=== PATIENT | male | born 1965 | race Caucasian/White ===

== ENCOUNTER 2017-05-29 22:40 | Inpatient (IN) | payer MEDICAID ==
[2017-05-29] MEDS ORDERED: NS 1,000 ML IV ONE (22:46)
[2017-05-29] MEDS ORDERED: ONDANSETRON 4 MG/2 ML VIAL IVP ONE (22:46)
--- NOTE | 2017-05-29 22:49 | EDPHY ---
H & P Time Seen by Provider: 05/29/17 22:50 HPI/ROS: HPI CHIEF COMPLAINT: Alcohol Intoxication HISTORY OF PRESENT ILLNESS: Patient is a 52-year-old male, homeless, history of alcoholism, presents to the emergency room by EMS after he was found down in front of a [email or web address] parking lot. According to EMS he had a witnessed fall by bystanders, he fell with head strike in the parking lot. He arrives in a cervical collar. He is very lethargic and smells of alcohol. EMS reports that he had multiple liquor bottles around him. No visible external trauma on exam, but arrives. Upon arrival to the emergency room the patient has stable vital signs blood sugar was 123 prior to arrival. He is intoxicated. Unable to participate in history or review of systems. It is unclear how much alcohol he has had today. Patient appears to be very sleepy. Past Medical History: Homeless, alcoholism Past Surgical History: Unknown surgical history Social History: Homeless, daily alcohol use Family History: Unknown ROS REVIEW OF SYSTEMS: Limited due to patient's intoxication. Exam Constitutional Intoxicated, triage nursing summary reviewed, vital signs reviewed, lethargic upon arrival, smells of alcohol tachycardic Eyes normal conjunctivae and sclera, horizontal beating nystagmus consistent acute alcohol intoxication, otherwise pupils equal and react to light 3-4 mm equal. HENT oropharynx edentulous head/neck in rigid cervical collar placed by EMS. No obvious step-offs. Head shows no significant trauma on exam. Respiratory clear to auscultation bilaterally, normal breath sounds, no respiratory distress, no wheezing. Cardiovascular tachycardic, regular rhythm, no murmur, no edema, distal pulses normal. Gastrointestinal large abdomen, soft, non-tender, no rebound, no guarding, normal bowel sounds, no distension, no pulsatile mass. Genitourinary no CVA tenderness. Musculoskeletal no midline vertebral tenderness, full range of motion, no calf swelling, no tenderness of extremities, no meningismus, good pulses, neurovascularly intact. Skin pitting edema bilaterally with slight erythema to bilateral lower extremities. Neurologic very lethargic, intoxicated with alcohol. Differential Diagnosis: Includes but is not limited to in a particular order acute alcohol intoxication, alcohol abuse, dehydration, electrolyte abnormality , nausea vomiting from acute alcohol intoxication, intracranial bleed, traumatic injury, respiratory failure Medical Decision Making: Plan for this patient will proceed with CT scan head and neck without contrast for trauma, check serum alcohol level, IV establishment with blood draw, full surveillance monitor, pulse ox, watch closely for further sedation, IV fluids 1 L normal saline, Zofran for nausea and re- evaluate Re-evaluation: 2317: Patient back from CT. It is noted his heart rate is going up in the 130s to 150s, He appears to have more labored breathing. He is currently now at this time unresponsive to painful stimuli. Does not move anything. I have moved him from ER room 13 to ER room 2 for emergency intubation due to him having worsening vital signs, worsening resp. status, and being unresponsive , ETOH 500 Reason for intubation unresponsive, acute alcohol intoxication, respiratory failure. 2322: Patient is unresponsive. He does not respond to any painful stimuli. Patient in ER room 2. Heart rate currently 140. Pulse ox 97% on non- rebreather. Respiratory rate 30. Secretions in the oropharynx Being suctioned. Critical Care: Total Critical Care Time Spent Managing this Patient: 65 Minutes. This time was spent Exclusively with this patient. This Care was exclusive of procedures. The Organ System/life at risk was cardiac and respiratory This Patient was in Critical Condition because respiratory failure due to acute alcohol intoxication 2337: Patient was intubated with direct laryngoscopy with a MAC 4 blade. I was able to use the MAC 4 blade heard directly visualize the cords. A 7.5 endotracheal tube was placed directly through the cords. There was good color change. Humidified air. And chest x-ray was used to confirm tube placement. Patient CT scan head and neck initial scans were not able to be fully read limited due to motion artifact probably from respiratory motion. Patient after intubation will proceed back to CT scan head without contrast and CT scan cervical spine without contrast for repeat scans to rule out significant trauma. EKG interpretation by me on record in [employer] system. Impression time of EKG 2340, sinus tachycardia rate of 116 no acute ischemic change appreciated on the EKG. ED x-ray chest one view: Good endotracheal tube placement. OG in place. Bilateral lung churchill are clear. No evidence of pneumothorax. Serum alcohol level noted to be 494 upon arrival to the emergency room. 0100AM: CT scan head and neck repeat are negative for acute traumatic injury called to me by Dr. Mahajan. At this time patient hemodynamically stable improvement of vital signs after intubation. He will go to the ICU to metabolize his alcohol. Source: Patient, EMS - Personal History Tetanus Vaccine Date: <10YRS - Medical/Surgical History Hx Asthma: No Hx Chronic Respiratory Disease: No Hx Diabetes: No Hx Cardiac Disease: No Hx Renal Disease: No Hx Cirrhosis: No Hx Alcoholism: Yes Hx HIV/AIDS: No Hx Splenectomy or Spleen Trauma: No Other PMH: ETOH, Hep C - Social History Smoking Status: Never smoked Constitutional: Initial Vital Signs Temperature (C) 35.9 C L 05/29/17 22:47 Heart Rate 106 H 05/29/17 22:47 Respiratory Rate 14 05/29/17 22:47 Blood Pressure 103/85 H 05/29/17 22:47 O2 Sat (%) 95 05/29/17 22:47 O2 Delivery Mode Non-Rebreather Mask O2 (L/minute) 15 Allergies/Adverse Reactions: penicillin Allergy (Verified 11/18/14 00:22) Home Medications: Medication Instructions Recorded Pantoprazole Sodium [Protonix 40mg 40 mg PO DAILY #30 tab 05/30/17 (*)] Medical Decision Making - Data Points Laboratory Results: Laboratory Results 05/29/17 22:47 05/29/17 22:47 Medications Given: Discontinued Medications Chlorhexidine Gluconate (Peridex) 15 ml PO Q12@08,20 [facility] Stop: 11/26/17 03:14 Last Admin: 05/30/17 08:13 Dose: 15 ml Enoxaparin Sodium (Lovenox) 40 mg SC DAILY JOHAN Stop: 11/26/17 08:59 Last Admin: 05/30/17 08:13 Dose: 40 mg Etomidate (Etomidate) 20 mg IVP ONCE ONE Stop: 05/30/17 00:17 Last Admin: 05/30/17 01:21 Dose: Not Given Etomidate (Etomidate) 20 mg IVP ONCE ONE Stop: 05/30/17 23:56 Last Admin: 05/29/17 23:55 Dose: 20 mg Sodium Chloride (Ns) 1,000 mls @ 0 mls/hr IV EDNOW ONE; Wide Open PRN Reason: Protocol Stop: 05/29/17 22:47 Last Admin: 05/29/17 23:04 Dose: 1,000 mls Propofol (Diprivan 10 Mg/Ml (Premix)) 50 mls @ 0 mls/hr IV EDNOW ONE; As Directed PRN Reason: Protocol Stop: 05/29/17 23:37 Last Admin: 05/30/17 00:55 Dose: 50 mls Sodium Chloride (Ns) 1,000 mls @ 125 mls/hr IV CONT JOHAN Stop: 11/26/17 00:14 Last Admin: 05/30/17 01:28 Dose: 1,000 mls Propofol (Diprivan 10 Mg/Ml (Premix)) 100 mls @ 0 mls/hr IV CONT JOHAN; Titrate PRN Reason: Protocol Stop: 11/26/17 00:29 Last Admin: 05/30/17 01:28 Dose: 100 mls Thiamine HCl 500 mg/ Sodium (Chloride) 505 mls @ 505 mls/hr IV DAILY JOHAN Stop: 06/02/17 00:14 Last Admin: 05/30/17 03:50 Dose: Not Given Fentanyl/Sodium Chloride (Fentanyl 10 Mcg/Ml (Premix)) 100 mls @ 0 mls/hr IV CONT JOHAN; As Directed PRN Reason: Protocol Stop: 06/09/17 00:59 Last Admin: 05/30/17 01:29 Dose: 100 mls Potassium Chloride 10 meq/ (Sodium Chloride) 100 mls @ 100 mls/hr IV Q1H JOHAN Stop: 05/30/17 05:44 Last Admin: 05/30/17 05:00 Dose: 100 mls Magnesium Sulfate/Dextrose (Magnesium Sulf 1 Gm (Premix)) 100 mls @ 100 mls/hr IV ONCE ONE Stop: 05/30/17 08:32 Last Admin: 05/30/17 08:13 Dose: 100 mls Calcium Gluconate 1 gm/ (Dextrose) 60 mls @ 120 mls/hr IV ONCE ONE Stop: 05/30/17 10:29 Last Admin: 05/30/17 10:12 Dose: 60 mls Lorazepam (Ativan Injection) 0 mg IVP Q1H PRN; Protocol PRN Reason: Alcohol Withdrawal w/IV access Stop: 11/26/17 00:10 Last Admin: 05/30/17 16:18 Dose: 2 mg Ondansetron HCl (Zofran) 4 mg IVP EDNOW ONE Stop: 05/29/17 22:47 Last Admin: 05/29/17 23:05 Dose: 4 mg Ondansetron HCl (Zofran) 4 mg IVP ONCE ONE Stop: 05/30/17 00:18 Last Admin: 05/30/17 02:12 Dose: Not Given Pantoprazole Sodium (Protonix) 40 mg IVP ONCE ONE Stop: 05/30/17 03:01 Last Admin: 05/30/17 03:36 Dose: 40 mg Pantoprazole Sodium (Protonix) 40 mg IVP BID [facility] Stop: 11/26/17 08:59 Last Admin: 05/30/17 08:13 Dose: 40 mg Potassium Chloride (Klor-Con) 40 meq TUBE ONCE ONE Stop: 05/30/17 10:01 Last Admin: 05/30/17 10:20 Dose: 40 meq Propofol (Diprivan) 40 mg IVP EDNOW ONE Stop: 05/30/17 23:56 Last Admin: 05/30/17 00:00 Dose: 40 mg Propofol (Diprivan) 40 mg IVP EDNOW ONE Stop: 05/30/17 00:36 Last Admin: 05/30/17 01:22 Dose: Not Given Succinylcholine Chloride (Quelicin) 100 mg IVP ONCE ONE Stop: 05/30/17 23:56 Last Admin: 05/29/17 23:55 Dose: 100 mg Thiamine HCl (Vitamin B-1) 100 mg PO DAILY [facility] Stop: 11/26/17 08:59 Last Admin: 05/30/17 10:39 Dose: Not Given Thiamine HCl (Vitamin B-1) 100 mg TUBE DAILY [facility] Stop: 11/26/17 08:59 Last Admin: 05/30/17 10:28 Dose: 100 mg Departure - Departure Disposition: Home, Routine, Self-Care Clinical Impression: Tachycardia Alcoholic intoxication Qualifiers: Complication of substance-induced condition: uncomplicated Qualified Code(s): F10.920 - Alcohol use, unspecified with intoxication, uncomplicated Respiratory failure Qualifiers: Chronicity: acute Respiratory failure complication: hypoxia Qualified Code(s): J96.01 - Acute respiratory failure with hypoxia Condition: Good
[2017-05-29 22:55] LABS: PLATELET COUNT 155 10^3/uL (150-400)
[2017-05-29] MEDS ORDERED: PROPOFOL/EMULSION 50 ML IV ONE (23:36)
--- NOTE | 2017-05-30 00:04 | CPEKG ---
Heart Rate: 116 RR Interval: 517 P-R Interval: 152 QRSD Interval: 102 QT Interval: 356 QTC Interval: 495 P [place]: 49 QRS [place]: 246 T Wave [place]: 52 EKG Severity - ABNORMAL ECG - EKG Impression: SINUS TACHYCARDIA EKG Impression: SUPERIOR QRS AXIS EKG Impression: CONSIDER RIGHT VENTRICULAR HYPERTROPHY EKG Impression: BORDERLINE PROLONGED QT INTERVAL Electronically Signed By: Bry Hernandez 31-May-2017 20:40:20
[2017-05-30] MEDS ORDERED: ONDANSETRON 4 MG/2 ML VIAL IVP PRN (00:07)
[2017-05-30] MEDS ORDERED: LORazepam 2 MG/ML INJ IVP PRN (00:11)
[2017-05-30] MEDS ORDERED: NS 1,000 ML IV SCH (00:15)
[2017-05-30] MEDS ORDERED: THIAMINE HCL 500 MG in NS 500 ML IV SCH (00:15)
[2017-05-30] MEDS ORDERED: SUCCINYLCHOLINE CHLORIDE 200 MG/10 ML VIAL IVP ONE (00:16)
[2017-05-30] MEDS ORDERED: ETOMIDATE 40 MG/20 ML INJ IVP ONE ×2 (00:16→23:55)
[2017-05-30] MEDS ORDERED: ONDANSETRON 4 MG/2 ML VIAL IVP ONE (00:17)
[2017-05-30] MEDS ORDERED: PANTOPRAZOLE SODIUM 40 MG VIAL IVP ONE ×2 (00:24→03:00)
[2017-05-30] MEDS ORDERED: DEXMEDETOMIDINE IN 0.9 % NACL 50 ML IV SCH (00:30)
[2017-05-30] MEDS ORDERED: PROPOFOL/EMULSION 100 ML IV SCH (00:30)
[2017-05-30] MEDS ORDERED: PROPOFOL 200 MG/20 ML VIAL IVP ONE ×2 (00:35→23:55)
[2017-05-30] MEDS ORDERED: PROTOCOL MAGNESIUM 1 DOSE IV PRN (00:37)
[2017-05-30] MEDS ORDERED: PROTOCOL K PHOSPHATE 1 DOSE IV PRN (00:37)
[2017-05-30] MEDS ORDERED: PROTOCOL CALCIUM 1 DOSE IV PRN (00:37)
[2017-05-30] MEDS ORDERED: PROTOCOL POTASSIUM 1 DOSE MISC PRN (00:37)
--- NOTE | 2017-05-30 00:51 | PDGENHP ---
History and Physical - Chief Complaint Fall, unresponsive - History of Present Illness Source-patient is intubated and unresponsive. Case discussed with ED provider and EMR was reviewed. HPI - this is a 52-year-old gentleman with past medical history significant for alcohol dependence, HCV who is homeless and presents via EMS after he was found unresponsive following a fall. Patient apparently had been pain around the [employer]. He was ambulating and had a witnessed fall by bystanders. EMS arrived and brought the patient to the emergency department. It was noted that he had multiple bottles of alcohol surrounding him and had strong odor of alcohol. In the ED, patient remained lethargic and minimally responsive. He developed tachycardia to the 140s to 150s. He also had noted increased work of breathing. CT head and neck were limited secondary to motion artifact. Patient was subsequently intubated and placed on sedation. Additionally, patient had an episode of emesis post intubation. There is no report of any emesis prior to patient being intubated. History Information - Allergies/Home Medication List Allergies/Adverse Reactions: penicillin Allergy (Verified 11/18/14 00:22) Home Medications: NK [No Known Home Meds] 11/18/14 [Last Taken Unknown] I have personally reviewed and updated: medical history, social history Past Medical History: Unable to complete has due to patient being intubated. Chart was reviewed. No family listed. - Past Medical History Additional medical history: HCV, alcohol dependence, bolus emphysema noted on CT - Surgical History Additional surgical history: None listed in previous records however patient does have a scar surgical scar on his left medial ankle. - Family History Additional family history: unable to obtain 2/2 to pt intubated and unresponsive - Social History Smoking Status: Never smoked Alcohol Use: Heavy (Amount unknown) Drug Use: Other (Unknown) Additional social history: Patient currently homeless. Review of Systems Review of Systems: Unable to obtain review of systems secondary to patient arriving unresponsive and currently intubated and sedated. Physical Exam Physical Exam: Temp Pulse Resp BP Pulse Ox 35.9 C L 106 H 14 103/85 H 95 05/29/17 22:47 05/29/17 22:47 05/29/17 22:47 05/29/17 22:47 05/29/17 22:47 Constitutional: no apparent distress, chronically ill appearing, other (Patient intubated and sedated. Unresponsive to painful stimuli. Patient appears older than stated age and chronically ill. He is disheveled and malodorous.) Eyes: anicteric sclera, other (Pupils minimally reactive.) Ears, Nose, Mouth, Throat: poor dentition, dry mucous membranes, other (ET tube and OG T in place) Cardiovascular: no murmur, rub, or gallop, tachycardia (One 100s), edema (1+), other (Limited cardiac exam secondary to distant heart sounds.) Peripheral Pulses: 1+: dorsalis-pedis (R), dorsalis-pedis (L) Respiratory: no respiratory distress (Intubated), reduced air movement ( Bibasilar), inspiratory crackles, No clear to auscultation, No expiratory wheeze , No respiratory distress Gastrointestinal: other (Hypoactive bowel sounds, obese abdomen.) Genitourinary: gaytan in urethra Skin: warm, erythema (Bilateral anterior legs. Blanchable.), No mottled, No rash Musculoskeletal: other (Unable to obtain 2/2 patient's intubation and sedation) Neurologic: other (Unable to obtain 2/2 patient intubated sedated) Lab Data & Imaging Review 05/29/17 22:47 05/29/17 22:47 WBC 6.62 10^3/uL (3.80-9.50) 05/29/17 22:47 RBC 4.70 10^6/uL (4.40-6.38) 05/29/17 22:47 Hgb 15.9 g/dL (13.7-17.5) 05/29/17 22:47 Hct 47.0 % (40.0-51.0) 05/29/17 22:47 MCV 100.0 fL (81.5-99.8) H 05/29/17 22:47 MCH 33.8 pg (27.9-34.1) 05/29/17 22:47 MCHC 33.8 g/dL (32.4-36.7) 05/29/17 22:47 RDW 13.8 % (11.5-15.2) 05/29/17 22:47 Plt Count 155 10^3/uL (150-400) 05/29/17 22:47 MPV 10.4 fL (8.7-11.7) 05/29/17 22:47 Neut % (Auto) 49.8 % (39.3-74.2) 05/29/17 22:47 Lymph % (Auto) 29.3 % (15.0-45.0) 05/29/17 22:47 Garland % (Auto) 16.6 % (4.5-13.0) H 05/29/17 22:47 Eos % (Auto) 2.6 % (0.6-7.6) 05/29/17 22:47 Baso % (Auto) 0.9 % (0.3-1.7) 05/29/17 22:47 Nucleat RBC Rel Count 0.0 % (0.0-0.2) 05/29/17 22:47 Absolute Neuts (auto) 3.30 10^3/uL (1.70-6.50) 05/29/17 22:47 Absolute Lymphs (auto) 1.94 10^3/uL (1.00-3.00) 05/29/17 22:47 Absolute Monos (auto) 1.10 10^3/uL (0.30-0.80) H 05/29/17 22:47 Absolute Eos (auto) 0.17 10^3/uL (0.03-0.40) 05/29/17 22:47 Absolute Basos (auto) 0.06 10^3/uL (0.02-0.10) 05/29/17 22:47 Absolute Nucleated RBC 0.00 10^3/uL (0-0.01) 05/29/17: Immature Gran % 0.8 % (0.0-1.1) 05/29/17 22:47 Immature Gran # 0.05 10^3/uL (0.00-0.10) 05/29/17 22:47 Puncture Site LEFT RADIAL 05/29/17 23:50 Patient Temperature 37.0 DEGREES 05/29/17 23:50 pCO2 51 mmHg (34-38) H 05/29/17 23:50 pO2 115 mmHg (65-75) H 05/29/17 23:50 Total CO2 24 mEq/L (23-27) 05/29/17 23:50 ABG pH 7.26 (7.35-7.45) L 05/29/17 23:50 ABG PO2/FiO2 Ratio 288 RATIO 05/29/17 23:50 ABG HCO3 22 mEq/L (22-26) 05/29/17 23:50 ABG O2 Saturation 96 % (92-95) H 05/29/17 23:50 ABG Base Excess -5.2 mEq/L (-2.5-2.5) L 05/29/17 23:50 O2 Concentration % 40 % (0-100) 05/29/17 23:50 Actual Respiration Rate 18 05/29/17 23:50 Set Respiration Rate 16 05/29/17 23:50 SIMV YES 05/29/17 23:50 Tidal Volume 550 05/29/17 23:50 End Tidal CO2 35 05/29/17 23:50 PEEP 5 05/29/17 23:50 Peak Inspir Pressure 13 05/29/17 23:50 Pressure Support 7 05/29/17 23:50 Sodium 148 mEq/L (135-145) H 05/29/17 22:47 Potassium 3.4 mEq/L (3.5-5.2) L 05/29/17 22:47 Chloride 110 mEq/L (97-110) 05/29/17 22:47 Carbon Dioxide 22 mEq/l (22-31) 05/29/17 22:47 Anion Gap 16 mEq/L (8-16) 05/29/17 22:47 BUN 10 mg/dL (7-23) 05/29/17 22:47 Creatinine 0.9 mg/dL (0.7-1.3) 05/29/17 22:47 Estimated GFR > 60 05/29/17 22:47 Glucose 104 mg/dL (70-100) H 05/29/17 22:47 Calcium 9.3 mg/dL (8.5-10.4) 05/29/17 22:47 Phosphorus 3.8 mg/dL (2.5-4.5) 05/29/17 22:47 Magnesium 2.0 mg/dL (1.6-2.3) 05/29/17 22:47 Total Bilirubin 0.5 mg/dL (0.1-1.4) 05/29/17 22:47 Conjugated Bilirubin 0.4 mg/dL (0.0-0.5) 05/29/17 22:47 Unconjugated Bilirubin 0.1 mg/dL (0.0-1.1) 05/29/17 22:47 AST 153 IU/L (17-59) H 05/29/17 22:47 ALT 142 IU/L (21-72) H 05/29/17 22:47 Alkaline Phosphatase 138 IU/L (38-126) H 05/29/17 22:47 Troponin I < 0.012 ng/mL (0.000-0.034) 05/29/17 22:47 Total Protein 6.8 g/dL (6.3-8.2) 05/29/17 22:47 Albumin 3.7 g/dL (3.5-5.0) 05/29/17 22:47 Urine Opiates Screen NEGATIVE (NEGATIVE) 05/30/17 00:00 Urine Barbiturates NEGATIVE (NEGATIVE) 05/30/17 00:00 Ur Phencyclidine Scrn NEGATIVE (NEGATIVE) 05/30/17 00:00 Ur Amphetamine Screen NEGATIVE (NEGATIVE) 05/30/17 00:00 U Benzodiazepines Scrn NON-NEGATIVE (NEGATIVE) H 05/30/17 00:00 Urine Cocaine Screen NEGATIVE (NEGATIVE) 05/30/17 00:00 U Marijuana (THC) Screen NEGATIVE (NEGATIVE) 05/30/17 00:00 Ethyl Alcohol 494 mg/dL (0-10) H* 05/29/17 22:47 Imaging Review: Addendum Impression: Head CT: 1. No acute intracranial abnormalities. 2. Mild generalized volume loss. 3. Chronic fracture deformity of the right dynamic arch. Cervical Spine: 1. No acute abnormalities. 2. Multilevel degenerative changes and foraminal stenoses, as above. 3. Cannot exclude ligament, spinal cord and/or vascular abnormalities on this exam. If there is persistent pain or neurologic deficit, consider MRI of the cervical spine. Dr. Mahajan discussed these findings by telephone with Kenneth Hedrick MD on at 0113 hours. Addendum Dictated By: Scar Mahajan MD *This report was compiled using a voice recognition dictation system and may contain typographical errors* T:PSCRIBE 05/30/1754 Electronically Signed by:Scar Mahajan MD 05/30/17116 CC: Kenneth Hedrick MD; Patient,NotPresent; Sylvie Walters MD Addendum The CT head and cervical spine were repeated due to motion artifact on the earlier exam. History, comparison exam and technique are unchanged. Findings: CT head: Scalp/skull: Fracture deformity of the right zygomatic arch, stable since 03/19/2016. Brain sulci: Mildly prominent. Ventricles: Normal in size and configuration. No hydrocephalus. Extra-axial spaces: No masses or fluid collections. Parenchyma: No abnormal densities. No CT evidence of mass, hemorrhage or acute or chronic territorial vascular insult. Dural sinuses: No abnormal densities. Sellar/suprasellar region: Intact. Skull base and craniocervical junction: Intact. CT cervical spine: Fractures: None. Craniocervical junction: Patent foramen magnum. No Chiari 1 malformation. Alignment: Normal lordosis. No scoliosis. Posterior longitudinal ligament: Not ossified. Soft tissues: No abnormalities. Vertebrae: No CT evidence of infection or neoplasm. Degenerative changes: Multilevel degenerative disk disease throughout, most apparent from C3 through C7. Foraminal stenosis secondary to uncovertebral arthrosis, moderate on the right and mild on the left at C3-C4, severe on the right and mild on the left at C4-C5, severe bilaterally at C5-C6, and mild on the left at C6-C7. Incidental findings: Interval placement of partially visualized endotracheal and orogastric tubes. Debris/fluid in the posterior naso and oropharynx. Mild inflammatory mucosal thickening of the paranasal sinuses. Biapical bullous emphysema. Chest 1 View, 05/29/2017 History: Intubation unresponsive Comparison: None Findings: Single portable AP view of the chest is submitted for interpretation. Lines/tubes: Endotracheal tube terminates overlying the trachea approximately 2.2 cm above the monica. Lungs: Low lung volumes. Pulmonary venous congestion. Subtle right upper lobe opacities. Pleura: No pleural effusion or pneumothorax. Heart and mediastinum: Cardiomediastinal silhouette is within normal limits for technique. Bones and soft tissues: No acute osseous abnormalities. Soft tissues are grossly normal.. . Impression: 1. Endotracheal tube terminates overlying the trachea approximately 2.2 cm above the monica. 2. Subtle right upper lobe opacities, possibly aspiration. 3. Pulmonary venous congestion. KUB-image reviewed and report is still pending. Feeding tube ends in the stomach. Normal bowel gas pattern. Ascites. No free air under the diaphragm is appreciated upon my read. Radiology report is pending. EKG additional interpertation: Sinus tachycardia in the 110s. No acute ST changes. QTC 495. Assessment & Plan Assessment: acute encephalopathy - mostly likely related to acute alcohol intoxication versus hypercarbia or combination thereof. CT head was repeated after patient was intubated and sedated. There is no evidence of acute process noted per Radiology. Patient and is now intubated and requiring some sedation once he is more medically stable. Alcoholic intoxication (Acute) - alcohol level nearly 500. Patient is a placed on CIWA protocol. He is currently sedated and intubated. Continue with aggressive IV fluid hydration. IV thiamine is currently on back order. Patient does have an NG tube in place however he has a thing at active emesis once this is stabilized will consider putting through the tube feed. Respiratory failure (Acute) hypercapnic - patient is status post intubation. He does have evidence of bolus emphysema on imaging studies available. He does not have any wheezing on exam. DuoNeb will be available p.r.n. Additionally patient did have a episodes of emesis in the emergency department. This was after he was intubated. He does have evidence of aspiration on chest x-ray but has not had any fever so will hold off on antibiotics. G-tube is in place and plan put on intermittent suction. Patient started on PPI therapy. Tachycardia (Acute) - secondary to acute alcohol intoxication and acute respiratory failure. Heart rate since improved status post intubation and some sedation. EKG without evidence of acute cardiac process. Lower extremity edema-baseline is unknown. Will obtain a CK and a venous ultrasound this patient does have some blanchable erythema and swelling. Bolus emphysema-noted on CT neck. Patient EMR lists that patient is a nonsmoker unknown if he had any history. DuoNeb available p.r.n.. Patient is currently intubated. Aspiration-patient with some possibly coffee-ground appearing drainage from his NG tube. Will obtain occult blood. Proton prompt pump in therapy twice daily. Given his acute encephalopathy will try to avoid H2 blockers at this time. Will need to monitor patient's electrolytes and the including magnesium with the PPI. Hyponatremia-likely related to acute dehydration and hypovolemia. Patient will receive IV fluid hydration and will plan to repeat sodium with a BMP in the morning. May need to transition fluids to hypotonic formulation if worsening status. Hypokalemia-mild in setting of alcohol intoxication will need to monitor all electrolytes closely and replace per protocol. Transaminitis-secondary to alcohol dependence possible underlying cirrhosis or acute alcoholic hepatitis. FEN - continue aggressive IV fluid hydration as noted above. Will monitor electrolytes and replace if needed. Patient is NPO with OGT in place. PPX - SCDs. possible upper GI bleeding with recent emesis. obtaining occult blood. if negative then will initiate dvt ppx. protonix as noted above. COR - no next of kin is listed. Will assume that code status is full at this time until further discussions can be obtained with the patient when he is stabilized and Dispo - patient has been admitted to inpatient status in the ICU. He is critically ill and requiring intubation and has acute ICU care needs. Anticipate greater than 2 midnight stay.
[2017-05-30] MEDS ORDERED: fentaNYL/NACL 100 ML IV SCH (01:00)
[2017-05-30] MEDS ORDERED: SUCCINYLCHOLINE CHLORIDE 200 MG/10 ML SYR IVP ONE ×2 (01:03→23:55)
[2017-05-30] MEDS ORDERED: IPRATROPIUM/ALBUTEROL 3 ML DEYVIAL IH PRN (01:04)
[2017-05-30] MEDS: POTASSIUM Cl (KCl) 10 MEQ in NS 100 ML IV SCH ×3 (02:29→05:00)
[2017-05-30] MEDS: CHLORHEXIDINE GLUCONATE 15 ML UDL PO SCH ×2 (03:35→08:13)
[2017-05-30 06:47] LABS: PLATELET COUNT 122 10^3/uL (150-400)
[2017-05-30 06:58] LABS: CREATINE KINASE 129 IU/L (0-224)
[2017-05-30 06:59] LABS: INR 1.06 (0.83-1.16)
[2017-05-30] MEDS ORDERED: CALCIUM GLUCONATE 50 ML IV ONE (07:33)
[2017-05-30] MEDS ORDERED: MAGNESIUM SULF 1 GM/DEXTROSE 100 ML IV ONE (07:33)
[2017-05-30] MEDS ORDERED: POTASSIUM Cl (KCl) 100 ML IV SCH (07:45)
[2017-05-30] MEDS ORDERED: ENOXAPARIN 40 MG/0.4 ML SYR SC SCH (09:00)
[2017-05-30] MEDS ORDERED: PANTOPRAZOLE SODIUM 40 MG VIAL IVP SCH (09:00)
[2017-05-30] MEDS ORDERED: THIAMINE HCL 100 MG TAB PO SCH (09:00)
[2017-05-30] MEDS ORDERED: POTASSIUM Cl (KCl) 10 MEQ in NS 100 ML IV SCH (09:30)
[2017-05-30] MEDS ORDERED: CALCIUM GLUCONATE 1 GM in D5W 50 ML IV ONE (10:00)
[2017-05-30] MEDS ORDERED: POTASSIUM CL 20 MEQ TAB TUBE ONE (10:00)
--- NOTE | 2017-05-30 10:29 | PDMN ---
Medical Necessity Medical necessity: Pt meets IP criteria per MD; est los >2 mn for eval/tx of acute encephalopathy, hypercapnic respiratory failure, tachycardia, alcohol intoxication, LE edema & aspiration; pt critically ill & unresponsive; requiring intubation & NG tube; admit to ICU for close monitoring/further workup & aggressive IVFs; hx alcoholism, homelessness & bolus emphysema; per H& P & order 05/30/17
[2017-05-30 11:26] VITALS: TEMP 96.8
[2017-05-30] MEDS ORDERED: NICOTINE 21 MG/24 HR PATCH TD SCH (12:15)
[2017-05-30] MEDS ORDERED: POTASSIUM Cl (KCl) 40 MEQ in D5W 1/2 NS 1,000 ML IV SCH (12:30)
--- NOTE | 2017-05-30 13:03 | GCON ---
[f rep st] CONSULTATION DATE OF CONSULTATION: 05/30/2017 REFERRING PHYSICIAN: Alondra Rasmussen MD PULMONARY/CRITICAL CARE CONSULTATION REASON FOR REFERRAL: Evaluation and management of respiratory failure. HISTORY OF PRESENT ILLNESS: Mr. Foreman is a 52-year-old male with a history of alcohol abuse and he patitis, who is homeless. He was apparently at [facility] and appeared intoxicated. He had a witnes sed fall. He was brought to the emergency department and was lethargic and minimally responsive with tachycardia. Because inability to protect his airway, he was intubated. The patient had an episode of emesis after intubation, but there was no report of emesis prior to intubation. Overnight, he has be en sedated and has been fairly stable. He started to wake up. He nods his head appropriately to some simple questions. PAST MEDICAL HISTORY: 1. Hepatitis C. 2. Alcohol abuse. MEDICATIONS: At time of admission, no known medications. ALLERGIES: Penicillin. SOCIAL HISTORY: The patient is homeless. He has a history of alcohol abuse. There is no known histor y of smoking. REVIEW OF SYSTEMS: Unobtainable. PHYSICAL EXAMINATION: GENERAL: The patient is intubated and sedated. He nods appropriately to some s imple questions, but is a bit inconsistent. VITAL SIGNS: His blood pressure is 95/67, his heart rate is 82. He is afebrile. Oxygen saturations are 99% on 40% oxygen. HEENT: Normocephalic and atraumatic. No icterus. NECK: His C-collar is in place. No adenopathy. CHEST: Clear to auscultation. CARDIAC: Re gular rate and rhythm without murmur. ABDOMEN: Soft and nontender. Bowel sounds are present. EXTREMIT IES: No clubbing, cyanosis, or edema. LABORATORY: Hemoglobin is 13.3, down from 15.9. White blood count is 4.5. A sodium is 150, up from 1 48. A potassium is 3.2. A carbon dioxide level is 16, creatinine 0.6, a calcium is 6.6 with an albumi n of 2.2. An AST is 182, up from 153. An INR is 1.1. An arterial blood gas shows a pH of 7.39, with a pO2 of 110, a CO2 of 33, and a bicarbonate of 20. An IMV with a rate of 18 and tidal volume of 550, 40% oxygen. An alcohol level was 494 at admission. IMAGING: A chest x-ray shows some mild infiltrate in the left base. Images were reviewed by me. CT s can of the head shows some mild generalized volume loss. A cervical spine CT scan shows no acute abno rmalities, but cannot exclude spinal injury. ASSESSMENT: 1. Acute alcohol intoxication. The patient has a history of chronic alcohol use. He was admitted wit h a fall and inability to protect his airway. He has been waking up a bit more now. 2. Acute respiratory failure. This was due to inability to protect his airway, with vomiting after i ntubation. There is no history of vomiting prior to intubation or aspiration. His gas exchange is shaina rly good right now and his mental status is more alert, although still probably not at baseline. He d id fairly well with a weaning trial, although he had an episode of emesis. 3. Status post fall. He has no evidence of intracranial hemorrhage. His C-spine has not been cleared and he still has a collar on. 4. Hypernatremia. The patient's sodium was a bit high on admission and has climbed up a bit overnigh t. His IV fluids are D5 half-normal saline with potassium. I expect this will start to correct once h e is fully rehydrated. 5. Hypokalemia. This is mild. The patient is on IV potassium. RECOMMENDATIONS: 1. We will try CPAP again, and possibly extubate. 2. IV fluids will be continued. His potassium will be replaced. 3. He is at risk for alcohol withdrawal, and CIIA protocol will be instituted if he has signs/sympto ms of withdrawal. /[id number]/MODL
--- NOTE | 2017-05-30 13:59 | SOAPPROG ---
SOAP Progress Note Assessment/Plan: Assessment: 52 year almost alcoholic who was intubated overnight because of blood alcohol of 500 and being found down. This time no evidence of any trauma. Cervical collar is removed and neck is cleared under protocol with a clear CT scan and no pain or clinical features involving his neck Plan: DC cervical collar 05/30/17 13:57 Objective: Vital Signs Temp Pulse Resp BP Pulse Ox 36.0 C 114 H 17 124/90 H 100 05/30/17 10:00 05/30/17 13:00 05/30/17 13:00 05/30/17 13:00 05/30/17 13:00 Laboratory Results 05/30/17 06:30 05/30/17 06:30 05/29/17 05/30/17 05/31/17 05:59 05:59 05:59 Intake Total 3021 Output Total 575 Balance 2446 PT 14.0 SEC (12.0-15.0) 05/30/17 06:30 INR 1.06 (0.83-1.16) 05/30/17 06:30 ICD10 Worksheet Patient Problems: Problems Problem Status Onset Alcoholic intoxication Acute Respiratory failure Acute Tachycardia Acute
--- NOTE | 2017-05-30 14:31 | HOSPPROG ---
Hospitalist Progress Note Assessment/Plan: # acute encephalopathy - admission presume secondary to acute alcohol intoxication with a blood alcohol level of 494 in the emergency department Patient successfully extubated this afternoon and is mentating normally- is clearly no longer gravely disabled or an imminent threat to himself - will vacate 72 hr hold - continue p.o. Thiamine - monitor for impending alcohol withdrawal # Respiratory failure (Acute) hypercapnic - cxr (personally reviewed and interpreted) no acute infiltrates on vent oxygen saturations 100% on 40% FiO2 Successfully extubated this morning - continue duo nebs - speech therapy swallow evaluation # witnessed fall- patient brought to emergency department after witnessed fall in a grocery store Hard neck collar in place-CT head and spine without acute trauma - have Trauma surgery of bowel to clear neck collar # hypernatremia-sodium 150 suspect secondary to poor free water intake with acute intoxication - change normal saline to D5 half NS for gradual correction overnight #Hypokalemia-mild in setting of alcohol intoxication will need to monitor all electrolytes closely and replace per protocol. #Transaminitis-secondary to acute alcoholic hepatitis. FEN -NPO speech developed post extubation PPX - SCDs. I have discussed case with the RN-we will address Trauma surgery to eval patient postextubation to clear neck collar Subjective: Agitated post extubation Objective: Vital Signs Temp Pulse Resp BP Pulse Ox 36.0 C 114 H 17 124/90 H 100 05/30/17 10:00 05/30/17 13:00 05/30/17 13:00 05/30/17 13:00 05/30/17 13:00 Laboratory Results 05/30/17 06:30 05/30/17 06:30 05/29/17 05/30/17 05/31/17 05:59 05:59 05:59 Intake Total 3021 Output Total 575 Balance 2446 PT 14.0 SEC (12.0-15.0) 05/30/17 06:30 INR 1.06 (0.83-1.16) 05/30/17 06:30 - Physical Exam Constitutional: chronically ill appearing Eyes: anicteric sclera Ears, Nose, Mouth, Throat: dry mucous membranes Cardiovascular: tachycardia Respiratory: rhonchi Gastrointestinal: normoactive bowel sounds Genitourinary: no bladder fullness Skin: warm Musculoskeletal: No asymmetric calves Neurologic: No AAOx3 Psychiatric: agitated Lymph, Heme, Immunologic: no cervical LAD ICD10 Worksheet Patient Problems: Problems Problem Status Onset Alcoholic intoxication Acute Respiratory failure Acute Tachycardia Acute
[2017-05-30 15:11] VITALS: RESP 18
[2017-05-30 16:30] VITALS: BP 129/84; PULSE 114; O2SAT 92
[2017-05-31] MEDS ORDERED: THIAMINE HCL 100 MG TAB TUBE SCH (09:00)
--- NOTE | 2017-05-31 16:39 | GDS ---
[f rep st] DISCHARGE SUMMARY DISCHARGE DIAGNOSES: 1. Acute toxic encephalopathy secondary to alcohol intoxication. 2. Acute respiratory failure secondary to alcohol intoxication. 3. Hypernatremia. 4. Hypokalemia. 5. Severe alcohol abuse. 6. Alcohol-related hepatitis. HISTORY OF PRESENT ILLNESS: This is a 52-year-old male who presents on 05/29/2017 with acute encepha lopathy. For details of patient's initial presentation, please see the history and physical dated . CONSULTATIVE SERVICES: 1. Trauma Surgery. 2. Pulmonary/Critical Care. PROCEDURES: On 05/29/2017, patient was intubated for airway protection. HOSPITAL COURSE BY ISSUE: 1. Acute hypoxic respiratory failure: Patient was admitted to the emergency department with severe encephalopathy and was emergently intubated for airway protection. Remained intubated overnight and was quickly extubated the morning after admission. Patient was weaned to room air soon after extubat ion without any pulmonary complications. 2. Acute encephalopathy: Patient presented with a blood alcohol level 494 at presentation, which co ntributed to his respiratory failure. Again, was extubated within 12 hours of hospitalization. Ment al status had markedly cleared. Patient requested food, requested a shower, and within 2 hours post extubation was insistent on leaving the hospital. Patient cleared speech evaluation as well as thera pies, although had not had correction of his electrolytes or a full workup for Hemoccult-positive sto ols. Was discharged with recommendations for a proton pump inhibitor and outpatient followup with a primary care provider. 3. Hyponatremia: Suspect secondary to encephalopathy from alcohol abuse and lack of free water inta ke. Patient was instructed to take increased amounts of free water post disposition. 4. Sinus tachycardia: Suspect likely related to evolving alcohol withdrawal during the early part o f his stay. Patient was discharged, and we suspect will likely immediately consume alcohol. MEDICATIONS: At the time of disposition, the recommendation was to take an outpatient PPI. PENDING STUDIES: At the time of this dictation, none. FOLLOWUP APPOINTMENTS: Include with a [id number] primary care provider at [facility]. TIME SPENT: I spent greater than 30 minutes in the planning and coordination of this discharge. /[id number]/MODL
--- NOTE | 2017-06-02 14:26 | GCON ---
[f rep st] CONSULTATION DATE OF CONSULTATION: 05/30/2017 The patient is a 52-year-old male, alcoholic, who was found down and brought to the hospital. He was intubated because of failure to protect his airway. There were no real signs of trauma. His blood alcohol at the time was over 400. He did have a witnessed collapse in front of a [employer]. Since his admission, the night before, he has awakened, sobered up, and wishes to have his C-collar r emoved. I was consulted for that purpose. His neck CT scan was negative. At present, he has full r tad of motion of his neck with no tenderness and no limitations and no neurologic symptoms. His nec k collar was therefore discontinued by protocol. ALLERGIES: Penicillin. MEDICATIONS: None known. PAST MEDICAL HISTORY: Includes alcoholism. PAST SURGICAL HISTORY: There is no known surgical history. REVIEW OF SYSTEMS: Reveals no major medical problems on a full 10-point review of systems, but his m abhi is somewhat unreliable. PHYSICAL EXAM: GENERAL: An alert 52-year-old male in no acute distress. VITAL SIGNS: He is afebri le. HEAD AND NECK: Exam reveals neck to be supple and nontender. Full range of motion. Pupils are normal. Conjunctivae are slightly red. There are no oral lesions. Occlusion is normal. His neck is supple, nontender with full range of motion. CHEST: Clear and symmetric. COR: Regular rhythm. ABDOMEN: Soft and nontender. EXTREMITIES: Reveal full range of motion, full distal pulses and no evidence of trauma. NEUROLOGIC: Also physiologic with no evidence of trauma. IMPRESSION: No evidence of any significant trauma. I suspect his syncopal episode was secondary to alcohol intoxication and his cervical collar could be safely removed at this point. /[id number]/MODL
== END 2017-05-30 17:50 | disposition home or self-care (01) | DRG 917 ==
LOC: EDUNIT# → F2N 05-30 00:50
PROVIDERS: ADMIT Family Medicine; ATTEND Hospitalist
PROC: 5A1935Z Respiratory Ventilation, Less than 24 Consecutive Hours (ICD-10-PCS; principal; 2017-05-29)
PROC: 0BH18EZ Insertion of Endotracheal Airway into Trachea, Via Natural or Artificial Opening Endoscopic (ICD-10-PCS; principal; 2017-05-29)
DX: T51.0X1A Toxic effect of ethanol, accidental (unintentional), initial encounter (principal); F10.229 Alcohol dependence with intoxication, unspecified; J96.01 Acute respiratory failure with hypoxia; E87.0 Hyperosmolality and hypernatremia; E87.6 Hypokalemia; K70.10 Alcoholic hepatitis without ascites; Z59.0 Homelessness
CPT/HCPCS: 80305; G0480; J0330; J0610; J1650; J2060; J2405; J2704; J3010; J3475; J3480

== ENCOUNTER 2017-05-30 23:23 | Emergency (ER) | payer MEDICAID ==
--- NOTE | 2017-05-30 23:34 | EDPHY ---
H & P Time Seen by Provider: 05/30/17 23:26 HPI/ROS: Chief Complaint: Fall, unresponsive HPI: 52-year-old homeless male was found unresponsive on the bathroom floor of a nondenominational this evening. Patient had and a abrasion with bleeding to the bridge of his nose. He was just seen last night with alcohol intoxication and was intubated. He is discharged in intensive care unit to 30 this afternoon. Patient states that he has been drinking heavily since discharge. Denies falls. States that he"fights with his friends". She also suffers from obstructive sleep apnea. No fevers or chills. Complaining of some mild sore throat after intubation. No cough. No nausea or vomiting. ROS: 10 point Review of Systems is negative except as noted in the HPI. PMH: Obstructive sleep apnea, alcoholism, homeless Social History: No smoking, daily heavy alcohol Family History: non-contributory Physical Exam: Gen: Awake, somnolent, answering questions,, Airway Intact HEENT: Head: Atraumatic Eyes: PERRLA, EOMI Nose: No epistaxis Mouth: Normal dentition, Airway patent Face: Has a small abrasion to the bridge of his nose with no active bleeding. No deformity Neck: non-tender, no stepoff, cervical collar in place Chest: non-tender, lungs CTA Heart: normal heart tones Abd: soft, non-tender, atraumatic Pelvis: non-tender, stable to AP and Lateral compression Back: atraumatic, no midline tenderness Ext: atramatic, full ROM Skin: no rash Neuro: CN II-XII intact, Strength 5/5 in all extremities, sensation intact in all extremities - Personal History Tetanus Vaccine Date: <10YRS - Medical/Surgical History Hx Asthma: No Hx Chronic Respiratory Disease: No Hx Diabetes: No Hx Cardiac Disease: No Hx Renal Disease: No Hx Cirrhosis: No Hx Alcoholism: Yes Hx HIV/AIDS: No Hx Splenectomy or Spleen Trauma: No Other PMH: ETOH, Hep C, lung and esophogeal cancer per pt report - Social History Smoking Status: Heavy smoker Constitutional: Initial Vital Signs Temperature (C) 36.7 C 05/30/17 23:23 Heart Rate 109 H 05/30/17 23:23 Respiratory Rate 16 05/30/17 23:23 Blood Pressure 120/90 H 05/30/17 23:23 O2 Sat (%) 95 05/30/17 23:23 O2 Delivery Mode Nasal Cannula O2 (L/minute) 2 Allergies/Adverse Reactions: penicillin Allergy (Verified 11/18/14 00:22) Home Medications: Medication Instructions Recorded Pantoprazole Sodium [Protonix 40mg 40 mg PO DAILY #30 tab 05/30/17 (*)] Medical Decision Making - Diagnostics Imaging Results: CT scan of the head neck show atrophy but no acute bleed or injury per Dr. Linda. Imaging: Discussed imaging studies w/ call center analyst Radiologist ED Course/Re-evaluation: 52-year-old intoxicated male found down. Patient denies falling. Patient states that he injured his nose while fighting with friends. CT scan of his head neck are negative. Laboratory evaluations unremarkable. Will out him to metabolize his alcohol and reassess. Patient is now awake and appropriate. Ambulating unassisted to the bathroom. No current complaints. Patient is tolerating oral fluids. Patient is ready for discharge to discharge cover [facility]. Will discharge with a Librium prepack given his history. - Data Points Laboratory Results: Laboratory Results 05/30/17 23:30 05/30/17 23:30 05/30/17 05/30/17 23:30 23:30 WBC 7.18 10^3/uL 10^3/uL (3.80-9.50) RBC 4.34 10^6/uL L 10^6/uL (4.40-6.38) Hgb 14.8 g/dL g/dL (13.7-17.5) Hct 44.1 % % (40.0-51.0) MCV 101.6 fL H fL (81.5-99.8) MCH 34.1 pg pg (27.9-34.1) MCHC 33.6 g/dL g/dL (32.4-36.7) RDW 14.2 % % (11.5-15.2) Plt Count 138 10^3/uL L 10^3/uL (150-400) MPV 10.3 fL fL (8.7-11.7) Neut % (Auto) 59.8 % % (39.3-74.2) Lymph % (Auto) 21.9 % % (15.0-45.0) Dewitt % (Auto) 14.9 % H % (4.5-13.0) Eos % (Auto) 1.9 % % (0.6-7.6) Baso % (Auto) 0.7 % % (0.3-1.7) Nucleat RBC Rel Count 0.0 % % (0.0-0.2) Absolute Neuts (auto) 4.29 10^3/uL 10^3/uL (1.70-6.50) Absolute Lymphs (auto) 1.57 10^3/uL 10^3/uL (1.00-3.00) Absolute Monos (auto) 1.07 10^3/uL H 10^3/uL (0.30-0.80) Absolute Eos (auto) 0.14 10^3/uL 10^3/uL (0.03-0.40) Absolute Basos (auto) 0.05 10^3/uL 10^3/uL (0.02-0.10) Absolute Nucleated RBC 0.00 10^3/uL 10^3/uL (0-0.01) Immature Gran % 0.8 % % (0.0-1.1) Immature Gran # 0.06 10^3/uL 10^3/uL (0.00-0.10) Sodium 147 mEq/L H mEq/L (135-145) Potassium 3.6 mEq/L mEq/L (3.5-5.2) Chloride 110 mEq/L D mEq/L (97-110) Carbon Dioxide 24 mEq/l D mEq/l (22-31) Anion Gap 13 mEq/L mEq/L (8-16) BUN 9 mg/dL mg/dL (7-23) Creatinine 0.7 mg/dL mg/dL (0.7-1.3) Estimated GFR > 60 Glucose 84 mg/dL mg/dL (70-100) Calcium 9.1 mg/dL D mg/dL (8.5-10.4) Ethyl Alcohol 341 mg/dL H mg/dL (0-10) Departure - Departure Disposition: Home, Routine, Self-Care Clinical Impression: Alcoholic intoxication Condition: Good Instructions: Alcohol Intoxication (ED), Chlordiazepoxide (By mouth) Referrals: [facility],. [Clinic] - As per Instructions
[2017-05-30 23:39] LABS: PLATELET COUNT 138 10^3/uL (150-400)
[2017-05-31] MEDS ORDERED: CHLORDIAZEPOXIDE 25MG PREPK#6 BTL TAKEHOME ONE (03:30)
[2017-05-31 04:25] VITALS: BP 138/94; PULSE 107; RESP 16; TEMP 98.2; O2SAT 90
== END 2017-05-31 04:22 ==
LOC: EDUNIT#
DX: F10.129 Alcohol abuse with intoxication, unspecified (principal); F17.200 Nicotine dependence, unspecified, uncomplicated
CPT/HCPCS: G0480

== ENCOUNTER 2017-06-08 13:57 | Inpatient (IN) | payer MEDICAID ==
--- NOTE | 2017-06-08 14:13 | CPEKG ---
Heart Rate: 130 RR Interval: 462 P-R Interval: 144 QRSD Interval: 98 QT Interval: 312 QTC Interval: 459 P [place]: 53 QRS [place]: 257 T Wave [place]: 66 EKG Severity - ABNORMAL ECG - EKG Impression: SINUS TACHYCARDIA EKG Impression: LEFT ANTERIOR FASCICULAR BLOCK Electronically Signed By: Vane Mendoza 08-Jun-2017 23:03:02
[2017-06-08] MEDS ORDERED: chlordiazePOXIDE 25 MG CAP PO ONE (14:27)
[2017-06-08] MEDS ORDERED: LORazepam 2 MG/ML INJ IVP ONE ×4 (14:27→16:23)
[2017-06-08] MEDS ORDERED: ONDANSETRON 4 MG/2 ML VIAL IVP ONE (14:27)
[2017-06-08] MEDS ORDERED: NS 1,000 ML IV ONE ×2 (14:30→15:40)
[2017-06-08 14:40] LABS: PLATELET COUNT 193 10^3/uL (150-400)
--- NOTE | 2017-06-08 15:39 | EDPHY ---
H & P Stated Complaint: Chest pain unable to finish bottle of ETOH. May be "withdrawal" - Personal History Current Tetanus/Diphtheria Vaccine: Yes Current Tetanus Diphtheria and Acellular Pertussis (TDAP): Yes Tetanus Vaccine Date: <10YRS - Medical/Surgical History Hx Asthma: No Hx Chronic Respiratory Disease: No Hx Diabetes: No Hx Cardiac Disease: No Hx Renal Disease: No Hx Cirrhosis: No Hx Alcoholism: Yes Hx HIV/AIDS: No Hx Splenectomy or Spleen Trauma: No Other PMH: ETOH, Hep C, lung and esophogeal cancer per pt report - Social History Smoking Status: Heavy smoker Time Seen by Provider: 06/08/17 14:29 HPI/ROS: Chief complaint: Chest pain, alcohol withdrawal History of present illness: This is a 52-year-old male who presents to the emergency department reporting chest pain. He reports the onset of symptoms earlier today. He describes palpitation and soreness. He is concerned this is from his alcohol use. He has a history of alcohol abuse. He has been trying to cut down on his alcohol intake over the last 1-2 days. His last drink was this morning. Since then he has been feeling unwell. He does state at one point he may have passed out today. He is having some nausea and vomiting. He denies other associated signs or symptoms. Review of systems: A 10 point review of systems was obtained and other than described above was negative (Keny Odom) - Physical Exam Exam: General Appearance: Alert, unwell Ng but nontoxic. Eyes: Pupils equal and round no pallor or injection. ENT, Mouth: Mucous membranes moist. Respiratory: There are no retractions, lungs are clear to auscultation. Cardiovascular: Tachycardic with regular rhythm. Gastrointestinal: Abdomen is soft and non tender, no masses, bowel sounds normal. Neurological: Alert. Strength and sensation intact and symmetrical. He is very tremulous. Skin: Warm and dry, no rashes. Musculoskeletal: Neck is supple non tender. Extremities are symmetrical, full range of motion. Psychiatric: There is no agitation. (Keny Odom) Constitutional: Initial Vital Signs Temperature (C) 37.8 C 06/08/17 13:59 Heart Rate 143 H 06/08/17 13:59 Respiratory Rate 18 06/08/17 13:59 Blood Pressure 145/109 H 06/08/17 13:59 O2 Sat (%) 91 L 06/08/17 13:59 O2 Delivery Mode Nasal Cannula O2 (L/minute) 3 Allergies/Adverse Reactions: penicillin Allergy (Verified 11/18/14 00:22) Home Medications: Medication Instructions Recorded NK [No Known Home Meds] 06/08/17 Medical Decision Making - Diagnostics Imaging: I viewed and interpreted images myself ED Course/Re-evaluation: Patient is discussed with my secondary supervising physician Dr. Vane Mendoza. Patient presents to the emergency department apparently in alcohol withdrawal. He has been symptomatically treated but has worsened here. He will be admitted to Dr. Rasmussen to the intensive care unit for further evaluation and care. The plan has been discussed with the patient who voiced understanding and agreement with it. (Keny Odom) Differential Diagnosis: Included but not limited to alcohol intoxication, alcohol withdrawal, polysubstance abuse, cardiac dysrhythmias, ACS, pulmonary infections (Keny Odom ) Other Provider: I evaluated and participated in the management of the patient. I also evaluated the patient independently. My co-signature indicates that I have reviewed this chart and I agree with the findings and plan of care as documented. My personal H&P findings include: 52-year-old male, chronic alcoholic, presents emergency department reporting chest pain. He has noted palpitations as well as some soreness across his chest. Of note, patient has been trying to cut down his alcohol intake over the last several days and has been detoxing himself on the streets. Last drink this morning. Patient has nausea. Vomiting. Denies fever. Denies cough, denies lightheadedness, dizziness, or fainting although he thinks he may have passed out. On physical examination the patient is tremulous, tachycardic. Lungs are clear to auscultation. Heart is tachycardic but regular. Abdomen is benign. Patient does have tremors of his tongue, extremities. He had an IV placed and received multiple doses of IV Ativan. EKG demonstrates sinus tachycardia with no acute ischemic changes. Patient's troponin is negative. Alcohol level is 85. Despite the multiple rounds of IV Ativan and p.o. Librium, the patient remains tachycardic, hypertensive, and tremulous. Patient will need to be admitted to the hospital for his significant alcohol withdrawal. Course was discussed with the hospitalist service. He will be admitted to the ICU. Suspect the patient will most likely require Precedex. (Vane Mendoza) - Data Points Laboratory Results: Laboratory Results 06/08/17 14:15 06/08/17 14:15 Medications Given: Enoxaparin Sodium (Lovenox) 40 mg SC DAILY JOHAN Stop: 12/06/17 08:59 Last Admin: 06/09/17 08:07 Dose: 40 mg Famotidine (Pepcid) 20 mg PO BID JOHAN Stop: 12/05/17 20:59 Last Admin: 06/09/17 08:07 Dose: 20 mg Dexmedetomidine HCl 400 mcg/ (Sodium Chloride) 104 mls @ 0 mls/hr IV CONT JOHAN; Titrate PRN Reason: Protocol Stop: 12/05/17 16:59 Last Admin: 06/09/17 14:32 Dose: 104 mls Thiamine HCl 500 mg/ Sodium (Chloride) 505 mls @ 505 mls/hr IV DAILY JOHAN Stop: 06/10/17 09:59 Last Admin: 06/09/17 08:07 Dose: 505 mls Potassium Chloride 20 meq/ (Sodium Chloride) 1,000 mls @ 125 mls/hr IV CONT JOHAN Stop: 12/06/17 12:29 Last Admin: 06/09/17 14:32 Dose: 1,000 mls Lorazepam (Ativan Injection) 0 mg IVP Q1H PRN; Protocol PRN Reason: Alcohol Withdrawal w/IV access Stop: 12/05/17 20:11 Last Admin: 06/09/17 08:25 Dose: 4 mg Lorazepam (Ativan Injection) 2 mg IVP Q6HRS JOHAN Stop: 12/06/17 11:59 Last Admin: 06/09/17 12:07 Dose: 2 mg Nicotine (Nicoderm Cq) 21 mg TD DAILY JOHAN Stop: 12/05/17 17:14 Last Admin: 06/09/17 08:06 Dose: 21 mg Ondansetron HCl (Zofran) 4 mg IVP Q4HRS PRN PRN Reason: Nausea/Vomiting, Can't Take PO Stop: 12/05/17 16:28 Last Admin: 06/09/17 14:31 Dose: 4 mg Discontinued Medications Chlordiazepoxide HCl (Librium) 25 mg PO EDNOW ONE Stop: 06/08/17 14:28 Last Admin: 06/08/17 15:01 Dose: 25 mg Chlordiazepoxide HCl (Librium) 25 mg PO TID JOHAN Stop: 12/05/17 21:59 Last Admin: 06/09/17 08:07 Dose: 25 mg Sodium Chloride (Ns) 1,000 mls @ 0 mls/hr IV ONCE ONE PRN Reason: Wide Open Stop: 06/08/17 14:31 Last Admin: 06/08/17 14:34 Dose: 1,000 mls Sodium Chloride (Ns) 1,000 mls @ 0 mls/hr IV ONCE ONE PRN Reason: Wide Open Stop: 06/08/17 15:41 Last Admin: 06/08/17 15:46 Dose: 1,000 mls Dextrose/Sodium Chloride (D5w 1/2 Ns) 1,000 mls @ 125 mls/hr IV CONT JOHAN Stop: 12/05/17 17:14 Last Admin: 06/09/17 05:01 Dose: 1,000 mls Lorazepam (Ativan Injection) 2 mg IVP EDNOW ONE Stop: 06/08/17 14:28 Last Admin: 06/08/17 14:34 Dose: 2 mg Lorazepam (Ativan Injection) 2 mg IVP EDNOW ONE Stop: 06/08/17 14:55 Last Admin: 06/08/17 15:00 Dose: 2 mg Lorazepam (Ativan Injection) 2 mg IVP EDNOW ONE Stop: 06/08/17 15:41 Last Admin: 06/08/17 15:46 Dose: 2 mg Lorazepam (Ativan Injection) 2 mg IVP EDNOW ONE Stop: 06/08/17 16:24 Last Admin: 06/08/17 16:27 Dose: 2 mg Lorazepam (Ativan Injection) 0 mg IVP Q1H PRN; Protocol PRN Reason: Alcohol Withdrawal w/IV access Stop: 06/09/17 05:28 Last Admin: 06/08/17 18:19 Dose: 2 mg Lorazepam (Ativan Injection) 2 mg IVP Q6HRS JOHAN Stop: 06/12/17 17:59 Last Admin: 06/08/17 19:56 Dose: 2 mg Ondansetron HCl (Zofran) 4 mg IVP EDNOW ONE Stop: 06/08/17 14:28 Last Admin: 06/08/17 14:34 Dose: 4 mg Departure - Departure Disposition: [facility] Acute Clinical Impression: Alcohol withdrawal Qualifiers: Complication of substance-induced condition: uncomplicated Qualified Code(s): F10.230 - Alcohol dependence with withdrawal, uncomplicated Condition: Fair
[2017-06-08] MEDS ORDERED: LORazepam 1 MG TAB PO PRN (16:28)
[2017-06-08] MEDS ORDERED: ONDANSETRON 4 MG/2 ML VIAL IVP PRN (16:29)
[2017-06-08] MEDS ORDERED: ONDANSETRON DISINTEGRATING 4 MG TAB PO PRN (16:29)
[2017-06-08] MEDS ORDERED: NS 1,000 ML IV SCH (16:30)
[2017-06-08] MEDS ORDERED: LORazepam 2 MG/ML INJ IVP PRN (16:31)
[2017-06-08] MEDS: LORazepam 2 MG/ML INJ IVP PRN ×2 (17:11→18:19)
--- NOTE | 2017-06-08 17:57 | GHP ---
[f rep st] HISTORY AND PHYSICAL DATE OF ADMISSION: 06/08/2017 CHIEF COMPLAINT: Palpitations. HISTORY OF PRESENT ILLNESS: This is a 52-year-old male with extensive history of alcohol abuse and i ntermittent withdrawal who presents to the emergency department today with complaints of palpitations . Per the patient's report, he was attempting to decrease his outpatient alcohol consumption in the past 24 to 48 hours. Reports that his last drink was this morning. He presented to the emergency de partment approximately at 1300 on 06/08 with complaints of palpitations. The patient denied any shor tness of breath or cough. Denies subjective fevers or chills. Does report some chest pressure that goes along with his racing heart rate. Denies vomiting. Denies diarrhea. Denies melena, hematochez ia. The patient has had recent emergency department visits as well as hospitalizations with intubati on secondary to alcohol intoxication. PAST MEDICAL HISTORY: 1. Extensive alcohol abuse and withdrawal. 2. Hepatitis C. 3. Tobacco dependence. SOCIAL HISTORY: The patient is a very heavy smoker, heavy alcohol, more than pints a day. Denies il licit drugs or marijuana. FAMILY HISTORY: Negative for known heart disease. REVIEW OF SYSTEMS: A 10-point review of systems is negative with the exception of that reported in t he HPI. PHYSICAL EXAMINATION: VITAL SIGNS: Blood pressure 145/109, heart rate 143, respiratory rate 18, sat urating 91% on room air, 37.8. GENERAL: This is a disheveled middle-aged male who is somnolent on e xamination. HEENT: Notable for dry mucous membranes. Eye exam is negative for any icterus. CARDIA C: Patient is regular but tachycardic. PULMONARY: Diminished respiratory effort. No wheezing is a ppreciated. GASTROINTESTINAL: Positive bowel sounds. Abdomen is soft. MUSCULOSKELETAL: Negative for any lower extremity edema. SKIN: There are scattered excoriations. NEUROLOGIC: Patient is huy nolent but has tremor and tongue fasciculations on examination. PSYCHIATRIC: He is cooperative curr ently. DATA: White count 6.6, hematocrit 47.3, platelet count of 193. Sodium 147. AST 223, up from last c heck at 182. Troponin less than 0.012. chest x-ray, which I personally reviewed and interpreted, sh ows no acute infiltrates. Radiology does comment on peribronchial cuffing. ASSESSMENT AND PLAN: This is a 52-year-old male with extensive alcohol history presenting with palpi tations. 1. Acute alcohol withdrawal. The patient is tachycardic, tremulous on my examination, somnolent sec ondary to Ativan received in the emergency department. Based on physical examination, including tac hycardia in the 140s, suspect the patient will fail 12 mg Ativan challenge and will likely need Prece dex in the next 6 to 12 hours. Will admit the patient to the ICU, continue aggressive CIWA monitorin g with IV Ativan and use Precedex if necessary. 2. Alcohol abuse. Will give the patient IV thiamine as I do think he is high risk as well as gastro intestinal prophylaxis. Can follow his liver function tests. 3. Sinus tachycardia secondary to alcohol withdrawal. Will fluid resuscitate as he does appear hypo volemic on examination and treat aggressively on the CIWA. 4. Hypernatremia suspect secondary to poor oral intake. Will use D5 half-normal for initial mainten ance IV fluids. 5. Tobacco dependence. Can place nicotine patch. 6. Hepatitis C. Will follow liver function tests. 7. Prophylaxis with Lovenox. 8. Diet: Regular if he is protecting his airway and safe to swallow. DISPOSITION: I expect greater than 2 midnights as the patient is presenting with severe alcohol with drawal requiring IV benzodiazepines and likely a Precedex drip. Discussed the case with the emergenc y room physician. Patient will be triaged to the ICU for care. /[id number]/MODL
[2017-06-08] MEDS ORDERED: LORazepam 2 MG/ML INJ IVP SCH (18:00)
[2017-06-08] MEDS: NICOTINE 21 MG/24 HR PATCH TD SCH (19:56)
[2017-06-08] MEDS: DEXMEDETOMIDINE HCL 400 MCG in NS 100 ML IV SCH (19:57)
[2017-06-08] MEDS: THIAMINE HCL 500 MG in NS 500 ML IV SCH (19:57)
[2017-06-08] MEDS: chlordiazePOXIDE 25 MG CAP PO SCH (21:33)
[2017-06-08] MEDS: FAMOTIDINE 20 MG TAB PO SCH (21:33)
[2017-06-08] MEDS: D5W 1/2 NS 1,000 ML IV SCH (21:36)
[2017-06-09] MEDS: LORazepam 2 MG/ML INJ IVP PRN ×3 (01:37→08:25)
[2017-06-09 05:00] LABS: PLATELET COUNT 138 10^3/uL (150-400)
[2017-06-09] MEDS: D5W 1/2 NS 1,000 ML IV SCH (05:01)
--- NOTE | 2017-06-09 05:42 | PDMN ---
Medical Necessity Medical necessity: C/M review: est. > 2 MN LOS for eval and TX of acute severe alcohol withdrawal, sinus tachycardia, hypernatremia, requiring IV Thiamine, ongoing IV Precedex infusion, IV fluids, IV Ativan, CIWA protocol, cardiac monitoring, pulse oximetry, supplemental O2, comorbid history of tobacco dependence, extensive and alcohol abuse and withdrawal, Hepatitis C per H/P.
[2017-06-09] MEDS: NICOTINE 21 MG/24 HR PATCH TD SCH (08:06)
[2017-06-09] MEDS: FAMOTIDINE 20 MG TAB PO SCH ×2 (08:07→20:18)
[2017-06-09] MEDS: ENOXAPARIN 40 MG/0.4 ML SYR SC SCH (08:07)
[2017-06-09] MEDS: chlordiazePOXIDE 25 MG CAP PO SCH (08:07)
[2017-06-09] MEDS: THIAMINE HCL 500 MG in NS 500 ML IV SCH (08:07)
[2017-06-09] MEDS ORDERED: MIDAZOLAM 2 MG/2 ML VIAL IVP PRN (10:57)
[2017-06-09] MEDS: LORazepam 2 MG/ML INJ IVP SCH ×3 (12:07→23:57)
[2017-06-09] MEDS ORDERED: NS W/ 20 KCl/L 1,000 ML IV SCH (12:30)
--- NOTE | 2017-06-09 13:00 | GCON ---
[f rep st] CONSULTATION DATE OF CONSULTATION: 06/09/2017 REASON FOR CONSULTATION: Alcohol withdrawal. HISTORY: The patient is a 52-year-old chronic alcoholic, who was admitted from the emergency room wi th apparent complaints of palpitations and some chest tightness. He was hospitalized 10-days ago at [facility] for acute alcohol intoxication and alcohol withdrawal. He required intubation and ventilation overnight secondary to decreased mental status. Blood alcohol was almost 500 on admissio n. He left prior to developing severe withdrawal. After that discharge, he has continued to drink. His last drink, apparently, was a day prior to his presentation yesterday. Blood alcohol was 85 on admission. In the emergency department, he was tachycardic, hypertensive and tremulous. He did rece john Ativan. There was no evidence of an acute myocardial process. Because of high-dose Ativan, he t riggered Precedex and was admitted to the intensive care unit. This morning he remains in withdrawal with a CIWA score of 18. PAST MEDICAL HISTORY: Remarkable for chronic alcohol abuse and previous withdrawal, heavy smoking, h epatitis C. ALLERGIES: Penicillin. SOCIAL HISTORY: Apparently homeless, positive alcohol, positive tobacco. FAMILY HISTORY: Unobtainable. REVIEW OF SYSTEMS: Largely unobtainable. He denies problems with his heart. PHYSICAL EXAMINATION: GENERAL: Reveals a gentleman who is somnolent secondary to medications, but a rousable. He has a coarse tremor. VITAL SIGNS: Blood pressure is currently 145/100, heart rate 80 with sinus rhythm on the monitor, on 4 L, saturations are 95%. He is afebrile. HEENT: Remarkable f or some minor lesions around the nose. Mucous membranes are dry. There is no jugular venous distent ion, lymphadenopathy, or thyromegaly. PULMONARY: The chest reveals coarse breath sounds, diminished at the bases. There are no wheezes, no obvious rhonchi. Expiratory phase is mildly prolonged. HEA RT: Regular in rate and rhythm. There is a soft systolic murmur, no gallop. ABDOMEN: Soft and non tender. The liver edge is palpable. There are no masses. : No Chiu catheter is in place. EXTR EMITIES: Unremarkable for edema. SKIN: Without rash or significant lesions. DATABASE: Chest x-ray on admission showed a relatively high left hemidiaphragm with evidence of poss ible increased vascularity. LABORATORY: White blood cell count 6600, hematocrit 47, platelets 193,000. PT and PTT were normal o n admission. Sodium 143, potassium 3.7, BUN 9 with creatinine 0.6. Glucose 100. Phosphorus and mag nesium have been normal, bilirubin 1. Transaminases are elevated at 137 and 106 respectively, about the same as per his previous admission. Albumin is 3.1. ASSESSMENT: 1. Alcohol withdrawal, severe. He is on Precedex and scheduled Ativan per protocol. Haldol and Sita sed are ordered p.r.n. for acute agitation. Thiamin is being given. 2. History of heavy tobacco abuse, likely chronic obstructive pulmonary disease. He is on oxygen an d a nicotine patch. DuoNeb will be given. 3. Alcoholic hepatitis, history of hepatitis C. 4. Prophylaxis: On enoxaparin and famotidine. PLAN AND RECOMMENDATIONS: 1. The patient will be kept in the intensive care unit on the CITN protocol. 2. Intravenous fluids will be continued. 3. Electrolytes and CBC will be monitored. 4. Thiamine will be continued. 5. Precedex will be weaned as tolerated. 6. DuoNeb will be added to his current regimen. Further plans recommendations will be made based on his progress over the next 12 to 24 hours. /[id number]/MODL
--- NOTE | 2017-06-09 13:27 | HOSPPROG ---
Hospitalist Progress Note Assessment/Plan: #Acute alcohol withdrawal: wean Precedex, cont CIWA, MV/T/F #Acute toxic encephalopathy: due to w/d #Accelerated HTN: related to w/d. Treat withdrawal #Mild alcohol hepatitis: trending down, cont to monitor #Sinus tachycardia: resolved. Due to w/d #Hypernatremia: resolved #Acute hypoxic resp failure: Duonebs. h/o tobacco. No e/o PNA #Diet: NPO, IVFs #Disp: cont ICU admission for Precedex, neuro checks Subjective: agitated today Objective: Vital Signs Temp Pulse Resp BP Pulse Ox 37.5 C 95 28 H 143/99 H 95 06/09/17 12:00 06/09/17 13:00 06/09/17 13:00 06/09/17 13:00 06/09/17 13:00 Laboratory Results 06/09/17 04:40 06/09/17 04:40 06/08/17 06/09/17 06/10/17 04:59 05:59 05:59 Intake Total Output Total 1300 Balance -1300 - Physical Exam Constitutional: unkempt, cachectic Eyes: PERRL Ears, Nose, Mouth, Throat: moist mucous membranes Cardiovascular: tachycardia Respiratory: no respiratory distress Gastrointestinal: normoactive bowel sounds, soft, non-tender abdomen, other (no grimace with palpations) Genitourinary: no bladder fullness Skin: warm Musculoskeletal: other Psychiatric: encephalopathic ICD10 Worksheet Patient Problems: Problems Problem Status Onset Alcohol withdrawal Acute Alcoholic intoxication Acute Respiratory failure Acute Tachycardia Acute
[2017-06-09] MEDS: POTASSIUM Cl (KCl) 20 MEQ in NS 1,000 ML IV SCH ×2 (14:32→22:58)
[2017-06-09] MEDS: DEXMEDETOMIDINE HCL 400 MCG in NS 100 ML IV SCH (14:32)
[2017-06-09] MEDS: IPRATROPIUM/ALBUTEROL 3 ML DEYVIAL IH SCH ×2 (15:50→20:43)
--- NOTE | 2017-06-09 18:02 | ASMTCMCOM ---
CM Note CM Note Notes: 52yr old male admitted for palputations, ETOH W/D, Hypernatremia. Patient has a hx od homelessness, Hep C and he is a smoker. Patient wants to quit drinking and now in W/D. CM to follow for discharge needs. Date Signed: 06/09/2017 04:23 PM Electronically Signed By:Hilary Toussaint LCSW
--- NOTE | 2017-06-09 18:02 | ASMTLACE ---
THUY Acuity / Level of Answers: Yes Care: Did the patient have an inpatient admission? Comorbidities - select Answers: Other Notes: ETOH abuse/W/D all that apply # of Emergency department Answers: 1-2 visits in the last 6 months Social determinants Answers: History of substance abuse (ETOH, street drugs, prescription drugs, etc.) Homelessness (street, detention) Lack of community resources and/or lack of social support (no pcp, lives alone, transportation, rabia d) Score: 15 Date Signed: 06/09/2017 04:21 PM Electronically Signed By:Hilary Toussaint LCSW
[2017-06-10] MEDS: LORazepam 2 MG/ML INJ IVP SCH (05:33)
[2017-06-10] MEDS: IPRATROPIUM/ALBUTEROL 3 ML DEYVIAL IH SCH ×4 (05:44→22:05)
[2017-06-10] MEDS: NICOTINE 21 MG/24 HR PATCH TD SCH (09:03)
[2017-06-10] MEDS: FAMOTIDINE 20 MG TAB PO SCH ×2 (09:04→21:17)
[2017-06-10] MEDS: THIAMINE HCL 500 MG in NS 500 ML IV SCH (09:04)
[2017-06-10] MEDS: ENOXAPARIN 40 MG/0.4 ML SYR SC SCH (09:04)
[2017-06-10] MEDS: LORazepam 2 MG/ML INJ IVP PRN ×3 (09:44→18:27)
[2017-06-10] MEDS ORDERED: LORazepam 2 MG/ML INJ IVP ONE (10:56)
[2017-06-10] MEDS ORDERED: D5W 1/2 NS 1,000 ML IV SCH (12:45)
--- NOTE | 2017-06-10 12:46 | HOSPPROG ---
Hospitalist Progress Note Assessment/Plan: #Acute alcohol withdrawal: wean Precedex, cont CIWA, MV/T/F #Acute toxic encephalopathy: due to w/d #Hypoglycemia: poor PO intake. Add D5 #Accelerated HTN: related to w/d. Not on BP meds outpatient. Treat withdrawal #Mild alcohol hepatitis: trending down, cont to monitor #Sinus tachycardia: resolved. Due to w/d #Macrocytic anemia: H/H stable #Hypernatremia: resolved #Acute hypoxic resp failure: Duonebs. h/o tobacco. No e/o PNA #Diet: regular #Disp: cont ICU admission for Precedex, neuro checks Subjective: denies chest pain today Objective: Vital Signs Temp Pulse Resp BP Pulse Ox 37.4 C 106 H 18 154/108 H 96 06/10/17 08:02 06/10/17 10:48 06/10/17 10:48 06/10/17 09:00 06/10/17 10:48 Laboratory Results 06/10/17 04:05 06/10/17 04:05 06/09/17 06/10/17 06/11/17 05:59 05:59 05:59 Intake Total 3825.4 Output Total 5050 Balance -1224.6 - Physical Exam Constitutional: no apparent distress, unkempt Eyes: PERRL Ears, Nose, Mouth, Throat: poor dentition, dry mucous membranes Cardiovascular: regular rate and rhythym, no murmur, rub, or gallop Respiratory: no respiratory distress, no rales or rhonchi Gastrointestinal: normoactive bowel sounds, soft, non-tender abdomen Genitourinary: no bladder fullness Skin: warm Musculoskeletal: full muscle strength Neurologic: CN II-XII Intact Psychiatric: encephalopathic ICD10 Worksheet Patient Problems: Problems Problem Status Onset Alcoholic intoxication Acute Respiratory failure Acute Tachycardia Acute Alcohol withdrawal Acute
[2017-06-11] MEDS: ACETAMINOPHEN 325 MG TAB PO PRN ×2 (00:08→08:43)
[2017-06-11] MEDS: hydrALAZINE 10 MG TAB PO PRN ×2 (00:10→23:54)
[2017-06-11] MEDS: IPRATROPIUM/ALBUTEROL 3 ML DEYVIAL IH SCH ×4 (05:19→20:43)
[2017-06-11] MEDS: NICOTINE 21 MG/24 HR PATCH TD SCH (08:42)
[2017-06-11] MEDS: ENOXAPARIN 40 MG/0.4 ML SYR SC SCH (08:42)
[2017-06-11] MEDS: THIAMINE HCL 100 MG TAB PO SCH (08:43)
[2017-06-11] MEDS: FAMOTIDINE 20 MG TAB PO SCH ×2 (08:43→22:06)
[2017-06-11] MEDS ORDERED: POTASSIUM CL 20 MEQ/15 ML UDCUP PO ONE (12:29)
--- NOTE | 2017-06-11 12:35 | HOSPPROG ---
Hospitalist Progress Note Assessment/Plan: #Acute alcohol withdrawal: wean Precedex, cont CIWA, MV/T/F #Acute toxic encephalopathy: resolved. Due to Etoh #Hypoglycemia: poor PO intake. Add D5 #Accelerated HTN: related to w/d. Not on BP meds outpatient. Treat withdrawal #Mild alcohol hepatitis: trending down, cont to monitor #Sinus tachycardia: resolved. Due to w/d #Macrocytic anemia: H/H stable #Hypernatremia: resolved #Weakness: dizzy and almost fell with standing. PT/OT #Acute hypoxic resp failure: Duonebs. h/o tobacco. No e/o PNA #Diet: regular #Disp: cont inpatient admission for CIWA, PT/OT. At high-risk for fall and subsequent harm Subjective: dizzy with standing and almost fell Objective: Vital Signs Temp Pulse Resp BP Pulse Ox 37.2 C 108 H 14 136/94 H 94 06/11/17 07:18 06/11/17 10:30 06/11/17 10:30 06/11/17 07:18 06/11/17 10:30 Laboratory Results 06/11/17 04:37 06/11/17 04:37 06/10/17 06/11/17 06/12/17 05:59 05:59 05:59 Intake Total 3825.4 1100 Output Total 5050 450 Balance -1224.6 1100 -450 - Physical Exam Constitutional: unkempt Eyes: PERRL Ears, Nose, Mouth, Throat: poor dentition Cardiovascular: regular rate and rhythym Respiratory: no respiratory distress, no rales or rhonchi Gastrointestinal: normoactive bowel sounds, soft, non-tender abdomen Genitourinary: no bladder fullness Musculoskeletal: abnormal gait, generalized weakness Neurologic: CN II-XII Intact, other (mild hand tremor, tongue fasiculations) Psychiatric: flat affect ICD10 Worksheet Patient Problems: Problems Problem Status Onset Alcohol withdrawal Acute Alcoholic intoxication Acute Respiratory failure Acute Tachycardia Acute
--- NOTE | 2017-06-11 13:36 | ASMTCMCOM ---
CM Note CM Note Notes: CM met w/ pt for dispo planning. CM provided pt ETOH resources. Pt reports that he stays at the [facility]. Pt will most likely not have any needs. CM informed pt to notify CM if he needs anything. CM available for changes. Plan: Independent Date Signed: 06/11/2017 01:36 PM Electronically Signed By:CALE Corrigan
--- NOTE | 2017-06-11 13:37 | ASMTCAGE ---
CAGE Do you feel you ought to Answers: No cut down on your drinking or drug use? Do people annoy you by Answers: No criticizing your drinking or drug use? Do you feel guilty about Answers: No your drinking or drug use? Do you drink or use drugs Answers: No first thing in the morning ([employer] Team Member)? Date Signed: 06/11/2017 01:36 PM Electronically Signed By:CALE Corrigan
[2017-06-11] MEDS: LORazepam 2 MG/ML INJ IVP PRN ×3 (16:12→22:06)
[2017-06-12] MEDS: IPRATROPIUM/ALBUTEROL 3 ML DEYVIAL IH SCH ×2 (05:20→11:12)
[2017-06-12] MEDS: LORazepam 2 MG/ML INJ IVP PRN (07:26)
[2017-06-12] MEDS: THIAMINE HCL 100 MG TAB PO SCH (07:27)
[2017-06-12] MEDS: FAMOTIDINE 20 MG TAB PO SCH (07:27)
[2017-06-12] MEDS: NICOTINE 21 MG/24 HR PATCH TD SCH (07:28)
[2017-06-12] MEDS: ENOXAPARIN 40 MG/0.4 ML SYR SC SCH (07:29)
[2017-06-12 08:08] VITALS: RESP 16; TEMP 98.5; O2SAT 94
[2017-06-12 08:32] VITALS: PULSE 85
[2017-06-12 08:34] VITALS: BP 150/105
--- NOTE | 2017-06-12 11:05 | ASMTCMCOM ---
CM Note CM Note Notes: Spoke w/pt re; dc poc. CM [facility] bed [facility] jail but pt states [facility] needs [facility] to [facility], CM called the [facility] and they do have his things, CM will send pt in a cab to the [facility]. DC Plan: Independent Date Signed: 06/12/2017 11:04 AM Electronically Signed By:Zoraida Lewis RN
--- NOTE | 2017-06-12 13:25 | GDS ---
[f rep st] DISCHARGE SUMMARY DISCHARGE DIAGNOSES: 1. Acute alcohol withdrawal. 2. Acute toxic encephalopathy. 3. Hypoglycemia. 4. Hypertension. 5. Mild alcoholic hepatitis. 6. Sinus tachycardia. 7. Macrocytic anemia. 8. Hypernatremia. 9. Dizziness. 10. Acute hypoxemic respiratory failure. PHYSICAL EXAMINATION: GENERAL: The patient is alert. VITAL SIGNS: Afebrile at 36.9, pulse is 85, respiratory rate 16, blood pressure is 150/105. He is saturating greater than 90% on room air. I tuttle ve seen and evaluated the patient on the day of discharge. HOSPITAL COURSE: The patient is a 52-year-old male who presented to the emergency room with complain ts of weakness. He was evaluated and diagnosed with: 1. Acute alcohol withdrawal. During this hospitalization he was placed on Precedex. His symptoms h ave resolved. He states that he is in no desire to discontinue his alcohol consumption and will be d ischarged in the outpatient setting. He states that he wants to go to the [facility]. 2. Acute toxic encephalopathy. This has resolved secondary to his alcohol consumption. 3. Hypoglycemia. This is stable. The patient has poor p.o. intake. 4. Hypertension. He is refusing any antihypertensive medications at the time of disposition. He tuttle s been educated that his blood pressure needs to be managed outside of the hospital and he states amy t he understands this, but does not want to take any medications for it. 5. Mild alcohol hepatitis. Laboratory values are improving and trending down. 6. Sinus tachycardia. This has resolved secondary to withdrawal. 7. Macrocytic anemia. This is stable with no signs of bleeding. 8. Hypernatremia. This has resolved. 9. Weakness. The patient is able to ambulate independently. He has been evaluated by [facility] and Occupational therapy. 10. Acute hypoxemic respiratory failure. This has resolved. DISPOSITION: The patient will be discharged to the [facility]. I have discussed his disposition with Case Management. They are making arrangements for him. DISCHARGE MEDICATIONS: Please refer to EMR form. I have not adjusted the patient's previously presc ribed home medications. It is recommended he continue thiamine in the outpatient setting. FOLLOWUP: Will be with his primary care provider. I have spent greater than 35 minutes in the care, coordination, and management of this patient's disp osition. /[id number]/MODL
== END 2017-06-12 12:45 | DRG 896 ==
LOC: F2N 19:28 → F3E 06-10 10:13
PROVIDERS: ADMIT Hospitalist; ATTEND Hospitalist
DX: F10.231 Alcohol dependence with withdrawal delirium (principal); R00.0 Tachycardia, unspecified; J96.01 Acute respiratory failure with hypoxia; K70.10 Alcoholic hepatitis without ascites; B19.20 Unspecified viral hepatitis C without hepatic coma; E16.2 Hypoglycemia, unspecified; E87.0 Hyperosmolality and hypernatremia; D53.9 Nutritional anemia, unspecified; F17.200 Nicotine dependence, unspecified, uncomplicated; J44.9 Chronic obstructive pulmonary disease, unspecified; I10 Essential (primary) hypertension; Z59.0 Homelessness
CPT/HCPCS: 80305; 82947-QW; 92526-GN; 92610-GN; 96374; 97112-GP; 97116-GP; 97162-GP; 97165-GO; G0480; J1650; J2060; J2405; J3411; J3480

== ENCOUNTER 2017-06-14 00:44 | Emergency (ER) | payer MEDICAID ==
[2017-06-14 00:50] VITALS: RESP 16; TEMP 97.9; O2SAT 93
[2017-06-14] MEDS ORDERED: ONDANSETRON 4 MG/2 ML VIAL ONE (00:52)
[2017-06-14] MEDS ORDERED: ONDANSETRON 4 MG/2 ML VIAL IVP ONE (00:54)
--- NOTE | 2017-06-14 01:02 | EDPHY ---
H & P Stated Complaint: ETOH intox, "lung pain" Time Seen by Provider: 06/14/17 00:49 HPI/ROS: Chief Complaint: Alcohol intoxication, lung pain HPI: 52-year-old intoxicated, well known to this emergency department myself. Patient was just discharged 2 days ago after an admission for acute alcohol withdrawal. At that time he indicated he had no desire to quit drinking. Patient was seen earlier this month by myself after being found unresponsive. This was immediately after discharge during which he required intubation secondary to his alcohol consumption. Patient tonight is complaining of"lung pain". He does have a history of sleep apnea. He does admit to drinking have way this morning. Patient otherwise stating he just feels unwell. ROS: Unobtainable secondary to the patient's alcohol intoxication PMH: Sleep apnea, chronic alcoholism, Social History: Homeless, chronic alcohol abuse Family History: non-contributory Physical Exam: Gen: Awake, Alert, No Distress, slurred speech, smells strongly of alcohol HEENT: Nose: no rhinorrhea Eyes: PERRLA, EOMI Mouth: Moist mucosa Neck: Supple, no JVD Chest: nontender, lungs clear to auscultation Heart: S1, S2 normal, no murmur Abd: Soft, moderate epigastric tenderness, no guarding Back: no CVA tenderness, no midline tenderness Ext: no edema, non-tender Skin: no rash Neuro: CN II-XII intact, Sensation grossly intact, Strength 5/5 in bilateral upper and lower extremities - Personal History Tetanus Vaccine Date: <10YRS - Medical/Surgical History Hx Asthma: No Hx Chronic Respiratory Disease: No Hx Diabetes: No Hx Cardiac Disease: No Hx Renal Disease: No Hx Cirrhosis: No Hx Alcoholism: Yes Hx HIV/AIDS: No Hx Splenectomy or Spleen Trauma: No Other PMH: ETOH, Hep C, lung and esophogeal cancer per pt report - Social History Smoking Status: Heavy smoker Constitutional: Initial Vital Signs Temperature (C) 36.6 C 06/14/17 00:49 Heart Rate 101 H 06/14/17 00:49 Respiratory Rate 16 06/14/17 00:49 Blood Pressure 112/98 H 06/14/17 00:49 O2 Sat (%) 93 06/14/17 00:49 Allergies/Adverse Reactions: penicillin Allergy (Verified 11/18/14 00:22) Home Medications: Medication Instructions Recorded Acetaminophen [Tylenol 325mg (*)] 650 mg PO Q4HRS PRN tab 06/12/17 Thiamine HCl [Vitamin B-1] 100 mg PO DAILY tab 06/12/17 Medical Decision Making ED Course/Re-evaluation: Patient is now awake Alert. States that he has been having epigastric pain consistent with prior alcoholic gastritis. He was having similar discomfort when he was in the hospital. This has been ongoing issue and is nothing new. No cough. No shortness of breath. He is awake and alert and acting appropriately. He has no coffee-ground emesis. Plan will be to discharge to have follow-up as an outpatient. - Data Points Medications Given: Discontinued Medications Ondansetron HCl (Zofran) 4 mg IVP EDNOW ONE Stop: 06/14/17 00:55 Last Admin: 06/14/17 00:54 Dose: 4 mg Departure - Departure Disposition: Home, Routine, Self-Care Clinical Impression: Alcoholic intoxication Condition: Good Instructions: Gastritis (ED), Alcohol Intoxication (ED) Additional Instructions: Please seek help to decrease your alcohol consumption. Follow up at [facility] in 2-3 days for further evaluation. Referrals: [facility],. [Clinic] - As per Instructions
[2017-06-14] MEDS ORDERED: MAG HYDROX/AL HYDROX/SIMETH 30 ML UDCUP ONE (02:36)
[2017-06-14] MEDS ORDERED: MAG HYDROX/AL HYDROX/SIMETH 30 ML UDCUP PO ONE (02:38)
[2017-06-14 03:11] VITALS: BP 107/74; PULSE 96
== END 2017-06-14 03:18 | disposition home or self-care (01) ==
LOC: EDUNIT#
DX: F10.129 Alcohol abuse with intoxication, unspecified (principal); F17.200 Nicotine dependence, unspecified, uncomplicated; Z85.01 Personal history of malignant neoplasm of esophagus; Z85.118 Personal history of other malignant neoplasm of bronchus and lung
CPT/HCPCS: 96374; J2405

== ENCOUNTER 2017-07-09 17:55 | Inpatient (IN) | payer MEDICAID ==
--- NOTE | 2017-07-09 18:12 | EDPHY ---
H & P Time Seen by Provider: 07/09/17 17:59 HPI/ROS: CHIEF COMPLAINT: Right lung pain HISTORY OF PRESENT ILLNESS: The patient is a 52-year-old man with a history of homelessness, alcoholism and alcohol withdrawal as well as hepatitis C and microcytic anemia who presents to the emergency department complaining of right- sided lung pain. He states that he was diagnosed about a month ago at [facility] with lung cancer. He states that he is supposed to follow up to get a biopsy but has not been able to do so yet. He has had some blood in his sputum. He is hypoxic at 80% when EMS picked him up. He denies any cardiac history. No nausea vomiting. No fevers. REVIEW OF SYSTEMS: Constitutional: denies: chills, fever, recent illness, recent injury EENTM: denies: blurred vision, double vision, nose congestion Respiratory: See HPI Cardiac: denies: chest pain, irregular heart rate, lightheadedness, palpitations Gastrointestinal/Abdominal: denies: abdominal pain, diarrhea, nausea, vomiting, blood streaked stools Genitourinary: denies: dysuria, frequency, hematuria, pain Musculoskeletal: denies: joint pain, muscle pain Skin: denies: lesions, rash, jaundice, bruising Neurological: denies: headache, numbness, paresthesia, tingling, dizziness, weakness Hematologic/Lymphatic: denies: blood clots, easy bleeding, easy bruising Immunologic/allergic: denies: HIV/AIDS, transplant EXAM: GENERAL: Foul-smelling, moderate distress HEAD: Atraumatic, normocephalic. EYES: Pupils equal round and reactive to light, extraocular movements intact, sclera anicteric, conjunctiva are normal. ENT: TMs normal, nares patent, oropharynx clear without exudates. Moist mucous membranes. NECK: Normal range of motion, supple without lymphadenopathy or JVD. LUNGS: Mild rhonchi on the right, no wheezing HEART: Regular rate and rhythm without murmurs, rubs or gallops. ABDOMEN: Soft, nontender, normoactive bowel sounds. No guarding, no rebound. No masses appreciated. BACK: No CVA tenderness, no spinal tenderness, step-offs or deformities EXTREMITIES: Normal range of motion, no pitting or edema. No clubbing or cyanosis. NEUROLOGICAL: Cranial nerves II through XII grossly intact. Normal speech, normal gait. 5/5 strength, normal movement in all extremities, normal sensation PSYCH: Normal mood, normal affect. SKIN: Warm, dry, normal turgor, no visible rashes or lesions. Source: Patient Exam Limitations: No limitations - Personal History Tetanus Vaccine Date: <10YRS - Medical/Surgical History Hx Asthma: No Hx Chronic Respiratory Disease: No Hx Diabetes: No Hx Cardiac Disease: No Hx Renal Disease: No Hx Cirrhosis: No Hx Alcoholism: Yes Hx HIV/AIDS: No Hx Splenectomy or Spleen Trauma: No Other PMH: ETOH, Hep C, lung and esophogeal cancer per pt report - Family History Significant Family History: No pertinent family hx - Social History Smoking Status: Heavy smoker Alcohol Use: Heavy Drug Use: Other Constitutional: Initial Vital Signs Temperature (C) 37.2 C 07/09/17 18:10 Heart Rate 114 H 07/09/17 18:10 Respiratory Rate 20 07/09/17 18:10 Blood Pressure 123/99 H 07/09/17 18:10 O2 Sat (%) 85 L 07/09/17 18:10 O2 Delivery Mode Nasal Cannula O2 (L/minute) 5 Allergies/Adverse Reactions: penicillin Allergy (Verified 07/09/17 21:18) "Passed out" Home Medications: Medication Instructions Recorded NK [No Known Home Meds] 07/09/17 Medical Decision Making - Diagnostics EKG Interpretation: An EKG obtained and was read and documented in trace view. Please see trace view for full reading and report. Sinus tachycardia, no acute ischemic changes , similar to previous Imaging: Discussed imaging studies w/ train caller Radiologist ED Course/Re-evaluation: My password has been locked out for [employer] and the help desk is currently close. We will try to contact [facility] for health information. We have not been able to obtain information yet from [place]. On CT scan the patient has esophageal cancer verses esophagitis as well as emphysematous changes bronchitis and mucus plugging. This is likely responsible for his hypoxia. No consolidation consistent with pneumonia. He is afebrile. I will not start antibiotics at this time but breathing treatments and he will likely need suctioning and biopsy. I will admit the patient to the hospital service. He is hypoxic on room air. He is 95% on 4 L nasal cannula. 8:30 p.m. We did obtain records from [facility]. The most recent admission from April talks about a CT scan that showed thickening of the esophagus consistent with esophagitis however cannot rule out esophageal malignancy. This is similar to our CT scan. At point this point it is unknown whether not the patient has malignancy. 9:25 p.m. I discussed the case with Dr. Nuñez who will admit to medical service for biopsy and suctioning. We agreed not to start antibiotics at this point. The patient is afebrile with a normal white count. Differential Diagnosis: Partial list of the Differential diagnosis considered include but were not limited to; pulmonary cancer, esophageal cancer, PE, pneumonia, bronchitis and although unlikely based on the history and physical exam, I also considered acute coronary disease, pneumothorax. I discussed these differential diagnoses and the plan with the patient as well as the usual and expected course. The patient understands that the diagnosis is provisional and that in medicine we are not always correct and that further workup is often warranted. Usual and customary warnings were given. All of the patient's questions were answered. The patient was instructed to return to the emergency department should the symptoms at all worsen or return, otherwise to followup with the physician as we discussed. - Data Points Laboratory Results: Laboratory Results 07/09/17 17:56 07/09/17 17:56 Medications Given: Albuterol (Proventil Neb) 3 ml IH Q2HRS PRN PRN Reason: Short of Breath/Dyspnea Stop: 01/05/18 22:31 Last Admin: 07/10/17 16:13 Dose: 3 ml Diazepam (Valium) 10 mg IVP TID JOHAN Stop: 01/06/18 15:59 Last Admin: 07/11/17 09:18 Dose: 10 mg Ertapenem (Invanz) 1 gm IV DAILY JOHAN PRN Reason: Protocol Stop: 08/09/17 10:29 Last Admin: 07/11/17 09:17 Dose: 1 gm Folic Acid (Folic Acid) 1 mg PO DAILY JOHAN Stop: 01/06/18 08:59 Last Admin: 07/10/17 10:46 Dose: Not Given Hydralazine HCl (Apresoline) 5 mg IVP Q4HRS PRN PRN Reason: SBP Greater Than 160 Stop: 01/06/18 14:29 Last Admin: 07/10/17 15:28 Dose: 5 mg Hydromorphone/Sodium Chloride (Hydromorphone) 0.4 mg IVP Q4HRS PRN PRN Reason: Pain, Severe Unable to Take PO Stop: 07/20/17 10:20 Last Admin: 07/11/17 04:22 Dose: 0.4 mg Sodium Chloride (Ns) 1,000 mls @ 75 mls/hr IV CONT JOHAN Stop: 01/06/18 10:29 Last Admin: 07/10/17 23:25 Dose: 1,000 mls Lorazepam (Ativan Injection) 0 mg IVP Q1H PRN; Protocol PRN Reason: Alcohol Withdrawal w/IV access Stop: 01/05/18 22:52 Last Admin: 07/11/17 12:04 Dose: 2 mg Methylprednisolone Sodium Succinate (Solu-Medrol) 40 mg IVP Q6HRS JOHAN Stop: 01/06/18 17:59 Last Admin: 07/11/17 12:04 Dose: 40 mg Multivitamins (Tab-A-Chika) 1 each PO DAILY JOHAN Stop: 01/06/18 08:59 Last Admin: 07/10/17 10:46 Dose: Not Given Ondansetron HCl (Zofran) 4 mg IVP Q4HRS PRN PRN Reason: Nausea/Vomiting, Can't Take PO Stop: 01/05/18 22:31 Last Admin: 07/10/17 10:03 Dose: 4 mg Oxycodone HCl (Oxycodone Ir) 5 - 10 mg PO Q4HRS PRN PRN Reason: Pain, Severe Able to Take PO Stop: 07/19/17 22:53 Last Admin: 07/10/17 05:54 Dose: 10 mg Pantoprazole Sodium (Protonix) 40 mg IVP BID JOHAN Stop: 01/06/18 10:29 Last Admin: 07/11/17 09:18 Dose: 40 mg Discontinued Medications Albuterol/Ipratropium (Duoneb) 3 ml IH EDNOW ONE Stop: 07/09/17 20:09 Last Admin: 07/09/17 20:32 Dose: 3 ml Diazepam (Valium) 10 mg IVP ONCE ONE Stop: 07/10/17 11:26 Last Admin: 07/10/17 11:45 Dose: 10 mg Sodium Chloride (Ns) 500 mls @ 0 mls/hr IV ONCE ONE PRN Reason: Wide Open Stop: 07/10/17 07:32 Last Admin: 07/10/17 07:49 Dose: 500 mls Methylprednisolone Sodium Succinate (Solu-Medrol) 125 mg IVP Q6HRS [facility] Stop: 01/06/18 11:59 Last Admin: 07/10/17 11:32 Dose: 125 mg Methylprednisolone Sodium Succinate (Solu-Medrol) 60 mg IVP Q6HRS [facility] Stop: 01/06/18 11:59 Last Admin: 07/10/17 12:19 Dose: Not Given Departure - Departure Disposition: [facility] Acute Clinical Impression: Mucus plugging of bronchi Acute bronchitis Qualifiers: Bronchitis organism: unspecified organism Qualified Code(s): J20.9 - Acute bronchitis, unspecified Condition: Fair
[2017-07-09 18:15] LABS: PLATELET COUNT 192 10^3/uL (150-400)
[2017-07-09 18:22] LABS: INR 0.87 (0.83-1.16)
[2017-07-09] MEDS ORDERED: IOPAMIDOL (ISOVUE 370) 100 ML BTL IV ONE (18:29)
--- NOTE | 2017-07-09 18:31 | CPEKG ---
Heart Rate: 105 RR Interval: 571 P-R Interval: 176 QRSD Interval: 108 QT Interval: 360 QTC Interval: 476 P [place]: 39 QRS [place]: -54 T Wave [place]: 48 EKG Severity - BORDERLINE ECG - EKG Impression: SINUS TACHYCARDIA EKG Impression: BORDERLINE IVCD WITH LAD EKG Impression: Similar to previous Electronically Signed By: Brad Friend 09-Jul-2017 18:31:43
[2017-07-09] MEDS ORDERED: IPRATROPIUM/ALBUTEROL 3 ML DEYVIAL IH ONE (20:08)
[2017-07-09] MEDS ORDERED: ACETAMINOPHEN 325 MG TAB PO PRN (22:32)
[2017-07-09] MEDS ORDERED: ONDANSETRON DISINTEGRATING 4 MG TAB PO PRN (22:32)
[2017-07-09] MEDS ORDERED: LORazepam 1 MG TAB PO PRN (22:53)
[2017-07-09] MEDS: oxyCODONE IR 5 MG TAB PO PRN (23:40)
--- NOTE | 2017-07-09 23:58 | PDGENHP ---
History and Physical - Chief Complaint R chest wall pain - History of Present Illness 52 yo M w/ hx of ETOH abuse presents with R chest wall pain. Patient states pain began suddenly about 2-3 days ago. He points at the area below his R scapula to describe the location. The pain is not reproducible and he describes it as "internal". It is worsened by twisting movements and described as severe. Upon arriving in the ED he was noted to be hypoxic so he is being admitted for further work-up. He denies fever, cough, or shortness of breath. Of note, he was at [facility] a few months ago and was told he needed follow up for a thickened esophagus seen on CT. He has been attempting to obtain an EGD through his PCP but has not been able to do so. Similar findings are again seen our the CT performed here today. History Information - Allergies/Home Medication List Allergies/Adverse Reactions: penicillin Allergy (Verified 07/09/17 21:18) "Passed out" Home Medications: NK [No Known Home Meds] 07/09/17 [Last Taken Unknown] I have personally reviewed and updated: family history, medical history Past Medical History: Unable to complete has due to patient being intubated. Chart was reviewed. No family listed. - Past Medical History Additional medical history: HCV, alcohol dependence, bolus emphysema noted on CT - Surgical History Additional surgical history: None listed in previous records however patient does have a scar surgical scar on his left medial ankle. - Family History Negative for: cancer Additional family history: No family hx of CA - Social History Smoking Status: Heavy smoker Alcohol Use: Heavy Drug Use: Other Additional social history: Patient currently homeless. Review of Systems Review of Systems: ROS: 10pt was reviewed & negative except for what was stated in HPI & below Physical Exam Physical Exam: Temp Pulse Resp BP Pulse Ox 37.2 C 120 H 20 119/96 H 95 07/09/17 21:57 07/09/17 23:44 07/09/17 23:44 07/09/17 21:57 07/09/17 23:44 O2 (L/minute) 5 Constitutional: no apparent distress, uncomfortable Eyes: PERRL, EOMI Ears, Nose, Mouth, Throat: moist mucous membranes, no oral mucosal ulcers Cardiovascular: regular rate and rhythym, no murmur, rub, or gallop Respiratory: no respiratory distress, clear to auscultation Gastrointestinal: normoactive bowel sounds, soft, non-tender abdomen Skin: warm, normal color Musculoskeletal: full muscle strength, no muscle tenderness Neurologic: AAOx3, CN II-XII Intact, other (Mild, fine UE tremor) Psychiatric: interacting appropriately, not anxious Lab Data & Imaging Review 07/09/17 17:56 07/09/17 17:56 WBC 6.24 10^3/uL (3.80-9.50) 07/09/17 17:56 RBC 4.38 10^6/uL (4.40-6.38) L 07/09/17 17:56 Hgb 15.0 g/dL (13.7-17.5) 07/09/17 17:56 Hct 43.9 % (40.0-51.0) 07/09/17 17:56 MCV 100.2 fL (81.5-99.8) H 07/09/17 17:56 MCH 34.2 pg (27.9-34.1) H 07/09/17 17:56 MCHC 34.2 g/dL (32.4-36.7) 07/09/17 17:56 RDW 13.3 % (11.5-15.2) 07/09/17 17:56 Plt Count 192 10^3/uL (150-400) 07/09/17 17:56 MPV 10.1 fL (8.7-11.7) 07/09/17 17:56 Neut % (Auto) 53.5 % (39.3-74.2) 07/09/17 17:56 Lymph % (Auto) 30.9 % (15.0-45.0) 07/09/17 17:56 Harris % (Auto) 11.5 % (4.5-13.0) 07/09/17 17:56 Eos % (Auto) 2.2 % (0.6-7.6) 07/09/17 17:56 Baso % (Auto) 1.4 % (0.3-1.7) 07/09/17 17:56 Nucleat RBC Rel Count 0.0 % (0.0-0.2) 07/09/17 17:56 Absolute Neuts (auto) 3.33 10^3/uL (1.70-6.50) 07/09/17 17:56 Absolute Lymphs (auto) 1.93 10^3/uL (1.00-3.00) 07/09/17 17:56 Absolute Monos (auto) 0.72 10^3/uL (0.30-0.80) 07/09/17 17:56 Absolute Eos (auto) 0.14 10^3/uL (0.03-0.40) 07/09/17 17:56 Absolute Basos (auto) 0.09 10^3/uL (0.02-0.10) 07/09/17 17:56 Absolute Nucleated RBC 0.00 10^3/uL (0-0.01) 07/09/17 17:56 Immature Gran % 0.5 % (0.0-1.1) 07/09/17 17:56 Immature Gran # 0.03 10^3/uL (0.00-0.10) 07/09/17 17:56 PT 12.0 SEC (12.0-15.0) 07/09/17 17:56 INR 0.87 (0.83-1.16) 07/09/17 17:56 APTT 25.1 SEC (23.0-38.0) 07/09/17 17:56 Sodium 147 mEq/L (135-145) H 07/09/17 17:56 Potassium 3.9 mEq/L (3.5-5.2) 07/09/17 17:56 Chloride 105 mEq/L (97-110) 07/09/17 17:56 Carbon Dioxide 28 mEq/l (22-31) 07/09/17 17:56 Anion Gap 14 mEq/L (8-16) 07/09/17 17:56 BUN 11 mg/dL (7-23) 07/09/17 17:56 Creatinine 0.7 mg/dL (0.7-1.3) 07/09/17 17:56 Estimated GFR > 60 07/09/17 17:56 Glucose 88 mg/dL (70-100) 07/09/17 17:56 Calcium 8.7 mg/dL (8.5-10.4) 07/09/17 17:56 Total Bilirubin 0.4 mg/dL (0.1-1.4) 04/10/18 17:56 Conjugated Bilirubin 0.4 mg/dL (0.0-0.5) 07/09/17 17:56 Unconjugated Bilirubin 0.0 mg/dL (0.0-1.1) 07/09/17 17:56 AST 213 IU/L (17-59) H 07/09/17 17:56 ALT 157 IU/L (21-72) H 07/09/17 17:56 Alkaline Phosphatase 122 IU/L (38-126) 07/09/17 17:56 Troponin I < 0.012 ng/mL (0.000-0.034) 07/09/17 17:56 Total Protein 7.0 g/dL (6.3-8.2) 07/09/17 17:56 Albumin 3.8 g/dL (3.5-5.0) 07/09/17 17:56 Procalcitonin 0.14 ng/mL (0.02-0.10) H 07/09/17 17:56 Imaging Review: Imaging Impressions Chest/Thorax CTA 07/09/17 18:07 Impression: 1. No visible pulmonary embolus. 2. Marked circumferential thickening of the mid/distal esophagus, which could be related to esophagitis or malignancy. 3. Extensive bronchitis, with mucous plugging and lingular consolidation suggesting atelectasis, without definite evidence of pneumonia. 4. Nonspecific mildly prominent mediastinal lymph nodes, which could be reactive or related to malignancy. Depending on findings in the esophagus, CT chest is recommended for follow up in three months. 5. Tiny right lower lobe nodule, of doubtful clinical significance. If the patient is a smoker or is high risk, unenhanced low-dose chest CT for follow up in 12 months is considered optional. Otherwise, no further follow up is needed per Fleischner Society criteria. 6. Additional findings, as above. Findings discussed with Brad Friend M.D., on July 09, 2017 at 1913. E:amm Assessment & Plan Assessment: 52 yo M w/ hx of tobacco and ETOH abuse presents with back pain, hypoxia, and imaging findings c/w possible esophageal malignancy. Plan: 1. Marked circumferential thickening of the mid/distal esophagus - Similar finding on [facility] records from several months ago, per patient. He has been unable to obtain EGD as outpatient for further evaluation. He has long smoking and drinking history making malignancy quite possible. - Will maintain NPO @ [place] - Consider GI consult tomorrow for inpatient EGD 2. Hypoxia - CT demonstrates severe bronchitis but no definite pneumonia or PE. Patient has no SIRS criteria to suggest significant infection. - Respiratory PCR - Albuterol PRN - Incentive spirometry 3. Back pain - Below R scapula; unclear etiology. Possible referred pain from esophageal pathology. CTPE without clear etiology. - Oxycodone PRN 4. ETOH abuse - Drinks 1 pint rum daily. Mild upper extremity tremor currently. His last drink was on day prior to admission. - [facility] protocol - Thiamine, folate, MVI Diet - NPO @ [place] Code - Full Ppx - SCDs in case of biopsy Dispo - Admit under observation status
[2017-07-10] MEDS: LORazepam 2 MG/ML INJ IVP PRN ×4 (00:16→15:28)
[2017-07-10] MEDS: ALBUTEROL 3 ML DEYVIAL IH PRN ×3 (04:39→16:13)
[2017-07-10 05:14] LABS: PLATELET COUNT 153 10^3/uL (150-400)
[2017-07-10] MEDS: ONDANSETRON 4 MG/2 ML VIAL IVP PRN ×2 (05:54→10:03)
[2017-07-10] MEDS: oxyCODONE IR 5 MG TAB PO PRN (05:54)
[2017-07-10] MEDS ORDERED: NS 500 ML IV ONE (07:31)
--- NOTE | 2017-07-10 08:09 | CPEKG ---
Heart Rate: 129 RR Interval: 465 P-R Interval: 140 QRSD Interval: 100 QT Interval: 308 QTC Interval: 452 P Warren: 41 QRS Warren: 161 T Wave Warren: 26 EKG Severity - ABNORMAL ECG - EKG Impression: SINUS TACHYCARDIA EKG Impression: RIGHT AXIS DEVIATION EKG Impression: ABNRM R PROG, CONSIDER ASMI OR LEAD PLACEMENT Electronically Signed By: Ce Flor 10-Jul-2017 17:03:00
[2017-07-10] MEDS ORDERED: HYDROmorphONE/DILAUDID 1 MG/ML INJ IVP PRN (10:21)
[2017-07-10] MEDS: HYDROmorphone HCL/NS 0.5 MG/ML SYR IVP PRN ×3 (10:43→21:07)
[2017-07-10] MEDS: MULTIVITAMINS 1 EACH TAB PO SCH (10:46)
[2017-07-10] MEDS: FOLIC ACID 1 MG TAB PO SCH (10:46)
[2017-07-10] MEDS: ERTAPENEM 1 GM VIAL IV SCH (10:51)
[2017-07-10] MEDS: NS 1,000 ML IV SCH ×2 (10:51→23:25)
[2017-07-10] MEDS: PANTOPRAZOLE SODIUM 40 MG VIAL IVP SCH ×2 (10:52→21:07)
[2017-07-10] MEDS ORDERED: DIAZEPAM 5 MG/ML 1 ML SYR IVP ONE (11:25)
--- NOTE | 2017-07-10 11:41 | HOSPPROG ---
Hospitalist Progress Note Assessment/Plan: 52 y Male p/w Hypoxemia and chest discomfort. He is in acute ETOH WD, acute hypoxic resp failure, and has n/v with concerns for aspiration #Acute Hypoxic Respiratory Failure -Now on 10 L O2, this is rapid progression -Etiology is likely multifactorial to include likely reactive airway disease and possible aspiration pneumonia #Reactive Airway disease with exacerbation on a pt with long hx of tobacco use -will start IV steroids #Possible Aspiration pneumonia, pt actively vomiting -Invanz #Acute ETOH WD -CIWA protocol - Ativan -Will consider changing to Diazepam for long acting benefits. Librium may be good alternative but he is not tolerating PO #Tachycardia, multifactorial due to resp difficulty, possible infection, and ETOH WD #Right chest wall pain -Trops unremarkable, EKG unremarkable -will repeat trop #Left Hand blister of unclear etiology, only one blister -no hx of Pemphigus -no hx of AI disease #Thickened Esophagus in a pt with long hx of ETOH and tobacco use #Tobacco dependancy Plan: -Abx, IVF, Steroids now -obtain CXR -obtain Troponin -Keep NPO -Add Diazepam -Hold off on GI consult as pt need medical improvement of current sx's first -Start PPI BID -Pain mgmt -SCS for DVT proph, likely change to Lovenox tomorrow total critical care time is 45 minutes Subjective: o2 needs have increase, + cough, + emesis, + WD symptoms. Not confused Objective: Vital Signs Temp Pulse Resp BP Pulse Ox 37.2 C 137 H 17 150/97 H 90 L 07/10/17 09:00 07/10/17 09:00 07/10/17 09:00 07/10/17 09:00 07/10/17 09:00 Microbiology 07/10/17 00:25 Respiratory Panel (PCR) - Final Nasal, Sinus - Swab No Organism Detected Laboratory Results 07/10/17 04:56 07/10/17 04:56 07/09/17 07/10/17 07/11/17 05:59 05:59 05:59 Intake Total 300 Output Total 900 420 Balance -600 -420 PT 12.0 SEC (12.0-15.0) 07/09/17 17:56 INR 0.87 (0.83-1.16) 07/09/17 17:56 - Physical Exam Constitutional: No no apparent distress, No not in pain Eyes: PERRL, EOMI Ears, Nose, Mouth, Throat: dry mucous membranes Cardiovascular: tachycardia Respiratory: expiratory wheeze, respiratory distress, No no respiratory distress Gastrointestinal: normoactive bowel sounds, soft, non-tender abdomen Skin: warm Musculoskeletal: full muscle strength Neurologic: AAOx3 Psychiatric: interacting appropriately, not encephalopathic, anxious, No encephalopathic Lymph, Heme, Immunologic: No petechiae ICD10 Worksheet Patient Problems: Problems Problem Status Onset Acute bronchitis Acute Esophageal cancer Acute Mucus plugging of bronchi Acute Alcohol withdrawal Acute Alcoholic intoxication Acute Respiratory failure Acute Tachycardia Acute
[2017-07-10] MEDS ORDERED: methylPREDNISolone SOD SUCC 125 MG/2 ML VIAL IVP SCH ×2 (12:00)
--- NOTE | 2017-07-10 13:59 | WOCRNPDOC ---
WOCRN Advanced Assessment Note - Skin Integrity Problem, Advanced Assess Left Hand Blister Dressing Type: Open to Air Integumentary Issue Intervention: Dressing Applied Gretta Wound Tissue: Intact Wound Bed Constitution: Intact Serous Filled Blister Wound Edges: Attached, Well Defined Site Measurement - Head-to-Toe Length X Width X Depth (cm): 2.5x3.5xintact Skin Integrity Problem Comment: Patient with serous filled, intact blister to left hand of unknown etiology. Cleaned skin with NS and gauze. Skin prep to blister and surrounding skin. Mepilex cut and placed over intact blister and then covered with netting. Wound care will not continue to follow this wound.
[2017-07-10] MEDS: hydrALAZINE 20 MG/ML VIAL IVP PRN (15:28)
--- NOTE | 2017-07-10 15:47 | ASMTCMCOM ---
CM Note CM Note Notes: Reviewed chart. Pt admitted for right chest wall pain. Per MD notes, pt has a history of alcohol abuse, hepatitis C, microcytic anemia. The pt is homeless and was recently seen at [facility] for esophageal thickening - esophageal cancer vs esophagitis. The pt never followed up with [facility] for an EGD and biopsy. The pt will have an EGD/biopsy tomorrow 07/11/17. The pt drinks 1 pint of Rum daily. He is in acute alcohol withdrawal. Per MD notes, the pt's oxygen sats have rapidly worsened today - he is requiring 10L oxygen secondary to acute hypoxic respiratory failure, reactive airway disease, possible aspiration pneumonia. Discharge needs remain unclear at this time. Unable to meet with pt to discuss potential needs due to withdrawal and increased oxygen demands. Pt would likely benefit from alcohol resources and [facility] follow up information. Pt may also need emotional support and resources if new cancer diagnosis. CM will continue to follow. Current Discharge Plan: To be determined Date Signed: 07/10/2017 03:46 PM Electronically Signed By:Gertrude Martinez RN
--- NOTE | 2017-07-10 16:22 | PDMN ---
Medical Necessity Medical necessity: Change to IP, as of 07/10/17, per MD; los >2 mn for ongoing management of worsening acute hypoxic respiratory failure & N/V likely r/t reactive airway disease & possible aspiration pneumonia, as well as acute alcohol withdrawal; admit for further workup/monitoring, respiratory supportive care, IV steroids, IV abx, IVFs, CIWA protocol & therapies; hx alcoholism; per progress note & order 07/10/17
[2017-07-10] MEDS: DIAZEPAM 5 MG/ML 1 ML SYR IVP SCH ×2 (17:02→21:07)
[2017-07-10] MEDS: methylPREDNISolone SOD SUCC 40 MG/ML VIAL IVP SCH (17:41)
[2017-07-11] MEDS: LORazepam 2 MG/ML INJ IVP PRN ×4 (00:03→20:22)
[2017-07-11] MEDS: methylPREDNISolone SOD SUCC 40 MG/ML VIAL IVP SCH ×4 (00:04→20:22)
[2017-07-11] MEDS: HYDROmorphone HCL/NS 0.5 MG/ML SYR IVP PRN (04:22)
[2017-07-11 05:22] LABS: PLATELET COUNT 143 10^3/uL (150-400)
[2017-07-11] MEDS: ERTAPENEM 1 GM VIAL IV SCH (09:17)
[2017-07-11] MEDS: PANTOPRAZOLE SODIUM 40 MG VIAL IVP SCH ×2 (09:18→20:22)
[2017-07-11] MEDS: DIAZEPAM 5 MG/ML 1 ML SYR IVP SCH ×3 (09:18→22:37)
--- NOTE | 2017-07-11 14:34 | HOSPPROG ---
Hospitalist Progress Note Assessment/Plan: 52 y Male p/w Hypoxemia and chest discomfort. Hospitalization complicated by acute ETOH WD, acute hypoxic resp failure, and has n/v with concerns for aspiration #Acute Hypoxic Respiratory Failure -Improving -Etiology is likely multifactorial to include likely reactive airway disease and possible aspiration pneumonia #Reactive Airway disease with exacerbation on a pt with long hx of tobacco use -decrease IV steroids #Likely Aspiration pneumonia -Cont Invanz -Passed swallow eval, start regular diet -stop IVF #Acute ETOH WD -CIWA protocol - Ativan -Cont Schedule Diazepam -Overall improving #Tachycardia, improving -Etiology is multifactorial due to resp difficulty, possible infection, and ETOH WD #Right chest wall pain, improving -Trops unremarkable, EKG unremarkable #Left Hand blister of unclear etiology, only one blister -no hx of Pemphigus -no hx of AI disease #Thickened Esophagus in a pt with long hx of ETOH and tobacco use -Once further improvement, will obtain GI consult #Tobacco dependancy #DVT proph: start Lovenox today Subjective: BP is better. Tachycardia is improving. Still tremulous but improving. Breathing is better. O2 needs are decreasing Afebrile. Objective: Vital Signs Temp Pulse Resp BP Pulse Ox 36.9 C 101 H 15 142/100 H 96 07/11/17 11:49 07/11/17 11:49 07/11/17 11:49 07/11/17 11:49 07/11/17 11:49 Laboratory Results 07/11/17 04:38 07/11/17 04:38 07/10/17 07/11/17 07/12/17 05:59 05:59 05:59 Intake Total 300 1784 Output Total 900 2170 Balance -600 -386 PT 12.0 SEC (12.0-15.0) 07/09/17 17:56 INR 0.87 (0.83-1.16) 07/09/17 17:56 - Physical Exam Constitutional: no apparent distress Eyes: PERRL Ears, Nose, Mouth, Throat: moist mucous membranes, hearing normal Cardiovascular: tachycardia, No JVD, No edema Respiratory: no respiratory distress, reduced air movement, expiratory wheeze Gastrointestinal: normoactive bowel sounds, soft, non-tender abdomen Skin: warm Neurologic: AAOx3 Psychiatric: interacting appropriately, not anxious, not encephalopathic Lymph, Heme, Immunologic: No petechiae ICD10 Worksheet Patient Problems: Problems Problem Status Onset Acute bronchitis Acute Mucus plugging of bronchi Acute Alcohol withdrawal Acute Alcoholic intoxication Acute Respiratory failure Acute Tachycardia Acute
--- NOTE | 2017-07-11 16:46 | ASMTCMCOM ---
CM Note CM Note Notes: Pt will have EGD/biopsy when he is medically ready. CM for continue to follow for any DC needs or support. Date Signed: 07/11/2017 04:46 PM Electronically Signed By:Natalie Jaime LCSW
[2017-07-11] MEDS: MULTIVITAMINS 1 EACH TAB PO SCH (16:57)
[2017-07-11] MEDS: FOLIC ACID 1 MG TAB PO SCH (16:57)
[2017-07-11] MEDS: oxyCODONE IR 5 MG TAB PO PRN (20:19)
[2017-07-12] MEDS: oxyCODONE IR 5 MG TAB PO PRN ×3 (02:24→21:24)
[2017-07-12] MEDS: LORazepam 2 MG/ML INJ IVP PRN (06:43)
[2017-07-12] MEDS: HYDROmorphone HCL/NS 0.5 MG/ML SYR IVP PRN (09:48)
[2017-07-12] MEDS: DIAZEPAM 5 MG/ML 1 ML SYR IVP SCH (10:08)
[2017-07-12] MEDS: FOLIC ACID 1 MG TAB PO SCH (10:08)
[2017-07-12] MEDS: ERTAPENEM 1 GM VIAL IV SCH (10:10)
[2017-07-12] MEDS: methylPREDNISolone SOD SUCC 40 MG/ML VIAL IVP SCH (10:10)
[2017-07-12] MEDS: PANTOPRAZOLE SODIUM 40 MG VIAL IVP SCH ×2 (10:10→21:24)
[2017-07-12] MEDS: MULTIVITAMINS 1 EACH TAB PO SCH (10:32)
[2017-07-12] MEDS ORDERED: DIAZEPAM 5 MG/ML 1 ML SYR IVP SCH (13:28)
--- NOTE | 2017-07-12 13:33 | HOSPPROG ---
Hospitalist Progress Note Assessment/Plan: 52 y Male p/w Hypoxemia and chest discomfort. Hospitalization complicated by acute ETOH WD, acute hypoxic resp failure, and has n/v with concerns for aspiration #Acute Hypoxic Respiratory Failure -Improving -Etiology is likely multifactorial to include likely reactive airway disease and possible aspiration pneumonia #Reactive Airway disease with exacerbation on a pt with long hx of tobacco use -stop Solu-Medrol, start Prednisone #Likely Aspiration pneumonia -Cont Invanz, can likely switch to oral agent soon. He has PCN allergy. -Passed swallow eval, start regular diet -cont off IVF #Acute ETOH WD -CIWA protocol - Ativan -Cont Schedule Diazepam, but will decrease by 50% -Overall improving #Tachycardia, improving -Etiology is multifactorial due to resp difficulty, possible infection, and ETOH WD #Right chest wall pain, improving -Trops unremarkable, EKG unremarkable #Left Hand blister of unclear etiology, only one blister -no hx of Pemphigus -no hx of AI disease #Thickened Esophagus in a pt with long hx of ETOH and tobacco use -Once further improvement, will obtain GI consult, likely tomorrow #Tobacco dependancy #Transaminitis: improving. recheck labs in a.m. #DVT proph: start Lovenox today Subjective: still feels weak. O2 needs are improving. still needing benzos Objective: Vital Signs Temp Pulse Resp BP Pulse Ox 36.8 C 99 15 137/100 H 93 07/12/17 11:20 07/12/17 11:20 07/12/17 11:20 07/12/17 11:20 07/12/17 11:20 Laboratory Results 07/11/17 04:38 07/12/17 04:50 07/11/17 07/12/17 07/13/17 05:59 05:59 05:59 Intake Total 1784 340 Output Total 2170 900 Balance -386 -560 PT 12.0 SEC (12.0-15.0) 07/09/17 17:56 INR 0.87 (0.83-1.16) 07/09/17 17:56 - Physical Exam Constitutional: no apparent distress, appears nourished, not in pain Eyes: PERRL, EOMI Ears, Nose, Mouth, Throat: moist mucous membranes, hearing normal Cardiovascular: regular rate and rhythym, systolic murmur Respiratory: reduced air movement, expiratory wheeze Gastrointestinal: normoactive bowel sounds, soft, non-tender abdomen Genitourinary: no bladder fullness Skin: warm Musculoskeletal: generalized weakness Psychiatric: interacting appropriately, not anxious, not encephalopathic Lymph, Heme, Immunologic: No petechiae ICD10 Worksheet Patient Problems: Problems Problem Status Onset Acute bronchitis Acute Mucus plugging of bronchi Acute Alcohol withdrawal Acute Alcoholic intoxication Acute Respiratory failure Acute Tachycardia Acute
[2017-07-12] MEDS: DIAZEPAM 5 MG TAB PO SCH ×2 (14:57→21:25)
[2017-07-12] MEDS: hydrALAZINE 20 MG/ML VIAL IVP PRN (15:51)
--- NOTE | 2017-07-12 17:51 | ASMTCMCOM ---
CM Note CM Note Notes: Reviewed chart, spoke with ADRIANO Massey regarding discharge plan of care, pt's progress. Per Shilpa, pt is improving, but still needs an EGD/biopsy to r/o espophageal cancer when more stable. Pt is homeless and has a hx of alcohol abuse. CM will need to provide alcohol resources, [facility] information for PCP follow up when pt is improved. CM will continue to follow for potential emotional support/placement needs. Current Discharge Plan: To be determined Date Signed: 07/12/2017 05:50 PM Electronically Signed By:Gertrude Martinez RN
[2017-07-12] MEDS: predniSONE 20 MG TAB PO SCH (21:26)
[2017-07-13] MEDS: THIAMINE HCL 100 MG TAB PO SCH ×2 (01:43→09:35)
[2017-07-13] MEDS: oxyCODONE IR 5 MG TAB PO PRN ×5 (05:15→21:49)
[2017-07-13] MEDS: PANTOPRAZOLE SODIUM 40 MG VIAL IVP SCH ×2 (09:30→21:42)
[2017-07-13] MEDS: predniSONE 20 MG TAB PO SCH ×2 (09:35→21:42)
[2017-07-13] MEDS: FOLIC ACID 1 MG TAB PO SCH (09:35)
[2017-07-13] MEDS: MULTIVITAMINS 1 EACH TAB PO SCH (09:35)
[2017-07-13] MEDS: DIAZEPAM 5 MG TAB PO SCH ×3 (09:36→21:42)
[2017-07-13] MEDS: ERTAPENEM 1 GM VIAL IV SCH (09:47)
--- NOTE | 2017-07-13 14:53 | HOSPPROG ---
Hospitalist Progress Note Assessment/Plan: 52 y Male p/w Hypoxemia and chest discomfort. Hospitalization complicated by acute ETOH WD, acute hypoxic resp failure, and has n/v with concerns for aspiration #Acute Hypoxic Respiratory Failure -Improving -Etiology is likely multifactorial to include likely reactive airway disease and possible aspiration pneumonia #Reactive Airway disease with exacerbation on a pt with long hx of tobacco use -stop Solu-Medrol, start Prednisone #Likely Aspiration pneumonia -Cont Invanz, can likely switch to oral agent soon. He has PCN allergy. Will cont with Invanz today -Passed swallow eval, start regular diet -cont off IVF #Acute ETOH WD, still with active WD -CIWA protocol - Ativan -Now on oral Valium. As he is actively WD, I will not decrease his dose -Overall improving #Tachycardia, improving -Etiology is multifactorial due to resp difficulty, possible infection, and ETOH WD #Right chest wall pain, improving -Trops unremarkable, EKG unremarkable #Left Hand blister of unclear etiology, only one blister -no hx of Pemphigus -no hx of AI disease #Thickened Esophagus in a pt with long hx of ETOH and tobacco use -Once further improvement, will obtain GI consult once he is medically ready for an endoscopy, not today #Tobacco dependancy #Transaminitis: improving. will trend labs #generalized weakness: PT/OT #DVT proph: start Lovenox today Subjective: no cp or sob. still with active WD. Afebrile. Still on supplemental O2, improving. Objective: Vital Signs Temp Pulse Resp BP Pulse Ox 36.7 C 98 14 140/105 H 92 07/13/17 12:24 07/13/17 12:24 07/13/17 12:24 07/13/17 12:24 07/13/17 12:24 Laboratory Results 07/11/17 04:38 07/13/17 05:15 07/12/17 07/13/17 07/14/17 05:59 05:59 05:59 Intake Total 340 425 Output Total 900 1100 550 Balance -560 -675 -550 PT 12.0 SEC (12.0-15.0) 07/09/17 17:56 INR 0.87 (0.83-1.16) 07/09/17 17:56 - Physical Exam Constitutional: no apparent distress Eyes: PERRL Ears, Nose, Mouth, Throat: moist mucous membranes, hearing normal Cardiovascular: regular rate and rhythym Respiratory: no respiratory distress, reduced air movement, expiratory wheeze Gastrointestinal: normoactive bowel sounds, soft, non-tender abdomen Skin: warm Musculoskeletal: generalized weakness Neurologic: AAOx3 Psychiatric: interacting appropriately, not encephalopathic, anxious Lymph, Heme, Immunologic: No petechiae ICD10 Worksheet Patient Problems: Problems Problem Status Onset Acute bronchitis Acute Mucus plugging of bronchi Acute Alcohol withdrawal Acute Alcoholic intoxication Acute Respiratory failure Acute Tachycardia Acute
[2017-07-13] MEDS: HYDROmorphone HCL/NS 0.5 MG/ML SYR IVP PRN (18:24)
[2017-07-14] MEDS: oxyCODONE IR 5 MG TAB PO PRN ×5 (02:53→22:18)
[2017-07-14] MEDS: predniSONE 20 MG TAB PO SCH (08:17)
[2017-07-14] MEDS: MULTIVITAMINS 1 EACH TAB PO SCH (08:18)
[2017-07-14] MEDS: THIAMINE HCL 100 MG TAB PO SCH (08:18)
[2017-07-14] MEDS: DIAZEPAM 5 MG TAB PO SCH (08:18)
[2017-07-14] MEDS: FOLIC ACID 1 MG TAB PO SCH (08:19)
[2017-07-14] MEDS: ERTAPENEM 1 GM VIAL IV SCH (08:20)
[2017-07-14] MEDS: PANTOPRAZOLE SODIUM 40 MG VIAL IVP SCH (08:20)
--- NOTE | 2017-07-14 14:22 | HOSPPROG ---
Hospitalist Progress Note Assessment/Plan: 52 y Male p/w Hypoxemia and chest discomfort. Hospitalization complicated by acute ETOH WD, acute hypoxic resp failure, and has n/v with concerns for aspiration #Acute Hypoxic Respiratory Failure -Improving -Etiology is likely multifactorial to include likely reactive airway disease and possible aspiration pneumonia #Reactive Airway disease with exacerbation on a pt with long hx of tobacco use -taper prednisone, will decrease dose today #Likely Aspiration pneumonia -Stop Invanz, start Levaquin and Flagy. PCN allergy noted -Passed swallow eval, start regular diet -cont off IVF #Acute ETOH WD, still with active WD -CIWA protocol - Ativan -Change Valium to PRN -Overall improving #Tachycardia, resolved -Etiology is multifactorial due to resp difficulty, possible infection, and ETOH WD #Right chest wall pain, improving -Trops unremarkable, EKG unremarkable #Left Hand blister of unclear etiology, only one blister -no hx of Pemphigus -no hx of AI disease #Thickened Esophagus in a pt with long hx of ETOH and tobacco use -now that medically stable, will obtain GI consult for endoscopy #Tobacco dependancy #Transaminitis: improving. will trend labs #generalized weakness: PT/OT #DVT proph: start Lovenox today Subjective: doing better. no chest pain. Resp status is improving. Objective: Vital Signs Temp Pulse Resp BP Pulse Ox 36.6 C 98 17 135/106 H 94 07/14/17 08:56 07/14/17 08:56 07/14/17 08:56 07/14/17 08:56 07/14/17 08:56 Laboratory Results 07/11/17 04:38 07/13/17 05:15 07/13/17 07/14/17 07/15/17 05:59 05:59 05:59 Intake Total 425 1000 Output Total 1100 1045 Balance -675 -45 PT 12.0 SEC (12.0-15.0) 07/09/17 17:56 INR 0.87 (0.83-1.16) 07/09/17 17:56 - Physical Exam Constitutional: no apparent distress Eyes: PERRL Ears, Nose, Mouth, Throat: moist mucous membranes, hearing normal, ears appear normal Cardiovascular: regular rate and rhythym, no murmur, rub, or gallop Respiratory: no respiratory distress, reduced air movement, expiratory wheeze Gastrointestinal: normoactive bowel sounds, soft, non-tender abdomen Skin: warm Musculoskeletal: generalized weakness Neurologic: AAOx3 Psychiatric: interacting appropriately, not anxious, not encephalopathic Lymph, Heme, Immunologic: No petechiae ICD10 Worksheet Patient Problems: Problems Problem Status Onset Acute bronchitis Acute Mucus plugging of bronchi Acute Alcohol withdrawal Acute Alcoholic intoxication Acute Respiratory failure Acute Tachycardia Acute
[2017-07-14] MEDS: DIAZEPAM 5 MG TAB PO PRN ×2 (14:56→22:19)
[2017-07-14] MEDS: ALBUTEROL 3 ML DEYVIAL IH PRN (15:22)
--- NOTE | 2017-07-14 16:05 | ASMTCMCOM ---
CM Note CM Note Notes: Per MD note, pt still in withdrawal so no EGD scheduled yet. Pt also has asp pna. CM will have a btter idea of treatment plan and chemo needs, if any, after EGD. CM to follow. Date Signed: 07/14/2017 04:05 PM Electronically Signed By:Natalie Jaime LCSW
[2017-07-15] MEDS: oxyCODONE IR 5 MG TAB PO PRN ×5 (05:01→21:02)
--- NOTE | 2017-07-15 08:46 | HOSPPROG ---
Hospitalist Progress Note Assessment/Plan: #Alcohol w/d: improved. Min benzos needed #Tachycardia: due to Etoh w/d. Resolved #Aspiration PNA: has completed 5 days abx #RAD exacerbation: improved. DC prednisone #Acute hypoxic resp failure: resolved #Tobacco abuse: counseled on cessation #Transaminitis: due to Etoh #Esophageal thickening: concerning for possible malignancy with tobacco/Etoh abuse. Appreciate GI consulation for EGD #Diet: NPO after MN #Disp: cont inpatient admission for EGD Subjective: denies abd pain Objective: Vital Signs Temp Pulse Resp BP Pulse Ox 37.1 C 88 17 129/89 H 96 07/15/17 03:14 07/15/17 03:14 07/15/17 03:14 07/15/17 03:14 07/15/17 03:14 Laboratory Results 07/11/17 04:38 07/15/17 04:46 07/14/17 07/15/17 07/16/17 05:59 05:59 05:59 Intake Total 1000 250 Output Total 1045 500 Balance -45 -250 PT 12.0 SEC (12.0-15.0) 07/09/17 17:56 INR 0.87 (0.83-1.16) 07/09/17 17:56 - Physical Exam Constitutional: chronically ill appearing, unkempt Eyes: PERRL Ears, Nose, Mouth, Throat: moist mucous membranes Cardiovascular: regular rate and rhythym Gastrointestinal: normoactive bowel sounds, soft, non-tender abdomen Neurologic: AAOx3, CN II-XII Intact Psychiatric: interacting appropriately, flat affect ICD10 Worksheet Patient Problems: Problems Problem Status Onset Acute bronchitis Acute Mucus plugging of bronchi Acute Alcohol withdrawal Acute Alcoholic intoxication Acute Respiratory failure Acute Tachycardia Acute
[2017-07-15] MEDS: predniSONE 20 MG TAB PO SCH (09:22)
[2017-07-15] MEDS: PANTOPRAZOLE SODIUM 40 MG TAB PO SCH (09:22)
[2017-07-15] MEDS: FOLIC ACID 1 MG TAB PO SCH (09:22)
[2017-07-15] MEDS: MULTIVITAMINS 1 EACH TAB PO SCH (09:22)
[2017-07-15] MEDS: THIAMINE HCL 100 MG TAB PO SCH (09:22)
[2017-07-15] MEDS: metroNIDAZOLE 500 MG TAB PO SCH ×3 (09:35→21:01)
--- NOTE | 2017-07-15 15:29 | GCON ---
[f rep st] CONSULTATION DATE OF CONSULTATION: 07/15/2017 CHIEF COMPLAINT: Abnormal CT scan. HISTORY OF PRESENT ILLNESS: I am asked to see this patient in consultation by Dr. Nuñez for chief lissy fritz of abnormal CT scan of the esophagus. The patient is a 52-year-old with significant history of alcohol abuse with prior admissions for intoxication, who had right wall chest pain and came into the emergency room, had a CT scan done that did show circumferential thickening of the distal esopha heidi. He states he does have some GERD. He is a very poor historian and it is unclear if he is actua lly having any dysphagia. He denies diarrhea or constipation. No blood in his stools or melena. Do es drink a fair amount of alcohol and was admitted with withdrawal, although doing better. Per the lissy cifuentes, he was admitted to [facility] previously and also seen to have thickening on the CT scan. Tejal kristine did suggest an upper endoscopy, although because of his homeless status has been unable to arrang e for an upper endoscopy as an outpatient. ALLERGIES: To penicillin. MEDICATIONS: No home medicines. PAST MEDICAL HISTORY: Alcohol use, history of HCV, bullous emphysema. FAMILY HISTORY: Negative for cancer. SOCIAL HISTORY: Chronic alcoholic. REVIEW OF SYSTEMS: I performed a complete review of systems which is negative except for the pertine nt positives and negatives above in the HPI. PHYSICAL EXAM: VITAL SIGNS: Afebrile at 36.6, BP 114/92, pulse 83. The patient is alert and oriente d. EYES: Without scleral icterus. HEENT: No oral lesions. CARDIOVASCULAR: Regular rhythm. CHEST : Clear to auscultation. ABDOMEN: Positive bowel sounds. Soft and nontender. NEUROLOGIC: Nonfoc al. SKIN: No rashes. LABORATORY DATA: CBC from 07/11/2017 shows a white count 8.36, hemoglobin 15.5, hematocrit 46.1 with platelets of 143. ProTime on admission was normal at 12 and INR 0.87. Chemistries within normal li mits. AST 63, ALT 91, alkaline phosphatase 103, total bilirubin 0.8 with albumin 3.2. ASSESSMENT: The patient with abnormal CT scan showing circumferential thickening which apparently tuttle s been persistent on prior CTs. Patient unable to obtain the EGD for further evaluation. Differenti al diagnosis would include possibility of esophageal tumor versus esophagitis or potentially varices. Patient would be at risk for portal hypertension given his alcohol use and hepatitis C. However, I think it would be of value to do an upper endoscopy for diagnosis. Overall, patient would be at hig h risk for procedure given his recent withdrawal, potential for underlying varices. I think this can be done safely with propofol and careful examination. If varices are present, then we will not do b iopsies, could consider esophageal brushing if needed. PLAN: Plan for upper endoscopy tomorrow with propofol. N.p.o. after midnight. Further recommendati ons to follow. Thanks for this consult. /[id number]/MODL
--- NOTE | 2017-07-15 15:51 | ASMTCMCOM ---
CM Note CM Note Notes: Chart reviewed. 52 year old male with severe ETOH and esophageal thickening on CT. He is to be NPO after midnight for endoscopic procedure. Plan of care to be determined upon diagnosis of this thickening. He will likely need resources for alcohol treatment and may need active directory architect. He will also need [facility]. CM to follow. Date Signed: 07/15/2017 03:50 PM Electronically Signed By:Claribel Henry RN
[2017-07-15] MEDS: HYDROmorphone HCL/NS 0.5 MG/ML SYR IVP PRN (23:05)
[2017-07-16] MEDS: metroNIDAZOLE 500 MG TAB PO SCH (05:29)
[2017-07-16] MEDS: oxyCODONE IR 5 MG TAB PO PRN ×3 (05:31→14:15)
[2017-07-16] MEDS: predniSONE 20 MG TAB PO SCH (09:59)
[2017-07-16] MEDS: PANTOPRAZOLE SODIUM 40 MG TAB PO SCH (10:00)
--- NOTE | 2017-07-16 11:33 | PDANEPAE ---
ANE History of Present Illness EGD for eval KAREN Past Medical History - Cardiovascular History Hx Hypertension: Yes - Pulmonary History Hx COPD: Yes Hx Oxygen in Use at Home: No Hx Sleep Apnea: No Sleep Apnea Screening Result - Last Documented: Positive - Endocrine History Hx Diabetes: No - Chronic Pain History Chronic Pain: Yes ANE Review of Systems Review of Systems: - Exercise capacity METS (RN): 3 METS ANE Patient History - Allergies Allergies/Adverse Reactions: penicillin Allergy (Verified 07/09/17 21:18) "Passed out" - Home Medications Home medications: home medication list seen and reviewed Home Medications: NK [No Known Home Meds] 07/09/17 [Last Taken Unknown] - NPO status NPO Status: no food or drink >8 hours NPO Since - Liquids (Date): 07/15/17 NPO Since - Liquids (Time): 23:59 NPO Since - Solids (Date): 07/15/17 NPO Since - Solids (Time): 23:59 - Smoking Hx Smoking Status: Heavy smoker - Alcohol Use Alcohol Use: Heavy ANE Labs/Vital Signs - Labs Result Diagrams: 07/11/17 04:38 07/15/17 04:46 - Vital Signs Blood Pressure: 115/85 Heart Rate: 80 Respiratory Rate: 16 O2 Sat (%): 92 Height: 172.7 cm Weight: 81.4 kg ANE Physical Exam - Airway Neck exam: FROM Mallampati Score: Class 2 Mouth exam: poor dentition - Pulmonary Pulmonary: inspiratory crackles - Cardiovascular Cardiovascular: regular rate and rhythym - ASA Status ASA Status: III ANE Anesthesia Plan Anesthesia Plan: GA with mask
[2017-07-16] MEDS ORDERED: PROPOFOL 200 MG/20 ML VIAL ONE (11:38)
[2017-07-16] MEDS ORDERED: LIDOCAINE 2% 100 MG/5 ML SYR ONE (11:41)
--- NOTE | 2017-07-16 11:56 | GIREPORT ---
[facility] - Endoscopy Department Patient Name: Lobo Foreman Procedure Date: 07/16/2017 10:50 AM Patient Type: Inpatient Attending MD/ ER Physician: Graciela Saleh MD Procedure: Upper GI endoscopy Indications: Abnormal CT of the GI tract Providers: Graciela Saleh MD Medicines: Monitored Anesthesia Care Complications: No immediate complications. Description of Procedure: After obtaining informed consent, the endoscope was passed under direct vision. Throughout the procedure, the patient's blood pressure, pulse, and oxygen saturations were monitored continuously. The Endoscope was intro duced through the mouth, and advanced to the second part of duodenum. The [facility] er GI endoscopy was accomplished without difficulty. The patient tolerated th e procedure well. Findings: A medium-sized hiatal hernia was present. There were esophageal mucosal changes suspicious for long-segment [place] tt's esophagus present in the lower third of the esophagus. The maximum longitudinal extent of these mucosal changes was 4 cm in length. Mucosa was biopsied with a cold forceps for histology in the lower third of the esophagus. One specimen bottle was sent to pathology. Estimated blood l oss was minimal. The esophagus and gastroesophageal junction were examined with white li ght from a forward view and retroflexed position. Benedict's esophagus was present. This involved the mucosa extending to the Z-line. At GE juncti on. This was biopsied with a cold forceps for histology. Estimated blood lo ss was minimal. The stomach was normal. The examined duodenum was normal. Estimated Blood Loss: Estimated blood loss was minimal. Post Op Diagnosis: - Medium-sized hiatal hernia. - Esophageal mucosal changes suspicious for long-segment Benedict's esophagus. Biopsied. - Benedict's esophagus nodularity and inflammation at GE junction. Biops ied. - Normal stomach. - Normal examined duodenum. Recommendation: - Await pathology results. - Advance diet as tolerated. 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 - Return patient to hospital [facility] for ongoing care. - Will sign off for now until path available. - Thank you for allowing me to participate in the care of your patient. Attending Participation: I personally performed the entire procedure. Graciela Saleh MD Graciela Saleh MD 07/16/2017 11:56:07 AM This report has been signed electronicallyGraciela Saleh MD Number of Addenda: 0 Note Initiated On: 07/16/2017 10:50 AM [email or web address]
[2017-07-16] MEDS ORDERED: NALOXONE HCL 0.4 MG/ML INJ IVP PRN (13:04)
--- NOTE | 2017-07-16 13:06 | POSTANESTH ---
Post Anesthetic Evaluation Cardiovascular Status: Normal, Stable Respiratory Status: Normal, Stable Level of Consciousness/Mental Status: Can Participate in Eval Pain Control: Adequate, Prn Tx Ordered Nausea/Vomiting Control: Adequate, Prn Tx Ordered Complications Possibly Related to Anesthesia: None Noted
[2017-07-16 14:09] VITALS: BP 120/80
[2017-07-16] MEDS: THIAMINE HCL 100 MG TAB PO SCH (14:16)
[2017-07-16] MEDS: MULTIVITAMINS 1 EACH TAB PO SCH (14:16)
[2017-07-16] MEDS: FOLIC ACID 1 MG TAB PO SCH (14:16)
--- NOTE | 2017-07-16 15:52 | GDS ---
[f rep st] DISCHARGE SUMMARY DISCHARGE DIAGNOSES: 1. Benedict esophagus. 2. Inflammation at gastroesophageal junction. 3. Aspiration pneumonia. 4. Alcohol withdrawal. 5. Alcohol dependence. 6. Tobacco dependence. 7. Homelessness. 8. Reactive airways exacerbation. 9. Acute hypoxic respiratory failure. 10. Transaminitis. 11. Tachycardia. HISTORY OF PRESENT ILLNESS: A 52-year-old male with alcohol, tobacco dependence presented with right chest pain. It began 2-3 days prior to admission. It was below his right scapula. It was not repr oducible, and he describes it as "internal." It is worse with twisting movements and severe in natur e. Next of note, he was at [facility] a few months ago and told that he needed followup for a thicken ed esophagus seen on CT. He has been trying to obtain an EGD through his PCP but has not been able t o. HOSPITAL COURSE BY PROBLEM: 1. Aspiration pneumonia: He received 5 days of treatments and is currently afebrile, off oxygen. 2. Alcohol withdrawal. No longer requiring benzodiazepines. 3. Tachycardia due to alcohol withdrawal and acute infection, resolved. 4. Reactive airways exacerbation, improved with prednisone and DuoNeb. 5. Acute hypoxic respiratory failure: Multifactorial with reactive airways exacerbation and pneumon ia. He was treated appropriately for both and now stable on room air. 6. Tobacco abuse: Counseled on cessation. 7. Alcohol abuse: Counseled on cessation. 8. Transaminitis due to alcohol. 9. Esophageal thickening: This was seen previously on scan at [facility]. He underwent EGD that showed Benedict esophagus. Biopsies are pending. Start a PPI daily. Prescription was filled here [facility]. 10. Homelessness: Patient will discharge to a skilled nursing. 11. Patient is stable for discharge to skilled nursing. MEDICATIONS: New medications: Protonix 40 mg daily. PHYSICAL EXAMINATION: VITAL SIGNS: Today, temperature 36.8, blood pressure 120/80, heart rate 85, r espirations 16, 91% on room air. GENERAL: Unkempt. No acute distress. HEENT: PERRLA. Poor denti tion. CV: Regular rate and rhythm. No murmurs, gallops, or rubs. LUNGS: Diminished. No crackles or wheezing. ABDOMEN: Soft, nontender, nondistended. Positive bowel sounds. : No Chiu. MUSC ULOSKELETAL: 5/ upper lower and extremity strength. NEUROLOGIC: 2 through 12 intact. PSYCH: Grace rt and oriented x3. Flat affect. /[id number]/MODL
== END 2017-07-16 16:50 | disposition home or self-care (01) | DRG 137 ==
LOC: EDUNIT# → F1N 21:52 → OBSVTOIN 22:33
PROVIDERS: ADMIT Internal Medicine; ATTEND Internal Medicine
PROC: 0DB48ZX Excision of Esophagogastric Junction, Via Natural or Artificial Opening Endoscopic, Diagnostic (ICD-10-PCS; principal; 2017-07-16 11:30)
PROC: 0DJ08ZZ Inspection of Upper Intestinal Tract, Via Natural or Artificial Opening Endoscopic (ICD-10-PCS; principal; 2017-07-16 11:30)
PROC: 0DB38ZX Excision of Lower Esophagus, Via Natural or Artificial Opening Endoscopic, Diagnostic (ICD-10-PCS; principal; 2017-07-16 11:30)
DX: J69.0 Pneumonitis due to inhalation of food and vomit (principal); J96.01 Acute respiratory failure with hypoxia; J43.8 Other emphysema; R06.2 Wheezing; F17.210 Nicotine dependence, cigarettes, uncomplicated; K22.70 Barrett's esophagus without dysplasia; F10.230 Alcohol dependence with withdrawal, uncomplicated; K70.10 Alcoholic hepatitis without ascites; D50.9 Iron deficiency anemia, unspecified; B18.2 Chronic viral hepatitis C; Z59.0 Homelessness
CPT/HCPCS: 92526-GN; 92610-GN; 97116-GP; 97162-GP; 97530-GP; G0378; J0360; J1170; J1335; J2001; J2060; J2405; J2704; J2920; J2930; J3360; J7512; J7613; Q9967

== ENCOUNTER 2017-07-31 00:43 | Emergency (ER) | payer MEDICAID ==
--- NOTE | 2017-07-31 00:47 | EDPHY ---
H & P Time Seen by Provider: 07/31/17 00:47 HPI/ROS: HPI CHIEF COMPLAINT: Alcohol intoxication unable to walk HISTORY OF PRESENT ILLNESS: Patient is a 52-year-old male, homeless, daily alcohol use history of extensive alcoholism, he states he drank rum very large amount this evening. He was found at a local grocery store by EMS. He was unable to ambulate safely so is brought to the emergency room for further evaluation. No trauma reported. The patient arrives to the emergency room highly intoxicated with alcohol. He denies any focal complaints. No trauma on exam. He is talkative. However he is intoxicated smells of alcohol slurring his speech. Past Medical History: Alcoholism, daily alcohol use, hepatitis-C Past Surgical History: No recent surgery Social History: Homeless, daily alcohol use. Denies other illicit drugs. Family History: Non-contributory. ROS REVIEW OF SYSTEMS: A comprehensive 10 point review of systems is otherwise negative aside from elements mentioned in the history of present illness. Exam Constitutional intoxicated, smells of alcohol, poor hygiene, unkept, triage nursing summary reviewed, vital signs reviewed, awake/alert. Eyes normal conjunctivae and sclera, EOMI, PERRLA. HENT normal inspection, atraumatic, moist mucus membranes, no epistaxis, neck supple/ no meningismus, no raccoon eyes. Respiratory clear to auscultation bilaterally, normal breath sounds, no respiratory distress, no wheezing. Cardiovascular rate normal, regular rhythm, no murmur, no edema, distal pulses normal. Gastrointestinal soft, non-tender, no rebound, no guarding, normal bowel sounds, no distension, no pulsatile mass. Genitourinary no CVA tenderness. Musculoskeletal chronic lower extremity lymphedema. no midline vertebral tenderness, full range of motion, no calf swelling, no tenderness of extremities , no meningismus, good pulses, neurovascularly intact. Skin pink, warm, & dry, no rash, skin atraumatic. Neurologic awake, alert and oriented x 3, AAOx3, moves all 4 extremities equally, motor intact, sensory intact, CN II-XII intact, normal cerebellar, normal vision, slurring his speech consistent with acute alcohol intoxication Psychiatric normal mood/affect. Differential Diagnosis: Includes but is not limited to in a particular order acute alcohol intoxication, alcoholism, alcohol intoxication contributing to his unsteady gait. Medical Decision Making: Plan for this patient vital signs are stable. He is hemodynamically stable. Exam is unremarkable for any trauma. Plan will be for check alcohol level and monitor for worsening of condition. Monitor for sobriety. Once patient is more sober and has a steady gait he can be appropriately discharged safely from the emergency room. Re-evaluation: Patient here with acute alcohol intoxication. He has been monitor for prolonged period of time in the emergency room. He now metabolized his alcohol and is stable for discharge. He did have a stable gait at discharge. calm and cooperative. Answers my questions appropriately. Safe for discharge to the [facility]. Source: Patient, EMS - Personal History Tetanus Vaccine Date: <10YRS - Medical/Surgical History Hx Asthma: No Hx Chronic Respiratory Disease: No Hx Diabetes: No Hx Cardiac Disease: No Hx Renal Disease: No Hx Cirrhosis: No Hx Alcoholism: Yes Hx HIV/AIDS: No Hx Splenectomy or Spleen Trauma: No Other PMH: ETOH, Hep C, lung and esophogeal cancer per pt report - Social History Smoking Status: Heavy smoker Constitutional: Initial Vital Signs Temperature (C) 36.4 C 07/31/17 00:46 Heart Rate 86 07/31/17 00:46 Respiratory Rate 16 07/31/17 00:46 Blood Pressure 111/85 H 07/31/17 00:46 O2 Sat (%) 92 07/31/17 00:46 O2 Delivery Mode Room Air O2 (L/minute) 2 Allergies/Adverse Reactions: penicillin Allergy (Verified 07/31/17 00:46) "Passed out" Home Medications: Medication Instructions Recorded Acetaminophen [Tylenol 325mg (*)] 650 mg PO Q4HRS PRN tab 07/16/17 Pantoprazole Sodium [Protonix] 40 mg PO DAILY #30 tablet. 07/16/17 Medical Decision Making - Data Points Medications Given: Discontinued Medications Chlordiazepoxide (Librium 25 Mg Prepack#6) 1 btl TAKEANTE EDNOW ONE Stop: 07/31/17 05:16 Last Admin: 07/31/17 05:17 Dose: 1 btl Departure - Departure Disposition: Home, Routine, Self-Care Clinical Impression: Alcoholic intoxication Qualifiers: Complication of substance-induced condition: uncomplicated Qualified Code(s): F10.920 - Alcohol use, unspecified with intoxication, uncomplicated Condition: Good Instructions: Chlordiazepoxide/Clidinium (By mouth), Alcohol Intoxication (ED) Referrals: NONE *PRIMARY CARE P,. [Primary Care Provider] - As per Instructions
[2017-07-31] MEDS ORDERED: CHLORDIAZEPOXIDE 25MG PREPK#6 BTL TAKEHOME ONE ×2 (05:15→05:16)
[2017-07-31 05:26] VITALS: BP 94/61
== END 2017-07-31 05:23 | disposition home or self-care (01) ==
LOC: EDUNIT#
DX: F10.920 Alcohol use, unspecified with intoxication, uncomplicated (principal); F17.200 Nicotine dependence, unspecified, uncomplicated
CPT/HCPCS: G0480

== ENCOUNTER 2017-08-03 14:28 | Emergency (ER) | payer MEDICAID ==
--- NOTE | 2017-08-03 14:35 | EDPHY ---
H & P Time Seen by Provider: 08/03/17 14:35 HPI/ROS: CHIEF COMPLAINT: Intoxication HISTORY OF PRESENT ILLNESS: Patient is a 52-year-old intoxicated homeless man who witnesses called because he had "fainted". Patient denies any fainting. He denies chest pain or shortness of breath. He told paramedics that he had right ankle pain but denies this to me. He does tell me that he has bilateral flank pain and some dysuria. He wishes to leave and does not want to be here. He is not yet able to ambulate safely. No fevers. No nausea vomiting or GI symptoms. He admits to drinking heavily today. REVIEW OF SYSTEMS: Constitutional: denies: chills, fever, recent illness, recent injury EENTM: denies: blurred vision, double vision, nose congestion Respiratory: denies: cough, shortness of breath Cardiac: denies: chest pain, irregular heart rate, lightheadedness, palpitations Gastrointestinal/Abdominal: denies: abdominal pain, diarrhea, nausea, vomiting, blood streaked stools Genitourinary: denies: dysuria, frequency, hematuria, pain Musculoskeletal: See HPI Skin: denies: lesions, rash, jaundice, bruising Neurological: denies: headache, numbness, paresthesia, tingling, dizziness, weakness Hematologic/Lymphatic: denies: blood clots, easy bleeding, easy bruising Immunologic/allergic: denies: HIV/AIDS, transplant EXAM: GENERAL: Show and in no acute distress. HEAD: Atraumatic, normocephalic. EYES: Pupils equal round and reactive to light, extraocular movements intact, sclera anicteric, conjunctiva are normal. ENT: TMs normal, nares patent, oropharynx clear without exudates. Moist mucous membranes. cervical collar cleared by me, no tenderness, normal range of motion NECK: Normal range of motion, supple without lymphadenopathy or JVD. LUNGS: Breath sounds clear to auscultation bilaterally and equal. No wheezes rales or rhonchi. HEART: Regular rate and rhythm without murmurs, rubs or gallops. ABDOMEN: Soft, nontender, normoactive bowel sounds. No guarding, no rebound. No masses appreciated. BACK: No CVA tenderness, no spinal tenderness, step-offs or deformities EXTREMITIES: Normal range of motion, no pitting or edema. No clubbing or cyanosis. NEUROLOGICAL: Cranial nerves II through XII grossly intact. Normal speech, normal gait. 5/5 strength, normal movement in all extremities, normal sensation PSYCH: Normal mood, normal affect. SKIN: Warm, dry, normal turgor, no visible rashes or lesions. Source: Patient Exam Limitations: No limitations - Personal History Tetanus Vaccine Date: <10YRS - Medical/Surgical History Hx Asthma: No Hx Chronic Respiratory Disease: No Hx Diabetes: No Hx Cardiac Disease: No Hx Renal Disease: No Hx Cirrhosis: No Hx Alcoholism: Yes Hx HIV/AIDS: No Hx Splenectomy or Spleen Trauma: No Other PMH: ETOH, Hep C, lung and esophogeal cancer per pt report - Family History Significant Family History: No pertinent family hx - Social History Smoking Status: Heavy smoker Alcohol Use: Heavy Constitutional: Initial Vital Signs Temperature (C) 36.4 C 08/03/17 14:31 Heart Rate 110 H 08/03/17 14:31 Respiratory Rate 16 08/03/17 14:31 Blood Pressure 97/61 L 08/03/17 14:31 O2 Sat (%) 91 L 08/03/17 14:31 O2 Delivery Mode Room Air O2 (L/minute) 2 Allergies/Adverse Reactions: penicillin Allergy (Verified 07/31/17 00:46) "Passed out" Home Medications: Medication Instructions Recorded Acetaminophen [Tylenol 325mg (*)] 650 mg PO Q4HRS PRN tab 07/16/17 Pantoprazole Sodium [Protonix] 40 mg PO DAILY #30 tablet. 07/16/17 Medical Decision Making ED Course/Re-evaluation: 7:30 p.m. the patient is ambulating. He is sober clinically. He is eager to go home. He continues to have no complaints. No pain. He declines further workup or testing. Differential Diagnosis: Partial list of the Differential diagnosis considered include but were not limited to; intoxication, ankle injury, urinary tract infection and although unlikely based on the history and physical exam, I also considered head injury, infection. - Data Points Laboratory Results: 08/03/17 17:40 Urine Color YELLOW Urine Appearance CLEAR Urine pH 6.0 (5.0-7.5) Ur Specific [place] 1.005 (1.002-1.030) Urine Protein NEGATIVE (NEGATIVE) Urine Ketones NEGATIVE (NEGATIVE) Urine Blood NEGATIVE (NEGATIVE) Urine Nitrate NEGATIVE (NEGATIVE) Urine Bilirubin NEGATIVE (NEGATIVE) Urine Urobilinogen 2.0 EU H EU (0.2-1.0) Ur Leukocyte Esterase NEGATIVE (NEGATIVE) Urine RBC NONE SEEN /hpf /hpf (0-3) Urine WBC 1-3 /hpf /hpf (0-3) Ur Epithelial Cells NONE SEEN /lpf /lpf (NONE-1+) Urine Glucose NEGATIVE (NEGATIVE) Medications Given: Discontinued Medications Sodium Chloride (Ns) 1,000 mls @ 0 mls/hr IV ONCE ONE; Wide Open PRN Reason: Protocol Stop: 08/03/17 15:02 Last Admin: 08/03/17 15:04 Dose: 1,000 mls Sodium Chloride (Ns) 1,000 mls @ 0 mls/hr IV ONCE ONE PRN Reason: Wide Open Stop: 08/03/17 16:39 Last Admin: 08/03/17 17:30 Dose: 1,000 mls Departure - Departure Disposition: Home, Routine, Self-Care Clinical Impression: Alcoholic intoxication Qualifiers: Complication of substance-induced condition: uncomplicated Qualified Code(s): F10.920 - Alcohol use, unspecified with intoxication, uncomplicated Alcohol dependence Qualifiers: Substance use status: with intoxication Complication of substance-induced condition: uncomplicated Qualified Code(s): F10.220 - Alcohol dependence with intoxication, uncomplicated Condition: Fair Instructions: Alcohol Intoxication (ED) Referrals: Patient,NotPresent [Unknown] - As per Instructions [facility],. [Clinic] - As per Instructions
[2017-08-03] MEDS ORDERED: NS 1,000 ML IV ONE ×2 (15:01→16:38)
[2017-08-03 19:42] VITALS: BP 98/58
== END 2017-08-03 19:41 | disposition home or self-care (01) ==
LOC: EDUNIT#
DX: F10.220 Alcohol dependence with intoxication, uncomplicated (principal); E86.9 Volume depletion, unspecified; F17.200 Nicotine dependence, unspecified, uncomplicated; Z85.01 Personal history of malignant neoplasm of esophagus; Z85.118 Personal history of other malignant neoplasm of bronchus and lung

== ENCOUNTER 2017-08-13 18:37 | Emergency (ER) | payer MEDICAID ==
--- NOTE | 2017-08-13 18:37 | EDPHY ---
H & P Time Seen by Provider: 08/13/17 18:37 HPI/ROS: CHIEF COMPLAINT: Can't walk HISTORY OF PRESENT ILLNESS: Passerby called as the patient was over by [place] [email or web address] [place] unable to walk after having drunk 2 bottles of vodka. Patient has no complaints now and says he was just too drunk to stand up. Denies falling or injury. REVIEW OF SYSTEMS: Eye: no change in vision ENT: no sore throat Cardiac: no chest pain or syncope Pulmonary: no cough or SOB Abdomen: no vomiting, diarrhea, abdominal pain Musculoskeletal: No back or neck pain. He has had some nontraumatic left posterior chest pain which is worse with movement and palpation for about 2 weeks now. Skin: No laceration Neuro: no headache Constitutional: no fever : no urinary symptoms, denies hematuria A comprehensive 10 point review of systems is otherwise negative aside from elements mentioned in the history of present illness. PAST MEDICAL HISTORY: Discharge summary dated 07/16/2017 personally reviewed includes Benedict's esophagus, alcoholism, reactive airway disease. Social history: Recent alcohol, homeless General Appearance: Alert and conversant, cooperative. Eyes: No scleral icterus. ENT, Mouth: Normal mucous membranes. Respiratory: Normal respiratory effort, breath sounds equal, lungs are clear to auscultation. No wheezing or rales. Cardiovascular: Regular rate and rhythm. Gastrointestinal: Abdomen is soft and non tender. Nontender over liver or spleen. Neurological: Alert, face symmetric, normal motor and sensory in extremities. Skin: Warm and dry, no rashes. Musculoskeletal: No cervical thoracic or lumbar spine tenderness to palpation. No extremity deformity or tenderness. He has tenderness to palpation on the left mid axillary line lateral to his left nipple. Psychiatric: Not agitated. Emergency Department course/MDM: Clinically intoxicated. Serial exams. EKG and chest x-ray. 2000: signed out to [facility], plan for detox when clinically sober. 2 week chest pain not likely medically or surgically emergent. (Yosef Giang) Constitutional: Initial Vital Signs Temperature (C) 37 C 08/13/17 18:39 Heart Rate 109 H 08/13/17 18:39 Respiratory Rate 16 08/13/17 18:39 Blood Pressure 104/70 08/13/17 18:39 O2 Sat (%) 89 L 08/13/17 18:39 O2 Delivery Mode Nasal Cannula O2 (L/minute) 2 Allergies/Adverse Reactions: penicillin Allergy (Verified 08/13/17 18:39) "Passed out" Home Medications: Medication Instructions Recorded Acetaminophen [Tylenol 325mg (*)] 650 mg PO Q4HRS PRN tab 07/16/17 Pantoprazole Sodium [Protonix] 40 mg PO DAILY #30 tablet. 07/16/17 Medical Decision Making - Diagnostics EKG Interpretation: 12-lead EKG interpreted by me; official reading is in trace master. My interpretation is sinus rhythm with left axis rate 109 (Yosef Giang) Imaging Results: Imaging Impressions Chest X-Ray 08/13/17 18:48 Impression: 1. Peribronchial cuffing once again seen in the perihilar region bilaterally. Findings are nonspecific but can be seen with bronchitis, viral process, and/or reactive airways disease. 2. Persistent mild elevation left hemidiaphragm with compressive atelectatic change at the left base. Chest x-ray shows left lower lung consolidation and effusion which is improved since previous x-ray done 2 months ago (Yosef Giang) Differential Diagnosis: Differential diagnosis considered for chest pain including but not limited to myocardial ischemia, aortic dissection, pericarditis, pulmonary embolus, chest wall pain, pleural inflammation and pulmonary infectious causes. Differential diagnosis considered for weakness including but not limited to electrolyte abnormality, depression, anxiety, CVA, spinal cord abnormality, and infectious causes. (Yosef Giang) Other Provider: I assumed care of the patient at 8pm. The patient is ambulatory at 10:10 p.m.. He [facility] be [facility] department. (Tae Amaya) Departure - Departure Disposition: Home, Routine, Self-Care Clinical Impression: Alcoholic intoxication Qualifiers: Complication of substance-induced condition: uncomplicated Qualified Code(s): F10.920 - Alcohol use, unspecified with intoxication, uncomplicated Condition: Good Instructions: Alcohol Intoxication (ED) Referrals: [facility],. [Clinic] - As per Instructions
--- NOTE | 2017-08-13 19:03 | CPEKG ---
Heart Rate: 109 RR Interval: 550 P-R Interval: 164 QRSD Interval: 104 QT Interval: 348 QTC Interval: 469 P Alpine: 40 QRS Alpine: -40 T Wave Alpine: 48 EKG Severity - OTHERWISE NORMAL ECG - EKG Impression: SINUS TACHYCARDIA EKG Impression: LEFT AXIS DEVIATION Electronically Signed By: Yosef Giang 13-Aug-2017 19:08:15
[2017-08-13 21:23] VITALS: BP 93/64
[2017-08-13] MEDS ORDERED: CHLORDIAZEPOXIDE 25MG PREPK#6 BTL TAKEHOME ONE ×2 (22:44→22:49)
== END 2017-08-13 22:50 | disposition home or self-care (01) ==
LOC: EDUNIT#
DX: F10.920 Alcohol use, unspecified with intoxication, uncomplicated (principal); J45.909 Unspecified asthma, uncomplicated

== ENCOUNTER 2017-08-24 10:26 | Emergency (ER) | payer MEDICAID ==
--- NOTE | 2017-08-24 11:13 | EDPHY ---
H & P Stated Complaint: "SICK A DOG" Time Seen by Provider: 08/24/17 10:46 HPI/ROS: CHIEF COMPLAINT: "I am burning up inside" Limitations: Poor historian HISTORY OF PRESENT ILLNESS: 52-year-old male with alcoholism presents with a chief complaint of "I am burning up inside". 3 day history of not feeling well , but he is unable to tell me more. He has a chronic cough and some nasal congestion. He also has intermittent vomiting, but this has not changed recently. No abdominal pain, shortness of breath or chest pain. 2 beers today. REVIEW OF SYSTEMS: complete 10 point ROS negative except at noted in the HPI - Personal History Current Tetanus Diphtheria and Acellular Pertussis (TDAP): Yes Tetanus Vaccine Date: <10YRS - Medical/Surgical History Hx Asthma: No Hx Chronic Respiratory Disease: No Hx Diabetes: No Hx Cardiac Disease: No Hx Renal Disease: No Hx Cirrhosis: No Hx Alcoholism: Yes Hx HIV/AIDS: No Hx Splenectomy or Spleen Trauma: No Other PMH: ETOH, Hep C, lung and esophogeal cancer per pt report - Social History Smoking Status: Heavy smoker - Physical Exam Exam: General Appearance: Alert, pleasant Eyes: Pupils equal and round, no conjunctival pallor ENT, Mouth: Mucous membranes moist Neck: Normal inspection Respiratory: Lungs are clear to auscultation, no wheezing Cardiovascular: Regular rate and rhythm Gastrointestinal: Abdomen is soft and nontender Neurological: A&O, nonfocal exam Skin: Warm and dry Extremities: Normal inspection Psychiatric: Mood and affect normal Constitutional: Initial Vital Signs Temperature (C) 36.9 C 08/24/17 10:28 Heart Rate 107 H 08/24/17 10:28 Respiratory Rate 16 08/24/17 10:28 Blood Pressure 118/67 08/24/17 10:28 O2 Sat (%) 90 L 08/24/17 10:28 O2 Delivery Mode Room Air Allergies/Adverse Reactions: penicillin Allergy (Verified 08/27/17 04:06) "Passed out" Penicillins Allergy (Verified 08/27/17 04:06) Home Medications: Medication Instructions Recorded NK [No Known Home Meds] 08/27/17 Medical Decision Making - Diagnostics Imaging Results: CXR: NAD Imaging: I viewed and interpreted images myself ED Course/Re-evaluation: This pt presents with alcohol intoxication. No signs/sx of infection and CXR reveals no evidence of pneumonia. Labs remarkable only for Etoh. Safe/stable for d/c. Differential Diagnosis: includes though not limited to pneumonia, URI, AKA, alcholic hepatitis, injury - Data Points Laboratory Results: Laboratory Results 08/24/17 11:00 08/24/17 11:00 Departure - Departure Disposition: Home, Routine, Self-Care Clinical Impression: Alcoholic intoxication Qualifiers: Complication of substance-induced condition: uncomplicated Qualified Code(s): F10.920 - Alcohol use, unspecified with intoxication, uncomplicated Condition: Good Instructions: Alcohol Intoxication (ED) Additional Instructions: [facility] has walk-in appointments for the homeless at the following days/locations. No appointment is needed. Saturday 8-10 am @ [facility] 11 AM-1 PM @ [facility] Saturday 8-10:30 AM @ [facility] Saturday 8-10 AM @ [facility] 2-4 PM @ [facility] Saturday 8-10 AM @ [facility] Referrals: [facility],. [Clinic] - As per Instructions
[2017-08-24 11:21] LABS: PLATELET COUNT 122 10^3/uL (150-400)
[2017-08-24 12:17] VITALS: BP 113/72
== END 2017-08-24 12:25 | disposition home or self-care (01) ==
LOC: EDUNIT#
DX: F10.920 Alcohol use, unspecified with intoxication, uncomplicated (principal); F17.200 Nicotine dependence, unspecified, uncomplicated; Z85.01 Personal history of malignant neoplasm of esophagus
CPT/HCPCS: G0480

== ENCOUNTER 2017-08-27 03:52 | Inpatient (IN) | payer MEDICAID ==
[2017-08-27] MEDS ORDERED: LORazepam 2 MG/ML INJ IVP ONE ×3 (04:01→05:31)
[2017-08-27] MEDS ORDERED: NS 1,000 ML IV ONE ×3 (04:01→06:25)
[2017-08-27] MEDS ORDERED: ONDANSETRON DISINTEGRATING 4 MG TAB PO ONE (04:07)
[2017-08-27] MEDS ORDERED: ONDANSETRON 4 MG/2 ML VIAL ONE (04:11)
[2017-08-27] MEDS ORDERED: ONDANSETRON 4 MG/2 ML VIAL IVP ONE (04:20)
[2017-08-27 05:06] LABS: PLATELET COUNT 108 10^3/uL (150-400)
[2017-08-27] MEDS ORDERED: IOPAMIDOL (ISOVUE-300) 100 ML BTL ONE (05:27)
--- NOTE | 2017-08-27 05:31 | EDPHY ---
H & P Stated Complaint: tray flank pain, LLE pain, nausea/ vomiting Time Seen by Provider: 08/27/17 03:53 HPI/ROS: HPI The patient presents brought in by ambulance for body pain and alcohol intoxication. His last drink was at 1:00 p.m. Yesterday and he drinks about 1 pt of hard alcohol a day. He was found outside of a grocery store with some other people complaining that his flanks hurt, legs hurt, back hurt and he has been vomiting. He says he has had symptoms for the last several days. He is concerned that he has had a kidney stone. He was seen in the emergency room several days ago for same and had a relatively unremarkable evaluation. He says he feels shaky. He has been an alcohol withdrawal before, however says this feels different. REVIEW OF SYSTEMS Constitutional: No fever, no chills. Eyes: No discharge. ENT: No sore throat. Cardiovascular: No chest pain, no palpitations. Respiratory: No cough, no shortness of breath. Gastrointestinal: See HPI Genitourinary: No hematuria. Musculoskeletal: No back pain. Skin: No rashes. Neurological: No headache. PMHx: Reported hepatitis-C Soc Hx: Homeless, alcohol abuse PHYSICAL General Appearance: Alert, no distress Eyes: Pupils equal and round no pallor or injection ENT, Mouth: Mucous membranes dry Respiratory: There are no retractions, lungs are clear to auscultation Cardiovascular: Tachycardic rate and regular rhythm Gastrointestinal: Abdomen is soft and tender in the right lower quadrant, no masses, bowel sounds normal Back: There is no midline tenderness, there is tenderness of the right flank Neurological: A&O, moves all extremities, tongue wag present, fine hand tremor present Skin: Warm and dry, no rashes Musculoskeletal: Neck is supple non tender Extremities: symmetrical, full range of motion Psychiatric: Patient is oriented X 3, there is no agitation Source: Patient Exam Limitations: No limitations - Personal History Current Tetanus Diphtheria and Acellular Pertussis (TDAP): Yes Tetanus Vaccine Date: <10YRS - Medical/Surgical History Hx Asthma: No Hx Chronic Respiratory Disease: No Hx Diabetes: No Hx Cardiac Disease: No Hx Renal Disease: No Hx Cirrhosis: No Hx Alcoholism: Yes Hx HIV/AIDS: No Hx Splenectomy or Spleen Trauma: No Other PMH: ETOH, Hep C, lung and esophogeal cancer per pt report - Social History Smoking Status: Heavy smoker Constitutional: Initial Vital Signs Temperature (C) 36.6 C 08/27/17 03:58 Heart Rate 140 H 08/27/17 03:58 Respiratory Rate 20 08/27/17 03:58 Blood Pressure 142/105 H 08/27/17 03:58 O2 Sat (%) 94 08/27/17 03:58 O2 Delivery Mode Nasal Cannula O2 (L/minute) 2 Allergies/Adverse Reactions: penicillin Allergy (Verified 08/27/17 04:06) "Passed out" Penicillins Allergy (Verified 08/27/17 04:06) Home Medications: Medication Instructions Recorded NK [No Known Home Meds] 08/27/17 Medical Decision Making - Diagnostics Imaging Results: CT abdomen pelvis with IV contrast shows old right-sided rib fracture of 10th rib, fractures of the left L1 through L4 transverse processes, prominent left periaortic lymph nodes, discussed with Dr. Sosa of Radiology. Differential Diagnosis: This is a 52-year-old man with history of alcohol abuse who presents with abdominal, flank pain, also vomiting. Last alcohol use was more than 12 hr ago. On arrival, he is tachycardic, hypertensive, has hand tremor. He is tender in his right lower quadrant and right flank. Differential diagnosis includes ureterolithiasis, pyelonephritis, appendicitis, alcohol withdrawal, dehydration, alcoholic gastritis. In the emergency department, patient was given IV fluids and Ativan for his tachycardia with some improvement in his symptoms. Labs were checked and were relatively unremarkable. CT scan was performed given his right-sided flank pain. This demonstrated old right rib fracture which could possibly be the cause of his pain. He does have enlarged periaortic lymph nodes. His chart reads that he has a history of esophageal cancer and this could be related. Given his ongoing tachycardia on withdrawal symptoms with sedation, I do not think he is suitable for discharge, I have discussed the case with the hospitalist we plan to admit him for this. - Data Points Laboratory Results: Laboratory Results 08/27/17 04:15 08/27/17 04:15 08/27/17 08/27/17 08/27/17 05:50 04:15 04:15 WBC RBC Hgb Hct MCV MCH MCHC RDW Plt Count MPV Neut % (Auto) Lymph % (Auto) [place] % (Auto) Eos % (Auto) Baso % (Auto) Nucleat RBC Rel Count Absolute Neuts (auto) Absolute Lymphs (auto) Absolute Monos (auto) Absolute Eos (auto) Absolute Basos (auto) Absolute Nucleated RBC Immature Gran % Immature Gran # Sodium 143 mEq/L mEq/L (135-145) Potassium 3.5 mEq/L mEq/L (3.3-5.0) Chloride 106 mEq/L mEq/L (97-110) Carbon Dioxide 23 mEq/l mEq/l (22-31) Anion Gap 14 mEq/L mEq/L (8-16) BUN 5 mg/dL L mg/dL (7-23) Creatinine 0.6 mg/dL L mg/dL (0.7-1.3) Estimated GFR > 60 Glucose 89 mg/dL mg/dL (70-100) Calcium 8.9 mg/dL mg/dL (8.5-10.4) Total Bilirubin 1.2 mg/dL mg/dL (0.1-1.4) Conjugated Bilirubin 0.6 mg/dL H mg/dL (0.0-0.5) Unconjugated Bilirubin 0.6 mg/dL mg/dL (0.0-1.1) AST 120 IU/L H IU/L (17-59) ALT 97 IU/L H IU/L (21-72) Alkaline Phosphatase 98 IU/L IU/L (38-126) Total Protein 6.9 g/dL g/dL (6.3-8.2) Albumin 3.8 g/dL g/dL (3.5-5.0) Lipase 121 IU/L IU/L (23-300) Urine Color YELLOW Urine Appearance CLEAR Urine pH 8.0 H (5.0-7.5) Ur Specific [place] 1.017 (1.002-1.030) Urine Protein NEGATIVE (NEGATIVE) Urine Ketones 1+ H (NEGATIVE) Urine Blood NEGATIVE (NEGATIVE) Urine Nitrate NEGATIVE (NEGATIVE) Urine Bilirubin NEGATIVE (NEGATIVE) Urine Urobilinogen 4.0 EU H EU (0.2-1.0) Ur Leukocyte Esterase NEGATIVE (NEGATIVE) Urine Glucose NEGATIVE (NEGATIVE) Ethyl Alcohol < 10 mg/dL mg/dL (0-10) 08/27/17 04:15 WBC 5.79 10^3/uL 10^3/uL (3.80-9.50) RBC 4.66 10^6/uL 10^6/uL (4.40-6.38) Hgb 15.9 g/dL g/dL (13.7-17.5) Hct 45.5 % % (40.0-51.0) MCV 97.6 fL fL (81.5-99.8) MCH 34.1 pg pg (27.9-34.1) MCHC 34.9 g/dL g/dL (32.4-36.7) RDW 13.1 % % (11.5-15.2) Plt Count 108 10^3/uL L 10^3/uL (150-400) MPV 11.4 fL fL (8.7-11.7) Neut % (Auto) 64.8 % % (39.3-74.2) Lymph % (Auto) 19.7 % % (15.0-45.0) [place] % (Auto) 11.7 % % (4.5-13.0) Eos % (Auto) 2.2 % % (0.6-7.6) Baso % (Auto) 0.9 % % (0.3-1.7) Nucleat RBC Rel Count 0.0 % % (0.0-0.2) Absolute Neuts (auto) 3.75 10^3/uL 10^3/uL (1.70-6.50) Absolute Lymphs (auto) 1.14 10^3/uL 10^3/uL (1.00-3.00) Absolute Monos (auto) 0.68 10^3/uL 10^3/uL (0.30-0.80) Absolute Eos (auto) 0.13 10^3/uL 10^3/uL (0.03-0.40) Absolute Basos (auto) 0.05 10^3/uL 10^3/uL (0.02-0.10) Absolute Nucleated RBC 0.00 10^3/uL 10^3/uL (0-0.01) Immature Gran % 0.7 % % (0.0-1.1) Immature Gran # 0.04 10^3/uL 10^3/uL (0.00-0.10) Sodium Potassium Chloride Carbon Dioxide Anion Gap BUN Creatinine Estimated GFR Glucose Calcium Total Bilirubin Conjugated Bilirubin Unconjugated Bilirubin AST ALT Alkaline Phosphatase Total Protein Albumin Lipase Urine Color Urine Appearance Urine pH Ur Specific [place] Urine Protein Urine Ketones Urine Blood Urine Nitrate Urine Bilirubin Urine Urobilinogen Ur Leukocyte Esterase Urine Glucose Ethyl Alcohol Medications Given: Discontinued Medications Sodium Chloride (Ns) 1,000 mls @ 0 mls/hr IV EDNOW ONE; Wide Open PRN Reason: Protocol Stop: 08/27/17 04:02 Last Admin: 08/27/17 04:20 Dose: 1,000 mls Sodium Chloride (Ns) 1,000 mls @ 0 mls/hr IV EDNOW ONE; Wide Open PRN Reason: Protocol Stop: 08/27/17 04:48 Last Admin: 08/27/17 04:51 Dose: 1,000 mls Sodium Chloride (Ns) 1,000 mls @ 0 mls/hr IV EDNOW ONE; Wide Open PRN Reason: Protocol Stop: 08/27/17 06:26 Last Admin: 08/27/17 06:39 Dose: 1,000 mls Lorazepam (Ativan Injection) 1 mg IVP EDNOW ONE Stop: 08/27/17 04:02 Last Admin: 08/27/17 04:21 Dose: 1 mg Lorazepam (Ativan Injection) 1 mg IVP EDNOW ONE Stop: 08/27/17 04:48 Last Admin: 08/27/17 04:52 Dose: 1 mg Lorazepam (Ativan Injection) 1 mg IVP EDNOW ONE Stop: 08/27/17 05:32 Last Admin: 08/27/17 05:44 Dose: 1 mg Ondansetron HCl (Zofran Odt) 4 mg PO EDNOW ONE Stop: 08/27/17 04:08 Last Admin: 08/27/17 04:22 Dose: Not Given Ondansetron HCl (Zofran) 4 mg IVP EDNOW ONE Stop: 08/27/17 04:21 Last Admin: 08/27/17 04:21 Dose: 4 mg Departure - Departure Disposition: [facility] Acute Clinical Impression: Tachycardia Alcohol withdrawal Qualifiers: Complication of substance-induced condition: with delirium Qualified Code(s): F10.231 - Alcohol dependence with withdrawal delirium Abdominal pain Qualifiers: Abdominal location: generalized Qualified Code(s): R10.84 - Generalized abdominal pain Right rib fracture Qualifiers: Encounter type: initial encounter Rib fracture type: single rib Fracture type: closed Qualified Code(s): S22.31XA - Fracture of one rib, right side, initial encounter for closed fracture Condition: Fair
[2017-08-27] MEDS ORDERED: ACETAMINOPHEN 325 MG TAB PO PRN (06:36)
[2017-08-27] MEDS ORDERED: ALBUTEROL 3 ML DEYVIAL IH PRN (06:36)
[2017-08-27] MEDS ORDERED: ONDANSETRON 4 MG/2 ML VIAL IVP PRN (06:36)
[2017-08-27] MEDS ORDERED: ONDANSETRON DISINTEGRATING 4 MG TAB PO PRN (06:36)
[2017-08-27] MEDS ORDERED: FLUMAZENIL 0.5 MG/5 ML MDV IVP PRN (06:38)
--- NOTE | 2017-08-27 06:43 | PDGENHP ---
History and Physical - Chief Complaint Diffuse pain - History of Present Illness 52 yo homeless M w/ hx of ETOH abuse and recently diagnosed Benedict's esophagus presents via MS with diffuse pain and signs of ETOH w/d. The patient is sedated at the time of my evaluation and cannot provide additional history. Per report, he was found by EMS complaining of diffuse body pain and severe flank pain. He was seen in the ED a few days ago with similar complaints and had an unremarkable work-up. Upon arrival in the ED he was noted to be tachycardic and showing signs of ETOH w/d. CT A/P revealed sub-acute/chronic fractures (rib, lumbar) and lymphadenopathy somewhat different from previous imaging studies. Laboratory work-up relatively unremarkable aside from changes c/w heavy ETOH use. History Information - Allergies/Home Medication List Allergies/Adverse Reactions: penicillin Allergy (Verified 08/27/17 04:06) "Passed out" Penicillins Allergy (Verified 08/27/17 04:06) Home Medications: NK [No Known Home Meds] 08/27/17 [Last Taken Unknown] I have personally reviewed and updated: family history, medical history - Past Medical History Additional medical history: HCV, alcohol dependence, bolus emphysema noted on CT - Surgical History Additional surgical history: None listed in previous records however patient does have a surgical scar on his left medial ankle. - Family History Additional family history: No family hx of CA - Social History Smoking Status: Heavy smoker Additional social history: Patient currently homeless. Review of Systems Review of Systems: ROS: 10pt was reviewed & negative except for what was stated in HPI & below Physical Exam Physical Exam: Temp Pulse Resp BP Pulse Ox 36.6 C 117 H 18 150/115 H 97 08/27/17 03:58 08/27/17 04:53 08/27/17 04:53 08/27/17 04:53 08/27/17 04:53 Constitutional: unkempt, other (Sedated) Eyes: PERRL, EOMI Ears, Nose, Mouth, Throat: moist mucous membranes, no oral mucosal ulcers Cardiovascular: systolic murmur, tachycardia Respiratory: no respiratory distress, expiratory wheeze (Mild, diffuse) Gastrointestinal: normoactive bowel sounds, soft, non-tender abdomen Skin: warm, normal color Musculoskeletal: no joint effusions, joint tenderness, No joint effusion Neurologic: other (Mild, fine UE extremity tremor noted), No facial droop Psychiatric: other (Sedated, responsive to painful stimuli) Lab Data & Imaging Review 08/27/17 04:15 08/27/17 04:15 WBC 5.79 10^3/uL (3.80-9.50) 08/27/17 04:15 RBC 4.66 10^6/uL (4.40-6.38) 08/27/17 04:15 Hgb 15.9 g/dL (13.7-17.5) 08/27/17 04:15 Hct 45.5 % (40.0-51.0) 08/27/17 04:15 MCV 97.6 fL (81.5-99.8) 08/27/17 04:15 MCH 34.1 pg (27.9-34.1) 08/27/17 04:15 MCHC 34.9 g/dL (32.4-36.7) 08/27/17 04:15 RDW 13.1 % (11.5-15.2) 08/27/17 04:15 Plt Count 108 10^3/uL (150-400) L 08/27/17 04:15 MPV 11.4 fL (8.7-11.7) 08/27/17 04:15 Neut % (Auto) 64.8 % (39.3-74.2) 08/27/17 04:15 Lymph % (Auto) 19.7 % (15.0-45.0) 08/27/17 04:15 [place] % (Auto) 11.7 % (4.5-13.0) 08/27/17 04:15 Eos % (Auto) 2.2 % (0.6-7.6) 08/27/17 04:15 Baso % (Auto) 0.9 % (0.3-1.7) 08/27/17 04:15 Nucleat RBC Rel Count 0.0 % (0.0-0.2) 08/27/17 04:15 Absolute Neuts (auto) 3.75 10^3/uL (1.70-6.50) 08/27/17 04:15 Absolute Lymphs (auto) 1.14 10^3/uL (1.00-3.00) 08/27/17 04:15 Absolute Monos (auto) 0.68 10^3/uL (0.30-0.80) 08/27/17 04:15 Absolute Eos (auto) 0.13 10^3/uL (0.03-0.40) 08/27/17 04:15 Absolute Basos (auto) 0.05 10^3/uL (0.02-0.10) 08/27/17 04:15 Absolute Nucleated RBC 0.00 10^3/uL (0-0.01) 08/27/17 04:15 Immature Gran % 0.7 % (0.0-1.1) 08/27/17 04:15 Immature Gran # 0.04 10^3/uL (0.00-0.10) 08/27/17 04:15 Sodium 143 mEq/L (135-145) 08/27/17 04:15 Potassium 3.5 mEq/L (3.3-5.0) 08/27/17 04:15 Chloride 106 mEq/L (97-110) 08/27/17 04:15 Carbon Dioxide 23 mEq/l (22-31) 08/27/17 04:15 Anion Gap 14 mEq/L (8-16) 08/27/17 04:15 BUN 5 mg/dL (7-23) L 08/27/17 04:15 Creatinine 0.6 mg/dL (0.7-1.3) L 08/27/17 04:15 Estimated GFR > 60 08/27/17 04:15 Glucose 89 mg/dL (70-100) 08/27/17 04:15 Calcium 8.9 mg/dL (8.5-10.4) 08/27/17 04:15 Total Bilirubin 1.2 mg/dL (0.1-1.4) 08/27/17 04:15 Conjugated Bilirubin 0.6 mg/dL (0.0-0.5) H 08/27/17 04:15 Unconjugated Bilirubin 0.6 mg/dL (0.0-1.1) 08/27/17 04:15 AST 120 IU/L (17-59) H 08/27/17 04:15 ALT 97 IU/L (21-72) H 08/27/17 04:15 Alkaline Phosphatase 98 IU/L (38-126) 08/27/17 04:15 Total Protein 6.9 g/dL (6.3-8.2) 08/27/17 04:15 Albumin 3.8 g/dL (3.5-5.0) 08/27/17 04:15 Lipase 121 IU/L (23-300) 08/27/17 04:15 Urine Color YELLOW 08/27/17 05:50 Urine Appearance CLEAR 08/27/17 05:50 Urine pH 8.0 (5.0-7.5) H 08/27/17 05:50 Ur Specific [place] 1.017 (1.002-1.030) 08/27/17 05:50 Urine Protein NEGATIVE (NEGATIVE) 08/27/17 05:50 Urine Ketones 1+ (NEGATIVE) H 08/27/17 05:50 Urine Blood NEGATIVE (NEGATIVE) 08/27/17 05:50 Urine Nitrate NEGATIVE (NEGATIVE) 08/27/17 05:50 Urine Bilirubin NEGATIVE (NEGATIVE) 08/27/17 05:50 Urine Urobilinogen 4.0 EU (0.2-1.0) H 08/27/17 05:50 Ur Leukocyte Esterase NEGATIVE (NEGATIVE) 08/27/17 05:50 Urine Glucose NEGATIVE (NEGATIVE) 08/27/17 05:50 Ethyl Alcohol < 10 mg/dL (0-10) 08/27/17 04:15 Imaging Review: CTAP Prelim: Additionally, Compared to CTA of chest on 07/09/17 right posterior 10th rib fx seen retrospectively with more acute appearance in June there are fx of the left L1-L4 trv processes also prominent left paraortic LNs, up to 17 mm (previous CT showed prominent left paratracheal node); query reactive, lymphoproliferative disorder (check CBC with diff), perform testicular exam (consider u/s); consider endoscopy given thoracic esophageal wall thickening (esophagitis vs malig). Discussed findings with Dr. Banda at 6 am. MB Assessment & Plan Assessment: 52 yo homeless M w/ hx of ETOH abuse and recent dx of Benedict's esophagus p/w ETOH w/d. Plan: 1. ETOH abuse with acute withdrawal - Sedated at the time of my evaluation after IV Ativan but still with notable tremor and tachycardia. Drinks ~1 pt of liquor daily with last drink being 1 PM on day prior to admission; BAL<10. - Admit to SDU for close monitoring - Continue IVF(receiving 3rd L NS currently) - CIWA protocol ordered - MVI, folate, thiamine - CM consult 2. Benedict's esophagus - Diagnosed during most recent admission through EGD and biopsies after imaging noted esophageal thickening. CT this admission reveals L paraortic LNs of unclear significance. - [employer] Nutrition[employer] Monitor ETOH and tobacco cessation - Surveillance EGD's indicated in 3-5 years 3. Rib fracture, lumbar transverse process fractures - Unclear acuity, no signs of acute trauma on exam at this time. - Would further discuss this w/ patient once able to participate 4. Suspected COPD - Heavy smoker w/ emphysema noted on imaging. Mild wheezing on admission. - Albuterol PRN 5. Transaminitis - Mild, 2/2 ETOH 6. Thrombocytopenia - 108 on admission, fairly stable from prior. Presumed 2/2 ETOH. - Monitor CBC - Cautious with blood thinners Diet - Regular Code - Full Ppx - SCDs Dispo - Admit under observation status
[2017-08-27] MEDS ORDERED: ENOXAPARIN 40 MG/0.4 ML SYR SC SCH (09:00)
[2017-08-27] MEDS: FOLIC ACID 1 MG TAB PO SCH (11:39)
[2017-08-27] MEDS: MULTIVITAMINS 1 EACH TAB PO SCH (11:39)
--- NOTE | 2017-08-27 12:46 | HOSPPROG ---
Hospitalist Progress Note Assessment/Plan: 52 yo homeless M w/ hx of ETOH abuse and recent dx of Benedict's esophagus p/w ETOH w/d. Plan: # ETOH abuse with acute withdrawal - at this time sedated post treatment with IV ativan, has a hx of heavy drinking and withdrawal --continue to monitor on ciwa, continue mvi/thiamine/folate # subacute/chronic fractures: in setting of etoh abuse and likely related to falls, not complaining of pain currently # copd: continue albuterol prn # Barretts esophagaus: continued surveillance # thrombocytopenia: 2/2 etoh, stabe # observation status for now Subjective: no significant overnight events, patient somnolent post ativan Objective: Vital Signs Temp Pulse Resp BP Pulse Ox 36.9 C 109 H 14 149/111 H 95 08/27/17 12:17 08/27/17 12:17 08/27/17 12:17 08/27/17 12:17 08/27/17 12:17 ICD10 Worksheet Patient Problems: Problems Problem Status Onset Alcoholic intoxication Acute Respiratory failure Acute Tachycardia Acute Alcohol withdrawal Acute Acute bronchitis Acute Mucus plugging of bronchi Acute Abdominal pain Acute Right rib fracture Acute
[2017-08-27] MEDS: LORazepam 2 MG/ML INJ IVP PRN ×3 (14:08→19:43)
--- NOTE | 2017-08-27 15:50 | ASMTCMCOM ---
CM Note CM Note Notes: 52yr old male admitted for ETOH W/D, resp failure, R rib fx's and lumbar fx's, tachy. Patient is homeless and has a Hx of smoking, Benedict's esophagus. Therapies to eval patient for discharge needs. CM to follow. Date Signed: 08/27/2017 03:49 PM Electronically Signed By:Hilary Toussaint LCSW
[2017-08-27] MEDS: THIAMINE HCL 100 MG TAB PO SCH (16:45)
[2017-08-28] MEDS: LORazepam 2 MG/ML INJ IVP PRN ×2 (06:51→20:07)
--- NOTE | 2017-08-28 09:14 | HOSPPROG ---
Hospitalist Progress Note Assessment/Plan: 52 yo homeless M w/ hx of ETOH abuse and recent dx of Benedict's esophagus p/w ETOH w/d. Plan: # ETOH abuse with acute withdrawal - at this time sedated post treatment with IV ativan, has a hx of heavy drinking and withdrawal --continue to monitor on ciwa, continue mvi/thiamine/folate # subacute/chronic fractures: in setting of etoh abuse and likely related to falls, not complaining of pain currently # copd: continue albuterol prn # Barretts esophagaus: continued surveillance add ppi # thrombocytopenia: 2/2 etoh, stabe #inpatient Subjective: case d/w dr colin. tremulous Objective: Vital Signs Temp Pulse Resp BP Pulse Ox 37.0 C 105 H 16 143/110 H 99 08/28/17 08:00 08/28/17 08:00 08/28/17 08:00 08/28/17 08:00 08/28/17 08:00 08/27/17 08/28/17 08/29/17 05:59 05:59 05:59 Intake Total 1250 Output Total 1750 450 Balance -500 -450 - Physical Exam Constitutional: no apparent distress, appears nourished, unkempt Eyes: PERRL, anicteric sclera Ears, Nose, Mouth, Throat: moist mucous membranes, hearing normal Cardiovascular: regular rate and rhythym, no murmur, rub, or gallop, tachycardia Respiratory: no respiratory distress, no rales or rhonchi Gastrointestinal: normoactive bowel sounds, soft, non-tender abdomen Genitourinary: no bladder fullness, No gaytan in urethra Skin: warm, normal color Musculoskeletal: full muscle strength Neurologic: AAOx3, other (tremulous) Psychiatric: interacting appropriately ICD10 Worksheet Patient Problems: Problems Problem Status Onset Abdominal pain Acute Alcohol withdrawal Acute Right rib fracture Acute Tachycardia Acute Acute bronchitis Acute Alcoholic intoxication Acute Mucus plugging of bronchi Acute Respiratory failure Acute
[2017-08-28] MEDS: LORazepam 1 MG TAB PO PRN ×2 (09:50→17:04)
[2017-08-28] MEDS: MULTIVITAMINS 1 EACH TAB PO SCH (09:52)
[2017-08-28] MEDS: THIAMINE HCL 100 MG TAB PO SCH (09:52)
[2017-08-28] MEDS: FOLIC ACID 1 MG TAB PO SCH (09:52)
[2017-08-28] MEDS: PANTOPRAZOLE SODIUM 40 MG TAB PO SCH ×2 (09:55→20:07)
--- NOTE | 2017-08-28 11:40 | PDMN ---
Medical Necessity Medical necessity: Change to IP, as of 08/28/17, per MD; los >2 mn for ETOH withdrawal, rib fx & lumbar fxs; admit for further monitoring, CIWA protocol, med management, CM consult & therapies; hx ETOH abuse, homelessness, Benedict's esophagus, COPD; per progress note & order 08/28/17
[2017-08-29] MEDS: LORazepam 2 MG/ML INJ IVP PRN ×3 (00:16→11:05)
[2017-08-29] MEDS ORDERED: PNEUMOCOCCAL 0.5ML VACCINE VIAL IM ONE ×2 (08:26→11:00)
[2017-08-29] MEDS: FOLIC ACID 1 MG TAB PO SCH (10:49)
[2017-08-29] MEDS: MULTIVITAMINS 1 EACH TAB PO SCH (10:49)
[2017-08-29] MEDS: PANTOPRAZOLE SODIUM 40 MG TAB PO SCH (10:49)
[2017-08-29] MEDS: THIAMINE HCL 100 MG TAB PO SCH (10:49)
--- NOTE | 2017-08-29 10:58 | ASMTCAGE ---
CAGE Do you feel you ought to Answers: Yes cut down on your drinking or drug use? Do people annoy you by Answers: Yes criticizing your drinking or drug use? Do you feel guilty about Answers: No your drinking or drug use? Do you drink or use drugs Answers: Yes first thing in the morning ([employer])? Date Signed: 08/29/2017 10:57 AM Electronically Signed By:CALE Corrigan
--- NOTE | 2017-08-29 11:01 | ASMTCMCOM ---
CM Note CM Note Notes: CM met w/ pt for dispo planning. CAGE completed. CM provided pt w/ ETOH resources. Pt reports that he typically drinks 3 pints of alcohol a day. Pt reports that he has been trying to cut down. Pt reports that he has some support in the community but unable to provide further details. CM made a referral to [facility]. PT has cleared pt to d/c independent. No other needs identified at this time. CM available for changes. Plan: Independent Date Signed: 08/29/2017 11:01 AM Electronically Signed By:CALE Corrigan
[2017-08-29 11:10] VITALS: BP 157/105
--- NOTE | 2017-08-29 11:29 | HOSPPROG ---
Hospitalist Progress Note Assessment/Plan: 52 yo homeless M w/ hx of ETOH abuse and recent dx of Benedict's esophagus p/w ETOH w/d. Plan: # ETOH abuse with acute withdrawal - at this time sedated post treatment with IV ativan, has a hx of heavy drinking and withdrawal --continue to monitor on ciwa, continue mvi/thiamine/folate # subacute/chronic fractures: in setting of etoh abuse and likely related to falls, not complaining of pain currently # copd: continue albuterol prn # Barretts esophagaus: continued surveillance add ppi # thrombocytopenia: 2/2 etoh, stabe hometoday > 30 minutes Subjective: improved Objective: Vital Signs Temp Pulse Resp BP Pulse Ox 37.0 C 92 18 157/105 H 90 L 08/29/17 11:09 08/29/17 11:09 08/29/17 11:09 08/29/17 11:09 08/29/17 11:09 08/28/17 08/29/17 08/30/17 05:59 05:59 05:59 Intake Total 1250 1060 Output Total 1750 1650 Balance -500 -590 - Physical Exam Constitutional: no apparent distress, appears nourished Eyes: PERRL, anicteric sclera Ears, Nose, Mouth, Throat: moist mucous membranes, hearing normal Cardiovascular: regular rate and rhythym, systolic murmur Respiratory: no respiratory distress, no rales or rhonchi Gastrointestinal: normoactive bowel sounds, soft, non-tender abdomen Genitourinary: no bladder fullness, No gaytan in urethra Skin: warm, normal color Musculoskeletal: full muscle strength ICD10 Worksheet Patient Problems: Problems Problem Status Onset Abdominal pain Acute Alcohol withdrawal Acute Right rib fracture Acute Tachycardia Acute Acute bronchitis Acute Alcoholic intoxication Acute Mucus plugging of bronchi Acute Respiratory failure Acute
--- NOTE | 2017-08-29 11:49 | ASMTCMCOM ---
CM Note CM Note Notes: CM spoke w/ Dr. Marquez and Tamanna RN regarding d/c POC. Pt is being discharged today. CM provided pt w/ clothes from the [facility] donation closet. CM scheduled pt an appointment w/ [facility] for 09/02/17 with EVA Vega. CM inputted appointment into d/c section of [employer]. CM provided pt w/ the appointment time. Pt reports that he plans on staying on the streets. Pt is not interested in going to the alf. CM provided pt w/ a bus voucher. CM available for changes. Plan: Independent Date Signed: 08/29/2017 11:48 AM Electronically Signed By:CALE Corrigan
--- NOTE | 2017-08-29 11:51 | GDS ---
[f rep st] DISCHARGE SUMMARY DISCHARGE DIAGNOSES: 1. Alcohol withdrawal with possible seizure. 2. Benedict's esophagus. HOSPITAL COURSE: Please see admission history and physical by Dr. Eric Lorenzo. Patient pre sented with pain and alcohol withdrawal. He describes the possibility of having had a seizure prior to this. The patient was afebrile without focal neurologic signs. He had a mild transaminitis. He has a history of Benedict's esophagus and was started on a PPI and discharged on that, and he was give n 5 days with followup with the [facility] to get a month prescription. /[id number]/MODL
[2017-08-30] MEDS ORDERED: THIAMINE HCL 100 MG TAB PO SCH (06:38)
== END 2017-08-29 15:20 | disposition home or self-care (01) | DRG 775 ==
LOC: EDUNIT# → INTOOBSV 06:24 → OBSVTOIN 06:36 → F2N 10:54 → F3E 08-28 11:55
PROVIDERS: ADMIT Student in an Organized Health Care Education/Training Program; ATTEND Internal Medicine
DX: F10.239 Alcohol dependence with withdrawal, unspecified (principal); R56.9 Unspecified convulsions; D69.6 Thrombocytopenia, unspecified; K22.70 Barrett's esophagus without dysplasia; B19.20 Unspecified viral hepatitis C without hepatic coma; F17.200 Nicotine dependence, unspecified, uncomplicated; S32.019D Unspecified fracture of first lumbar vertebra, subsequent encounter for fracture with routine healing; S32.029D Unspecified fracture of second lumbar vertebra, subsequent encounter for fracture with routine healing; S32.039D Unspecified fracture of third lumbar vertebra, subsequent encounter for fracture with routine healing; S32.049D Unspecified fracture of fourth lumbar vertebra, subsequent encounter for fracture with routine healing; Z59.0 Homelessness; Z23 Encounter for immunization
CPT/HCPCS: 96374; 97116-GP; 97161-GP; 97165-GO; G0009; G0378; G0480; J2060; J2405; Q9967

== ENCOUNTER 2017-12-18 16:26 | Inpatient (IN) | payer MEDICAID, OTHER ==
--- NOTE | 2017-12-18 16:40 | EDPHY ---
H & P Time Seen by Provider: 12/18/17 16:29 HPI/ROS: CHIEF COMPLAINT: Foot pain HISTORY OF PRESENT ILLNESS: 52-year-old man has diabetes and hepatitis-C, hypertension alcoholism. Presents with police after being arrested for evaluation of a left foot problem. He has had a sore on his left foot medial to the great toe MTP joint for 1 week and redness for 2 days and a yellow pus and drainage from the foot today. Associated with fevers and chills and foot pain. Symptoms moderate. Not better worse with anything. REVIEW OF SYSTEMS: Eye: no change in vision ENT: no sore throat Cardiac: no chest pain or syncope Pulmonary: no cough or SOB Abdomen: no vomiting, diarrhea, abdominal pain Musculoskeletal: Foot pain Skin: HPI Neuro: Mild headache Constitutional: Fevers and chills : no urinary symptoms A comprehensive 10 point review of systems is otherwise negative aside from elements mentioned in the history of present illness. PAST MEDICAL HISTORY: Includes diabetes per patient, alcoholism, hepatitis-C, hypertension. Social history: Tobacco smoker, denies IV drug abuse. General Appearance: Alert and conversant, cooperative. Eyes: No scleral icterus. ENT, Mouth: Normal mucous membranes. Respiratory: Normal respiratory effort, breath sounds equal, lungs are clear to auscultation. Cardiovascular: Regular rate and rhythm. Tachycardic. Gastrointestinal: Abdomen is soft and non tender. Neurological: Alert, face symmetric, normal motor and sensory in extremities. Skin: Patient has erythema of the left foot at the MTP joint extending to the midline of the foot on the dorsum and proximally toward the ankle. There is some erythema extending posteriorly along the Achilles and up the distal 3rd of the posterior calf. There is an open wound medially that is draining yellowish thick fluid which is cultured. No crepitus and no blisters, no bullae and no eschar. Musculoskeletal: Bilateral peripheral edema left greater than right. Neck supple. Psychiatric: Not agitated. Emergency Department course/MDM: Patient presents with acute left foot infection with fever and tachycardia suggestive of sepsis syndrome. IV fluids, x-ray of the left foot, antibiotics to include vancomycin and ertapenem. 1707: Severe sepsis declared with lactate greater than 2, ordered repeat lactate, IV vancomycin and ertapenem, fluid bolus. 1715: X-ray reviewed does not show foreign body or gas in the soft tissues, he does have previous orthopedic hardware screws in place in the ankle area at the calcaneus. 1846: Toradol 15 mg IV for fever and pain. Kept NPO pending orthopedic consultation. Antibiotics in ED, not hypotensive, lactate trending down. Does not have septic shock. To OR then inpatient. Smoking Status: Heavy smoker Constitutional: Initial Vital Signs Temperature (C) 38.5 C H 12/18/17 16:28 Heart Rate 136 H 12/18/17 16:28 Respiratory Rate 18 12/18/17 16:28 Blood Pressure 144/106 H 12/18/17 16:28 O2 Sat (%) 94 12/18/17 16:28 O2 Delivery Mode Room Air Allergies/Adverse Reactions: penicillin Allergy (Verified 12/18/17 16:28) "Passed out" Penicillins Allergy (Verified 12/18/17 16:28) Home Medications: Medication Instructions Recorded NK [No Known Home Meds] 08/27/17 Medical Decision Making - Diagnostics Imaging Results: Imaging Impressions Foot X-Ray 12/18/17 16:53 Impression: 1. No definite osteomyelitis. No subcutaneous gas. 2. Erosive arthropathy involving the first through fifth metatarsophalangeal joints. 3. Incomplete bony fusion of the hindfoot arthrodesis. Imaging: I viewed and interpreted images myself Differential Diagnosis: Differential considered including but not limited to foot cellulitis, abscess, necrotizing fasciitis, osteomyelitis. Consult/Admit Bed Type: Irina Marquez [facility] will consult ortho/or surg directly Critical Care Time: Critical care time spent by me, Dr. Giang, exclusively with the care of this patient was 35 minutes, exclusive of PA or AIRCRAFT MAINTENANCE TECHNICIAN time and exclusive of separate procedures. The organ system at risk was infectious and I ordered IV fluids and multiple IV antibiotics, multiple diagnostics and consultation with hospitalist to stabilize the patient and prevent worsening of the patient's condition. - Data Points Laboratory Results: Laboratory Results 12/18/17 16:43 12/18/17 16:43 12/18/17 12/18/17 12/18/17 16:44 16:43 16:43 WBC RBC Hgb Hct MCV MCH MCHC RDW Plt Count MPV Neut % (Auto) Lymph % (Auto) Brantley % (Auto) Eos % (Auto) Baso % (Auto) Nucleat RBC Rel Count Absolute Neuts (auto) Absolute Lymphs (auto) Absolute Monos (auto) Absolute Eos (auto) Absolute Basos (auto) Absolute Nucleated RBC Immature Gran % Immature Gran # PT 12.9 SEC SEC (12.0-15.0) INR 0.95 (0.83-1.16) APTT 25.8 SEC SEC (23.0-38.0) VBG Lactic Acid 2.5 mmol/L H mmol/L (0.7-2.1) Sodium 139 mEq/L mEq/L (135-145) Potassium 3.8 mEq/L mEq/L (3.3-5.0) Chloride 101 mEq/L mEq/L (97-110) Carbon Dioxide 24 mEq/l mEq/l (22-31) Anion Gap 14 mEq/L mEq/L (8-16) BUN 11 mg/dL mg/dL (7-23) Creatinine 0.8 mg/dL mg/dL (0.7-1.3) Estimated GFR > 60 Glucose 91 mg/dL mg/dL (70-100) Calcium 9.1 mg/dL mg/dL (8.5-10.4) Total Bilirubin 1.5 mg/dL H mg/dL (0.1-1.4) 12/18/17 16:43 WBC 7.83 10^3/uL 10^3/uL (3.80-9.50) RBC 4.67 10^6/uL 10^6/uL (4.40-6.38) Hgb 15.8 g/dL g/dL (13.7-17.5) Hct 45.7 % % (40.0-51.0) MCV 97.9 fL fL (81.5-99.8) MCH 33.8 pg pg (27.9-34.1) MCHC 34.6 g/dL g/dL (32.4-36.7) RDW 12.3 % % (11.5-15.2) Plt Count 171 10^3/uL 10^3/uL (150-400) MPV 10.4 fL fL (8.7-11.7) Neut % (Auto) 74.4 % H % (39.3-74.2) Lymph % (Auto) 10.7 % L % (15.0-45.0) Brantley % (Auto) 13.7 % H % (4.5-13.0) Eos % (Auto) 0.3 % L % (0.6-7.6) Baso % (Auto) 0.5 % % (0.3-1.7) Nucleat RBC Rel Count 0.0 % % (0.0-0.2) Absolute Neuts (auto) 5.83 10^3/uL 10^3/uL (1.70-6.50) Absolute Lymphs (auto) 0.84 10^3/uL L 10^3/uL (1.00-3.00) Absolute Monos (auto) 1.07 10^3/uL H 10^3/uL (0.30-0.80) Absolute Eos (auto) 0.02 10^3/uL L 10^3/uL (0.03-0.40) Absolute Basos (auto) 0.04 10^3/uL 10^3/uL (0.02-0.10) Absolute Nucleated RBC 0.00 10^3/uL 10^3/uL (0-0.01) Immature Gran % 0.4 % % (0.0-1.1) Immature Gran # 0.03 10^3/uL 10^3/uL (0.00-0.10) PT INR APTT VBG Lactic Acid Sodium Potassium Chloride Carbon Dioxide Anion Gap BUN Creatinine Estimated GFR Glucose Calcium Total Bilirubin Microbiology Results: MICROBIOLOGY 12/18/17 16:43 Foot - Swab Gram Stain - Final Medications Given: Discontinued Medications Acetaminophen (Tylenol) 1,000 mg PO ONCE ONE Stop: 12/18/17 18:43 Last Admin: 12/18/17 18:50 Dose: Not Given Sodium Chloride (Ns) 2,400 mls @ 4,800 mls/hr 30 ml/kg infuse over 30 min ( 2400 ml) IV EDNOW ONE PRN Reason: Protocol Stop: 12/18/17 17:22 Last Admin: 12/18/17 16:57 Dose: 2,400 mls Ertapenem 1 gm/ Sodium (Chloride) 100 mls @ 200 mls/hr IV EDNOW ONE PRN Reason: Protocol Stop: 12/18/17 17:35 Last Admin: 12/18/17 18:38 Dose: 100 mls Vancomycin/Sodium Chloride (Vancomycin 1 Gm (Premix)) 250 mls @ 250 mls/hr IV EDNOW ONE PRN Reason: Protocol Stop: 12/18/17 18:06 Last Admin: 12/18/17 17:28 Dose: 250 mls Ketorolac Tromethamine (Toradol) 15 mg IVP EDNOW ONE Stop: 12/18/17 18:47 Last Admin: 12/18/17 18:50 Dose: 15 mg Ondansetron HCl (Zofran) 4 mg IVP EDNOW ONE Stop: 12/18/17 19:21 Last Admin: 12/18/17 19:24 Dose: 4 mg Oxycodone HCl (Oxycodone Ir) 10 mg PO EDNOW ONE Stop: 12/18/17 17:28 Last Admin: 12/18/17 17:28 Dose: 10 mg Departure - Departure Disposition: To OP Cath/Surgery Clinical Impression: Cellulitis of left foot Condition: Serious
[2017-12-18] MEDS ORDERED: NS 2,400 ML IV ONE (16:53)
[2017-12-18] MEDS ORDERED: ERTAPENEM 1 GM in NS 100 ML IV ONE (17:06)
[2017-12-18] MEDS ORDERED: VANCOMYCIN HCL/NORMAL SALINE 250 ML IV ONE (17:07)
[2017-12-18 17:11] LABS: PLATELET COUNT 171 10^3/uL (150-400)
[2017-12-18 17:19] LABS: INR 0.95 (0.83-1.16); PROTIME(PATIENT) 12.9 SEC (12.0-15.0)
[2017-12-18] MEDS ORDERED: oxyCODONE IR 5 MG TAB PO ONE (17:27)
[2017-12-18] MEDS ORDERED: ACETAMINOPHEN 500 MG TAB PO ONE (18:42)
[2017-12-18] MEDS ORDERED: ACETAMINOPHEN 500 MG TAB ONE (18:44)
[2017-12-18] MEDS ORDERED: KETOROLAC 30 MG/1 ML SDV IVP ONE (18:46)
[2017-12-18] MEDS ORDERED: ONDANSETRON DISINTEGRATING 4 MG TAB PO PRN (18:54)
[2017-12-18] MEDS ORDERED: ONDANSETRON 4 MG/2 ML VIAL IVP PRN ×2 (18:54→21:09)
[2017-12-18] MEDS ORDERED: LORazepam 1 MG TAB PO PRN (18:58)
[2017-12-18] MEDS ORDERED: NS 1,000 ML IV SCH (19:00)
[2017-12-18] MEDS ORDERED: ONDANSETRON 4 MG/2 ML VIAL IVP ONE (19:20)
--- NOTE | 2017-12-18 19:24 | GHP ---
DATE OF ADMISSION: 12/18/2017 HISTORY OF PRESENT ILLNESS: The patient is a 52-year-old gentleman with a history of alcohol depende nce, hepatitis C and diet-controlled diabetes, who presents today with a painful infected toe. It so unds like it started bothering him about a week ago. It began draining a couple of days ago, along w ith fever and chills. He was arrested today. He presents for care with fever, chills, tachycardia, sepsis. He notes it has been draining purulence. He said his boot that he has been wearing is ruine d. It sounds like he had the boot on for a couple of days and then took it off and low and behold it was draining. He denies any antecedent injury. Does not use injection drugs. His last alcohol was this morning. REVIEW OF SYSTEMS: A complete 10-point review of systems conducted, negative except as noted in the HPI. PAST MEDICAL HISTORY: 1. Hepatitis C. 2. Diet-controlled diabetes. 3. Admissions for alcohol-related complaints and alcohol withdrawal. 4. Benedict's esophagus. ALLERGIES: Penicillins, which causes him to pass out. HOME MEDICATIONS: None. SOCIAL HISTORY: [place] [address] Alcohol as above. He is not a smoker. FAMILY HISTORY: Parents . PHYSICAL EXAMINATION: VITAL SIGNS: Temperature 38.5, blood pressure 144/106, pulse 136, breathing 1 8 times a minute, 94% on room air. GENERAL: Disheveled. HEENT: Sclerae anicteric. Oropharynx clear. Mucous membranes moist. NECK: Supple, no lymphadenopathy or JVD. LUNGS: Clear to auscultation bi laterally. HEART: S1, S2. Very tachycardic. ABDOMEN: Soft, nontender, nondistended. EXTREMITIES: Lower extremities without edema. Calves are nontender. SKIN: Without rash. On his left lower extrem ity he is draining purulence from an 8 mm defect in his foot. His joint is able to be dorsiflexed an d plantar flexed without significant pain. There is no lymphangitic streaking. There is a chronicit y to this wound. It is not foul smelling. NEUROLOGIC: Exam is nonfocal. LABS: White count 7.8, hematocrit 45, platelets are 171,000. INR is 0.95. Venous lactate 2.5, now 1.3. Sodium 139, potassium 3.8, chloride 101, bicarb 24, BUN 11, creatinine 0.8, glucose 91, total b ilirubin is 1.5. Foot x-ray images reviewed, interpreted by me shows no periosteal reaction. I discussed the case Dr. Bry Hi of Podiatry as well as Dr. Yosef Wilde. ASSESSMENT/PLAN: A 52-year-old gentleman presents with severe sepsis, foot infection. 1. Severe sepsis as evidenced by tachycardia, source of infection, fever. 2. Foot infection. This is driving his septic physiology. I think it needs a formal I and D. He has received vancomycin and ertapenem, which I will continue. Podiatry will come in and is going to ope rate on him tonight. 3. Alcohol, alcohol withdrawal. I have placed him on a CIWA protocol. I do not believe he is in al cohol withdrawal right now. He is non tremulous. I think his tachycardia is driven by sepsis. 4. Hepatitis C. Follow. 5. Benedict's esophagus. Follow. 6. Diet-controlled diabetes. Sugars relatively normal here. I will check a hemoglobin A1c in the [facility]. DISPOSITION: Inpatient status. 45 minutes critical care. /[id number]/MODL
[2017-12-18] MEDS ORDERED: BUPIVACAINE/EPI 0.5% 30 ML SDV ONE (19:34)
[2017-12-18] MEDS ORDERED: BUPIVACAINE 0.25% 30 ML SDV ONE (19:34)
[2017-12-18] MEDS ORDERED: POLYMYXIN B SULFATE 500,000 UNIT/10 ML SYR IRR ONE (19:35)
[2017-12-18] MEDS ORDERED: BACITRACIN 50,000 UNITS/10 ML SYR IRR ONE (19:35)
--- NOTE | 2017-12-18 19:38 | PDHPUP ---
History & Physical Update H&P update statement: This history and physical update is based on an assessment of the patient which was completed after admission or registration (within 24 hours), but prior to the surgery/procedure. H&P update: no change in patient's condition since H&P completed
[2017-12-18] MEDS ORDERED: PROPOFOL/EMULSION 500 MG/50 ML BOTTLE IV ONE (20:21)
[2017-12-18] MEDS ORDERED: fentaNYL 100 MCG/2 ML INJ ONE (20:21)
--- NOTE | 2017-12-18 20:33 | PDANEPAE ---
ANE History of Present Illness I&D left foot ANE Past Medical History - Cardiovascular History Hx Hypertension: Yes - Pulmonary History Hx COPD: Yes Hx Oxygen in Use at Home: No Hx Sleep Apnea: No - Endocrine History Hx Diabetes: Yes Endocrine History Comment: diet comtrolled - Chronic Pain History Chronic Pain: Yes ANE Review of Systems Review of Systems: ANE Patient History - Allergies Allergies/Adverse Reactions: penicillin Allergy (Verified 12/18/17 16:28) "Passed out" Penicillins Allergy (Verified 12/18/17 16:28) - Home Medications Home medications: home medication list seen and reviewed Home Medications: NK [No Known Home Meds] 08/27/17 [Last Taken Unknown] - NPO status NPO Status: no food or drink >8 hours NPO Since - Liquids (Date): 12/18/17 NPO Since - Liquids (Time): 07:30 NPO Since - Solids (Date): 12/18/17 NPO Since - Solids (Time): 07:30 - Anes Hx Anes Hx: no prior problems - Smoking Hx Smoking Status: Heavy smoker - Alcohol Use Alcohol Use: Heavy - Family Anes Hx Family Anes Hx: none ANE Labs/Vital Signs - Labs Result Diagrams: 12/18/17 16:43 12/18/17 16:43 - Vital Signs Blood Pressure: 148/107 Heart Rate: 123 Respiratory Rate: 18 O2 Sat (%): 97 Height: 172.72 cm Weight: 81.647 kg ANE Physical Exam - Airway Neck exam: decreased ROM Mallampati Score: Class 2 Mouth exam: dentures - Pulmonary Pulmonary: no respiratory distress - Cardiovascular Cardiovascular: regular rate and rhythym - ASA Status ASA Status: III, E ANE Anesthesia Plan Anesthesia Plan: GA w LMA Urgent/Emergent Case: Devorajose f quickmaria esther completed preop but documented later for safe timely pt care
[2017-12-18] MEDS ORDERED: ONDANSETRON 4 MG/2 ML VIAL ONE (20:44)
[2017-12-18] MEDS ORDERED: LIDOCAINE 2% 2 ML INJ ONE ×3 (20:44)
[2017-12-18] MEDS ORDERED: DEXAMETHASONE 4 MG/ML VIAL ONE (20:44)
--- NOTE | 2017-12-18 21:04 | POSTOPPROG ---
Post Op Note Date of Operation: 12/18/17 Surgeon: Bry Hi Corrugated Fastener Driver: none Anesthesiologist: william Anesthesia: LMA Pre-op Diagnosis: left 1st mtpj abcess Post-op Diagnosis: left 1st mtpj abcess and osteomyelitis Indication: infection Procedure: incision and drainage with debridement ncluding bone Findings: ostoemyelitis Inf/Abcess present in the surg proc area at time of surgery?: Yes Depth: Deep Incisional (Fascial) EBL: Minimal Total fluids administered: 30cc .25% marcaine plain Complications: none Drains: Other (none)
[2017-12-18] MEDS ORDERED: MEPERIDINE 25 MG/0.5 ML AMP IVP PRN (21:09)
[2017-12-18] MEDS ORDERED: PHENYLEPHRINE HCL 100 MCG/ML SYR IVP PRN (21:09)
[2017-12-18] MEDS ORDERED: PROMETHAZINE HCL 25 MG/ML INJ IVP PRN (21:09)
[2017-12-18] MEDS ORDERED: oxyCODONE IR 5 MG TAB PO PRN (21:09)
[2017-12-18] MEDS ORDERED: LABETALOL HCL 5 MG/ML 20 ML MDV IVP PRN (21:09)
[2017-12-18] MEDS ORDERED: HYDROCODONE/APAP 5/325 TAB PO PRN (21:09)
[2017-12-18] MEDS ORDERED: ALBUTEROL 3 ML DEYVIAL IH PRN (21:09)
[2017-12-18] MEDS ORDERED: METOCLOPRAMIDE 10 MG/2 ML VIAL IVP PRN (21:09)
[2017-12-18] MEDS ORDERED: NALOXONE HCL 0.4 MG/ML INJ IVP PRN (21:09)
[2017-12-18] MEDS ORDERED: LR 500 ML IV PRN (21:09)
[2017-12-18] MEDS ORDERED: fentaNYL 100 MCG/2 ML INJ IVP PRN (21:09)
[2017-12-18] MEDS ORDERED: DEXAMETHASONE 4 MG/ML VIAL IVP PRN (21:09)
[2017-12-18] MEDS ORDERED: ACETAMINOPHEN 500 MG TAB PO PRN (21:09)
[2017-12-19] MEDS: HYDROmorphONE/DILAUDID 1 MG/ML INJ IVP PRN ×2 (04:56→06:11)
[2017-12-19] MEDS ORDERED: VANCOMYCIN 1 GM in NS 250 ML IV SCH (05:30)
[2017-12-19 05:38] LABS: PLATELET COUNT 142 10^3/uL (150-400)
[2017-12-19] MEDS: ACETAMINOPHEN 325 MG TAB PO PRN (08:24)
[2017-12-19] MEDS: oxyCODONE IR 5 MG TAB PO PRN ×3 (09:45→18:40)
[2017-12-19] MEDS: LORazepam 2 MG/ML INJ IVP PRN ×3 (10:42→18:32)
--- NOTE | 2017-12-19 12:25 | PDMN ---
Medical Necessity Medical necessity: Pt meets inpt criteria peer MD order and [facility] [place] M-70, Cellulitis , A-2 days. 52 y/o admitted w/severe sepsis, L foot infection requiring surgical intervention, I and D w/debridement performed. IVF, IV ABX's, IV Dilaudid for pain. Comorbid conditions including Diabetes, Hepatitis C, homelessness, alcohol dependence. Anticipate >2MN for med nec ongoing monitoring /treatment.
--- NOTE | 2017-12-19 15:40 | ASMTCMCOM ---
CM Note CM Note Notes: Spoke w/RN, pt was arrested yesterday but pt became ill and was brought to the hospital. Pt was found to have an infected L foot, and was taken to surgery. Per RN, pt is no longer under the oversight of the [facility]'s office, he signed papers and they left. Pt is homeless, he drinks 1 pint of alcohol in am and pm. Does not wish to stop drinking, RN to notifiy MD. Dc needs unclear, PT to evaluated pt, CM w/f. DC Plan: TBD Date Signed: 12/19/2017 03:39 PM Electronically Signed By:Zoraida Lewis RN
[2017-12-19] MEDS ORDERED: FUROSEMIDE 20 MG/2 ML VIAL IVP ONE (15:48)
--- NOTE | 2017-12-19 15:52 | HOSPPROG ---
Hospitalist Progress Note Assessment/Plan: #Sepsis -BCx c/w Strep Pyogenes -stop Ertapenem and Vanco. Start Rocephin -ID will see #Osteomyelitis of left foot -abx per above -ID to see -await cultures #Cough, pedal edema, hypoxemia -trial of Lasix -obtain CXR -received significant amount of IVF on admission. Stop further IVF #Acute ETOH WD -cont CIWA, stable currently #Hep C Plan: cont inpatient care SCD's ID to see Subjective: no cp or sob. no n/v. on 4 L o2. reports new pedal edema. mild agitation Objective: Vital Signs Temp Pulse Resp BP Pulse Ox 36.8 C 88 16 154/106 H 96 12/19/17 15:07 12/19/17 15:07 12/19/17 15:07 12/19/17 15:07 12/19/17 15:07 Microbiology 12/18/17 20:42 Gram Stain - Final Foot - Eswab 12/18/17 20:48 Gram Stain - Final Toe - Bone 12/18/17 20:48 Gram Stain - Final Toe - Tissue 12/18/17 20:42 Mycobacterial Smear (ELI) - Final Foot - Eswab Mycobacterial Culture - Final Laboratory Results 12/19/17 04:20 12/19/17 04:20 12/18/17 12/19/17 12/20/17 05:59 05:59 05:59 Intake Total 3650 Output Total 25 300 Balance 3625 -300 PT 12.9 SEC (12.0-15.0) 12/18/17 16:43 INR 0.95 (0.83-1.16) 12/18/17 16:43 - Physical Exam Constitutional: no apparent distress Eyes: PERRL Ears, Nose, Mouth, Throat: moist mucous membranes, hearing normal Cardiovascular: regular rate and rhythym, edema Respiratory: no respiratory distress, rhonchi Gastrointestinal: normoactive bowel sounds, soft, non-tender abdomen Skin: warm Neurologic: AAOx3 Psychiatric: interacting appropriately, not anxious, not encephalopathic, anxious Lymph, Heme, Immunologic: No petechiae ICD10 Worksheet Patient Problems: Problems Problem Status Onset Cellulitis of left foot Acute Abdominal pain Acute Acute bronchitis Acute Alcohol withdrawal Acute Alcoholic intoxication Acute Mucus plugging of bronchi Acute Respiratory failure Acute Right rib fracture Acute Tachycardia Acute
--- NOTE | 2017-12-19 16:09 | GHP ---
DATE OF ADMISSION: 12/18/2017 CHIEF COMPLAINT: Left foot infection. HISTORY OF PRESENT ILLNESS: The patient is a 52-year-old white male who presented to [facility] by way of the [facility] alf. He relates that he has been homeless and does not know how he developed an open sore on his foot. He relates that it started about 1 week ago. Upon being a rested, they noticed that he was developing an infection 2 days ago and have brought him in for trevor luation. In the emergency room, he was seen by Dr. Trae Marquez who x-rayed the area and saw no ob vious signs of osteomyelitis. He did see purulent drainage from the area and contacted me for immedi ate consultation. The patient relates that the area is very painful and wonders what can be done abo ut it. PAST MEDICAL HISTORY: Remarkable for diabetes, hepatitis C, hypertension, and alcoholism. PAST SURGICAL HISTORY: Remarkable for multiple left ankle surgeries for open reduction internal fixa tion and hardware removal. He also has had a hernia repair. REVIEW OF SYSTEMS: A comprehensive 10-point review of systems is otherwise negative aside from previ ously mentioned elements in his past medical history. SOCIAL HISTORY: Patient is homeless. He does smoke. He denies IV drug use. He is an alcoholic. FAMILY HISTORY: Noncontributory. PHYSICAL EXAMINATION: GENERAL APPEARANCE: Well-nourished, well-developed 52-year-old white male. H e is in some acute distress. VITALS: Temperature 38.5 degrees Celsius, heart rate 136, respirations 18, blood pressure 144/106, O2 saturation 94%. MEDICATIONS: None. ALLERGIES: Penicillin. LOWER EXTREMITIES: Vascular: Dorsalis pedis, posterior tibial pulses palpable bilaterally. Capilla ry refill to the hallux is less than 3 seconds. Hair growth is present. DERMATOLOGICAL: Tone, text ure, and turgor of the skin are grossly within normal limits. There is obvious erythema with celluli tis present on the dorsal medial aspect of the left 1st metatarsophalangeal joint. There is a full-t hickness ulceration with purulent drainage expressed from the site. There is some foul odor to the a elin. NEUROLOGIC: Achilles and patellar reflexes 2+ bilaterally. 5.07 monofilament wire testing danica ws slightly decreased sensation to both feet. Muscle strength 5/5. MUSCULOSKELETAL: Range of motio n of the left ankle is limited at this time. Patient has exquisite tenderness upon palpation around the left 1st metatarsophalangeal joint. LABORATORY DATA: White blood cell count 7.83. X-ray evaluation shows no obvious osteomyelitis or matos bcutaneous gas in the tissue. There is an incomplete bony fusion of the rear foot from previous arth rodesis. IMPRESSION: 1. Diabetes. 2. Peripheral neuropathy. 3. Ulceration left 1st metatarsophalangeal joint. 4. Abscess cellulitis, left foot. PLAN: Treatment today consisted of evaluation of the site. I evaluated the x-rays. I determined at this time that surgery was necessary on a semi-emergent basis. Consent was obtained, and patient wi ll be taken up to the operating room for incision and drainage of the site. /[id number]/MODL
--- NOTE | 2017-12-19 17:54 | GCON ---
INFECTIOUS DISEASE CONSULTATION. DATE OF CONSULTATION: 12/19/2017 Physician requesting consultation is Mohamud Paul MD. REASON FOR CONSULTATION: Query osteomyelitis of the left 1st metatarsal. HPI: A 52-year-old male with a history of alcohol dependence, hepatitis C, and diet-controlled diabetes who was brought to the emergency room after it was discovered that he had a painful left toe that needed evaluation. Retrospectively, patient notes that several days ago he noticed a skin breakdown associated with this left great toe from his boots rubbing on his toe. He denies feeling fevers, chills, night sweats. He had mild pain associated with this injury. In the emergency room, patient was found to be febrile, tachycardic with an elevated lactate at 2.5 and was admitted for further management. The patient was empirically given IV ertapenem and vancomycin. Wound cultures were collected and rapidly grew group A strep. Blood cultures from admission on the remain negative. X-rays were performed of his left foot that showed no definitive osteomyelitis or subcutaneous gas and Podiatry was consulted for management of abscess associated with left great toe/foot. The patient was taken to the operative suite on December 18 in the evening where an abscess was identified and there was superficial soft bone which was scraped away. Today, all these cultures also are positive for a gram-positive organism (likely GAS). ID is asked to consult about duration and modality of IV antibiotics. REVIEW OF SYSTEMS: A complete 10-point review of systems was performed and is negative except as mentioned in the HPI. Last alcohol was in the a.m. of December 18, 2017. Patient denies GI symptoms, weight changes, skin rashes, headache. PAST MEDICAL HISTORY: 1. Hepatitis C, unknown viral load. 2. Diet-controlled diabetes. 3. History of alcohol withdrawal. 4. Benedict esophagitis. Penicillin causes him to pass out. No home medicines. HOSPITAL MEDICATIONS: Vancomycin 1 g IV q.12 and ertapenem 1 g IV daily. SOCIAL HISTORY: He was born in [facility]. He has lived in [place] for many years. He regularly drinks alcohol. He smokes. No drugs. 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 FAMILY HISTORY: Positive for diabetes. PHYSICAL EXAM: VITAL SIGNS: BP 154/106, HR 88, RR 16, saturation 96% on 4 L. T -max is 38.9, T current 36.8. GENERAL: This is a pleasant tanned male lying flat in bed, mildly tremulous. HEENT: Mild conjunctival injection. Pupils were reactive. Oropharynx edentulous. No oral ulcerations or exudates. No thrush. Moist mucous membranes. NECK: Supple. CARDIOVASCULAR: Regular rate, no murmur. CHEST: Clear to auscultation bilaterally. ABDOMEN: Soft, nontender. EXTREMITIES: Revealed no edema. No rash. No erythema. His left foot did have surgical dressing in place with normal capillary refill. Posterior tibialis pulses were intact. He had absent hair on his lower extremities. NEUROLOGICAL : He is answering questions appropriately and moving all 4 extremities equally. SKIN: No rash. LABORATORY: White count 5.9, hematocrit 47, platelets of 142, 77% neutrophils. INR 0.9. Creatinine 0.7. Total bilirubin 1.5. Imaging as per HPI. ASSESSMENT AND PLAN: 52-year-old male with diet-controlled diabetes and alcoholism, who was admitted for left great toe abscess, cellulitis. Intraoperatively, there was some superficial bone involvement. All cultures are growing group A strep, but notably blood cultures are not positive at this time. The patient's hemodynamics have improved during hospitalization with antibiotic therapy and supportive care. 1. Discontinue vancomycin and ertapenem. 2. Narrow antibiotics to ceftriaxone 2 g IV daily. 3. To better understand the extent of the osteomyelitis, would obtain an MRI of his left lower extremity and based on these results, we will assess if additional surgical intervention is needed. 4. Duration of antibiotic therapy to be determined by additional data. 5. PmHX of HCV: send Ab and if positive send VL. Also screen HBV and HIV Thank you for this consultation. We will continue to see him on a daily basis. /[id number]/MODL MTDD
--- NOTE | 2017-12-19 18:19 | GOP ---
DATE OF OPERATION: 12/18/2017 SURGEON: Bry Hi DPM MEDICAL LABORATORY SCIENTIST: None. ANESTHESIA: Local with MAC. ANESTHESIOLOGIST: Dr. Thomas. PREOPERATIVE DIAGNOSIS: Abscess and cellulitis of left 1st metatarsophalangeal joint. POSTOPERATIVE DIAGNOSIS: 1. Abscess and cellulitis of left 1st metatarsophalangeal joint. 2. Osteomyelitis left first metatarsal. PROCEDURE PERFORMED: 1. Incision and drainage of abscess left foot. 2. Debridement of ulceration including 1st metatarsal, left. FINDINGS: SPECIMENS: Soft tissue and bone specimen sent for culture and sensitivity and pathological evaluatio n. ESTIMATED BLOOD LOSS: Minimal. DESCRIPTION OF PROCEDURE: The patient presented to [facility], was cleared for the int ended procedure. Patient was taken to the operating room and placed on the table in supine position. IV sedation was started per the anesthesia department. Foot was anesthetized in an infiltrative ne rve block fashion. Foot was prepped, scrubbed and draped in usual sterile fashion. At this time, at tention was directed to the dorsal medial aspect of the left 1st metatarsophalangeal joint where the obvious cellulitis and abscess formation were noted. There was purulent drainage coming from the ulc eration site at this time. The ulceration upon closer evaluation probed directly down to the 1st met atarsal head. Purulent drainage was being expressed from the site. A culture of the area was obtain ed at this time. It was decided that an incision and drainage would be necessary. Upon probing of t he area, the ulceration led to an abscess that moved medial to the 1st metatarsal head and then went plantarly underneath it. The rest of the abscess formation went proximally from the ulceration along the course of the extensor hallucis longus tendon. Both of these areas were sharply incised at this time. Upon doing so, the patient had fairly substantial bleeding and I decided to inflate the pneum atic thigh tourniquet to 250 mmHg for this portion of the procedure. The incisions were carried deep ly down to the abscess formations which were cleaned of any purulent drainage at this time. The ulce ration was then excised and the soft tissue was sent in for culture and sensitivity. The area on the metatarsal was noted to be somewhat soft and it was decided that it would be resected with the osteo tome and mallet. This bone was then also sent in for culture and sensitivity as well as pathological evaluation. Upon completion of all this, the area was flushed with 3 L of sterile saline with bacit racin and polymyxin under a pulse lavage fashion. Upon completion of this, the pneumatic thigh tourn iquet was released at 11 minutes and visualization of all tissue was performed. Any remaining jason lized tissue was dissected free and removed. It was decided that the ulceration would be packed with iodoform gauze before being dressed with 4x4s, Kerlix and Coban. The patient was then taken to toya very room, vital signs stable, vascular supply intact digits 1 through 5. HEMOSTASIS: PAT at 225 mmHg by 11 minutes. MATERIALS: None. INJECTABLES: 30 cc 0.25% Marcaine plain preoperatively. COMPLICATIONS: None. /[id number]/MODL
[2017-12-19] MEDS ORDERED: ERTAPENEM 1 GM in NS 100 ML IV SCH (19:00)
[2017-12-20] MEDS: oxyCODONE IR 5 MG TAB PO PRN ×3 (02:46→15:49)
[2017-12-20] MEDS: LORazepam 2 MG/ML INJ IVP PRN ×6 (05:32→21:04)
[2017-12-20 06:28] LABS: HEPATITIS B SURFACE ANTIGEN NEGATIVE (NEGATIVE)
[2017-12-20 06:44] LABS: HEPATITIS B CORE AB TOTAL NEGATIVE (NEGATIVE); HEPATITIS C ANTIBODY TOTAL REACTIVE (NEGATIVE); HIV TYPE 1 AND 2 NEGATIVE (NEGATIVE)
--- NOTE | 2017-12-20 14:54 | SOAPPROG ---
SOAP Progress Note Assessment/Plan: Assessment:Status post incision and debridement including partial 1st met head resection Plan:Treatment today included removal of the dressing and evaluation of the site. New dressing was applied. Will await results of MRI to determine whether further surgery is necessary. Also confirmed that wound care nurses will see him for potentail application of wound vac. 12/20/17 14:50 Subjective: Patient is seen in bed where he denies any substantial pain. He relates pain are keeping him under good control. Objective: Vital Signs Temp Pulse Resp BP Pulse Ox 37.2 C 95 16 134/91 H 92 12/20/17 12:49 12/20/17 12:49 12/20/17 11:25 12/20/17 12:49 12/20/17 12:49 Microbiology 12/18/17 20:48 Gram Stain - Final Toe - Tissue 12/18/17 20:48 Gram Stain - Final Toe - Bone 12/18/17 20:42 Gram Stain - Final Foot - Eswab 12/18/17 20:48 Mycobacterial Smear (ELI) - Final Toe - Tissue 12/18/17 20:48 Mycobacterial Smear (ELI) - Final Toe - Bone Laboratory Results 12/19/17 04:20 12/20/17 04:16 12/19/17 12/20/17 12/21/17 05:59 05:59 05:59 Intake Total 3650 50 Output Total 25 2050 Balance 3625 -2000 PT 12.9 SEC (12.0-15.0) 12/18/17 16:43 INR 0.95 (0.83-1.16) 12/18/17 16:43 Dressing was clean, dry, and intact. No new bleeding is identified. Foot has no purulent drainage or foul odor noted. The erythema and soft tissue swelling are substantially reduced. Capillary refill to digits is intact. No obvious necrotic tissue is noted. - Pending Discharge Pending Discharge Within 24 Hours: No Pending Discharge Within 48 Hours: No ICD10 Worksheet Patient Problems: Problems Problem Status Onset Cellulitis of left foot Acute Abdominal pain Acute Acute bronchitis Acute Alcohol withdrawal Acute Alcoholic intoxication Acute Mucus plugging of bronchi Acute Respiratory failure Acute Right rib fracture Acute Tachycardia Acute
--- NOTE | 2017-12-20 15:37 | ASMTCMCOM ---
CM Note CM Note Notes: Waiting for ID to weigh in - potential for needs pending consult/cultures. PT has cleared patient - may benefit from a walker, will see how patient progresses over next few days. Anticipate patient will d/c independently with a follow-up at [facility]. I have also notified Elda at [facility] of patient's admission (patient was referred to them upon last admission)./ Of note, patient was here in July and d/c'd independently, refused [facility] services. CM will continue to follow. Plan: Likely Independent Date Signed: 12/20/2017 03:33 PM Electronically Signed By:Elke Law RN
--- NOTE | 2017-12-20 17:57 | HOSPPROG ---
Hospitalist Progress Note Assessment/Plan: * Sepsis - suspect Group A strep from foot as source -IV rocephin * Foot abscess s/p I&D and 1st metatarsal head resection -MRI pending to determine extent of osteomyelitis * Etoh withdrawal -IV ativan per CIWA * Hep C * HTN -likely due to withdrawal Subjective: No complaints. Objective: Vital Signs Temp Pulse Resp BP Pulse Ox 37.1 C 98 12 152/109 H 96 12/20/17 15:28 12/20/17 15:28 12/20/17 15:28 12/20/17 15:28 12/20/17 15:28 Microbiology 12/18/17 20:48 Gram Stain - Final Toe - Tissue 12/18/17 20:48 Gram Stain - Final Toe - Bone 12/18/17 20:42 Gram Stain - Final Foot - Eswab 12/18/17 20:48 Mycobacterial Smear (ELI) - Final Toe - Tissue 12/18/17 20:48 Mycobacterial Smear (ELI) - Final Toe - Bone Laboratory Results 12/19/17 04:20 12/20/17 04:16 12/19/17 12/20/17 12/21/17 05:59 05:59 05:59 Intake Total 3650 50 Output Total 2049 Balance 3625 -2000 PT 12.9 SEC (12.0-15.0) 12/18/17 16:43 INR 0.95 (0.83-1.16) 12/18/17 16:43 CXR viewed, my personal interpretation is - negative foot xray - negative - Physical Exam Constitutional: no apparent distress, appears nourished, not in pain Cardiovascular: regular rate and rhythym, no murmur, rub, or gallop Respiratory: no respiratory distress, no rales or rhonchi, clear to auscultation Gastrointestinal: normoactive bowel sounds, soft, non-tender abdomen, no palpable masses Skin: erythema, fluctuance, rash (foot), No normal color, No mottled Psychiatric: interacting appropriately, not anxious, not encephalopathic, thought process linear ICD10 Worksheet Patient Problems: Problems Problem Status Onset Cellulitis of left foot Acute Abdominal pain Acute Acute bronchitis Acute Alcohol withdrawal Acute Alcoholic intoxication Acute Mucus plugging of bronchi Acute Respiratory failure Acute Right rib fracture Acute Tachycardia Acute
--- NOTE | 2017-12-20 18:57 | PCMIDPN ---
Assessment/Plan: Assessment/Plan: * Left great toe abscess/cellulitis/osteomyelitis due to group a Streptococcus status post incision and drainage with debridement of bone: Awaiting MRI of foot to determine if residual osteomyelitis present. If so, likely will require amputation for definitive management. All culture showing growth of group A Streptococcus from soft tissue and bone but no growth from blood. Continue ceftriaxone daily. Further plan dependent on MRI results. 12/20/17 18:54 Subjective: Patient without specific complaints. Dr. Hi's note reviewed noting physical exam findings at time of his dressing change. Objective: Vital Signs Temp Pulse Resp BP Pulse Ox 37.1 C 98 12 152/109 H 96 12/20/17 15:28 12/20/17 15:28 12/20/17 15:28 12/20/17 15:28 12/20/17 15:28 Microbiology 12/18/17 20:48 Gram Stain - Final Toe - Tissue 12/18/17 20:48 Gram Stain - Final Toe - Bone 12/18/17 20:42 Gram Stain - Final Foot - Eswab 12/18/17 20:48 Mycobacterial Smear (ELI) - Final Toe - Tissue 12/18/17 20:48 Mycobacterial Smear (ELI) - Final Toe - Bone Laboratory Results 12/19/17 04:20 12/20/17 04:16 12/19/17 12/20/17 12/21/17 05:59 05:59 05:59 Intake Total 3650 50 50 Output Total 25 0 300 Balance 6664 -2896 -435 Ceftriaxone # 2 Soft tissue and bone cultures with growth of group A Streptococcus Blood cultures x2 no growth - Physical Exam General Appearance: alert, no apparent distress EENT: No scleral icterus, No conjunctival petechiae Respiratory: lungs clear, No respiratory distress Cardiac/Chest: regular rate, rhythm Extremities: inflammation (Left foot dressed postoperatively; no cellulitis present at margins of dressing) Abdomen: non-tender, No distended ICD10 Worksheet Patient Problems: Problems Problem Status Onset Cellulitis of left foot Acute Abdominal pain Acute Acute bronchitis Acute Alcohol withdrawal Acute Alcoholic intoxication Acute Mucus plugging of bronchi Acute Respiratory failure Acute Right rib fracture Acute Tachycardia Acute
[2017-12-21] MEDS: oxyCODONE IR 5 MG TAB PO PRN ×5 (02:41→21:19)
[2017-12-21] MEDS ORDERED: LORazepam 1 MG TAB PO PRN (09:28)
[2017-12-21] MEDS ORDERED: IBUPROFEN 600 MG TAB PO PRN (09:29)
[2017-12-21] MEDS ORDERED: POLYETHYLENE GLYCOL 3350 17 GM PKT PO PRN (09:30)
[2017-12-21] MEDS ORDERED: BISACODYL 10 MG SUPP PR PRN (09:30)
[2017-12-21] MEDS ORDERED: MAGNESIUM HYDROXIDE 30 ML UDCUP PO PRN (09:30)
[2017-12-21] MEDS ORDERED: LACTULOSE 20 GM/30 ML UDCUP PO PRN (09:30)
--- NOTE | 2017-12-21 09:57 | ASMTCMCOM ---
CM Note CM Note Notes: Spoke w/RN, pt will be here through the weekend. Pt may need to have toe amputated, CM to follow for needs. DC Plan: TBD Date Signed: 12/21/2017 09:56 AM Electronically Signed By:Zoraida Lewis RN
--- NOTE | 2017-12-21 14:27 | PCMIDPN ---
Assessment/Plan: Assessment: Left foot osteomyelitis 1st ray and MTP area. Status post debridement. Repeat MRI showed potential edema in the bone marrow of the 1st MTP joint consistent with osteomyelitis. Surgical evaluation by Dr. Hi reveals a healing postoperative foot and no direct indication for more surgery or amputation. I think the path going forward involved IV ceftriaxone 2 g daily for total of 6 weeks from the original surgery to cover residual osteomyelitis. No pathology is pending at this point. Group a strep as pathogen. Plan: 1. Continue IV ceftriaxone. 2. Anticipate a 6 week duration from initial surgery. 3. PICC line placement prior to discharge. 12/21/17 14:27 12/21/17 14:29 Subjective: Patient is resting comfortably in his hospital bed. No complaints regarding his left foot. No fevers or chills. No rash. Objective: Ceftriaxone # 3 Vital Signs Temp Pulse Resp BP Pulse Ox 37.1 C 107 H 18 147/94 H 92 12/21/17 11:39 12/21/17 11:39 12/21/17 11:39 12/21/17 11:39 12/21/17 11:39 Microbiology 12/18/17 20:48 Gram Stain - Final Toe - Tissue 12/18/17 20:48 Gram Stain - Final Toe - Bone 12/18/17 20:42 Gram Stain - Final Foot - Eswab Laboratory Results 12/19/17 04:20 12/20/17 04:16 12/20/17 12/21/17 12/22/17 05:59 05:59 05:59 Intake Total 50 50 Output Total 2050 300 Balance -2000 -250 - Physical Exam General Appearance: WD/WN, alert, no apparent distress, non-toxic Cardiac/Chest: regular rate, rhythm, No tachycardia Extremities: non-tender, other (Postop wound packed left foot without significant surrounding erythema. No drainage.), No normal inspection, No inflammation, No necrosis ICD10 Worksheet Patient Problems: Problems Problem Status Onset Cellulitis of left foot Acute Abdominal pain Acute Acute bronchitis Acute Alcohol withdrawal Acute Alcoholic intoxication Acute Mucus plugging of bronchi Acute Respiratory failure Acute Right rib fracture Acute Tachycardia Acute
--- NOTE | 2017-12-21 15:31 | HOSPPROG ---
Hospitalist Progress Note Assessment/Plan: * Sepsis - due to foot infection -IV rocephin * Acute osteomyelitis 1st MTP with abscess s/p I&D and 1st metatarsal head resection -Group A Strep -6 weeks IV antibiotics * Etoh withdrawal -suspect complete - wean off ativan * Hep C * HTN -start atenolol Subjective: no complaints, keeps asking for ativan for anxiety - CIWA only 1 Objective: Vital Signs Temp Pulse Resp BP Pulse Ox 37.1 C 107 H 18 147/94 H 92 12/21/17 11:39 12/21/17 11:39 12/21/17 11:39 12/21/17 11:39 12/21/17 11:39 Microbiology 12/18/17 20:48 Gram Stain - Final Toe - Tissue 12/18/17 20:48 Gram Stain - Final Toe - Bone 12/18/17 20:42 Gram Stain - Final Foot - Eswab Laboratory Results 12/19/17 04:20 12/20/17 04:16 12/20/17 12/21/17 12/22/17 05:59 05:59 05:59 Intake Total 50 50 Output Total 2049 300 Balance -2000 -250 PT 12.9 SEC (12.0-15.0) 12/18/17 16:43 INR 0.95 (0.83-1.16) 12/18/17 16:43 - Physical Exam Constitutional: no apparent distress, appears nourished, not in pain Cardiovascular: regular rate and rhythym, no murmur, rub, or gallop Respiratory: no respiratory distress, no rales or rhonchi, clear to auscultation Gastrointestinal: normoactive bowel sounds, soft, non-tender abdomen, no palpable masses Skin: no rashes or abrasions, no fluctuance, no induration Neurologic: AAOx3, sensation intact bilaterally Psychiatric: interacting appropriately, not anxious, not encephalopathic, thought process linear ICD10 Worksheet Patient Problems: Problems Problem Status Onset Cellulitis of left foot Acute Abdominal pain Acute Acute bronchitis Acute Alcohol withdrawal Acute Alcoholic intoxication Acute Mucus plugging of bronchi Acute Respiratory failure Acute Right rib fracture Acute Tachycardia Acute
[2017-12-21] MEDS: ATENOLOL 25 MG TAB PO SCH (17:06)
[2017-12-21] MEDS: SENNOSIDES/DOCUSATE SODIUM TAB PO SCH (20:50)
[2017-12-21] MEDS: THIAMINE HCL 100 MG TAB PO SCH (20:50)
[2017-12-21] MEDS ORDERED: CALCIUM CARBONATE 500 MG CHEWABLE TAB PO PRN (21:25)
[2017-12-22] MEDS: oxyCODONE IR 5 MG TAB PO PRN ×4 (04:04→22:24)
[2017-12-22] MEDS: ATENOLOL 25 MG TAB PO SCH (07:46)
[2017-12-22] MEDS: SENNOSIDES/DOCUSATE SODIUM TAB PO SCH ×2 (07:46→20:44)
[2017-12-22] MEDS: THIAMINE HCL 100 MG TAB PO SCH (07:46)
[2017-12-22] MEDS: traMADol 50 MG TAB PO PRN (13:37)
--- NOTE | 2017-12-22 15:25 | HOSPPROG ---
Hospitalist Progress Note Assessment/Plan: * Sepsis - due to foot infection -IV rocephin * Acute osteomyelitis 1st MTP with abscess s/p I&D and 1st metatarsal head resection -Group A Strep -6 weeks IV antibiotics * Etoh withdrawal -suspect complete - wean off ativan * Hep C * HTN -start atenolol Subjective: c/o pain Objective: Vital Signs Temp Pulse Resp BP Pulse Ox 36.7 C 107 H 18 132/102 H 93 12/22/17 11:43 12/22/17 11:43 12/22/17 11:43 12/22/17 11:43 12/22/17 11:43 Microbiology 12/18/17 20:48 Gram Stain - Final Toe - Bone 12/18/17 20:48 Gram Stain - Final Toe - Tissue 12/18/17 20:42 Gram Stain - Final Foot - Eswab Laboratory Results 12/19/17 04:20 12/20/17 04:16 12/21/17 12/22/17 12/23/17 05:59 05:59 05:59 Intake Total 50 Output Total 300 Balance -250 PT 12.9 SEC (12.0-15.0) 12/18/17 16:43 INR 0.95 (0.83-1.16) 12/18/17 16:43 - Physical Exam Constitutional: no apparent distress, appears nourished, not in pain Cardiovascular: regular rate and rhythym, no murmur, rub, or gallop Respiratory: no respiratory distress, no rales or rhonchi, clear to auscultation Gastrointestinal: normoactive bowel sounds, soft, non-tender abdomen, no palpable masses Skin: no rashes or abrasions, no fluctuance, no induration Neurologic: AAOx3, sensation intact bilaterally Psychiatric: interacting appropriately, not anxious, not encephalopathic, thought process linear ICD10 Worksheet Patient Problems: Problems Problem Status Onset Cellulitis of left foot Acute Abdominal pain Acute Acute bronchitis Acute Alcohol withdrawal Acute Alcoholic intoxication Acute Mucus plugging of bronchi Acute Respiratory failure Acute Right rib fracture Acute Tachycardia Acute
--- NOTE | 2017-12-22 15:59 | ASMTCMCOM ---
CM Note CM Note Notes: CM discussed patient with RN, patient will require 6 weeks IVABX, Wound Care will see patient tomorrow. Patient is aware of 30 day stay requirement at rehab. CM met with patient, discussed [facility] Medicaid, CM will put in referral for [id number] assessment. Patient states he understands 30 day requirement and now realizes the foot infection is detrimental to his health. Patient shares he was on streets for over a year but does not think he can do it again this winter. [facility] with [facility] Medicaid ID number and informed a referral was placed to [facility] CM on 12/20. CM shared info about [facility], he was not aware of this service and will discuss with PCP. Lobo does not have any further questions at this time. CM to follow. Current Discharge Plan: TBD, pending [facility] Medicaid assessment- goal is placement in SNF for antibiotics and wound care. Date Signed: 12/22/2017 03:59 PM Electronically Signed By:Berta Dickerson
--- NOTE | 2017-12-22 17:14 | PCMIDPN ---
Assessment/Plan: Assessment/Plan: * Left great toe abscess/cellulitis/osteomyelitis due to group A Streptococcus status post incision and drainage with debridement of bone: MRI shows small area of bone marrow edema consistent with residual osteomyelitis. Plan 6 weeks of IV ceftriaxone with weekly CBC and CMP. Great toe will remain at risk for amputation if residual osteomyelitis fails resolve post debridement and with IV antibiotic therapy. 12/22/17 17:11 Subjective: Patient without specific complaints. No diarrhea. Objective: Vital Signs Temp Pulse Resp BP Pulse Ox 36.8 C 93 19 138/101 H 93 12/22/17 16:00 12/22/17 16:00 12/22/17 16:00 12/22/17 16:00 12/22/17 16:00 Microbiology 12/18/17 20:48 Gram Stain - Final Toe - Bone 12/18/17 20:48 Gram Stain - Final Toe - Tissue 12/18/17 20:42 Gram Stain - Final Foot - Eswab Laboratory Results 12/19/17 04:20 12/20/17 04:16 12/21/17 12/22/17 12/23/17 05:59 05:59 05:59 Intake Total 50 Output Total 300 Balance -250 Ceftriaxone # 4 Soft tissue and bone cultures with growth of group A Streptococcus Blood cultures x2 no growth - Physical Exam General Appearance: alert, no apparent distress EENT: No scleral icterus Cardiac/Chest: regular rate, rhythm Extremities: inflammation (Left great toe incision without purulence; erythema surrounding base of great toe decreasing) Abdomen: non-tender, No distended Lymphatic: other (No left lower extremity lymphangitis) ICD10 Worksheet Patient Problems: Problems Problem Status Onset Cellulitis of left foot Acute Abdominal pain Acute Acute bronchitis Acute Alcohol withdrawal Acute Alcoholic intoxication Acute Mucus plugging of bronchi Acute Respiratory failure Acute Right rib fracture Acute Tachycardia Acute
[2017-12-23] MEDS: oxyCODONE IR 5 MG TAB PO PRN ×3 (05:02→17:37)
[2017-12-23] MEDS: ATENOLOL 25 MG TAB PO SCH (08:19)
[2017-12-23] MEDS: SENNOSIDES/DOCUSATE SODIUM TAB PO SCH ×2 (08:19→22:03)
[2017-12-23] MEDS: THIAMINE HCL 100 MG TAB PO SCH (08:19)
[2017-12-23] MEDS: traMADol 50 MG TAB PO PRN ×2 (08:28→15:18)
--- NOTE | 2017-12-23 09:17 | WOCRNPDOC ---
WOCRN Advanced Assessment Note - Skin Integrity Problem, Advanced Assess Left Medial Dorsal Foot Surgical Wound/Incision Dressing Type: Abdominal Pads, Coban, Iodoform Packing, Kerlix Dressing Description: Clean/Dry, Intact Exudate Amount: Minimal Exudate Characteristic(s): Serosanguinous Integumentary Issue Intervention: Dressing Changed Ulises Wound Tissue: Erythema (Extensive ulises wound), Swollen Ulises Wound Swelling: Mild Wound Bed Color: Difficult Run, Yellow Wound Bed Constitution: Red/Difficult Run - Non Granular Tissue (20%), Undermining (11-3 0.5 to 1 cm ), Tendon (2x0.4 cm in wound bed), Bone (Exposed metarsal head approx 1x1 cm in inferior wound bed ), Adhered Slough (thin layer approximately 80%) Site Measurement - Head-to-Toe Length X Width X Depth (cm): 4.4x4.1x0.9 Skin Integrity Problem Comment: Discussed plan with Dr. Hi. Will initiate veraflo with microcyn instillation. Cleaned with ns and gauze. Mastisol and skin prep applied ulises wound and draped. One piece of adaptic touch used to cover exposed metatarsal bone and tendon. Covered with perforted zuñiga veraflo foam and then a thin layer of non perforated zuñiga foam. Vac started at -125 mm Hg with no leaks. 16 ml of Microcyn was and will be instilled into wound bed Q 3 hours for 6 min. Next vac change Wed. Ideally Microcyn veraflo dressing will stay in place at least until Wed (at least as this therapy cannot be done in the outpatient setting). Patient tolerated procedure very well. All questions answered. Education with patient about wound vac therapy and plan of care.
--- NOTE | 2017-12-23 10:21 | ASMTCMCOM ---
CM Note CM Note Notes: CM spoke to ADRIANO Perez regarding d/c POC. Referrals sent to numerous SNFs. CM awaiting for [facility] to come evaluate pt. CM to follow. Plan: SNF Date Signed: 12/23/2017 10:21 AM Electronically Signed By:CALE Corrigan
--- NOTE | 2017-12-23 10:25 | ASMTCMCOM ---
CM Note CM Note Notes: CM started ULTC-100 and submitted it to [facility]. ULTC-100 was not submitted on 12/22/17. Date Signed: 12/23/2017 10:24 AM Electronically Signed By:CALE Corrigan
--- NOTE | 2017-12-23 10:35 | PCMIDPN ---
Assessment/Plan: Assessment: Left foot osteomyelitis 1st ray and MTP area. Status post debridement. Repeat MRI showed potential edema in the bone marrow of the 1st MTP joint consistent with osteomyelitis. Surgical evaluation by Dr. Hi reveals a healing postoperative foot and no direct indication for more surgery or amputation. I think the path going forward involved IV ceftriaxone 2 g daily for total of 6 weeks from the original surgery to cover residual osteomyelitis. No pathology is pending at this point. Group a strep as pathogen. Plan: 1. Continue IV ceftriaxone. 2. Anticipate a 6 week duration from initial surgery. 3. PICC line placement prior to discharge. Subjective: Patient is resting in his hospital bed. Wound care is currently putting on a veriflow dressing. He has no new complaints or questions. Objective: Ceftriaxone # 5 Vital Signs Temp Pulse Resp BP Pulse Ox 37.2 C 88 16 124/90 H 93 12/23/17 07:17 12/23/17 07:17 12/23/17 07:17 12/23/17 07:17 12/23/17 07:17 Laboratory Results 12/19/17 04:20 12/20/17 04:16 - Physical Exam General Appearance: WD/WN, alert, no apparent distress, non-toxic Extremities: normal range of motion, non-tender, No normal inspection (Left foot with open wound bone exposure no significant purulence or necrosis seen.) Skin: normal color, warm/dry, No rash ICD10 Worksheet Patient Problems: Problems Problem Status Onset Cellulitis of left foot Acute Abdominal pain Acute Acute bronchitis Acute Alcohol withdrawal Acute Alcoholic intoxication Acute Mucus plugging of bronchi Acute Respiratory failure Acute Right rib fracture Acute Tachycardia Acute
--- NOTE | 2017-12-23 13:15 | HOSPPROG ---
Hospitalist Progress Note Assessment/Plan: * Sepsis - due to foot infection * Acute osteomyelitis 1st MTP with abscess s/p I&D and 1st metatarsal head resection -Group A Strep -6 weeks IV Rocephin -wound vac * Etoh withdrawal -off ativan * Hep C * HTN -atenolol Subjective: no complaints. Objective: Vital Signs Temp Pulse Resp BP Pulse Ox 37.2 C 88 16 124/90 H 93 12/23/17 07:17 12/23/17 07:17 12/23/17 07:17 12/23/17 07:17 12/23/17 07:17 Microbiology 12/18/17 20:48 Gram Stain - Final Toe - Tissue 12/18/17 20:48 Gram Stain - Final Toe - Bone 12/18/17 20:42 Gram Stain - Final Foot - Eswab Laboratory Results 12/19/17 04:20 12/20/17 04:16 PT 12.9 SEC (12.0-15.0) 12/18/17 16:43 INR 0.95 (0.83-1.16) 12/18/17 16:43 - Physical Exam Constitutional: no apparent distress, appears nourished, not in pain Respiratory: no respiratory distress Skin: no rashes or abrasions, no fluctuance, no induration, No mottled Neurologic: AAOx3, sensation intact bilaterally Psychiatric: interacting appropriately, not anxious, not encephalopathic, thought process linear ICD10 Worksheet Patient Problems: Problems Problem Status Onset Alcoholic intoxication Acute Respiratory failure Acute Tachycardia Acute Alcohol withdrawal Acute Acute bronchitis Acute Mucus plugging of bronchi Acute Abdominal pain Acute Right rib fracture Acute Cellulitis of left foot Acute
[2017-12-24] MEDS: oxyCODONE IR 5 MG TAB PO PRN ×3 (02:42→17:27)
[2017-12-24] MEDS: traMADol 50 MG TAB PO PRN ×2 (07:51→20:40)
[2017-12-24] MEDS: ATENOLOL 25 MG TAB PO SCH (08:22)
[2017-12-24] MEDS: SENNOSIDES/DOCUSATE SODIUM TAB PO SCH ×2 (08:22→20:40)
[2017-12-24] MEDS: THIAMINE HCL 100 MG TAB PO SCH (08:23)
--- NOTE | 2017-12-24 09:45 | PCMIDPN ---
Assessment/Plan: # Left great toe abscess/cellulitis/osteomyelitis due to group A Streptococcus status post incision and drainage with debridement of bone: MRI shows small area of bone marrow edema consistent with residual osteomyelitis and possible septic arthritis. --ordered sensi panel on GAS in case need to consider PO options --if gets placement will put in a PICC line, but for now hold off --needs 6 weeks of IV therapy, stop date 01/29/18. Indicated to patient still significant chance of needing amputation --anaerobe and GNR not pertinent pathogens # hepatitis-C: Viral load is pending, HIV negative. Did not show immunity to hepatitis-B. Will discuss vaccination with patient tomorrow Medications ceftriaxone 2 g IV daily micro Soft tissue and bone cultures with growth of group A Streptococcus; tissue also growing anaerobe. Wound cx prior to OR also growing GNR Blood cultures x2 no growth Subjective: bothered by wound vac bc limiting movement chronic LLE pain at baseline 09/08 Objective: Vital Signs Temp Pulse Resp BP Pulse Ox 36.9 C 87 16 124/97 H 94 12/24/17 07:47 12/24/17 08:22 12/24/17 07:47 12/24/17 08:22 12/24/17 07:47 Microbiology 12/18/17 17:37 Blood Culture - Final Blood 12/18/17 20:48 Gram Stain - Final Toe - Tissue 12/18/17 20:48 Mycobacterial Smear (ELI) - Final Toe - Tissue 12/18/17 20:48 Gram Stain - Final Toe - Bone 12/18/17 20:42 Gram Stain - Final Foot - Eswab Laboratory Results 12/19/17 04:20 12/20/17 04:16 12/23/17 12/24/17 12/25/17 05:59 05:59 05:59 Intake Total 300 Output Total 300 Balance 0 - Physical Exam General Appearance: alert, no apparent distress Respiratory: lungs clear, No accessory muscle use Neck: supple Cardiac/Chest: regular rate, rhythm Extremities: normal capillary refill, other (mild pinkness L dorsal foot just immediately adjacent to wound vac. ), No pedal edema, No swelling, No erythema Skin: other (tanned), No rash Neuro/Psych: alert, normal mood/affect - Line/s PIV Lines: other (R forearm), No drainage, No erythema - Time Spent With Patient Time Spent with Patient: greater than 25 minutes (care coordinated w case management) Time Spent with Patient: Greater than 25 minutes spent on this patients care, greater than 50% of time spent counseling, educating, and coordinating care regarding the above mentioned plan. ICD10 Worksheet Patient Problems: Problems Problem Status Onset Cellulitis of left foot Acute Abdominal pain Acute Acute bronchitis Acute Alcohol withdrawal Acute Alcoholic intoxication Acute Mucus plugging of bronchi Acute Respiratory failure Acute Right rib fracture Acute Tachycardia Acute
--- NOTE | 2017-12-24 15:07 | ASMTCMCOM ---
CM Note CM Note Notes: Spoke with Dr. Pfeiffer who states she will place a PICC line for patient if he is accepted into a facility and will go directly to the SNF from the hospital. We are currently waiting on the approval from [facility] and then plan to pursue the placement with [facility]. Dr. Pfeiffer states patient will need 6 weeks IV ABX, ceftriaxone 2 grams daily. CM will follow. Date Signed: 12/24/2017 03:06 PM Electronically Signed By:Kenna Andre LCSW
--- NOTE | 2017-12-24 15:43 | HOSPPROG ---
Hospitalist Progress Note Assessment/Plan: * Sepsis - due to foot infection * Acute osteomyelitis 1st MTP with abscess s/p I&D and 1st metatarsal head resection -Group A Strep -6 weeks IV Rocephin -wound vac * Etoh withdrawal -off ativan * Hep C * HTN -atenolol Subjective: no new complaints Objective: Vital Signs Temp Pulse Resp BP Pulse Ox 36.9 C 87 16 124/97 H 94 12/24/17 07:47 12/24/17 08:22 12/24/17 07:47 12/24/17 08:22 12/24/17 07:47 Microbiology 12/18/17 20:48 Gram Stain - Final Toe - Tissue 12/18/17 20:48 Gram Stain - Final Toe - Bone 12/18/17 20:42 Gram Stain - Final Foot - Eswab 12/18/17 20:48 Mycobacterial Smear (ELI) - Final Toe - Tissue 12/18/17 20:48 Mycobacterial Smear (ELI) - Final Toe - Bone 12/18/17 17:37 Blood Culture - Final Blood Laboratory Results 12/19/17 04:20 12/20/17 04:16 12/23/17 12/24/17 12/25/17 05:59 05:59 05:59 Intake Total 300 Output Total 300 Balance 0 PT 12.9 SEC (12.0-15.0) 12/18/17 16:43 INR 0.95 (0.83-1.16) 12/18/17 16:43 - Physical Exam Constitutional: no apparent distress, appears nourished, not in pain Cardiovascular: regular rate and rhythym, no murmur, rub, or gallop Respiratory: no respiratory distress, no rales or rhonchi, clear to auscultation Gastrointestinal: normoactive bowel sounds, soft, non-tender abdomen, no palpable masses Skin: no rashes or abrasions, no fluctuance, no induration Neurologic: AAOx3, sensation intact bilaterally Psychiatric: interacting appropriately, not anxious, not encephalopathic, thought process linear ICD10 Worksheet Patient Problems: Problems Problem Status Onset Alcoholic intoxication Acute Respiratory failure Acute Tachycardia Acute Alcohol withdrawal Acute Acute bronchitis Acute Mucus plugging of bronchi Acute Abdominal pain Acute Right rib fracture Acute Cellulitis of left foot Acute
[2017-12-25] MEDS: oxyCODONE IR 5 MG TAB PO PRN ×3 (02:27→19:08)
[2017-12-25] MEDS: traMADol 50 MG TAB PO PRN ×2 (08:01→16:06)
[2017-12-25] MEDS: ATENOLOL 25 MG TAB PO SCH (08:04)
[2017-12-25] MEDS: THIAMINE HCL 100 MG TAB PO SCH (08:04)
[2017-12-25] MEDS: SENNOSIDES/DOCUSATE SODIUM TAB PO SCH ×2 (08:05→20:01)
--- NOTE | 2017-12-25 13:57 | WOCRNPDOC ---
WOCRN Advanced Assessment Note - Skin Integrity Problem, Advanced Assess Left Medial Dorsal Foot Surgical Wound/Incision Dressing Type: Adaptic Touch (x1), Black Vac Foam (3), Wound Vac Dressing Description: Clean/Dry, Intact Exudate Amount: Scant Exudate Characteristic(s): Serosanguinous Integumentary Issue Intervention: Dressing Changed Ulises Wound Tissue: Erythema (mild ulises wound), Macerated (moderate to severe ulises wound ) Ulises Wound Swelling: Mild Wound Bed Color: Red, Yellow Wound Bed Constitution: Granulation Tissue (80%), Adhered Slough (20%) Wound Edges: Attached, Not Attached Site Odor: None Skin Integrity Problem Comment: Wound significantly less slough since Saturday. Will D/C veraflo for now and continue with regular wound vac. Used bridge dressing to see if it would help the patient feel more mobile. x 4 small pieces of black foam and (covered by one larger piece of black foam for the trac landing pad) applied to wound bed. Wound RN cut off some macerated skin ulises wound and applying skin prep then draping. Front range RN students x2 in room and assited with holding foam. Vac started at -125 mm Hg continuous suction without leaks.
--- NOTE | 2017-12-25 14:02 | PCMIDPN ---
Assessment/Plan: # Left great toe abscess/cellulitis/osteomyelitis due to group A Streptococcus status post incision and drainage with debridement of bone: MRI shows small area of bone marrow edema consistent with residual osteomyelitis and possible septic arthritis. Wound with good granulation tissue in the base --GAS sensi pending in case need to consider PO options --if gets placement will put in a PICC line, but for now hold off --needs 6 weeks of IV therapy, stop date 01/29/18. Could consider daily IV placement in infusion center once wound healed enough to not need wound vac --anaerobe and GNR not pertinent pathogens --encouraged patient to continue to stay in hospital as he will benefit for ongoing wound vac # hepatitis-C: Viral load is pending, HIV negative. Did not show immunity to hepatitis-B. Will discuss vaccination with patient tomorrow Medications ceftriaxone 2 g IV daily micro Soft tissue and bone cultures with growth of group A Streptococcus; tissue also growing anaerobe. Wound cx prior to OR also growing GNR Blood cultures x2 no growth Subjective: no new c/o today feeling board and wants to get out of hospital as soon as possible Objective: Vital Signs Temp Pulse Resp BP Pulse Ox 36.8 C 84 16 122/94 H 96 12/25/17 07:28 12/25/17 07:28 12/25/17 07:28 12/25/17 07:28 12/25/17 07:28 Microbiology 12/18/17 20:48 Gram Stain - Final Toe - Tissue 12/18/17 20:48 Gram Stain - Final Toe - Bone Anaerobic Culture - Final Streptococcus Pyogenes Grp A 12/18/17 20:42 Gram Stain - Final Foot - Eswab Anaerobic Culture - Final Streptococcus Pyogenes Grp A 12/18/17 20:48 Mycobacterial Smear (ELI) - Final Toe - Tissue 12/18/17 20:48 Mycobacterial Smear (ELI) - Final Toe - Bone Laboratory Results 12/19/17 04:20 12/20/17 04:16 12/24/17 12/25/17 12/26/17 05:59 05:59 05:59 Intake Total 300 600 Output Total 300 2 Balance 0 598 - Physical Exam General Appearance: alert, no apparent distress Respiratory: No accessory muscle use Neck: supple Extremities: other (wound over L anterior foot over MTP about 4x4cm, excellent granulation now, no purulence, no warmth, posterior tibialis pulse 2+), No erythema Skin: No rash Neuro/Psych: alert, normal mood/affect, oriented x 3 - Time Spent With Patient Time Spent with Patient: greater than 25 minutes Time Spent with Patient: Greater than 25 minutes spent on this patients care, greater than 50% of time spent counseling, educating, and coordinating care regarding the above mentioned plan. ICD10 Worksheet Patient Problems: Problems Problem Status Onset Cellulitis of left foot Acute Abdominal pain Acute Acute bronchitis Acute Alcohol withdrawal Acute Alcoholic intoxication Acute Mucus plugging of bronchi Acute Respiratory failure Acute Right rib fracture Acute Tachycardia Acute
--- NOTE | 2017-12-25 14:13 | HOSPPROG ---
Hospitalist Progress Note Assessment/Plan: * Sepsis - due to foot infection * Acute osteomyelitis 1st MTP with abscess s/p I&D and 1st metatarsal head resection -Group A Strep -6 weeks IV Rocephin -wound vac * Etoh withdrawal -off ativan * Hep C * HTN -atenolol Subjective: No new complaints. Objective: Vital Signs Temp Pulse Resp BP Pulse Ox 36.8 C 84 16 122/94 H 96 12/25/17 07:28 12/25/17 07:28 12/25/17 07:28 12/25/17 07:28 12/25/17 07:28 Microbiology 12/18/17 20:48 Gram Stain - Final Toe - Tissue 12/18/17 20:48 Gram Stain - Final Toe - Bone Anaerobic Culture - Final Streptococcus Pyogenes Grp A 12/18/17 20:42 Gram Stain - Final Foot - Eswab Anaerobic Culture - Final Streptococcus Pyogenes Grp A 12/18/17 20:48 Mycobacterial Smear (ELI) - Final Toe - Tissue 12/18/17 20:48 Mycobacterial Smear (ELI) - Final Toe - Bone Laboratory Results 12/19/17 04:20 12/20/17 04:16 12/24/17 12/25/17 12/26/17 05:59 05:59 05:59 Intake Total 300 600 Output Total 300 2 Balance 0 598 PT 12.9 SEC (12.0-15.0) 12/18/17 16:43 INR 0.95 (0.83-1.16) 12/18/17 16:43 - Physical Exam Constitutional: no apparent distress, appears nourished, not in pain Cardiovascular: regular rate and rhythym, no murmur, rub, or gallop Respiratory: no respiratory distress, no rales or rhonchi, clear to auscultation Gastrointestinal: normoactive bowel sounds, soft, non-tender abdomen, no palpable masses Skin: no rashes or abrasions, no fluctuance, no induration Neurologic: AAOx3, sensation intact bilaterally Psychiatric: interacting appropriately, not anxious, not encephalopathic, thought process linear ICD10 Worksheet Patient Problems: Problems Problem Status Onset Alcoholic intoxication Acute Respiratory failure Acute Tachycardia Acute Alcohol withdrawal Acute Acute bronchitis Acute Mucus plugging of bronchi Acute Abdominal pain Acute Right rib fracture Acute Cellulitis of left foot Acute
--- NOTE | 2017-12-25 14:39 | ASMTCMCOM ---
CM Note CM Note Notes: CM recieved message from Babita at [facility], they have declined pt for SNF. She states despite pt needing 6 weeks of IV abx, Medicaid has a tight criteria. Pt's typically need help with ADLs (bathing,dressing,eating) and the pt is independent with those as well as ambulating despite wound vac. Therefore she cannot approve him. CM discussed with pt, he agrees he doesn't need rehab especially if he gets wound vac off. He states he gets along fine and has a bed at the intermediate. He thinks he just needs a boot for that foot to help keep it clean. DENNIS w/discuss with MD. VLADEZ Plan: TBD Date Signed: 12/25/2017 02:38 PM Electronically Signed By:Zoraida Lewis RN
--- NOTE | 2017-12-25 16:27 | ASMTCMCOM ---
CM Note CM Note Notes: Discussed case in Complex Care rounds this afternoon: This continues to be a difficult placement issue - has been declined by multiple SNFs. [facility] has also not approved patient for LTC. Patient seems to be okay with discharging to skilled nursing when stable. [facility] is following this case and available to help with resources/potential solutions around IV abx if need be. Without a SNF placement, IV abx administration becomes challenging CM will continue to follow. Date Signed: 12/25/2017 04:26 PM Electronically Signed By:Elke Law RN
[2017-12-26] MEDS: oxyCODONE IR 5 MG TAB PO PRN ×3 (02:41→18:11)
[2017-12-26] MEDS: traMADol 50 MG TAB PO PRN ×3 (07:15→22:33)
[2017-12-26] MEDS: SENNOSIDES/DOCUSATE SODIUM TAB PO SCH ×2 (07:30→20:01)
[2017-12-26] MEDS: THIAMINE HCL 100 MG TAB PO SCH (07:31)
[2017-12-26] MEDS: ATENOLOL 25 MG TAB PO SCH (07:34)
--- NOTE | 2017-12-26 09:30 | PCMIDPN ---
Assessment/Plan: 1. Left great toe abscess/cellulitis/osteomyelitis status post debridement with residual bone involvement: Disposition are unclear at this point; social work trying to find placement. Continue IV ceftriaxone for now. Appreciate wound care assistance. 2. Hepatitis C antibody positive: Patient's RNA is pending, but he tells me"I have hepatitis C. "Will obtain hepatitis a total antibody to ensure immunity in the setting of increased risk of fulminant hepatitis a in the setting of concomitant hepatitis-C, and present outbreak of hepatitis a among the homeless population. He is not immune to hepatitis-B either, so will need vaccination prior to discharge. HIV negative. Subjective: Complaining of some mild foot pain, otherwise no diarrhea. In good spirits. Objective: Ceftriaxone 2 g IV daily stop date January 29 No fevers Vital Signs Temp Pulse Resp BP Pulse Ox 36.9 C 69 16 113/81 H 98 12/26/17 07:52 12/26/17 07:52 12/26/17 07:52 12/26/17 07:52 12/26/17 07:52 Microbiology 12/18/17 20:48 Gram Stain - Final Toe - Tissue 12/18/17 20:48 Gram Stain - Final Toe - Bone Anaerobic Culture - Final Streptococcus Pyogenes Grp A 12/18/17 20:42 Gram Stain - Final Foot - Eswab Anaerobic Culture - Final Streptococcus Pyogenes Grp A Laboratory Results 12/19/17 04:20 12/20/17 04:16 12/25/17 12/26/17 12/27/17 05:59 05:59 05:59 Intake Total 600 Output Total 2 Balance 598 Foot with group a strep, resistant to clindamycin, ceftriaxone ELI less than 0.0625 - Physical Exam General Appearance: alert, no apparent distress EENT: pharynx normal, No thrush Respiratory: lungs clear Extremities: other (Left foot: Wound VAC in place. Some tenderness around the debridement site. No evidence of ulises VAC erythema.) Abdomen: non-tender, soft Skin: other (Multiple old tattoos), No rash ICD10 Worksheet Patient Problems: Problems Problem Status Onset Cellulitis of left foot Acute Abdominal pain Acute Acute bronchitis Acute Alcohol withdrawal Acute Alcoholic intoxication Acute Mucus plugging of bronchi Acute Respiratory failure Acute Right rib fracture Acute Tachycardia Acute
[2017-12-26 12:25] LABS: HEPATITIS A ANTIBODY TOTAL POSITIVE (NEGATIVE)
--- NOTE | 2017-12-26 13:07 | HOSPPROG ---
Hospitalist Progress Note Assessment/Plan: Jarad is a 52 y/o homeless man who presented to the ER with a painful left toe. Today is my first encounter * Sepsis - due to foot infection * Acute osteomyelitis 1st MTP with abscess s/p I&D and 1st metatarsal head resection w residual bone involvment -Group A Strep -6 weeks IV Rocephin -wound vac * Etoh withdrawal -off ativan * Hep C antibody positive - see ID's note form today * HTN -atenolol *homelessness -stays at the group home and is looking forward to being discharged *plan: continue the above Subjective: kobi has no complaints, says he is bored and is looking forward to being discharged. Objective: Vital Signs Temp Pulse Resp BP Pulse Ox 36.9 C 69 16 113/81 H 98 12/26/17 07:52 12/26/17 07:52 12/26/17 07:52 12/26/17 07:52 12/26/17 07:52 Microbiology 12/18/17 20:48 Gram Stain - Final Toe - Tissue 12/18/17 20:48 Gram Stain - Final Toe - Bone Anaerobic Culture - Final Streptococcus Pyogenes Grp A 12/18/17 20:42 Gram Stain - Final Foot - Eswab Anaerobic Culture - Final Streptococcus Pyogenes Grp A Laboratory Results 12/19/17 04:20 12/20/17 04:16 12/25/17 12/26/17 12/27/17 05:59 05:59 05:59 Intake Total 600 Output Total 2 Balance 598 PT 12.9 SEC (12.0-15.0) 12/18/17 16:43 INR 0.95 (0.83-1.16) 12/18/17 16:43 - Physical Exam Constitutional: chronically ill appearing, unkempt Eyes: PERRL Ears, Nose, Mouth, Throat: hearing normal Cardiovascular: regular rate and rhythym Respiratory: no respiratory distress Skin: warm, other (wound vac to left foot) Neurologic: AAOx3 Psychiatric: interacting appropriately ICD10 Worksheet Patient Problems: Problems Problem Status Onset Cellulitis of left foot Acute Abdominal pain Acute Acute bronchitis Acute Alcohol withdrawal Acute Alcoholic intoxication Acute Mucus plugging of bronchi Acute Respiratory failure Acute Right rib fracture Acute Tachycardia Acute
[2017-12-26 13:25] LABS: HEPATITIS A ANTIBODY IGM (BCH) NEGATIVE (NEGATIVE)
--- NOTE | 2017-12-26 16:37 | ASMTCMCOM ---
CM Note CM Note Notes: Spoke w/MD regarding pt's poc. He has been denied for SNF by [facility], pt is independent in ADLs. He still needs 6 weeks of IV abx, stop date 01/29. Due to pt's hx of etoh and some drug use he does not qualify for respite at [facility] or [facility] and refuses to go to [facility]. D/w activity manager, no new plan as of now. DC Plan: TBD Date Signed: 12/26/2017 04:30 PM Electronically Signed By:Zoraida Lewis RN
[2017-12-27] MEDS: oxyCODONE IR 5 MG TAB PO PRN ×3 (02:39→18:11)
[2017-12-27] MEDS: THIAMINE HCL 100 MG TAB PO SCH (07:34)
[2017-12-27] MEDS: SENNOSIDES/DOCUSATE SODIUM TAB PO SCH ×2 (07:35→20:14)
[2017-12-27] MEDS: ATENOLOL 25 MG TAB PO SCH (07:35)
[2017-12-27] MEDS: traMADol 50 MG TAB PO PRN ×3 (07:44→22:16)
[2017-12-27] MEDS ORDERED: ALTEPLASE 2 MG VIAL IVP PRN (09:20)
[2017-12-27] MEDS ORDERED: HEPATITIS B VIRUS VACCINE-PF 20 MCG/ML INJ IM ONE ×2 (09:58→11:30)
--- NOTE | 2017-12-27 10:13 | PCMIDPN ---
Assessment/Plan: 1. Left great toe abscess/cellulitis/osteomyelitis status post debridement with residual bone involvement: Unfortunately, the patient will likely need to stay here for now. Social work is actively looking for placement. Continue ceftriaxone as is. Check inflammatory markers and safety labs. (I ordered) 2. Hepatitis C antibody positive: Viral load approximately 3 million. Will order genotype. Hopefully he can be treated for this moving forward. He is immune to hepatitis a, but not hepatitis -B. Hepatitis-B #1 given today. Will check surface antibody before next dose in one month, as may respond to booster. 12/27/17 10:08 Subjective: Patient understands he will need to stay here for now. Refuses to go to [place]. Objective: Ceftriaxone 2 g IV daily stop date 01/29 No fevers Vital Signs Temp Pulse Resp BP Pulse Ox 36.7 C 80 16 112/77 91 L 12/27/17 07:07 12/27/17 07:07 12/27/17 07:07 12/27/17 07:07 12/27/17 07:07 Microbiology 12/18/17 20:48 Gram Stain - Final Toe - Tissue Anaerobic Culture - Final Streptococcus Pyogenes Grp A [facility] Laboratory Results 12/19/17 04:20 12/20/17 04:16 12/26/17 12/27/17 12/28/17 05:59 05:59 05:59 Output Total 500 800 Balance -500 -800 - Physical Exam General Appearance: no apparent distress, cachetic EENT: pharynx normal, No thrush Skin: No rash ICD10 Worksheet Patient Problems: Problems Problem Status Onset Cellulitis of left foot Acute Abdominal pain Acute Acute bronchitis Acute Alcohol withdrawal Acute Alcoholic intoxication Acute Mucus plugging of bronchi Acute Respiratory failure Acute Right rib fracture Acute Tachycardia Acute
[2017-12-27 10:45] LABS: PLATELET COUNT 242 10^3/uL (150-400)
--- NOTE | 2017-12-27 14:10 | HOSPPROG ---
Hospitalist Progress Note Assessment/Plan: Jarad is a 52 y/o homeless man who presented to the ER with a painful left toe. Today is my first encounter, chart reviewed. D/W CM * Sepsis - due to foot infection * Acute osteomyelitis 1st MTP with abscess s/p I&D and 1st metatarsal head resection w residual bone involvement -Group A Strep -6 weeks IV Rocephin -wound vac -PICC * Etoh withdrawal -off ativan * Hep C antibody positive - see ID's note * HTN -atenolol *[facility]ness [facility] and is looking forward to being discharged -CM working on DC plan but likely pt will have to stay in hospital *plan: continue the above reviewed with Dr Sandoval Subjective: Feeling better. No issues. Eager to leave the hospital. Objective: Vital Signs Temp Pulse Resp BP Pulse Ox 36.7 C 80 16 112/77 91 L 12/27/17 07:07 12/27/17 07:07 12/27/17 07:07 12/27/17 07:07 12/27/17 07:07 Microbiology 12/18/17 20:48 Gram Stain - Final Toe - Tissue Anaerobic Culture - Final Streptococcus Pyogenes Grp A [facility] Laboratory Results 12/27/17 10:20 12/27/17 10:20 12/26/17 12/27/17 12/28/17 05:59 05:59 05:59 Output Total 500 800 Balance -500 -800 PT 12.9 SEC (12.0-15.0) 12/18/17 16:43 INR 0.95 (0.83-1.16) 12/18/17 16:43 - Physical Exam Constitutional: no apparent distress, appears nourished, chronically ill appearing Eyes: PERRL, anicteric sclera, EOMI Ears, Nose, Mouth, Throat: moist mucous membranes, hearing normal, ears appear normal Cardiovascular: No JVD, No tachycardia, No edema Respiratory: no respiratory distress, no rales or rhonchi, reduced air movement Gastrointestinal: normoactive bowel sounds, No tenderness, No ascites Skin: warm, normal color, other (wound vac) Musculoskeletal: muscular tenderness, abnormal gait, generalized weakness Neurologic: AAOx3 Psychiatric: not anxious, not encephalopathic, poor insight, poor judgement ICD10 Worksheet Patient Problems: Problems Problem Status Onset Alcoholic intoxication Acute Respiratory failure Acute Tachycardia Acute Alcohol withdrawal Acute Acute bronchitis Acute Mucus plugging of bronchi Acute Abdominal pain Acute Right rib fracture Acute Cellulitis of left foot Acute
--- NOTE | 2017-12-27 16:38 | ASMTCMCOM ---
CM Note CM Note Notes: Spoke with [facility] in [place] which has a respite program for homeless individuals with medical needs. The Respite program provides a rec room during the day where patients are allowed to stay, however patients are free to leave the alf at will and are able to have passes to spend a night out with mandatory drug testing. It is unclear if this is a viable option since pt will have wound vac and PICC line and has a history of "dabbling" in IV drug use and is Hep C pos. The Repite program referral number is [phone]. if the program is deemed appropriate by providers and patient accepts, a referral should be made over the phone. Pt previously unaware that [facility] does offer day alf. This needs to be communicated if it is a viable plan. The RN in the clinic can be reached at [phone] Mon after 9am for more information. CM to follow. Date Signed: 12/27/2017 04:37 PM Electronically Signed By:Maylin Lovell
--- NOTE | 2017-12-27 16:49 | WOCRNPDOC ---
WOCRN Advanced Assessment Note - Skin Integrity Problem, Advanced Assess Left Medial Dorsal Foot Surgical Wound/Incision Dressing Type: Black Vac Foam, Wound Vac Dressing Description: Clean/Dry, Intact Closure Description: Not Approximated Exudate Amount: Minimal Exudate Color: Reddish/Yellow Exudate Characteristic(s): Serosanguinous Integumentary Issue Intervention: Dressing Changed Gretta Wound Tissue: Macerated, Intact Wound Bed Color: Ulysses Wound Bed Constitution: Granulation Tissue (80%), Adhered Slough (20%) Wound Edges: Not Attached, Well Defined Site Measurement - Head-to-Toe Length X Width X Depth (cm): 4x4.1x0.5 Skin Integrity Problem Comment: Wound bed cleaned with NS and gauze. Wound bed covered with Adaptic Touch to protect metatarsal head which is not exposed but palpable. Mastisol applied to periwound skin. The undermining present at last dressing change has largely adhered. Gretta wound tissue draped and one small piece black foam placed over wound bed and covered with drape. Hole cut in drape to attach bridge dressing. Good seal achieved at -125mmHg. Patient tolerated the procedure well. Bridge dressing taped to patient's caraballo as he preferred. Wound care will round again on Saturday.
[2017-12-28] MEDS: oxyCODONE IR 5 MG TAB PO PRN ×3 (02:15→18:43)
[2017-12-28] MEDS: traMADol 50 MG TAB PO PRN ×2 (07:47→16:14)
[2017-12-28] MEDS: SENNOSIDES/DOCUSATE SODIUM TAB PO SCH ×2 (07:48→20:12)
[2017-12-28] MEDS: ATENOLOL 25 MG TAB PO SCH (07:48)
[2017-12-28] MEDS: THIAMINE HCL 100 MG TAB PO SCH (07:49)
--- NOTE | 2017-12-28 09:57 | HOSPPROG ---
Hospitalist Progress Note Assessment/Plan: Jarad is a 52 y/o homeless man who presented to the ER with a painful left toe. * Sepsis - due to foot infection * Acute osteomyelitis 1st MTP with abscess s/p I&D and 1st metatarsal head resection w residual bone involvement -Group A Strep -6 weeks IV Rocephin -wound vac -PICC * Etoh withdrawal -off ativan * Hep C antibody positive - see ID's note * HTN -atenolol *homelessness -stays at the [facility] and is looking forward to being discharged -CM working on DC plan but likely pt will have to stay in hospital *plan: continue the above Subjective: Up in bed. Slept well. No issues. Objective: Vital Signs Temp Pulse Resp BP Pulse Ox 36.8 C 79 16 109/75 95 12/28/17 07:25 12/28/17 07:48 12/28/17 07:25 12/28/17 07:48 12/28/17 07:25 Laboratory Results 12/27/17 10:20 12/27/17 10:20 12/27/17 12/28/17 12/29/17 05:59 05:59 05:59 Intake Total 200 Output Total 500 1250 Balance -500 -1050 PT 12.9 SEC (12.0-15.0) 12/18/17 16:43 INR 0.95 (0.83-1.16) 12/18/17 16:43 - Physical Exam Constitutional: no apparent distress, appears nourished Eyes: PERRL, anicteric sclera Ears, Nose, Mouth, Throat: moist mucous membranes, hearing normal Cardiovascular: No JVD, No edema Respiratory: no respiratory distress, reduced air movement Gastrointestinal: No tenderness, No ascites Skin: warm, No mottled Musculoskeletal: muscular tenderness, generalized weakness Neurologic: AAOx3 Psychiatric: interacting appropriately, not anxious, not encephalopathic ICD10 Worksheet Patient Problems: Problems Problem Status Onset Alcoholic intoxication Acute Respiratory failure Acute Tachycardia Acute Alcohol withdrawal Acute Acute bronchitis Acute Mucus plugging of bronchi Acute Abdominal pain Acute Right rib fracture Acute Cellulitis of left foot Acute
[2017-12-29] MEDS: oxyCODONE IR 5 MG TAB PO PRN ×3 (02:07→18:05)
[2017-12-29] MEDS: SENNOSIDES/DOCUSATE SODIUM TAB PO SCH ×2 (07:19→21:13)
[2017-12-29] MEDS: THIAMINE HCL 100 MG TAB PO SCH (07:19)
[2017-12-29] MEDS: ATENOLOL 25 MG TAB PO SCH (07:20)
[2017-12-29] MEDS: traMADol 50 MG TAB PO PRN ×3 (07:20→21:18)
--- NOTE | 2017-12-29 10:53 | HOSPPROG ---
Hospitalist Progress Note Assessment/Plan: Jarad is a 52 y/o homeless man who presented to the ER with a painful left toe. * Sepsis - due to foot infection * Acute osteomyelitis 1st MTP with abscess s/p I&D and 1st metatarsal head resection w residual bone involvement -Group A Strep -6 weeks IV Rocephin -wound vac -PICC * Etoh withdrawal -off ativan * Hep C antibody positive - see ID's note * HTN -atenolol *[facility]ness -[facility] and is looking forward to being discharged -CM working on DC plan but likely pt will have to stay in hospital *plan: continue the above Subjective: Feeling fine. No issues. Objective: Vital Signs Temp Pulse Resp BP Pulse Ox 36.9 C 83 16 111/85 H 93 12/29/17 07:06 12/29/17 07:20 12/29/17 07:06 12/29/17 07:20 12/29/17 07:06 Laboratory Results 12/27/17 10:20 12/27/17 10:20 12/28/17 12/29/17 12/30/17 05:59 05:59 05:59 Intake Total 200 1000 300 Output Total 1250 800 Balance -1050 1000 -500 PT 12.9 SEC (12.0-15.0) 12/18/17 16:43 INR 0.95 (0.83-1.16) 12/18/17 16:43 - Physical Exam Constitutional: appears nourished, chronically ill appearing Eyes: PERRL, anicteric sclera Ears, Nose, Mouth, Throat: moist mucous membranes, hearing normal Cardiovascular: No JVD, No edema Respiratory: no respiratory distress, reduced air movement Gastrointestinal: No tenderness, No ascites Skin: warm, No mottled Musculoskeletal: pain with ROM, generalized weakness Neurologic: AAOx3 Psychiatric: not anxious, not encephalopathic ICD10 Worksheet Patient Problems: Problems Problem Status Onset Alcoholic intoxication Acute Respiratory failure Acute Tachycardia Acute Alcohol withdrawal Acute Acute bronchitis Acute Mucus plugging of bronchi Acute Abdominal pain Acute Right rib fracture Acute Cellulitis of left foot Acute
[2017-12-30] MEDS: oxyCODONE IR 5 MG TAB PO PRN ×3 (02:26→18:14)
[2017-12-30] MEDS: ENOXAPARIN 40 MG/0.4 ML SYR SC SCH (07:50)
[2017-12-30] MEDS: SENNOSIDES/DOCUSATE SODIUM TAB PO SCH ×2 (07:51→20:24)
[2017-12-30] MEDS: ATENOLOL 25 MG TAB PO SCH (07:51)
[2017-12-30] MEDS: traMADol 50 MG TAB PO PRN ×3 (07:51→21:44)
[2017-12-30] MEDS: THIAMINE HCL 100 MG TAB PO SCH (07:51)
--- NOTE | 2017-12-30 10:06 | ASMTCMCOM ---
CM Note CM Note Notes: Pts case discussed w/ Daysi Lester MANAGER MBA and Elke, transit worker. CM met w/ pt for dispo planning. Pt does not want to go to [facility]. Pt would like to stay in [facility]. Rach will look into medical respite in [facility] and to see if that would be a possibility. CM to follow. Plan: TBD Date Signed: 12/30/2017 10:06 AM Electronically Signed By:CALE Corrigan
--- NOTE | 2017-12-30 10:36 | HOSPPROG ---
Hospitalist Progress Note Assessment/Plan: Jarad is a 52 y/o homeless man who presented to the ER with a painful left toe. * Sepsis - due to foot infection * Acute osteomyelitis 1st MTP with abscess s/p I&D and 1st metatarsal head resection w residual bone involvement -Group A Strep -6 weeks IV Rocephin -wound vac -PICC * Etoh withdrawal -off ativan * Hep C antibody positive - see ID's note * HTN -atenolol *homelessness -stays at the [facility] and is looking forward to being discharged -CM working on DC plan but likely pt will have to stay in hospital *plan: continue the above Subjective: Feeling well. No specific issues. Objective: Vital Signs Temp Pulse Resp BP Pulse Ox 36.9 C 72 16 114/72 95 12/30/17 07:24 12/30/17 07:51 12/30/17 07:24 12/30/17 07:51 12/30/17 07:24 Laboratory Results 12/27/17 10:20 12/27/17 10:20 12/29/17 12/30/17 12/31/17 05:59 05:59 05:59 Intake Total 1000 300 Output Total 1300 Balance 1000 -1000 PT 12.9 SEC (12.0-15.0) 12/18/17 16:43 INR 0.95 (0.83-1.16) 12/18/17 16:43 - Physical Exam Constitutional: appears nourished, chronically ill appearing Eyes: PERRL, anicteric sclera Ears, Nose, Mouth, Throat: moist mucous membranes, hearing normal Cardiovascular: No JVD, No edema Respiratory: no respiratory distress, reduced air movement Gastrointestinal: No tenderness, No ascites Skin: warm, No mottled Musculoskeletal: pain with ROM, generalized weakness Neurologic: AAOx3 Psychiatric: interacting appropriately, not anxious ICD10 Worksheet Patient Problems: Problems Problem Status Onset Alcoholic intoxication Acute Respiratory failure Acute Tachycardia Acute Alcohol withdrawal Acute Acute bronchitis Acute Mucus plugging of bronchi Acute Abdominal pain Acute Right rib fracture Acute Cellulitis of left foot Acute
--- NOTE | 2017-12-30 14:39 | WOCRNPDOC ---
WOCRN Advanced Assessment Note - Skin Integrity Problem, Advanced Assess Left Foot Dressing Type: Adaptic Touch, Black Vac Foam (x1 piece), Wound Vac Dressing Description: Clean/Dry, Intact Closure Description: Not Approximated Exudate Amount: Minimal Exudate Color: Reddish/Yellow Exudate Characteristic(s): Serosanguinous Integumentary Issue Intervention: Dressing Changed (Black foam x1 from bridge dressing) Gretta Wound Tissue: Macerated, Swollen Wound Bed Color: [place], Red Wound Bed Constitution: Granulation Tissue (80%), Red/[place] - Non Granular Tissue (20%) Wound Edges: Irregular Site Odor: Slight, Foul Site Measurement - Head-to-Toe Length X Width X Depth (cm): 3.2x3.2x0.4 Skin Integrity Problem Comment: Dressing removed with adhesive spray remover. Wound bed cleaned with normal saline and patted dry with gauze. According to patient, wound is much improved. Edge of wound from 6 oclock to 11 oclock macerated. Replicare placed along macerated edge. Skin prep applied periwound. Mastisol placed along remaining edge of wound. Drape then applied to periwound skin. Adaptic touch cut to fit and placed in wound bed. One piece black foam from bridge dressing applied over adaptic touch, then drape applied over dressing. Trackpad attached. Wound vac set to -125mmHg continous suction with no leaks, alarms, or problems. Wound care will round again Saturday. ADRIANO Solis in room for care.
--- NOTE | 2017-12-30 19:21 | PCMIDPN ---
Assessment/Plan: Assessment/Plan: * Left great toe abscess/cellulitis/osteomyelitis due to group A Streptococcus status post incision and drainage with debridement of bone: MRI shows small area of bone marrow edema consistent with residual osteomyelitis. Completing 6 weeks of IV antibiotic therapy. Ideally this will be with IV ceftriaxone. Complicated by placement issues and ongoing need for wound VAC currently. Discussed with patient that oral antibiotic therapy will be inferior to IV antibiotics for treatment of osteomyelitis. * Chronic hepatitis-C 12/30/17 19:19 12/30/17 19:21 Subjective: Patient frustrated by remaining in hospital. No specific complaints. Objective: Vital Signs Temp Pulse Resp BP Pulse Ox 36.9 C 74 18 96/70 L 93 12/30/17 15:18 12/30/17 15:18 12/30/17 15:18 12/30/17 15:18 12/30/17 15:18 Laboratory Results 12/27/17 10:20 12/27/17 10:20 12/29/17 12/30/17 12/31/17 05:59 05:59 05:59 Intake Total 1000 300 Output Total 1300 Balance 1000 -1000 ESR 18 MM/HR (0-20) 12/27/17 10:20 C-Reactive Protein < 5.0 mg/L (<10.0) 12/27/17 10:20 Ceftriaxone 2 g IV daily (stop date 01/29/2018) Laboratory Tests 12/27/17 10:20 Total Bilirubin 0.6 AST 52 ALT 55 Alkaline Phosphatase 83 C-Reactive Protein < 5.0 - Physical Exam General Appearance: alert, no apparent distress EENT: No scleral icterus, No thrush, No conjunctival petechiae Respiratory: lungs clear, No respiratory distress Cardiac/Chest: regular rate, rhythm Extremities: other (Wound VAC in place over left lower extremity; no cellulitis surrounding wound VAC margins) Abdomen: non-tender, No distended ICD10 Worksheet Patient Problems: Problems Problem Status Onset Cellulitis of left foot Acute Abdominal pain Acute Acute bronchitis Acute Alcohol withdrawal Acute Alcoholic intoxication Acute Mucus plugging of bronchi Acute Respiratory failure Acute Right rib fracture Acute Tachycardia Acute
[2017-12-31] MEDS: oxyCODONE IR 5 MG TAB PO PRN ×3 (02:22→18:22)
[2017-12-31] MEDS: THIAMINE HCL 100 MG TAB PO SCH (08:59)
[2017-12-31] MEDS: ATENOLOL 25 MG TAB PO SCH (09:00)
[2017-12-31] MEDS: SENNOSIDES/DOCUSATE SODIUM TAB PO SCH ×2 (09:00→20:49)
[2017-12-31] MEDS: ENOXAPARIN 40 MG/0.4 ML SYR SC SCH (09:01)
--- NOTE | 2017-12-31 11:54 | HOSPPROG ---
Hospitalist Progress Note Assessment/Plan: Jarad is a 52 y/o homeless man who presented to the ER with a painful left toe. * Sepsis - due to foot infection - resolved * Acute osteomyelitis 1st MTP with abscess s/p I&D and 1st metatarsal head resection w residual bone involvement -Group A Strep -6 weeks IV Rocephin or transition to -wound vac -PICC * Etoh withdrawal -off ativan * Hep C antibody positive - see ID's note * HTN -atenolol *homelessness -stays at the senior living and is looking forward to being discharged -CM working on DC plan but likely pt will have to stay in hospital *plan: continue the above reviewed care with pt....he is agreeable to leave his wound vac alone he has been informed that if he manipulates his wound vac it will be removed and he will transition to PO abx and be discharged. D/W Dr davsi, DENNIS and residential supervisor Subjective: No new issues. Wound vac was making a lot of noise. Objective: Vital Signs Temp Pulse Resp BP Pulse Ox 36.9 C 74 16 111/81 H 94 12/31/17 07:29 12/31/17 07:29 12/31/17 07:29 12/31/17 07:29 12/31/17 07:29 Laboratory Results 12/27/17 10:20 12/27/17 10:20 12/30/17 12/31/17 01/01/18 05:59 05:59 05:59 Intake Total 300 Output Total 1300 Balance -1000 PT 12.9 SEC (12.0-15.0) 12/18/17 16:43 INR 0.95 (0.83-1.16) 12/18/17 16:43 - Physical Exam Constitutional: appears nourished, not in pain, chronically ill appearing Eyes: PERRL, anicteric sclera, EOMI Ears, Nose, Mouth, Throat: moist mucous membranes, hearing normal, ears appear normal Cardiovascular: regular rate and rhythym, No JVD, No edema Respiratory: no respiratory distress, no rales or rhonchi, reduced air movement Gastrointestinal: normoactive bowel sounds, No tenderness, No ascites Skin: warm, other (wound vac), No erythema Musculoskeletal: normal joint ROM, no joint effusions, generalized weakness Neurologic: AAOx3 Psychiatric: not anxious, not encephalopathic, poor insight, poor judgement ICD10 Worksheet Patient Problems: Problems Problem Status Onset Alcoholic intoxication Acute Respiratory failure Acute Tachycardia Acute Alcohol withdrawal Acute Acute bronchitis Acute Mucus plugging of bronchi Acute Abdominal pain Acute Right rib fracture Acute Cellulitis of left foot Acute
--- NOTE | 2017-12-31 13:03 | ASMTCMCOM ---
CM Note CM Note Notes: Left a message for Rach with [facility] ([phone]) to see if she was able to get respite for patient with [facility]. Awaiting her return call. CM will follow. Date Signed: 12/31/2017 01:02 PM Electronically Signed By:Kenna Andre LCSW
[2017-12-31] MEDS: traMADol 50 MG TAB PO PRN (14:58)
[2017-12-31] MEDS: ACETAMINOPHEN 325 MG TAB PO PRN (14:59)
--- NOTE | 2017-12-31 16:13 | ASMTCMCOM ---
CM Note CM Note Notes: Spoke with Rach and [facility] does not want to manage medical problems. Their respite program is for psychiatric patient's and due to patient's medical needs, he will not be eligible. Patient does not want to go to [facility]. We have exhausted current d/c plans. Consult with Elke to see what else might be a possibility. CM will follow. Date Signed: 12/31/2017 04:12 PM Electronically Signed By:Kenna Andre LCSW
--- NOTE | 2017-12-31 16:57 | ASMTCMCOM ---
CM Note CM Note Notes: [facility] an email to [facility] at the [facility] to see if they will let the patient stay there on discharge from the hospital. CM will follow. Date Signed: 12/31/2017 04:56 PM Electronically Signed By:Kenna Andre LCSW
[2018-01-01] MEDS: oxyCODONE IR 5 MG TAB PO PRN ×3 (02:28→18:27)
[2018-01-01] MEDS: THIAMINE HCL 100 MG TAB PO SCH (08:26)
[2018-01-01] MEDS: traMADol 50 MG TAB PO PRN ×3 (08:26→20:59)
[2018-01-01] MEDS: ATENOLOL 25 MG TAB PO SCH (08:27)
[2018-01-01] MEDS: SENNOSIDES/DOCUSATE SODIUM TAB PO SCH ×2 (08:27→21:02)
[2018-01-01] MEDS: ENOXAPARIN 40 MG/0.4 ML SYR SC SCH (08:28)
--- NOTE | 2018-01-01 08:44 | PCMIDPN ---
Assessment/Plan: # Left great toe abscess/cellulitis/osteomyelitis due to group A Streptococcus status post incision and drainage with debridement of bone: MRI shows small area of bone marrow edema consistent with residual osteomyelitis and possible septic arthritis. Wound with excellent granulation tissue in the base. Not entirely sure there is residual OM. Patient anxious for dc --would dc on high dose Keflex 1gm PO TID x2 weeks with f/u ID / at 3pm --patient aware PO therapy is not gold standard --must get post op boot before dc # hepatitis-C: consider treatment if regular f/u Medications ceftriaxone 2 g IV daily micro Soft tissue and bone cultures with growth of group A Streptococcus; tissue also growing anaerobe. Wound cx prior to OR also growing GNR Blood cultures x2 neg Subjective: patient anxious to leave. Feels he can care for wound. Aware could fail PO antibiotic therapy Objective: Vital Signs Temp Pulse Resp BP Pulse Ox 36.4 C 85 16 94/73 L 92 01/01/18 07:07 01/01/18 07:07 01/01/18 07:07 01/01/18 07:07 01/01/18 07:07 Microbiology 12/18/17 20:48 Mycobacterial Smear (ELI) - Final Toe - Tissue 12/18/17 20:48 Mycobacterial Smear (ELI) - Final Toe - Bone Laboratory Results 12/27/17 10:20 12/27/17 10:20 12/31/17 01/01/18 01/02/18 05:59 05:59 05:59 Intake Total 1000 Output Total 700 Balance 300 ESR 18 MM/HR (0-20) 12/27/17 10:20 C-Reactive Protein < 5.0 mg/L (<10.0) 12/27/17 10:20 - Physical Exam General Appearance: alert, no apparent distress Respiratory: No accessory muscle use Extremities: other (medial L foot overlying MTP 3.2x3.2x0.3cm wound - marked increase in granulation tissue in base, no tunneling, no erythema, no purulence) Skin: No rash Neuro/Psych: alert, normal mood/affect, oriented x 3 - Time Spent With Patient Time Spent with Patient: greater than 25 minutes Time Spent with Patient: Greater than 25 minutes spent on this patients care, greater than 50% of time spent counseling, educating, and coordinating care regarding the above mentioned plan. ICD10 Worksheet Patient Problems: Problems Problem Status Onset Cellulitis of left foot Acute Abdominal pain Acute Acute bronchitis Acute Alcohol withdrawal Acute Alcoholic intoxication Acute Mucus plugging of bronchi Acute Respiratory failure Acute Right rib fracture Acute Tachycardia Acute
--- NOTE | 2018-01-01 08:57 | WOCRNPDOC ---
WOCRN Advanced Assessment Note - Skin Integrity Problem, Advanced Assess Left Medial Dorsal Foot Surgical Wound/Incision Dressing Type: Wound Vac Dressing Description: Intact Exudate Amount: Scant Exudate Characteristic(s): Serous Integumentary Issue Intervention: Dressing Removed Gretta Wound Tissue: Blanching, Macerated Gretta Wound Swelling: Mild Wound Bed Color: Red, Yellow Wound Bed Constitution: Granulation Tissue (95%), Adhered Slough (5%) Wound Edges: Attached Site Odor: None Site Measurement - Head-to-Toe Length X Width X Depth (cm): 3.2x3.2x0.3 Skin Integrity Problem Comment: Wound cleansed with NS and gauze. Wound diameter has not changed, but depth of wound has decreased. Per VAC machine history, there were numerous instances of the vac being silenced following a leak alert. Patient stated that "he had to update his information in the machine and that's all he did" but it appears as though he is silencing the alarm which could result in the vac not functioning appropriately. Discussed with Dr. Pfeiffer moving to a topical dressing instead of the wound vac. Discussed with the patient the need to continue to do dressing changes and have appropriate footwear that will not cause pressure on the wound and will keep it clean and dry. Patient is eager to leave the hospital and was agreeable to the plan. Will start hydrofera blue ready. Hansa OH and Jessica OH in room for care. Wound care will round again at the end of the week.
--- NOTE | 2018-01-01 13:53 | ASMTCMCOM ---
CM Note CM Note Notes: Response received from Den at [facility]. " He is eligible to use our services as long as he is able to take care of his own basic needs. I notice, also, that he has Sober Only status at the [facility] meaning that he has to be 100% sober to use our services". If pt accepts these parameters he will be d/beth to the group home with a saved bed. CM to follow. D/C Plan: Anticipate [facility]. Date Signed: 01/01/2018 01:53 PM Electronically Signed By:Davina Moralez
--- NOTE | 2018-01-01 16:33 | ASMTCMCOM ---
CM Note CM Note Notes: CM discussed parameters of d/c to [facility] with him. Pt agrees to parameters. CM will reserve a bed at the [facility] once d/c orders are written. CM to follow. D/C Plan: [facility] Date Signed: 01/01/2018 04:33 PM Electronically Signed By:Davina Moralez
--- NOTE | 2018-01-01 17:01 | HOSPPROG ---
Hospitalist Progress Note Assessment/Plan: DIAGNOSES: * Sepsis * due to foot infection, resolved * Acute osteomyelitis 1st MTP with abscess s/p I&D and 1st metatarsal head resection w residual bone involvement * Group A Strep * uncertain if residual bone involvement represents actual osteomyelitis; open wound with wound VAC in place, wound VAC now discontinued as patient had apparently been manipulating it so use dressing changes * 6 weeks of IV antibiotics has been recommended to the patient, but as a homeless person he has no way to get that in the outpatient setting; it was recommended he stay here for the 6 weeks but he is not willing to do so, with full knowledge that he will be getting suboptimal antibiotic therapy for potentially serious deep tissue infection * Etoh withdrawal, resolved * off ativan * Hep C antibody positive * see ID's note * HTN * atenolol * hepatitis-C virus positive with high viral load * history of street drug use, had been fired as a patient 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 Antibiotics, Keflex 1 g three times daily follow-up in [facility] in 10 days ; patient is aware that this is suboptimal therapy but has not been willing to stay for low full course of IV antibiotics * Ongoing wound care, should be followed in wound Care Clinic in the outpatient setting * Infectious Diseases recommending onset of treatment in outpatient clinic for hepatitis-C, but unclear if patient will be able to comply with routine follow- up for this as needed SUBJECTIVE: Some ongoing pain in his OBJECTIVE Vitals reviewed: All stable without fever Exam: alert oriented skin warm dry color ok resps not labored lungs clear BSs heart regular abd soft nondistended nontender, bowel sounds present limbs left foot and ankle dressed and wrapped without evidence of blood or other fluid on the dressings, distal toes with good color are warm with normal sensation and movement iv site ok Objective: Vital Signs Temp Pulse Resp BP Pulse Ox 37.3 C 76 12 113/85 H 93 01/01/18 15:06 01/01/18 15:06 01/01/18 15:06 01/01/18 15:06 01/01/18 15:06 Microbiology 12/18/17 20:48 Mycobacterial Smear (ELI) - Final Toe - Tissue 12/18/17 20:48 Mycobacterial Smear (ELI) - Final Toe - Bone Laboratory Results 12/27/17 10:20 12/27/17 10:20 12/31/17 01/01/18 01/02/18 06:59 06:59 06:59 Intake Total 1000 350 Output Total 700 Balance 300 350 PT 12.9 SEC (12.0-15.0) 12/18/17 16:43 INR 0.95 (0.83-1.16) 12/18/17 16:43 ICD10 Worksheet Patient Problems: Problems Problem Status Onset Cellulitis of left foot Acute Abdominal pain Acute Acute bronchitis Acute Alcohol withdrawal Acute Alcoholic intoxication Acute Mucus plugging of bronchi Acute Respiratory failure Acute Right rib fracture Acute Tachycardia Acute
[2018-01-02] MEDS: oxyCODONE IR 5 MG TAB PO PRN ×3 (02:11→18:14)
--- NOTE | 2018-01-02 07:52 | HOSPPROG ---
Hospitalist Progress Note Assessment/Plan: Jarad is a 52 y/o homeless man who presented to the ER with a painful left toe. * Sepsis * due to foot infection, resolved * Acute osteomyelitis 1st MTP with abscess s/p I&D and 1st metatarsal head resection w residual bone involvement * Group A Strep * uncertain if residual bone involvement represents actual osteomyelitis; wound VAC now discontinued as patient had apparently been manipulating it so use dressing changes * 6 weeks of IV antibiotics has been recommended to the patient, but as a homeless person he has no ability to do this/today he is willing to stay * Etoh withdrawal, resolved * off ativan * Hep C antibody positive * see ID's note * HTN * atenolol * history of street drug use, had been fired as a patient 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 Objective: Vital Signs Temp Pulse Resp BP Pulse Ox 37.0 C 77 16 104/66 96 01/02/18 07:27 01/02/18 07:27 01/02/18 07:27 01/02/18 07:27 01/02/18 07:27 Laboratory Results 12/27/17 10:20 12/27/17 10:20 01/01/18 01/02/18 01/03/18 05:59 05:59 05:59 Intake Total 1000 350 Output Total 700 Balance 300 350 PT 12.9 SEC (12.0-15.0) 12/18/17 16:43 INR 0.95 (0.83-1.16) 12/18/17 16:43 - Physical Exam Constitutional: no apparent distress, unkempt Eyes: PERRL Ears, Nose, Mouth, Throat: hearing normal Cardiovascular: regular rate and rhythym Respiratory: no respiratory distress Gastrointestinal: normoactive bowel sounds Skin: warm Musculoskeletal: full muscle strength Neurologic: AAOx3 Psychiatric: interacting appropriately ICD10 Worksheet Patient Problems: Problems Problem Status Onset Cellulitis of left foot Acute Abdominal pain Acute Acute bronchitis Acute Alcohol withdrawal Acute Alcoholic intoxication Acute Mucus plugging of bronchi Acute Respiratory failure Acute Right rib fracture Acute Tachycardia Acute
[2018-01-02] MEDS: ATENOLOL 25 MG TAB PO SCH (09:41)
[2018-01-02] MEDS: ENOXAPARIN 40 MG/0.4 ML SYR SC SCH (09:43)
[2018-01-02] MEDS: SENNOSIDES/DOCUSATE SODIUM TAB PO SCH ×2 (09:43→20:10)
[2018-01-02] MEDS: THIAMINE HCL 100 MG TAB PO SCH (09:43)
--- NOTE | 2018-01-02 10:28 | ASMTCMCOM ---
CM Note CM Note Notes: CM spoke to physician and pt this morning. Pt willing to stay longer so that he can continue to receive IV antibiotics. It was recommended to him that if he decides to d/c prior to the IV antibiotics being completed that he let CM know so that a senior care bed can be reserved. Pt does not think this is neccesary because he has coordinated entry. CM to follow. D/C Plan: [facility]. Date Signed: 01/02/2018 10:27 AM Electronically Signed By:Davina Moralez
[2018-01-02] MEDS: traMADol 50 MG TAB PO PRN ×2 (14:24→20:26)
--- NOTE | 2018-01-02 18:38 | WOCRNPDOC ---
WOCRN Advanced Assessment Note - Skin Integrity Problem, Advanced Assess Left Medial Dorsal Foot Surgical Wound/Incision Dressing Type: Hydrofera Blue Ready Dressing Description: Clean/Dry, Intact Exudate Amount: Scant Exudate Characteristic(s): Serosanguinous Integumentary Issue Intervention: Dressing Changed, Dressing Initialed & Dated Gretta Wound Tissue: Erythema (mild gretta wound) Gretta Wound Swelling: Moderate Wound Bed Color: Red, Yellow Wound Bed Constitution: Granulation Tissue (85%), Adhered Slough (15%) Wound Edges: Attached (11 to 7 oclock), Not Attached (7 to 11 oclock), Epibole ( 7-11 oclock) Skin Integrity Problem Comment: Hydrofera blue ready had not changed color. Edges were slighly sticking to wound bed. Cleaned with ns and gauze. Small necrotic area (0.3x0.3x0.3) at 9 oclock wound edge mechanically debrided after verbal consent from patient. No bone palpable. Area undermines approx 0.2 circumferentially. There is no healthy tissue present in this small pocket, unlike the remiander of the wound bed which has healed quite well. Will modify wound care orders and added "Stimulen" collagen to wound bed and redressed with hydrofera blue ready, secured with steri strip and wrapped with cathyDoreen Bah RN in room for wound care. Wound care will round again early next week. [facility] and should call [email or web address] for his follow up appointment if it hasnt been already made.
[2018-01-03] MEDS: oxyCODONE IR 5 MG TAB PO PRN ×3 (02:38→18:36)
[2018-01-03] MEDS: ENOXAPARIN 40 MG/0.4 ML SYR SC SCH (09:02)
[2018-01-03] MEDS: ATENOLOL 25 MG TAB PO SCH (09:03)
[2018-01-03] MEDS: THIAMINE HCL 100 MG TAB PO SCH (09:03)
[2018-01-03] MEDS: SENNOSIDES/DOCUSATE SODIUM TAB PO SCH ×2 (09:03→20:39)
[2018-01-03] MEDS: traMADol 50 MG TAB PO PRN ×3 (09:12→21:08)
--- NOTE | 2018-01-03 10:10 | HOSPPROG ---
Hospitalist Progress Note Assessment/Plan: Jarad is a 52 y/o homeless man who presented to the ER with a painful left toe. * Sepsis * due to foot infection, resolved * Acute osteomyelitis 1st MTP with abscess s/p I&D and 1st metatarsal head resection w residual bone involvement * Group A Strep * uncertain if residual bone involvement represents actual osteomyelitis; wound VAC now discontinued as patient had apparently been manipulating it so use dressing changes * 6 weeks of IV antibiotics has been recommended to the patient, but as a homeless person he has no ability to do this/today he is willing to stay * appreciate wound care seeing him * Etoh withdrawal, resolved * off ativan * Hep C antibody positive * see ID's note * HTN * atenolol * history of street drug use, had been fired as a patient by his last pain management physician; states currently sober * homelessness -stays at the [facility] and is looking forward to being discharged -CM working on DC plan but likely pt will have to stay in hospital PLANS:Lobo is tired of being in the hospital, he believes his foot will heal. He is willing to stay for now because the weather will be changing. Will take it a day at a time. Subjective: Jarad is tired of being here, has no complaints, doesn't mind watching tv Objective: Vital Signs Temp Pulse Resp BP Pulse Ox 36.6 C 69 16 102/69 93 01/03/18 07:01 01/03/18 07:01 01/03/18 07:01 01/03/18 09:03 01/03/18 07:01 Laboratory Results 12/27/17 10:20 01/03/18 05:00 01/02/18 01/03/18 01/04/18 05:59 05:59 05:59 Intake Total 350 Balance 350 PT 12.9 SEC (12.0-15.0) 12/18/17 16:43 INR 0.95 (0.83-1.16) 12/18/17 16:43 - Physical Exam Constitutional: appears nourished, not in pain, chronically ill appearing, unkempt Eyes: PERRL Ears, Nose, Mouth, Throat: hearing normal Respiratory: no respiratory distress Skin: warm Musculoskeletal: full muscle strength Neurologic: AAOx3 Psychiatric: interacting appropriately ICD10 Worksheet Patient Problems: Problems Problem Status Onset Cellulitis of left foot Acute Abdominal pain Acute Acute bronchitis Acute Alcohol withdrawal Acute Alcoholic intoxication Acute Mucus plugging of bronchi Acute Respiratory failure Acute Right rib fracture Acute Tachycardia Acute
[2018-01-04] MEDS: oxyCODONE IR 5 MG TAB PO PRN ×3 (02:24→18:31)
[2018-01-04] MEDS: ENOXAPARIN 40 MG/0.4 ML SYR SC SCH (09:38)
[2018-01-04] MEDS: THIAMINE HCL 100 MG TAB PO SCH (09:38)
[2018-01-04] MEDS: SENNOSIDES/DOCUSATE SODIUM TAB PO SCH ×2 (09:38→22:29)
[2018-01-04] MEDS: ATENOLOL 25 MG TAB PO SCH (09:39)
--- NOTE | 2018-01-04 12:14 | HOSPPROG ---
Hospitalist Progress Note Assessment/Plan: Jarad is a 52 y/o homeless man who presented to the ER with a painful left toe. * Sepsis * due to foot infection, resolved * Acute osteomyelitis 1st MTP with abscess s/p I&D and 1st metatarsal head resection w residual bone involvement * Group A Strep * uncertain if residual bone involvement represents actual osteomyelitis; wound VAC now discontinued as patient had apparently been manipulating it so use dressing changes * 6 weeks of IV antibiotics has been recommended to the patient, but as a homeless person he has no ability to do this/today he is willing to stay * appreciate wound care seeing him * Etoh withdrawal, resolved * off ativan * Hep C antibody positive * see ID's note * HTN * atenolol * history of street drug use, had been fired as a patient by his last pain management physician; states currently sober * homelessness -stays at the custodial and is looking forward to being discharged -CM working on DC plan but likely pt will have to stay in hospital PLANS: cont current treatment Subjective: Lobo has no complaints. Objective: Vital Signs Temp Pulse Resp BP Pulse Ox 37.1 C 77 12 98/75 L 93 01/04/18 08:00 01/04/18 09:39 01/04/18 08:00 01/04/18 08:00 01/04/18 08:00 Laboratory Results 12/27/17 10:20 01/03/18 05:00 PT 12.9 SEC (12.0-15.0) 12/18/17 16:43 INR 0.95 (0.83-1.16) 12/18/17 16:43 - Physical Exam Constitutional: appears nourished, not in pain, unkempt Eyes: PERRL Ears, Nose, Mouth, Throat: hearing normal Cardiovascular: regular rate and rhythym Respiratory: no respiratory distress Skin: warm Musculoskeletal: abnormal gait Neurologic: AAOx3 Psychiatric: interacting appropriately ICD10 Worksheet Patient Problems: Problems Problem Status Onset Cellulitis of left foot Acute Abdominal pain Acute Acute bronchitis Acute Alcohol withdrawal Acute Alcoholic intoxication Acute Mucus plugging of bronchi Acute Respiratory failure Acute Right rib fracture Acute Tachycardia Acute
[2018-01-04] MEDS: traMADol 50 MG TAB PO PRN ×2 (13:34→22:43)
[2018-01-05] MEDS: oxyCODONE IR 5 MG TAB PO PRN ×3 (05:25→21:27)
--- NOTE | 2018-01-05 08:11 | HOSPPROG ---
Hospitalist Progress Note Assessment/Plan: Jarad is a 52 y/o homeless man who presented to the ER with a painful left toe. * Sepsis * due to foot infection, resolved * Acute osteomyelitis 1st MTP with abscess s/p I&D and 1st metatarsal head resection w residual bone involvement * Group A Strep * uncertain if residual bone involvement represents actual osteomyelitis; wound VAC now discontinued as patient had apparently been manipulating it so use dressing changes * 6 weeks of IV antibiotics has been recommended to the patient, but as a homeless person he has no ability to do this/today he is willing to stay * appreciate wound care seeing him * Etoh withdrawal, resolved * off ativan * Hep C antibody positive * see ID's note * HTN * atenolol * history of street drug use, had been fired as a patient by his last pain management physician; states currently sober * homelessness -stays at the senior living and is looking forward to being discharged -CM working on DC plan but likely pt will have to stay in hospital PLANS: cont current treatment,reviewed his care with Dr Sandoval, she would like him to stay through this week. Subjective: Lobo has no complaints. Objective: Vital Signs Temp Pulse Resp BP Pulse Ox 36.8 C 73 16 113/81 H 94 01/05/18 07:40 01/05/18 07:40 01/05/18 07:40 01/05/18 07:40 01/05/18 07:40 Laboratory Results 12/27/17 10:20 01/03/18 05:00 PT 12.9 SEC (12.0-15.0) 12/18/17 16:43 INR 0.95 (0.83-1.16) 12/18/17 16:43 - Physical Exam Constitutional: no apparent distress, appears nourished, not in pain Eyes: PERRL Ears, Nose, Mouth, Throat: hearing normal Respiratory: no respiratory distress Skin: warm Musculoskeletal: abnormal gait Neurologic: AAOx3 Psychiatric: interacting appropriately ICD10 Worksheet Patient Problems: Problems Problem Status Onset Cellulitis of left foot Acute Abdominal pain Acute Acute bronchitis Acute Alcohol withdrawal Acute Alcoholic intoxication Acute Mucus plugging of bronchi Acute Respiratory failure Acute Right rib fracture Acute Tachycardia Acute
[2018-01-05] MEDS: SENNOSIDES/DOCUSATE SODIUM TAB PO SCH ×2 (08:22→21:27)
[2018-01-05] MEDS: traMADol 50 MG TAB PO PRN ×2 (08:22→17:51)
[2018-01-05] MEDS: ATENOLOL 25 MG TAB PO SCH (08:22)
[2018-01-05] MEDS: THIAMINE HCL 100 MG TAB PO SCH (08:22)
[2018-01-05] MEDS: ENOXAPARIN 40 MG/0.4 ML SYR SC SCH (08:23)
--- NOTE | 2018-01-05 10:02 | PCMIDPN ---
Assessment/Plan: 1. Left great toe abscess/cellulitis/osteomyelitis status post debridement with residual bone involvement: His wound looks great! He has agreed to stay another week--continue ceftriaxone as is. Continue wound care. Will order safety labs in the form of a CBC with diff and complete metabolic panel for tomorrow. 2. Hepatitis C antibody positive: Will need treatment moving forward. He is immune to hepatitis a. He received his 1st hepatitis B vaccine in late November; he will need his 2nd in late December, or perhaps a bit early and prior to his departure from [facility]. 01/05/18 10:01 Subjective: No complaints today. Was able to look at his wound, which looks really nice. No diarrhea. Objective: Ceftriaxone 2 g IV daily stop date January 29 No fevers Vital Signs Temp Pulse Resp BP Pulse Ox 36.8 C 73 16 113/81 H 94 01/05/18 07:40 01/05/18 08:22 01/05/18 07:40 01/05/18 08:22 01/05/18 07:40 Laboratory Results 12/27/17 10:20 01/03/18 05:00 ESR 18 MM/HR (0-20) 12/27/17 10:20 C-Reactive Protein < 5.0 mg/L (<10.0) 12/27/17 10:20 - Physical Exam General Appearance: alert, no apparent distress EENT: No scleral icterus, No thrush Extremities: other (right foot: No obvious cellulitis. The debrided area is now fairly superficial, with excellent granulation tissue. PICC line right upper extremity looks fine) ICD10 Worksheet Patient Problems: Problems Problem Status Onset Cellulitis of left foot Acute Abdominal pain Acute Acute bronchitis Acute Alcohol withdrawal Acute Alcoholic intoxication Acute Mucus plugging of bronchi Acute Respiratory failure Acute Right rib fracture Acute Tachycardia Acute
--- NOTE | 2018-01-05 13:21 | ASMTCMCOM ---
CM Note CM Note Notes: Per ID consult patient agreed to stay one more week for treatment. CM met with patient, he continues to state he is confident he has [employer] and shared he would go to [facility] or [facility] when it is time. CM to follow. Date Signed: 01/05/2018 01:21 PM Electronically Signed By:Berta Dickerson
[2018-01-06] MEDS: oxyCODONE IR 5 MG TAB PO PRN ×3 (05:38→21:40)
[2018-01-06 05:45] LABS: PLATELET COUNT 186 10^3/uL (150-400)
[2018-01-06] MEDS: SENNOSIDES/DOCUSATE SODIUM TAB PO SCH ×2 (08:21→20:04)
[2018-01-06] MEDS: ENOXAPARIN 40 MG/0.4 ML SYR SC SCH (08:21)
[2018-01-06] MEDS: THIAMINE HCL 100 MG TAB PO SCH (08:21)
[2018-01-06] MEDS: ATENOLOL 25 MG TAB PO SCH (08:21)
[2018-01-06] MEDS: traMADol 50 MG TAB PO PRN ×2 (08:23→17:47)
--- NOTE | 2018-01-06 16:38 | HOSPPROG ---
Hospitalist Progress Note Assessment/Plan: Jarad is a 52 y/o homeless man who presented to the ER with a painful left toe. * Sepsis * due to foot infection, resolved * Acute osteomyelitis 1st MTP with abscess s/p I&D and 1st metatarsal head resection w residual bone involvement * Group A Strep * uncertain if residual bone involvement represents actual osteomyelitis; wound VAC now discontinued as patient had apparently been manipulating it so use dressing changes * 6 weeks of IV antibiotics has been recommended to the patient, but as a homeless person he has no ability to do this/today he is willing to stay * appreciate wound care seeing him * Etoh withdrawal, resolved * off ativan * Hep C antibody positive * see ID's note * HTN * atenolol * history of street drug use, had been fired as a patient by his last pain management physician; states currently sober * homelessness -stays at the [facility] and is looking forward to being discharged -CM working on DC plan but likely pt will have to stay in hospital PLANS: cont current treatment, he is willing to stay till Saturday Subjective: Lobo feels fine, has no complaints. Objective: Vital Signs Temp Pulse Resp BP Pulse Ox 36.6 C 76 16 111/75 94 01/06/18 15:17 01/06/18 15:17 01/06/18 15:17 01/06/18 15:17 01/06/18 15:17 Laboratory Results 01/06/18 05:30 01/06/18 05:30 PT 12.9 SEC (12.0-15.0) 12/18/17 16:43 INR 0.95 (0.83-1.16) 12/18/17 16:43 - Physical Exam Constitutional: no apparent distress Eyes: PERRL Ears, Nose, Mouth, Throat: hearing normal Respiratory: no respiratory distress Skin: warm Musculoskeletal: abnormal gait Neurologic: AAOx3 Psychiatric: interacting appropriately ICD10 Worksheet Patient Problems: Problems Problem Status Onset Cellulitis of left foot Acute Abdominal pain Acute Acute bronchitis Acute Alcohol withdrawal Acute Alcoholic intoxication Acute Mucus plugging of bronchi Acute Respiratory failure Acute Right rib fracture Acute Tachycardia Acute
[2018-01-07] MEDS: oxyCODONE IR 5 MG TAB PO PRN ×3 (05:39→21:29)
--- NOTE | 2018-01-07 09:11 | WOCRNPDOC ---
WOCRN Advanced Assessment Note - Skin Integrity Problem, Advanced Assess Left Medial Dorsal Foot Surgical Wound/Incision Dressing Type: Collagen, Hydrofera Blue Ready Dressing Description: Clean/Dry, Intact Exudate Amount: Scant Exudate Characteristic(s): Serosanguinous Integumentary Issue Intervention: Dressing Changed, Dressing Initialed & Dated, Hydrogel Applied (to edges of wound) Wound Bed Color: Red Wound Bed Constitution: Granulation Tissue (95%), Adhered Slough (5%) Wound Edges: Epithelizing Site Measurement - Head-to-Toe Length X Width X Depth (cm): 3.2x3.2x0.3 Skin Integrity Problem Comment: Healing well. Continue plan of care. Wound care will round again next week. Kierra OH in room for care.
[2018-01-07] MEDS: ENOXAPARIN 40 MG/0.4 ML SYR SC SCH (10:05)
[2018-01-07] MEDS: SENNOSIDES/DOCUSATE SODIUM TAB PO SCH ×2 (10:05→21:29)
[2018-01-07] MEDS: THIAMINE HCL 100 MG TAB PO SCH (10:05)
[2018-01-07] MEDS: ATENOLOL 25 MG TAB PO SCH (10:05)
[2018-01-07] MEDS: traMADol 50 MG TAB PO PRN ×2 (10:15→17:51)
--- NOTE | 2018-01-07 10:54 | HOSPPROG ---
Hospitalist Progress Note Assessment/Plan: Jarad is a 52 y/o homeless man who presented to the ER with a painful left toe. * Sepsis * due to foot infection, resolved * Acute osteomyelitis 1st MTP with abscess s/p I&D and 1st metatarsal head resection w residual bone involvement * Group A Strep * uncertain if residual bone involvement represents actual osteomyelitis; wound VAC now discontinued as patient had apparently been manipulating it so use dressing changes * 6 weeks of IV antibiotics has been recommended to the patient, but as a homeless person he has no ability to do this/today he is willing to stay * appreciate wound care seeing him * Etoh withdrawal, resolved * off ativan * Hep C antibody positive * see ID's note * HTN * atenolol * history of street drug use, had been fired as a patient by his last pain management physician; states currently sober * homelessness -stays at the senior living and is looking forward to being discharged -CM working on DC plan but likely pt will have to stay in hospital PLANS: cont current treatment, he is willing to stay till Saturday. No changes. Subjective: Lobo is happy to stay here for treatment. Objective: Vital Signs Temp Pulse Resp BP Pulse Ox 37.1 C 76 14 119/84 H 93 01/07/18 07:48 01/07/18 07:48 01/07/18 07:48 01/07/18 07:48 01/07/18 07:48 Laboratory Results 01/06/18 05:30 01/06/18 05:30 01/06/18 01/07/18 01/08/18 05:59 05:59 05:59 Intake Total 75 Balance 75 PT 12.9 SEC (12.0-15.0) 12/18/17 16:43 INR 0.95 (0.83-1.16) 12/18/17 16:43 - Physical Exam Constitutional: no apparent distress, chronically ill appearing Eyes: PERRL Ears, Nose, Mouth, Throat: hearing normal Cardiovascular: regular rate and rhythym Respiratory: no respiratory distress, clear to auscultation Skin: warm Musculoskeletal: abnormal gait, generalized weakness Neurologic: AAOx3 Psychiatric: interacting appropriately ICD10 Worksheet Patient Problems: Problems Problem Status Onset Cellulitis of left foot Acute Abdominal pain Acute Acute bronchitis Acute Alcohol withdrawal Acute Alcoholic intoxication Acute Mucus plugging of bronchi Acute Respiratory failure Acute Right rib fracture Acute Tachycardia Acute
[2018-01-08] MEDS: oxyCODONE IR 5 MG TAB PO PRN ×3 (06:33→22:25)
[2018-01-08] MEDS: THIAMINE HCL 100 MG TAB PO SCH (08:01)
[2018-01-08] MEDS: SENNOSIDES/DOCUSATE SODIUM TAB PO SCH ×2 (08:01→22:25)
[2018-01-08] MEDS: ATENOLOL 25 MG TAB PO SCH (08:02)
[2018-01-08] MEDS: ENOXAPARIN 40 MG/0.4 ML SYR SC SCH (08:02)
--- NOTE | 2018-01-08 10:03 | ASMTCMCOM ---
CM Note CM Note Notes: CM spoke to Den, director of the [facility]. Den confirms that pt is able to [facility] as long as he remains sober. Anticipate d/c for this saturday. CM to follow. Plan: Independent to [facility] w/ outpatient follow up Date Signed: 01/08/2018 10:02 AM Electronically Signed By:CALE Corrigan
[2018-01-08] MEDS: traMADol 50 MG TAB PO PRN ×2 (10:11→18:05)
--- NOTE | 2018-01-08 14:35 | HOSPPROG ---
Hospitalist Progress Note Assessment/Plan: Jarad is a 52 y/o homeless man who presented to the ER with a painful left toe. * Sepsis * due to foot infection, resolved * Acute osteomyelitis 1st MTP with abscess s/p I&D and 1st metatarsal head resection w residual bone involvement * Group A Strep * uncertain if residual bone involvement represents actual osteomyelitis; wound VAC now discontinued as patient had apparently been manipulating it so use dressing changes * 6 weeks of IV antibiotics has been recommended to the patient, but as a homeless person he has no ability to do this/today he is willing to stay * appreciate wound care seeing him * Etoh withdrawal, resolved * off ativan * Hep C antibody positive * see ID's note * HTN * atenolol * history of street drug use, had been fired as a patient by his last pain management physician; states currently sober * homelessness -stays at the alf and is looking forward to being discharged -CM working on DC plan but likely pt will have to stay in hospital PLANS: cont current treatment, he is willing to stay till Saturday. Confirm w ID oral treatment needed. Subjective: Lobo has no complaints, wants to be dc but willing to stay through saturday. Objective: Vital Signs Temp Pulse Resp BP Pulse Ox 36.8 C 84 16 110/84 H 92 01/08/18 07:37 01/08/18 08:02 01/08/18 07:37 01/08/18 08:02 01/08/18 07:37 Microbiology 12/18/17 20:48 Mycobacterial Smear (ELI) - Final Toe - Tissue 12/18/17 20:48 Mycobacterial Smear (ELI) - Final Toe - Bone Laboratory Results 01/06/18 05:30 01/06/18 05:30 01/07/18 01/08/18 01/09/18 05:59 05:59 05:59 Intake Total 75 Balance 75 PT 12.9 SEC (12.0-15.0) 12/18/17 16:43 INR 0.95 (0.83-1.16) 12/18/17 16:43 - Physical Exam Constitutional: no apparent distress, appears nourished, not in pain Eyes: PERRL Ears, Nose, Mouth, Throat: hearing normal Respiratory: no respiratory distress Skin: warm Musculoskeletal: abnormal gait, generalized weakness Neurologic: AAOx3 Psychiatric: interacting appropriately ICD10 Worksheet Patient Problems: Problems Problem Status Onset Cellulitis of left foot Acute Abdominal pain Acute Acute bronchitis Acute Alcohol withdrawal Acute Alcoholic intoxication Acute Mucus plugging of bronchi Acute Respiratory failure Acute Right rib fracture Acute Tachycardia Acute
[2018-01-09] MEDS: SENNOSIDES/DOCUSATE SODIUM TAB PO SCH ×2 (07:34→20:21)
[2018-01-09] MEDS: oxyCODONE IR 5 MG TAB PO PRN ×2 (07:35→15:42)
[2018-01-09] MEDS: ATENOLOL 25 MG TAB PO SCH (07:35)
[2018-01-09] MEDS: THIAMINE HCL 100 MG TAB PO SCH (07:35)
[2018-01-09] MEDS: ENOXAPARIN 40 MG/0.4 ML SYR SC SCH (07:36)
--- NOTE | 2018-01-09 09:33 | HOSPPROG ---
Hospitalist Progress Note Assessment/Plan: Jarad is a 52 y/o homeless man who was admitted with Sepsis due to left foot infection. This was debrided per below and he was found to have Acute OM. He has been treated with Rocephin. He is homeless and due to his lack of housing, intermediate IV abx treatment is not an option. He is scheduled for discharge tomorrow and will likely change to high dose Keflex per ID's reccs. * Sepsis * due to foot infection, resolved * Acute osteomyelitis 1st MTP with abscess s/p I&D and 1st metatarsal head resection w residual bone involvement * Group A Strep * 6 weeks of IV antibiotics has been recommended to the patient, but as a homeless person he has no ability to do this/today he is willing to stay * appreciate wound care seeing him * Etoh withdrawal, resolved * off ativan * Hep C antibody positive * see ID's note * HTN * atenolol * history of street drug use, had been fired as a patient by his last pain management physician; states currently sober * homelessness -stays at the intermediate and is looking forward to being discharged -CM working on DC plan but likely pt will have to stay in hospital *DVT proph: Lovenox PLANS: will discharge tomorrow ID to see tomorrow cont Rocephin today wound care This plan was discussed with ID today Interim hospital course reviewed in detail today. Subjective: no overnight events. no new complaints. no cp or sob. afebrile Objective: Vital Signs Temp Pulse Resp BP Pulse Ox 36.6 C 85 16 117/78 94 01/09/18 07:18 01/09/18 07:35 01/09/18 07:18 01/09/18 07:35 01/09/18 07:18 Laboratory Results 01/06/18 05:30 01/06/18 05:30 PT 12.9 SEC (12.0-15.0) 12/18/17 16:43 INR 0.95 (0.83-1.16) 12/18/17 16:43 - Physical Exam Constitutional: no apparent distress Eyes: PERRL Ears, Nose, Mouth, Throat: moist mucous membranes, hearing normal Cardiovascular: regular rate and rhythym, No edema Respiratory: no respiratory distress, no rales or rhonchi, clear to auscultation Gastrointestinal: normoactive bowel sounds, soft, non-tender abdomen Skin: warm Neurologic: AAOx3 Psychiatric: interacting appropriately, not anxious, not encephalopathic Lymph, Heme, Immunologic: No petechiae ICD10 Worksheet Patient Problems: Problems Problem Status Onset Cellulitis of left foot Acute Abdominal pain Acute Acute bronchitis Acute Alcohol withdrawal Acute Alcoholic intoxication Acute Mucus plugging of bronchi Acute Respiratory failure Acute Right rib fracture Acute Tachycardia Acute
[2018-01-09] MEDS: traMADol 50 MG TAB PO PRN ×2 (12:07→19:31)
[2018-01-10] MEDS: oxyCODONE IR 5 MG TAB PO PRN ×2 (00:01→08:10)
[2018-01-10] MEDS: THIAMINE HCL 100 MG TAB PO SCH (08:08)
[2018-01-10] MEDS: ATENOLOL 25 MG TAB PO SCH (08:08)
[2018-01-10] MEDS: SENNOSIDES/DOCUSATE SODIUM TAB PO SCH (08:11)
[2018-01-10] MEDS: ENOXAPARIN 40 MG/0.4 ML SYR SC SCH (08:11)
[2018-01-10 08:12] VITALS: BP 116/79
--- NOTE | 2018-01-10 08:58 | PCMIDPN ---
Assessment/Plan: 1. Left great toe abscess/cellulitis/osteomyelitis status post debridement with residual bone involvement: His wound looks great! Patient is eager to be discharged today. Would continue high-dose Keflex 1 g p.o. 3 times a day for another 18 days. Patient has follow-up at the SaturdayJanuary [address] Pfeiffer at 10:30 a.m.. He also has an appointment at our wound care clinic January 15 at 11: 00 a.m. Before he goes, would appreciate if case management could review directions with the patient, to make sure he comes to his appointments! 2. Hepatitis C antibody positive: Will need treatment moving forward. He is immune to hepatitis a. Will give him another hepatitis-B vaccine, slightly early prior to discharge today. Will need hepatitis-B surface antibody checked at his visit with us on the to see if he responded to these vaccines, if not, will need the 3rd vaccine May 2018. Over 25 min spent with this patient today. Subjective: Eager to be discharged today. No complaints. Objective: Ceftriaxone 2 g IV daily, antibiotic stop date 01/29 No fevers Vital Signs Temp Pulse Resp BP Pulse Ox 36.9 C 75 16 116/79 91 L 01/10/18 07:09 01/10/18 08:08 01/10/18 07:09 01/10/18 08:08 01/10/18 07:09 Laboratory Results 01/06/18 05:30 01/06/18 05:30 ESR 18 MM/HR (0-20) 12/27/17 10:20 C-Reactive Protein < 5.0 mg/L (<10.0) 12/27/17 10:20 - Physical Exam General Appearance: alert, no apparent distress Extremities: other (Right foot wound looks clean and is granulating nicely. No surrounding cellulitis) ICD10 Worksheet Patient Problems: Problems Problem Status Onset Cellulitis of left foot Acute Abdominal pain Acute Acute bronchitis Acute Alcohol withdrawal Acute Alcoholic intoxication Acute Mucus plugging of bronchi Acute Respiratory failure Acute Right rib fracture Acute Tachycardia Acute
[2018-01-10] MEDS ORDERED: HEPATITIS B VIRUS VACCINE-PF 20 MCG/ML INJ IM ONE (09:00)
--- NOTE | 2018-01-10 11:50 | PDDCSUM ---
Discharge Summary Discharge Summary: Jarad is a 52 y/o homeless man who was admitted with Sepsis due to left foot infection. This was debrided per below and he was found to have Acute OM. He has been treated with Rocephin. 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 He will d/c today with high dose Keflex 1gram tid x 18 days per ID's reccs. Patient has follow-up at the SaturdayJanuary [address] Pfeiffer at 10:30 a.m.. He also has an appointment at our wound care clinic January 15 at 11:00 a.m. Oxycontin 10mg #15 pills have been provided * Sepsis * due to foot infection, resolved * Acute osteomyelitis 1st MTP with abscess s/p I&D and 1st metatarsal head resection w residual bone involvement * Group A Strep * 6 weeks of IV antibiotics has been recommended to the patient, but as a homeless person he has no ability to do this/today he is willing to stay * appreciate wound care seeing him * Etoh withdrawal, resolved * off ativan * Hep C antibody positive * Will need treatment moving forward. He is immune to hepatitis a. Will give him another hepatitis-B vaccine, slightly early prior to discharge today. Will need hepatitis-B surface antibody checked at his visit with us on the to see if he responded to these vaccines, if not, will need the 3rd vaccine May 2018. * HTN * atenolol * history of street drug use, had been fired as a patient by his last pain management physician; states currently sober * homelessness -[facility] and is looking forward to being discharged -CM working on DC plan but likely pt will have to stay in hospital Exam: NAD AAOX3 RRR CTA B MEDS: SEE MED REC F/U: PER ABOVE TOTAL TIME SPENT ON D/C IS 35 MINS
[2018-01-10] MEDS: traMADol 50 MG TAB PO PRN (12:58)
--- NOTE | 2018-01-10 15:49 | ASMTDCNOTE ---
Case Management Discharge Discharge Order Complete? Answers: No Patient to Obtain Answers: Other Notes: [facility] delivered Medications bedside Transportation Arranged Answers: Bus Tokens Discharge Comments Notes: 01/10/2018 Case Management Note Pt declined reserved prison bed. Discharge meds were delivered bedside. Provided bus pass. Case Management d/c poc: to street Date Signed: 01/10/2018 03:48 PM Electronically Signed By:Meera Butler RN
--- NOTE | 2018-01-10 15:49 | ASDISCHSUM ---
Discharge Information Plan Status:Homeless/[facility] Medically Cleared to Leave:01/10/2018 Discharge Date:01/10/2018 03:03 PM CM D/C Disposition:Home, Routine, Self-Care ADT D/C Disposition:Home, Routine, Self-Care Projected Discharge Date:01/13/2018 11:00 AM Transportation at D/C:Bus Ticket Discharge Delay Reason: Follow-Up Date:01/13/2018 11:00 AM Discharge Slot: Final Diagnosis: Placement Information Referral Type:*Skilled Nursing/SNF Referral ID:[id number] Provider Name: Address 1: Phone Number: Address 2: Fax Number: City: Selection Factors: State: Patient Contact Information Contact Name:SAMANTHA Relationship:Nallely Address: Work Phone: City:[facility] Phone: [facility] Code:[place] [address] Email: Financial Information Financial Class:Medicaid Primary Plan Desc:[place] Primary Plan Number:[id number] Secondary Plan Desc: Secondary Plan Number: Assessment Information [facility] CM Progress Note CM Note CM Note Notes: Spoke w/RN, pt was arrested yesterday but pt became ill and was brought to the hospital. Pt was found to have an infected L foot, and was taken to surgery. Per RN, pt is no longer under the oversight of the [facility]'s office, he signed papers and they left. Pt is homeless, he drinks 1 pint of alcohol in am and pm. Does not wish to stop drinking, RN to notifiy . Royce needs unclear, PT to evaluated pt, CM w/f. DC Plan: TBD Date Signed: 12/19/2017 03:39 PM Electronically Signed By:Zoraida Lewis RN [facility] CM Progress Note CM Note CM Note Notes: Waiting for ID to weigh in - potential for needs pending consult/cultures. PT has cleared patient - may benefit from a walker, will see how patient progresses over next few days. Anticipate patient will d/c independently with a follow-up at [facility]. I have also notified Elda at [facility] of patient's admission (patient was referred to them upon last admission)./ Of note, patient was here in July and d/c'd independently, refused retirement services. CM will continue to follow. Plan: Likely Independent Date Signed: 12/20/2017 03:33 PM Electronically Signed By:Elke Law RN [facility] CM Progress Note CM Note CM Note Notes: Spoke w/RN, pt will be here through the weekend. Pt may need to have toe amputated, CM to follow for needs. DC Plan: TBD Date Signed: 12/21/2017 09:56 AM Electronically Signed By:Zoraida Lewis RN [facility] CM Progress Note CM Note CM Note Notes: CM discussed patient with RN, patient will require 6 weeks IVABX, Wound Care will see patient tomorrow. Patient is aware of 30 day stay requirement at rehab. CM met with patient, discussed LTC Medicaid, CM will put in referral for COXB699.2 assessment. Patient states he understands 30 day requirement and now realizes the foot infection is detrimental to his health. Patient shares he was on streets for over a year but does not think he can do it again this winter. CM gave patient JUANJOSE pamphlet with his Medicaid ID number and informed a referral was placed to Kimi SOW CM on 12/20. CM shared info about [facility], he was not aware of this service and will discuss with PCP. Lobo does not have any further questions at this time. CM to follow. Current Discharge Plan: TBD, pending [facility] Medicaid assessment- goal is placement in SNF for antibiotics and wound care. Date Signed: 12/22/2017 03:59 PM Electronically Signed By:Berta Dickerson [facility] CM Progress Note CM Note CM Note Notes: CM spoke to ADRIANO Perez regarding d/c POC. Referrals sent to numerous SNFs. CM awaiting for [facility] to come evaluate pt. CM to follow. Plan: SNF Date Signed: 12/23/2017 10:21 AM Electronically Signed By:CALE Corrigan [facility] CM Progress Note CM Note CM Note Notes: CM started ULTC-100 and submitted it to [facility]. ULTC-100 was not submitted on 12/22/17. Date Signed: 12/23/2017 10:24 AM Electronically Signed By:CALE Corrigan [facility] CM Progress Note CM Note CM Note Notes: Spoke with Dr. Pfeiffer who states she will place a PICC line for patient if he is accepted into a facility and will go directly to the SNF from the hospital. We are currently waiting on the approval from [facility] and then plan to pursue the placement with [facility]. Dr. Pfeiffer states patient will need 6 weeks IV ABX, ceftriaxone 2 grams daily. CM will follow. Date Signed: 12/24/2017 03:06 PM Electronically Signed By:Kenna Andre LCSW [facility] CM Progress Note CM Note CM Note Notes: CM recieved message from Babita at [facility], they have declined pt for SNF. She states despite pt needing 6 weeks of IV abx, Medicaid has a tight criteria. Pt's typically need help with ADLs (bathing,dressing,eating) and the pt is independent with those as well as ambulating despite wound vac. Therefore she cannot approve him. CM discussed with pt, he agrees he doesn't need rehab especially if he gets wound vac off. He states he gets along fine and has a bed at the retirement. He thinks he just needs a boot for that foot to help keep it clean. CM w/discuss with MD. VALDEZ Plan: TBD Date Signed: 12/25/2017 02:38 PM Electronically Signed By:Zoraida Lewis RN [facility] CM Progress Note CM Note CM Note Notes: Discussed case in Complex Care rounds this afternoon: This continues to be a difficult placement issue - has been declined by multiple SNFs. [facility] has also not approved patient for LTC. Patient seems to be okay with discharging to retirement when stable. [facility] is following this case and available to help with resources/potential solutions around IV abx if need be. Without a SNF placement, IV abx administration becomes challenging CM will continue to follow. Date Signed: 12/25/2017 04:26 PM Electronically Signed By:Elke Law RN [facility] CM Progress Note CM Note CM Note Notes: Spoke w/MD regarding pt's poc. He has been denied for SNF by [facility], pt is independent in ADLs. He still needs 6 weeks of IV abx, stop date 01/29. Due to pt's hx of etoh and some drug use he does not qualify for respite at [facility] or [facility] and refuses to go to [place]. D/w contract administration manager, no new plan as of now. DC Plan: TBD Date Signed: 12/26/2017 04:30 PM Electronically Signed By:Zoraida Lewis RN [facility] CM Progress Note CM Note CM Note Notes: Spoke with [facility] in [place] which has a respite program for homeless individuals with medical needs. The Respite program provides a rec room during the day where patients are allowed to stay, however patients are free to leave the retirement at will and are able to have passes to spend a night out with mandatory drug testing. It is unclear if this is a viable option since pt will have wound vac and PICC line and has a history of "dabbling" in IV drug use and is Hep C pos. The Repite program referral number is [phone]. if the program is deemed appropriate by providers and patient accepts, a referral should be made over the phone. Pt previously unaware that [facility] does offer day retirement. This needs to be communicated if it is a viable plan. The RN in the clinic can be reached at [phone] Mon after 9am for more information. CM to follow. Date Signed: 12/27/2017 04:37 PM Electronically Signed By:Maylin Lovell [facility] Progress Note CM Note CM Note Notes: Pts case discussed w/ Daysi Lester NP and Elke, product steward. CM met w/ pt for dispo planning. Pt does not want to go to [facility] respite. Pt would like to stay in [facility]. Rach will look into medical respite in [facility] and to see if that would be a possibility. CM to follow. Plan: TBD Date Signed: 12/30/2017 10:06 AM Electronically Signed By:CALE Corrigan [facility] DENNIS Progress Note CM Note CM Note Notes: Left a message for Rach with [facility] ([phone]) to see if she was able to get respite for patient with [facility]. Awaiting her return call. CM will follow. Date Signed: 12/31/2017 01:02 PM Electronically Signed By:Kenna Andre LCSW [facility] DENNIS Progress Note CM Note CM Note Notes: Spoke with Rach and [facility] does not want to manage medical problems. Their respite program is for psychiatric patient's and due to patient's medical needs, he will not be eligible. Patient does not want to go to [facility]. We have exhausted current d/c plans. Consult with Elke to see what else might be a possibility. CM will follow. Date Signed: 12/31/2017 04:12 PM Electronically Signed By:Kenna Andre LCSW [facility] DENNIS Progress Note CM Note DENNIS Note Notes: Sent an email to Den at the retirement to see if they will let the patient stay there on discharge from the hospital. CM will follow. Date Signed: 12/31/2017 04:56 PM Electronically Signed By:Kenna Andre LCSW [facility] Progress Note CM Note CM Note Notes: Response received from Den at [facility]. " He is eligible to use our services as long as he is able to take care of his own basic needs. I notice, also, that he has Sober Only status at the [facility] meaning that he has to be 100% sober to use our services". If pt accepts these parameters he will be d/beth to the retirement with a saved bed. CM to follow. D/C Plan: [facility]. Date Signed: 01/01/2018 01:53 PM Electronically Signed By:Davina Moralez [facility] DENNIS Progress Note CM Note CM Note Notes: CM discussed parameters of d/c to [facility] with him. Pt agrees to parameters. CM will reserve a bed at the retirement once d/c orders are written. CM to follow. D/C Plan: [facility] Date Signed: 01/01/2018 04:33 PM Electronically Signed By:Davina Moralez [facility] DENNIS Progress Note CM Note CM Note Notes: DENNIS spoke to physician and pt this morning. Pt willing to stay longer so that he can continue to receive IV antibiotics. It was recommended to him that if he decides to d/c prior to the IV antibiotics being completed that he let CM know so that a retirement bed can be reserved. Pt does not think this is neccesary because he has coordinated entry. CM to follow. D/C Plan: [facility]. Date Signed: 01/02/2018 10:27 AM Electronically Signed By:Davina Moralez [facility] CM Progress Note CM Note CM Note Notes: Per ID consult patient agreed to stay one more week for treatment. CM met with patient, he continues to state he is confident he has Coordinated Entry and shared he would go to [facility] or [facility] when it is time. CM to follow. Date Signed: 01/05/2018 01:21 PM Electronically Signed By:Berta Dickerson [facility] CM Progress Note CM Note CM Note Notes: CM [facility] Den[facility]. Den confirms that pt is able to return to the retirement as long as he remains sober. Anticipate d/c for this saturday. CM to follow. Plan: Independent to [facility] w/ outpatient follow up Date Signed: 01/08/2018 10:02 AM Electronically Signed By:CALE Corrigan Case Management Discharge Plan Note Case Management Discharge Discharge Order Complete? Answers: No Patient to Obtain Answers: Other Notes: [facility] delivered Medications bedside Transportation Arranged Answers: Bus Tokens Discharge Comments Notes: 01/10/2018 Case Management Note Pt declined reserved retirement bed. Discharge meds were delivered bedside. Provided bus pass. Case Management d/c poc: to street Date Signed: 01/10/2018 03:48 PM Electronically Signed By:Meera Butler RN Intervention Information Intervention Type:Bus Pass Date of Service:01/10/2018 03:46 PM Patient Type:Inpatient Staff Member:ADRIANO Butler, Meera Hours: Discipline: Severity: Comment:
--- NOTE | 2018-01-10 15:50 | ASMTLACE ---
LACE Length of stay for Answers: 14 days or more current admission Acuity / Level of Answers: Yes Care: Did the patient have an inpatient admission? Comorbidities - select Answers: Chronic pulmonary disease all that apply Diabetes (uncontrolled or controlled) Opioid dependence / Chronic pain Other Notes: Hep C; HTN # of Emergency department Answers: 9-12 visits in the last 6 months Social determinants Answers: History of substance abuse (ETOH, street drugs, prescription drugs, etc.) Homelessness (street, snf) Lack of community resources and/or lack of social support (no pcp, lives alone, transportation, rabia d) Score: 33 Date Signed: 01/10/2018 03:49 PM Electronically Signed By:Meera Butler RN
== END 2018-01-10 15:03 | disposition home or self-care (01) | DRG 720 ==
LOC: F3E 22:25
PROVIDERS: ADMIT Internal Medicine; ATTEND Internal Medicine
PROC: 0QBP0ZX Excision of Left Metatarsal, Open Approach, Diagnostic (ICD-10-PCS; principal; 2017-12-18 20:00)
PROC: 0H9NXZZ Drainage of Left Foot Skin, External Approach (ICD-10-PCS; principal; 2017-12-18 20:00)
PROC: 02HV33Z Insertion of Infusion Device into Superior Vena Cava, Percutaneous Approach (ICD-10-PCS; 2017-12-24)
DX: A40.0 Sepsis due to streptococcus, group A (principal); R65.20 Severe sepsis without septic shock; E11.69 Type 2 diabetes mellitus with other specified complication; M86.172 Other acute osteomyelitis, left ankle and foot; L03.116 Cellulitis of left lower limb; E11.40 Type 2 diabetes mellitus with diabetic neuropathy, unspecified; F10.239 Alcohol dependence with withdrawal, unspecified; B19.20 Unspecified viral hepatitis C without hepatic coma; F17.210 Nicotine dependence, cigarettes, uncomplicated; R05 Cough; I10 Essential (primary) hypertension; K22.70 Barrett's esophagus without dysplasia; Z59.0 Homelessness; B95.0 Streptococcus, group A, as the cause of diseases classified elsewhere; Z23 Encounter for immunization
CPT/HCPCS: 86704-90; 86708-90; 86709-90; 96365; 97116-GP; 97161-GP; 97165-GO; 97530-GO; 97535-GO; C1751; G0010; G0472; J0696; J1100; J1170; J1335; J1650; J1885; J1940; J2060; J2405; J2704; J3010; J3370

== ENCOUNTER 2018-01-11 14:59 | Emergency (ER) | payer MEDICAID ==
[2018-01-11 15:07] VITALS: BP 103/71
--- NOTE | 2018-01-11 15:16 | EDPHY ---
H & P Stated Complaint: Helped up by PD, fell back hitting occiput, no LOC/complaint/ obv trauma Time Seen by Provider: 01/11/18 15:06 HPI/ROS: CHIEF COMPLAINT: Head injury, alcohol intoxication HISTORY OF PRESENT ILLNESS: 52-year-old male with alcoholism presents after head injury. He was standing on a street corner when he apparently fell backwards and hit his head. No loss of consciousness or amnesia. He does not have a headache. PD on scene placed him on an [employer]C hold for alcohol intoxication. He is currently asymptomatic and is able to walk with a steady gait. REVIEW OF SYSTEMS: complete 10 point ROS reviewed and is negative except for the noted elements in the HPI - Personal History Current Tetanus/Diphtheria Vaccine: Yes Tetanus Vaccine Date: <10YRS - Medical/Surgical History Hx Asthma: No Hx Chronic Respiratory Disease: No Hx Diabetes: Yes Hx Cardiac Disease: No Hx Renal Disease: No Hx Cirrhosis: No Hx Alcoholism: Yes Hx HIV/AIDS: No Hx Splenectomy or Spleen Trauma: No Other PMH: ETOH, Hep C, lung and esophogeal cancer per pt report, barrets esophagus, smoker, ? COPD, HTN, - Social History Smoking Status: Heavy smoker - Physical Exam Exam: General Appearance: Alert, cooperative, speech is clear Head: No scalp swelling or tenderness Eyes: Pupils equal and round, no conjunctival pallor or injection ENT, Mouth: Mucous membranes moist, no facial bony tenderness Neck: Normal inspection, no tenderness, range of motion without pain Respiratory: Lungs are clear to auscultation, no chest wall tenderness Cardiovascular: Regular rate and rhythm Gastrointestinal: Abdomen is soft and nontender Back: Normal inspection, no tenderness Neurological: A&O, nonfocal, normal gait Skin: Warm and dry Extremities: Normal inspection Psychiatric: Mood and affect normal Constitutional: Initial Vital Signs Temperature (C) 36.8 C 01/11/18 15:02 Heart Rate 79 01/11/18 15:02 Respiratory Rate 16 01/11/18 15:02 Blood Pressure 103/71 01/11/18 15:02 O2 Sat (%) 94 01/11/18 15:02 O2 Delivery Mode Room Air Allergies/Adverse Reactions: penicillin Allergy (Verified 12/18/17 16:28) "Passed out" Penicillins Allergy (Verified 12/18/17 16:28) Home Medications: Medication Instructions Recorded Atenolol [Tenormin 25 mg (*)] 25 mg PO DAILY #30 tab 01/10/18 Cephalexin [Keflex (*)] 1,000 mg PO TID #108 cap 01/10/18 Thiamine HCl [Vitamin B-1] 100 mg PO DAILY #30 tab 01/10/18 oxyCODONE IR [Oxycodone Ir (*)] 10 mg PO TID PRN #15 tab 01/10/18 Medical Decision Making ED Course/Re-evaluation: This patient presents after a closed head injury on an ARC hold. He appears clinically sober. Neurologic exam is normal and neuro imaging is not indicated. Transported to the [facility] by PD. Differential Diagnosis: Differential diagnosis includes though it is not limited to fracture, intracranial hemorrhage, pneumothorax, hemothorax, intra-abdominal hemorrhage. Departure - Departure Disposition: Home, Routine, Self-Care Clinical Impression: Alcoholic intoxication Qualifiers: Complication of substance-induced condition: uncomplicated Qualified Code(s): F10.920 - Alcohol use, unspecified with intoxication, uncomplicated Head injury Qualifiers: Encounter type: initial encounter Qualified Code(s): S09.90XA - Unspecified injury of head, initial encounter Condition: Good Instructions: Head Injury (ED), Alcohol Intoxication (ED) Referrals: [facility] Detox 24 Hours [Outside] - As per Instructions
== END 2018-01-11 15:50 | disposition home or self-care (01) ==
LOC: EDUNIT#
DX: F10.920 Alcohol use, unspecified with intoxication, uncomplicated (principal); S09.90XA Unspecified injury of head, initial encounter; W19.XXXA Unspecified fall, initial encounter; Y92.410 Unspecified street and highway as the place of occurrence of the external cause; Y99.8 Other external cause status; F17.210 Nicotine dependence, cigarettes, uncomplicated

== ENCOUNTER 2018-01-20 03:18 | Observation (INO) | payer MEDICAID ==
[2018-01-20 03:31] LABS: PLATELET COUNT 176 10^3/uL (150-400)
[2018-01-20] MEDS ORDERED: NS 2,400 ML IV ONE ×2 (03:36)
--- NOTE | 2018-01-20 03:36 | EDPHY ---
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 Patient was discharged on the 13th of this month. [facility] and was complaining of increasing pain and swelling in his left foot and ankle. Patient states that it is in been increasingly swollen for the last 2 days. He states that he is compliant with his Keflex. He also states he followed up with the wound care clinic last week. He has had persistent pain. Denies fevers or chills. No nausea or vomiting. No lightheadedness or fainting. Last drink of alcohol was about 9:00 a.m. Last night. He does not feel like he is withdrawing at this time. ROS: 10 systems were reviewed and were negative except those elements noted in the HPI. PMH: Sepsis, left foot osteomyelitis, hypertension, chronic alcoholism Social History: Positive smoking, positive daily alcohol, homeless Family History: non-contributory Physical Exam: Gen: Awake, Alert, No Distress he is tachycardic and mildly hypotensive HEENT: Nose: no rhinorrhea Eyes: PERRLA, EOMI Mouth: Moist mucosa Neck: Supple, no JVD Chest: nontender, lungs clear to auscultation Heart: S1, S2 normal, no murmur Abd: Soft, non-tender, no guarding Back: no CVA tenderness, no midline tenderness Ext: Left foot and ankle are swollen, mildly erythematous but not warm to the touch. He has a bandage in place which should have been changed 2 days ago. There is a small amount of purulent discharge from the inferior portion of the wound. Skin: no rash Neuro: CN II-XII intact, Sensation grossly intact, Strength 5/5 in bilateral upper and lower extremities - Personal History Current Tetanus/Diphtheria Vaccine: Yes Current Tetanus Diphtheria and Acellular Pertussis (TDAP): Yes Tetanus Vaccine Date: <10YRS - Medical/Surgical History Hx Asthma: No Hx Chronic Respiratory Disease: No Hx Diabetes: Yes Hx Cardiac Disease: No Hx Renal Disease: No Hx Cirrhosis: No Hx Alcoholism: Yes Hx HIV/AIDS: No Hx Splenectomy or Spleen Trauma: No Other PMH: ETOH, Hep C, lung and esophogeal cancer per pt report, barrets esophagus, smoker, ? COPD, HTN, - Social History Smoking Status: Current every day smoker Constitutional: Initial Vital Signs Temperature (C) 37.1 C 01/20/18 03:16 Heart Rate 129 H 01/20/18 03:16 Respiratory Rate 16 01/20/18 03:16 Blood Pressure 98/76 L 01/20/18 03:16 O2 Sat (%) 92 01/20/18 03:16 O2 Delivery Mode Room Air Allergies/Adverse Reactions: penicillin Allergy (Verified 01/20/18 03:20) "Passed out" Penicillins Allergy (Verified 01/20/18 03:20) Home Medications: Medication Instructions Recorded Atenolol [Tenormin 25 mg (*)] 25 mg PO DAILY #30 tab 01/10/18 Cephalexin [Keflex (*)] 1,000 mg PO TID #108 cap 01/10/18 Thiamine HCl [Vitamin B-1] 100 mg PO DAILY #30 tab 01/10/18 oxyCODONE IR [Oxycodone Ir (*)] 10 mg PO TID PRN #15 tab 01/10/18 Medical Decision Making ED Course/Re-evaluation: 52-year-old male with a recent sepsis and osteomyelitis of his left foot presenting with worsening swelling. He is tachycardic. He is borderline hypotensive. He has a scant amount of purulent discharge with swelling of his leg. He has not have leukocytosis. Given his history and presentation is concerning for possible sepsis. He meets SIRS criteria. His initial lactic acid is 2.1. He has been given IV antibiotics. IV fluids. I have also placed on a CIWA protocol. I have discussed with Dr. Walters, hospitalist. She will admit to her service. - Data Points Laboratory Results: Laboratory Results 01/20/18 03:27 01/20/18 03:27 01/20/18 01/20/18 01/20/18 03:27 03:27 03:27 WBC 6.46 10^3/uL 10^3/uL (3.80-9.50) RBC 4.31 10^6/uL L 10^6/uL (4.40-6.38) Hgb 14.6 g/dL g/dL (13.7-17.5) Hct 42.3 % % (40.0-51.0) MCV 98.1 fL fL (81.5-99.8) MCH 33.9 pg pg (27.9-34.1) MCHC 34.5 g/dL g/dL (32.4-36.7) RDW 12.0 % % (11.5-15.2) Plt Count 176 10^3/uL 10^3/uL (150-400) MPV 10.6 fL fL (8.7-11.7) Neut % (Auto) 45.6 % % (39.3-74.2) Lymph % (Auto) 39.6 % % (15.0-45.0) [place] % (Auto) 10.1 % % (4.5-13.0) Eos % (Auto) 3.4 % % (0.6-7.6) Baso % (Auto) 0.8 % % (0.3-1.7) Nucleat RBC Rel Count 0.0 % % (0.0-0.2) Absolute Neuts (auto) 2.95 10^3/uL 10^3/uL (1.70-6.50) Absolute Lymphs (auto) 2.56 10^3/uL 10^3/uL (1.00-3.00) Absolute Monos (auto) 0.65 10^3/uL 10^3/uL (0.30-0.80) Absolute Eos (auto) 0.22 10^3/uL 10^3/uL (0.03-0.40) Absolute Basos (auto) 0.05 10^3/uL 10^3/uL (0.02-0.10) Absolute Nucleated RBC 0.00 10^3/uL 10^3/uL (0-0.01) Immature Gran % 0.5 % % (0.0-1.1) Immature Gran # 0.03 10^3/uL 10^3/uL (0.00-0.10) PT 12.0 SEC SEC (12.0-15.0) INR 0.87 (0.83-1.16) APTT 24.9 SEC SEC (23.0-38.0) VBG Lactic Acid 2.1 mmol/L mmol/L (0.7-2.1) Sodium Potassium Chloride Carbon Dioxide Anion Gap BUN Creatinine Estimated GFR Glucose Calcium Total Bilirubin 01/20/18 03:27 WBC RBC Hgb Hct MCV MCH MCHC RDW Plt Count MPV Neut % (Auto) Lymph % (Auto) [place] % (Auto) Eos % (Auto) Baso % (Auto) Nucleat RBC Rel Count Absolute Neuts (auto) Absolute Lymphs (auto) Absolute Monos (auto) Absolute Eos (auto) Absolute Basos (auto) Absolute Nucleated RBC Immature Gran % Immature Gran # PT INR APTT VBG Lactic Acid Sodium 145 mEq/L mEq/L (135-145) Potassium 3.9 mEq/L mEq/L (3.3-5.0) Chloride 112 mEq/L H mEq/L (97-110) Carbon Dioxide 24 mEq/l mEq/l (22-31) Anion Gap 9 mEq/L mEq/L (6-14) BUN 8 mg/dL mg/dL (7-23) Creatinine 0.6 mg/dL L mg/dL (0.7-1.3) Estimated GFR > 60 Glucose 126 mg/dL H mg/dL (70-100) Calcium 8.8 mg/dL mg/dL (8.5-10.4) Total Bilirubin 0.2 mg/dL mg/dL (0.1-1.4) Medications Given: Discontinued Medications Sodium Chloride (Ns) 1,000 mls @ 0 mls/hr IV EDNOW ONE; Wide Open PRN Reason: Protocol Stop: 01/20/18 03:39 Last Admin: 01/20/18 03:50 Dose: Not Given Ceftriaxone Sodium/Dextrose (Rocephin 1 Gm (Premix)) 50 mls @ 100 mls/hr IV EDNOW ONE PRN Reason: Protocol Stop: 01/20/18 04:05 Last Admin: 01/20/18 04:04 Dose: 50 mls Sodium Chloride (Ns) 2,400 mls @ 4,800 mls/hr 30 ml/kg infuse over 30 min ( 2400 ml) IV EDNOW ONE PRN Reason: Protocol Stop: 01/20/18 04:05 Last Admin: 01/20/18 03:50 Dose: 2,400 mls Departure - Departure Disposition: [facility] Acute Clinical Impression: Cellulitis of left foot Condition: Fair
[2018-01-20 03:39] LABS: INR 0.87 (0.83-1.16)
[2018-01-20] MEDS ORDERED: LORazepam 2 MG/ML INJ IVP PRN (03:39)
[2018-01-20] MEDS ORDERED: LORazepam 1 MG TAB PO PRN (03:39)
[2018-01-20] MEDS: NS 1,000 ML IV ONE ×2 (03:44→03:50)
[2018-01-20] MEDS ORDERED: ONDANSETRON 4 MG/2 ML VIAL IVP PRN (04:57)
[2018-01-20] MEDS ORDERED: ONDANSETRON DISINTEGRATING 4 MG TAB PO PRN (04:57)
[2018-01-20] MEDS ORDERED: ACETAMINOPHEN 325 MG TAB PO PRN (04:57)
[2018-01-20] MEDS ORDERED: FLUMAZENIL 0.5 MG/5 ML MDV IVP PRN (05:06)
--- NOTE | 2018-01-20 07:33 | GHP ---
DATE OF ADMISSION: 01/20/2018 PRIMARY CARE PHYSICIAN: The patient without PCP. He has a followup appointment with Dr. Pfeiffer, and he reports he follows up with Wound Care. SOURCE: Patient provides history, is a fair historian. EMR was reviewed. Case discussed with ED madi carreon. CHIEF COMPLAINT: Worsening left foot and ankle pain and swelling. HISTORY OF PRESENT ILLNESS: This is a 52-year-old gentleman with a past medical history significant for HCV, diet-controlled diabetes, alcohol dependence, Benedict esophagus, benign essential hypertensi on, and recent prolonged hospital stay from -01/10/2018, for a left 1st metatarsal osteomyel itis status post debridement, who presents to the emergency department via EMS from the [facility] with comp laints of worsening left 1st toe and foot pain over the last 2 days. The patient reports that he has noted increasing pain and swelling in that extremity as well as increasing drainage. He reports he is following wound care as recommended and has been compliant with his high-dose Keflex of 1000 mg t. i.d. Patient is currently homeless. He was at the [facility] for detox. He has continued to drink since d ischarge. The patient had a prolonged hospital stay, did undergo a debridement, but was not a candid ate for continued IV therapy, and so he was transitioned to oral high-dose Keflex. The patient repor ts increasing drainage, swelling, pain, redness, warmth in his left foot. He last saw Wound Care 3-4 days ago and had packing applied. He denies any fevers or chills. REVIEW OF SYSTEMS: GENERAL: Patient denies any fevers, chills. ENT: Patient does report some snee zing, congestion. No sore throat. RESPIRATORY: Patient does report a nonproductive cough that has been ongoing for the last several days. Negative for fevers, chills. GI: Patient denies any nausea , vomiting, abdominal pain. Remainder of 10 systems reviewed and negative except as noted above. ALLERGIES: To penicillin, patient passes out. HOME MEDICATIONS: Keflex 1000 mg t.i.d. PAST MEDICAL HISTORY: Significant for HCV, diet-controlled diabetes, alcoholism with withdrawal, Bar rett esophagus, benign essential hypertension, osteomyelitis of the left 1st metatarsal as noted abov e in the HPI. PAST SURGICAL HISTORY: Significant for debridement on 12/19/2017, of the 1st metatarsal with biopsy. He also has a left tib-fib fracture that is well healed on the left foot and ankle. FAMILY HISTORY: Both parents are , otherwise negative. SOCIAL HISTORY: Patient is currently homeless. He drinks several 40-ounce beers per day. He report s that his last drink was approximately 9 . Patient has history significant for alcohol de pendence. He smokes 1 pack per day and denies any use of illicit drugs CODE STATUS: Full. PHYSICAL EXAMINATION: VITAL SIGNS: Upon arrival to the emergency department, blood pressure is 98/7 6, heart rate 129, respirations 16, O2 saturation 92% on room air with a temperature of 37.1. Curren t Vital Signs: Blood pressure 119/93, heart rate is 113, O2 saturation 92% on 2 L by nasal cannula, respiratory rate 16. GENERAL: No acute distress. Pleasant adult gentleman, obese, who is lying stevan etly in bed. He is disheveled and unkempt. HEAD: Normocephalic, atraumatic. EYES: Extraocular mu scles are grossly intact. Pupils equal, round, reactive to light bilaterally and symmetric. No scle ral icterus or conjunctival injection. ENT: Mucous membranes appear dry. No oropharyngeal erythema or exudates. NECK: Supple. Trachea midline. CV: Tachycardic in the one-teens. No murmurs, rubs , or gallops, but slightly distant heart sounds due to rate. No chest wall tenderness to palpation. RESPIRATORY: Unlabored breathing. No wheezes, rales, or rhonchi appreciated. Some diminished steven th sounds bibasilarly. ABDOMEN: Obese, soft, nontender to palpation. No rebound, guarding, or mass es appreciated. Positive bowel sounds. : No suprapubic tenderness to palpation. No Chiu cathet er in place. MUSCULOSKELETAL: Patient able to sit up independently. Moves all extremities. Streng th intact. NEURO: Grossly nonfocal. No facial drooping. Grossly nonfocal. Moves all extremities. PSYCH: Patient's thought, process, content, and questions do appear appropriate. The patient is p leasant and cooperative. LABORATORY STUDIES: WBC 6.46, H and H of 14.6 and 42.3, MCV 98.1, platelet count is 176; no bands. PT 12.0, INR 0.87, PTT is 24.9. VBG lactic acid 2.1. Sodium 145, potassium 3.9, chloride 112, CO2 2 4, anion gap is 9, BUN is 8, creatinine 0.6, GFR greater than 60, glucose is 126 (previous A1c in Nov was 5.9), calcium , total bilirubin 0.2. The patient has a previous study that show s hepatitis C antibody reactive quantitative HCV showing 3.18 million international units/mL. Negati ve HIV. ASSESSMENT AND PLAN: This is a pleasant 52-year-old gentleman, homeless with hepatitis C virus, diab etes mellitus 2, Benedict esophagus, benign essential hypertension, osteomyelitis of the 1st metatarsa l, status post debridement and biopsy, 12/19/2017, who presents to the emergency department with comp laints of 2 days of worsening left lower extremity swelling and pain. 1. Osteomyelitis of the left metatarsal, status post biopsy. The patient reports that he has been m ostly compliant with his Keflex, maybe missed 1 dose or 2 since discharge. We will continue with Derrick ephin which patient did receive in the emergency department. Infectious Disease will be consulted, a nd wound culture and blood cultures are also pending. 2. Systemic inflammatory response syndrome, sepsis. Patient with persistent tachycardia, mildly toña vated lactate, which will be repeated. Blood cultures were and wound cultures are pending. Continue Rocephin. 3. Benign essential hypotension. Likely secondary to hypovolemia in the setting of alcohol intoxica tion, decreased oral intake of fluids, and infectious process, but the patient responded appropriatel y to intravenous fluids, and vital signs at this time are stable. 4. Left chronic left foot wound. Again, wound care consultation. Infectious disease consultation. Continue Rocephin at this time. 5. Chronic medical issues. a. Hepatitis C virus. Followup with Infectious Disease for further discussion of potential treatmen t options. b. Diet-controlled diabetes. Blood sugar is normal. His last A1c was 5.9. c. Alcohol dependence. Patient will be monitored for withdrawal symptoms. d. Benedict esophagus. The patient is not on any antacids. e. Benign essential hypertension. Patient's blood pressures at this time are low normal. Hold off on any p.r.n.'s. 6. Fluid, electrolyte, nutrition. Intravenous fluids overnight. Electrolyte monitoring and replace ment if needed. Diet as tolerated. 7. Prophylaxis. Sequential compression device to the right lower extremity. 8. Code status. Full. 9. Disposition: The patient admitted to observation status on the Med/Surg floor at this time aly mazariegos further followup of laboratory studies and wound care and infectious disease consultation. /[id number]/MODL
[2018-01-20] MEDS: MULTIVITAMINS 1 EACH TAB PO SCH (07:41)
[2018-01-20] MEDS: FAMOTIDINE 20 MG TAB PO SCH ×2 (07:41→20:39)
[2018-01-20] MEDS: oxyCODONE IR 5 MG TAB PO PRN ×3 (07:42→20:39)
[2018-01-20] MEDS: FOLIC ACID 1 MG TAB PO SCH (07:42)
--- NOTE | 2018-01-20 08:11 | ASMTLACE ---
THUY Comorbidities - select Answers: Chronic pulmonary disease all that apply Diabetes (uncontrolled or controlled) Opioid dependence / Chronic pain Other Notes: Hep C; HTN; Barretts esophagus # of Emergency department Answers: 9-12 visits in the last 6 months Social determinants Answers: History of substance abuse (ETOH, street drugs, prescription drugs, etc.) Homelessness (street, penitentiary) Score: 19 Date Signed: 01/20/2018 08:10 AM Electronically Signed By:Rut Diaz
[2018-01-20] MEDS: THIAMINE HCL 500 MG in NS 100 ML IV SCH (10:44)
--- NOTE | 2018-01-20 11:36 | PCMIDPN ---
Assessment/Plan: Assessment: Left foot postoperative infection-cellulitis in the foot which is probably resulting from infection from the open wound which is not healed from his surgery around the 1st MTP. There is no drainage tract that I can find. There is no purulence to be seen. At this point would continue treatment with ceftriaxone and observe. Discussed case with Dr. Hi. Plan: 1. Continue IV ceftriaxone. 2. Follow appearance of left foot. 3. Ask Podiatry to follow up with patient during stay. Subjective: Patient states that he was at the [facility] and noted that the foot was getting more swollen and painful. He did not have fevers. No ascending redness or streaking along the lymph chain. Objective: Ceftriaxone # 1 Vital Signs Temp Pulse Resp BP Pulse Ox 37.4 C 121 H 14 134/95 H 96 01/20/18 08:27 01/20/18 10:53 01/20/18 10:53 01/20/18 10:53 01/20/18 10:53 Microbiology 01/20/18 04:30 Gram Stain - Final Foot - Swab 01/19/18 01/20/18 01/21/18 05:59 05:59 05:59 Intake Total 2500 Balance 2500 - Physical Exam General Appearance: WD/WN, alert, no apparent distress, non-toxic Respiratory: lungs clear, normal breath sounds, No respiratory distress Cardiac/Chest: regular rate, rhythm, tachycardia Extremities: inflammation (Mild left foot), swelling, erythema (Mild left foot) , No non-tender, No normal inspection, No necrosis Skin: normal color, warm/dry, No rash Neuro/Psych: alert, normal mood/affect, oriented x 3 ICD10 Worksheet Patient Problems: Problems Problem Status Onset Cellulitis of left foot Acute Abdominal pain Acute Acute bronchitis Acute Alcohol withdrawal Acute Alcoholic intoxication Acute Mucus plugging of bronchi Acute Respiratory failure Acute Right rib fracture Acute Tachycardia Acute
--- NOTE | 2018-01-20 12:52 | ASMTCMCOM ---
CM Note CM Note Notes: Patient plan of care reviewed in rounds.He was at the [facility] and experienced more pain and swelling of his left foot. Dc'd from this hospital 01/[address] he declined [facility] bed. He had antibiotics. ID to see. CM to follow. Plan: TBD Date Signed: 01/20/2018 12:51 PM Electronically Signed By:Claribel Henry RN
--- NOTE | 2018-01-20 14:05 | HOSPPROG ---
Hospitalist Progress Note Assessment/Plan: Sepsis secondary to osteomyelitis of left foot MT - s/p MT resection Hep C DM Etoh abuse Barretts esophagus Objective: Vital Signs Temp Pulse Resp BP Pulse Ox 37.6 C 118 H 18 135/98 H 93 01/20/18 12:45 01/20/18 12:45 01/20/18 12:45 01/20/18 12:45 01/20/18 12:45 Microbiology 01/20/18 04:30 Gram Stain - Final Foot - Swab 01/19/18 01/20/18 01/21/18 05:59 05:59 05:59 Intake Total 2500 Balance 2500 PT 12.0 SEC (12.0-15.0) 01/20/18 03:27 INR 0.87 (0.83-1.16) 01/20/18 03:27 ICD10 Worksheet Patient Problems: Problems Problem Status Onset Cellulitis of left foot Acute Abdominal pain Acute Acute bronchitis Acute Alcohol withdrawal Acute Alcoholic intoxication Acute Mucus plugging of bronchi Acute Respiratory failure Acute Right rib fracture Acute Tachycardia Acute
--- NOTE | 2018-01-20 14:56 | SOAPPROG ---
SOAP Progress Note Assessment/Plan: Assessment:ulcer with cellulits left 1st mtpj Plan:Treatment today consisted of evaluation of his foot and the xrays. I saw no obvious reason for surgery at this point. Will discuss with Dr. Wang and wound healing nurses. 01/20/18 14:52 Subjective: Patient is seen in bed for followup of his left foot. He says he was doing reasonably well until 2 days ago. For no particular reason, the area started to swell and become painful. He was admitted this morning and is on IV antibiotics. He relates that he is already seeing some improvements. Objective: Vital Signs Temp Pulse Resp BP Pulse Ox 37.6 C 118 H 18 135/98 H 93 01/20/18 12:45 01/20/18 12:45 01/20/18 12:45 01/20/18 12:45 01/20/18 12:45 Microbiology 01/20/18 04:30 Gram Stain - Final Foot - Swab 01/19/18 01/20/18 01/21/18 05:59 05:59 05:59 Intake Total 2500 Balance 2500 PT 12.0 SEC (12.0-15.0) 01/20/18 03:27 INR 0.87 (0.83-1.16) 01/20/18 03:27 Evaluation shows a full thickness ulcer at the dorsal medial aspect of the 1st mtpj. Minimal serosanginous drainage is noted. No purulent drainage is seen. The area is not probing directly to bone. Foot is warm to touch without substantial erythema at this time. Xray evaluation is negative for obvious osteomyelitis. Neurovascular status is grossly intact. ICD10 Worksheet Patient Problems: Problems Problem Status Onset Cellulitis of left foot Acute Abdominal pain Acute Acute bronchitis Acute Alcohol withdrawal Acute Alcoholic intoxication Acute Mucus plugging of bronchi Acute Respiratory failure Acute Right rib fracture Acute Tachycardia Acute
[2018-01-20] MEDS: NS 1,000 ML IV SCH ×2 (15:18→22:02)
[2018-01-20] MEDS: LORazepam 2 MG/ML INJ IVP PRN (20:50)
[2018-01-21] MEDS: oxyCODONE IR 5 MG TAB PO PRN ×5 (03:16→20:12)
[2018-01-21] MEDS: MULTIVITAMINS 1 EACH TAB PO SCH (08:46)
[2018-01-21] MEDS: FAMOTIDINE 20 MG TAB PO SCH ×2 (08:47→20:12)
[2018-01-21] MEDS: FOLIC ACID 1 MG TAB PO SCH (08:47)
[2018-01-21] MEDS: ATENOLOL 25 MG TAB PO SCH (08:47)
--- NOTE | 2018-01-21 09:25 | WOCRNPDOC ---
WOCRN Advanced Assessment Note - Skin Integrity Problem, Advanced Assess Left Medial Foot Dressing Type: Allevyn Life Dressing Description: Intact, Shadowed Exudate Amount: Minimal Exudate Characteristic(s): Serous Integumentary Issue Intervention: Visualized Under Dressing Gretta Wound Tissue: Macerated Gretta Wound Swelling: Mild Wound Bed Color: Red Wound Bed Constitution: Granulation Tissue (100%) Wound Edges: Attached Site Measurement - Head-to-Toe Length X Width X Depth (cm): 3x2.7x0.3 Skin Integrity Problem Comment: Wound cleansed with NS and gauze. Wound bed has healthy granulation tissue, however periwound is macerated from drainage. Will continue dressings from previous admission of hydrofera blue and winston. Wound care will round again later in the week.
[2018-01-21] MEDS: THIAMINE HCL 500 MG in NS 100 ML IV SCH (10:37)
[2018-01-21] MEDS: NICOTINE 21 MG/24 HR PATCH TD PRN ×2 (11:36→20:18)
--- NOTE | 2018-01-21 12:00 | HOSPPROG ---
Hospitalist Progress Note Assessment/Plan: Sepsis secondary to osteomyelitis of left foot MT - Resolving. s/p MT resection. Nothing growing on cultures. No indication for surgery per Dr. Hi. -cont ceftriaxone while here -I suspect he can d/c tomorrow back on oral Keflex LLE edema - u/s neg for DVT, but lypmphadenopathy noted, suspect this is reactive Hep C DM - bg's controlled Etoh abuse - CIWA's low Barretts esophagus - cont PPI DVT PPLX - Lovenox Full code Dispo - cont inpt, possible dc to care home tomorrow Subjective: Pt feels better. Less pain, still with some foot and ankle swelling. No fevers/chills. No CP or SOB. Objective: Vital Signs Temp Pulse Resp BP Pulse Ox 36.6 C 87 16 141/106 H 92 01/21/18 08:39 01/21/18 08:39 01/21/18 08:39 01/21/18 08:39 01/21/18 08:39 Microbiology 01/20/18 04:30 Gram Stain - Final Foot - Swab 01/20/18 01/21/18 01/22/18 05:59 05:59 05:59 Intake Total 2500 1645 Balance 2500 1645 PT 12.0 SEC (12.0-15.0) 01/20/18 03:27 INR 0.87 (0.83-1.16) 01/20/18 03:27 - Physical Exam Constitutional: no apparent distress Eyes: PERRL Ears, Nose, Mouth, Throat: moist mucous membranes Cardiovascular: regular rate and rhythym Respiratory: no respiratory distress Gastrointestinal: normoactive bowel sounds, soft, non-tender abdomen Skin: warm Musculoskeletal: full muscle strength, other (LLE foot ulcer without erythema or drainage, +edema unchanged) Neurologic: AAOx3 Psychiatric: interacting appropriately ICD10 Worksheet Patient Problems: Problems Problem Status Onset Cellulitis of left foot Acute Abdominal pain Acute Acute bronchitis Acute Alcohol withdrawal Acute Alcoholic intoxication Acute Mucus plugging of bronchi Acute Respiratory failure Acute Right rib fracture Acute Tachycardia Acute
--- NOTE | 2018-01-21 12:09 | PCMIDPN ---
Assessment/Plan: #Left great toe abscess/cellulitis/osteomyelitis status post debridement with residual bone involvement based on path report. Patient received approximately 1 month of IV ceftriaxone while in-house. Then was discharged on high-dose Keflex on 01/10/2018. Patient endorses taking Keflex as prescribed. Minimal residual signs of infection on exam today with persistent wound with some debris in the base with macerations along the edges. --continue IV ceftriaxone while in house but when ready for discharge okay to change to Keflex 1 g three times daily, stop date 01/28/2018 --call ID for additional questions while in house Subjective: Patient has no complaints of his left foot Objective: Vital Signs Temp Pulse Resp BP Pulse Ox 36.6 C 87 16 141/106 H 92 01/21/18 08:39 01/21/18 08:39 01/21/18 08:39 01/21/18 08:39 01/21/18 08:39 Microbiology 01/20/18 04:30 Gram Stain - Final Foot - Swab 01/20/18 01/21/18 01/22/18 05:59 05:59 05:59 Intake Total 2500 1645 Balance 2500 1645 - Physical Exam General Appearance: alert, no apparent distress EENT: poor dentition, No thrush Respiratory: No accessory muscle use Extremities: other ( 3x2.7x0.3 cm wound left foot medially with maceration along the edges and some debris in the base of the wound, no erythema, minimal tenderness, no warmth) Skin: No rash Neuro/Psych: alert, normal mood/affect, oriented x 3 - Time Spent With Patient Time Spent with Patient: greater than 25 minutes Time Spent with Patient: Greater than 25 minutes spent on this patients care, greater than 50% of time spent counseling, educating, and coordinating care regarding the above mentioned plan. ICD10 Worksheet Patient Problems: Problems Problem Status Onset Cellulitis of left foot Acute Abdominal pain Acute Acute bronchitis Acute Alcohol withdrawal Acute Alcoholic intoxication Acute Mucus plugging of bronchi Acute Respiratory failure Acute Right rib fracture Acute Tachycardia Acute
--- NOTE | 2018-01-21 15:37 | ASMTCMCOM ---
CM Note CM Note Notes: Patient plan of care reviewed in rounds. Per ID and foot surgeon the patients foot wound is stable without evidence of osteomyelitis He will remain on Keflex until , A fpc bed will be reserved in the morning for him. CM available should other needs arise. Plan: Dc to fpc on oral antibiotics. Date Signed: 01/21/2018 03:36 PM Electronically Signed By:Claribel Henry RN
[2018-01-21] MEDS: ENOXAPARIN 40 MG/0.4 ML SYR SC SCH (15:48)
[2018-01-21] MEDS: PANTOPRAZOLE SODIUM 40 MG TAB PO SCH (15:48)
[2018-01-21] MEDS: LORazepam 2 MG/ML INJ IVP PRN (20:12)
[2018-01-22] MEDS: oxyCODONE IR 5 MG TAB PO PRN ×2 (04:17→09:58)
[2018-01-22] MEDS: THIAMINE HCL 500 MG in NS 100 ML IV SCH (09:58)
[2018-01-22] MEDS: MULTIVITAMINS 1 EACH TAB PO SCH (09:59)
[2018-01-22] MEDS: FOLIC ACID 1 MG TAB PO SCH (09:59)
[2018-01-22] MEDS: ATENOLOL 25 MG TAB PO SCH (09:59)
[2018-01-22] MEDS: PANTOPRAZOLE SODIUM 40 MG TAB PO SCH (10:01)
[2018-01-22] MEDS: ENOXAPARIN 40 MG/0.4 ML SYR SC SCH (10:01)
[2018-01-22] MEDS: FAMOTIDINE 20 MG TAB PO SCH (10:01)
[2018-01-22 10:02] VITALS: BP 143/101
[2018-01-22] MEDS: LORazepam 2 MG/ML INJ IVP PRN (10:13)
--- NOTE | 2018-01-22 12:21 | ASMTCMCOM ---
CM Note CM Note Notes: Patient plan of care reviewed with MD. He is medically cleared for discharge . I have reserved him a long-term bed. He has adequate antibiotics I will give him a bus pass for transportation. Plan: DC to long-term bed, has f/u at wound clinic. Date Signed: 01/22/2018 12:21 PM Electronically Signed By:Claribel Henry RN
[2018-01-23] MEDS ORDERED: THIAMINE HCL 100 MG TAB PO SCH (09:00)
== END 2018-01-22 14:00 | disposition home or self-care (01) ==
LOC: EDUNIT# → F1N 06:10
PROVIDERS: ADMIT Family Medicine; ATTEND Hospitalist
DX: L03.116 Cellulitis of left lower limb (principal); M86.8X7 Other osteomyelitis, ankle and foot; R65.10 Systemic inflammatory response syndrome (SIRS) of non-infectious origin without acute organ dysfunction; L97.529 Non-pressure chronic ulcer of other part of left foot with unspecified severity; E86.1 Hypovolemia; I95.9 Hypotension, unspecified; K22.70 Barrett's esophagus without dysplasia; E11.69 Type 2 diabetes mellitus with other specified complication; F10.20 Alcohol dependence, uncomplicated; I10 Essential (primary) hypertension; F17.210 Nicotine dependence, cigarettes, uncomplicated; J44.9 Chronic obstructive pulmonary disease, unspecified; B18.2 Chronic viral hepatitis C; Z79.2 Long term (current) use of antibiotics; Z59.0 Homelessness; Z88.0 Allergy status to penicillin
CPT/HCPCS: 73620; 93971; 96361; 96365; 96375; 96376; 99285; G0378; J0696; J1650; J2060; J3411

== ENCOUNTER 2018-01-30 20:15 | Emergency (ER) | payer MEDICAID ==
[2018-01-30 20:25] VITALS: BP 148/115
--- NOTE | 2018-01-30 20:34 | EDPHY ---
H & P Stated Complaint: Chronic wound left foot Time Seen by Provider: 01/30/18 20:29 HPI/ROS: CHIEF COMPLAINT: Chronic wound HISTORY OF PRESENT ILLNESS: Patient is a 53-year-old homeless man with a chronic wound over his left foot 1st metacarpal joint. He was seen initially in November and had osteomyelitis. He had surgical debridement and a month of IV antibiotics in the hospital. He was discharged on high-dose Keflex. He came back to the hospital a week ago and initially was thought to be septic and given and IV antibiotics. His lab work improved with hydration however it was thought that maybe he was simply dehydrated more than actually septic. His wound did not appear infected. He was discharged again on oral Keflex. He has continued to take the Keflex. He states that he has followed up once with Dr. Pfeiffer but missed his last appointment. He has not had a fever. It is not become more erythematous or swollen. No drainage. He has been keeping it dressed and changing the bandages as recommended. He also states that he has not had any alcohol to drink today that he usually drinks daily. He is tachycardic here. Severity: Moderate Modifying factors: None REVIEW OF SYSTEMS: Constitutional: denies: chills, fever, recent illness, recent injury EENTM: denies: blurred vision, double vision, nose congestion Respiratory: denies: cough, shortness of breath Cardiac: denies: chest pain, irregular heart rate, lightheadedness, palpitations Gastrointestinal/Abdominal: denies: abdominal pain, diarrhea, nausea, vomiting, blood streaked stools Genitourinary: denies: dysuria, frequency, hematuria, pain Musculoskeletal: denies: joint pain, muscle pain Skin: denies: lesions, rash, jaundice, bruising Neurological: denies: headache, numbness, paresthesia, tingling, dizziness, weakness Hematologic/Lymphatic: denies: blood clots, easy bleeding, easy bruising Immunologic/allergic: denies: HIV/AIDS, transplant 10 systems reviewed and negative except as noted EXAM: GENERAL: Well-appearing, well-nourished and in no acute distress. HEAD: Atraumatic, normocephalic. EYES: Pupils equal round and reactive to light, extraocular movements intact, sclera anicteric, conjunctiva are normal. ENT: TMs normal, nares patent, oropharynx clear without exudates. Moist mucous membranes. NECK: Normal range of motion, supple without lymphadenopathy or JVD. LUNGS: Breath sounds clear to auscultation bilaterally and equal. No wheezes rales or rhonchi. HEART: Tachycardic Regular rate and rhythm without murmurs, rubs or gallops. ABDOMEN: Soft, nontender, normoactive bowel sounds. No guarding, no rebound. No masses appreciated. BACK: No CVA tenderness, no spinal tenderness, step-offs or deformities EXTREMITIES: Normal range of motion, no pitting or edema. No clubbing or cyanosis. NEUROLOGICAL: Mild tremors, Cranial nerves II through XII grossly intact. Normal speech, normal gait. 5/5 strength, normal movement in all extremities, normal sensation, normal reflexes PSYCH: Normal mood, normal affect. SKIN: Chronic wound left 1st metatarsal area. Ulcerated, no erythema or drainage. Not purulent. Not exquisitely tender. Source: Patient Exam Limitations: No limitations - Personal History Tetanus Vaccine Date: <10YRS - Medical/Surgical History Hx Asthma: No Hx Chronic Respiratory Disease: No Hx Diabetes: Yes Hx Cardiac Disease: No Hx Renal Disease: No Hx Cirrhosis: No Hx Alcoholism: Yes Hx HIV/AIDS: No Hx Splenectomy or Spleen Trauma: No Other PMH: ETOH, Hep C, lung and esophogeal cancer per pt report, barrets esophagus, smoker, ? COPD, HTN, left foot inf 12/2017 - Family History Significant Family History: No pertinent family hx - Social History Smoking Status: Current every day smoker Alcohol Use: Heavy Drug Use: Marijuana Constitutional: Initial Vital Signs Temperature (C) 37.2 C 01/30/18 20:21 Heart Rate 130 H 01/30/18 20:21 Respiratory Rate 22 H 01/30/18 20:21 Blood Pressure 148/115 H 01/30/18 20:21 O2 Sat (%) 93 01/30/18 20:21 O2 Delivery Mode Room Air Allergies/Adverse Reactions: penicillin Allergy (Verified 01/30/18 20:20) "Passed out" Penicillins Allergy (Verified 01/30/18 20:20) Home Medications: Medication Instructions Recorded Cephalexin [Keflex (*)] 1,000 mg PO TID #108 cap 01/10/18 Atenolol [Tenormin 50 mg (*)] 50 mg PO DAILY #30 tab 01/22/18 Medical Decision Making Procedures: Sindy redressed with sterile dressings and padding. ED Course/Re-evaluation: Patient's wound does not look infected. He has been caring for it pretty well and taking antibiotics. He is afebrile. He is however tachycardic and slightly tremulous. He states that he has not had alcohol in the last day. He appears to be suffering mild withdrawals. I will give him Librium and likely disposition to the [facility] recovery [facility]. The patient refused a Librium and the Tylenol. We reassured him that his foot is not currently infected. He is likely suffering from alcohol withdrawal. The Tylenol as for pain. He does not wish to stop drinking. He does not wish to go to the alcohol recovery Center. Differential Diagnosis: Partial list of the Differential diagnosis considered include but were not limited to; chronic wound, wound infection, alcohol withdrawal and although unlikely based on the history and physical exam, I also considered dehydration, sepsis, osteomyelitis. - Data Points Medications Given: Discontinued Medications Acetaminophen (Tylenol) 650 mg PO EDNOW ONE Stop: 01/30/18 20:41 Last Admin: 01/30/18 20:43 Dose: 650 mg Chlordiazepoxide (Librium 25 Mg Prepack#6) 1 btl TAKEHOME EDNOW ONE Stop: 01/30/18 20:40 Last Admin: 01/30/18 20:47 Dose: Not Given Chlordiazepoxide HCl (Librium) 50 mg PO EDNOW ONE Stop: 01/30/18 20:40 Last Admin: 01/30/18 20:47 Dose: Not Given Ondansetron HCl (Zofran Odt) 4 mg PO EDNOW ONE Stop: 01/30/18 20:59 Last Admin: 01/30/18 20:59 Dose: 4 mg Ondansetron HCl (Zofran Odt 4 Mg Prepack#2) 1 btl TAKEHOME EDNOW ONE Stop: 01/30/18 20:59 Last Admin: 01/30/18 20:59 Dose: 1 btl Departure - Departure Disposition: Home, Routine, Self-Care Clinical Impression: Encounter for wound care Alcohol withdrawal Qualifiers: Complication of substance-induced condition: uncomplicated Qualified Code(s): F10.230 - Alcohol dependence with withdrawal, uncomplicated Condition: Fair Instructions: Ondansetron (By mouth), Alcohol Withdrawal (ED), Chronic Wounds ( ED) Additional Instructions: Keep your wound clean and dry as discussed. Currently does not appear infected. Follow up with Dr. Pfeiffer as previously recommended. Go to her clinic tomorrow. Referrals: NONE *PRIMARY CARE P,. [Primary Care Provider] - As per Instructions Luana Pfeiffer MD [Medical Doctor] - 1 day without fail
[2018-01-30] MEDS ORDERED: chlordiazePOXIDE 25 MG CAP PO ONE (20:39)
[2018-01-30] MEDS ORDERED: CHLORDIAZEPOXIDE 25MG PREPK#6 BTL TAKEHOME ONE (20:39)
[2018-01-30] MEDS ORDERED: ACETAMINOPHEN 325 MG TAB PO ONE (20:40)
[2018-01-30] MEDS ORDERED: ONDANSETRON 4MG PREPACK#2 BTL TAKEHOME ONE ×2 (20:56→20:58)
[2018-01-30] MEDS ORDERED: ONDANSETRON DISINTEGRATING 4 MG TAB ONE (20:57)
[2018-01-30] MEDS ORDERED: ONDANSETRON DISINTEGRATING 4 MG TAB PO ONE (20:58)
== END 2018-01-30 21:01 | disposition home or self-care (01) ==
DX: Z48.00 Encounter for change or removal of nonsurgical wound dressing (principal); F10.230 Alcohol dependence with withdrawal, uncomplicated; L97.529 Non-pressure chronic ulcer of other part of left foot with unspecified severity; F17.210 Nicotine dependence, cigarettes, uncomplicated; B19.20 Unspecified viral hepatitis C without hepatic coma; I10 Essential (primary) hypertension; K22.70 Barrett's esophagus without dysplasia; J44.9 Chronic obstructive pulmonary disease, unspecified; Z79.2 Long term (current) use of antibiotics; Z85.01 Personal history of malignant neoplasm of esophagus; Z88.0 Allergy status to penicillin; Z59.0 Homelessness

== ENCOUNTER 2018-02-12 00:34 | Emergency (ER) | payer MEDICAID ==
--- NOTE | 2018-02-12 01:03 | EDPHY ---
H & P Stated Complaint: ETOH on [facility] hold Time Seen by Provider: 02/12/18 00:40 HPI/ROS: HPI The patient presents with alcohol intoxication with inability to walk, brought in [facility] ambulance [facility]. The patient was found outside of a pizza shop admitting to drinking alcohol. Bystanders called 911. The patient was non cooperative with EMS though denied any over complaint.. REVIEW OF SYSTEMS 10 systems were reviewed and negative with the exception of the elements mentioned in the history of present illness. PMHx: Chronic alcohol abuse, many visits for alcohol-related complaints, last in the emergency department on January 30 for foot pain and found to be in alcohol withdrawal, the patient has a chronic wound of his left 1st metatarsal and is on long-term antibiotics after receiving IV antibiotics for osteomyelitis , hepatitis-C, diabetes Soc Hx: Homeless, chronic alcohol abuse, marijuana use PHYSICAL General Appearance: Obviously intoxicated, somewhat disheveled Eyes: Pupils equal and round no pallor or injection ENT, Mouth: Mucous membranes moist Respiratory: There are no retractions, lungs are clear to auscultation Cardiovascular: Regular rate and rhythm Gastrointestinal: Abdomen is soft and non-tender, no masses, bowel sounds normal Neurological: A&O, moves all extremities Skin: Warm and dry, no rashes Musculoskeletal: Neck is supple non tender Extremities: symmetrical, left foot with open-toe shoe in place Psychiatric: Patient is intoxicated without agitation Source: Patient, EMS, Old records Exam Limitations: Intoxication - Personal History Tetanus Vaccine Date: <10YRS - Medical/Surgical History Hx Asthma: No Hx Chronic Respiratory Disease: No Hx Diabetes: Yes Hx Cardiac Disease: No Hx Renal Disease: No Hx Cirrhosis: No Hx Alcoholism: Yes Hx HIV/AIDS: No Hx Splenectomy or Spleen Trauma: No Other PMH: ETOH, Hep C, lung and esophogeal cancer per pt report, barrets esophagus, smoker, ? COPD, HTN, left foot inf 12/2017 - Social History Smoking Status: Current every day smoker Constitutional: Initial Vital Signs Temperature (C) 36.5 C 02/12/18 00:44 Heart Rate 114 H 02/12/18 00:44 Respiratory Rate 18 02/12/18 00:44 Blood Pressure 131/78 H 02/12/18 00:44 O2 Sat (%) 94 02/12/18 00:44 O2 Delivery Mode Room Air O2 (L/minute) 2 Allergies/Adverse Reactions: penicillin Allergy (Verified 02/12/18 00:48) "Passed out" Penicillins Allergy (Verified 01/30/18 20:20) Home Medications: Medication Instructions Recorded Cephalexin [Keflex (*)] 1,000 mg PO TID #108 cap 01/10/18 Atenolol [Tenormin 50 mg (*)] 50 mg PO DAILY #30 tab 01/22/18 Medical Decision Making Differential Diagnosis: This is a 53-year-old homeless male with longstanding history of alcohol abuse with history of alcohol withdrawal type symptoms, also chronic left 1st metatarsal wound with history of osteomyelitis on antibiotics who presents brought in by ambulance for ataxia presumed to be related to alcohol intoxication. Patient was observed for several hours in the emergency department and eventually was able to walk with a steady gait. [facility] by [facility]. - Data Points Medications Given: Discontinued Medications Chlordiazepoxide (Librium 25 Mg Prepack#6) 1 btl TAKEHOME EDNOW ONE Stop: 02/12/18 05:59 Last Admin: 02/12/18 06:05 Dose: 1 btl Ondansetron HCl (Zofran Odt) 4 mg PO EDNOW ONE Stop: 02/12/18 01:33 Last Admin: 02/12/18 01:32 Dose: 4 mg Departure - Departure Disposition: Home, Routine, Self-Care Clinical Impression: Alcoholic intoxication Condition: Good Instructions: Chlordiazepoxide (By mouth), Alcohol Intoxication (ED) Referrals: NONE *PRIMARY CARE P,. [Primary Care Provider] - As per Instructions
[2018-02-12] MEDS ORDERED: ONDANSETRON DISINTEGRATING 4 MG TAB ONE (01:30)
[2018-02-12] MEDS ORDERED: ONDANSETRON DISINTEGRATING 4 MG TAB PO ONE (01:32)
[2018-02-12] MEDS ORDERED: CHLORDIAZEPOXIDE 25MG PREPK#6 BTL TAKEHOME ONE (05:58)
[2018-02-12 06:18] VITALS: BP 116/76
== END 2018-02-12 06:16 | disposition home or self-care (01) ==
LOC: EDUNIT#
DX: F10.920 Alcohol use, unspecified with intoxication, uncomplicated (principal); B19.20 Unspecified viral hepatitis C without hepatic coma; I10 Essential (primary) hypertension; F17.200 Nicotine dependence, unspecified, uncomplicated; Z79.2 Long term (current) use of antibiotics; Z88.0 Allergy status to penicillin; Z59.0 Homelessness

== ENCOUNTER 2018-02-12 19:16 | Inpatient (IN) | payer MEDICAID ==
[2018-02-12] MEDS ORDERED: NS 1,000 ML IV ONE ×2 (19:40)
[2018-02-12] MEDS ORDERED: DIAZEPAM 5 MG/ML 1 ML SYR IVP ONE (19:43)
[2018-02-12 19:56] LABS: PLATELET COUNT 182 10^3/uL (150-400)
--- NOTE | 2018-02-12 19:58 | EDPHY ---
H & P Time Seen by Provider: 02/12/18 19:30 HPI/ROS: HPI Fever, tachycardic at [facility]. 53-year-old male by ambulance. The patient was seen in our emergency department last night for alcohol intoxication. He was too intoxicated ambulate. He was discharged back to the [facility] early this morning at approximately 6:00 a.m.. At that time his heart rate was 100. He was afebrile. He was sent with Librium. He was sent back to the emergency department this evening secondary to a fever at the [facility] and tachycardia. Significant recent history includes a chronic left 1st metatarsal open wound with osteomyelitis and sepsis for which she was admitted to our hospital in late December. He was discharged from the hospital on January 20 with Keflex. Follow up with Dr. Luana Pfefifer of Infectious Disease was arranged as well as wound clinic follow- up. He reports he has been going to the wound clinic every Saturday for dressing changes and wound care. Currently he denies cough. No urinary complaints. He denies any worsening pain to his left foot wound. He reports he last looked at his left foot wound a few days ago when he was seen on Saturday at the wound clinic. He does report he has had a worsening dry cough over the last several days. ROS: Constitutional: No fever, no chills. No weakness. Eyes: No discharge. No changes in vision. ENT: No sore throat. No nasal congestion or rhinorrhea. Respiratory: As above. No shortness of breath. Cardiac: No chest pain, no palpitations. Gastrointestinal: No abdominal pain, no vomiting, no diarrhea. Genitourinary: No hematuria. No dysuria or increased frequency with urination. Musculoskeletal: No back pain. No neck pain. No myalgias or arthralgias. Skin: No rashes. Neurological: No headache. No focal weakness or altered sensation. Past medical history: Benedict's esophagus, alcohol abuse, diabetes mellitus, hepatitis-C, left lower extremity edema, as above. Social history: Smoker. Homeless. Long history of alcohol abuse. Drinking rum all day yesterday. Last drink was sometime last night. Physical Exam: General Appearance: Alert, no distress. This patient is responding to questions appropriately and in full sentences. This patient appears well- hydrated and well-nourished. He is not tremulous. Eyes: Pupils equal and round no pallor or injection. No lid edema, erythema or injection. ENT: Respiratory: There are no retractions, lungs are clear to auscultation with good air movement bilaterally. Cardiovascular: Regular rate and rhythm. No murmur. Gastrointestinal: Abdomen is soft and nontender, no masses, bowel sounds normal. No focal tenderness at McBurney's point. No Montalvo sign. Neurological: Motor sensory function is grossly intact. Cranial nerves are normal. Gait is normal. Skin: Warm and dry, no rashes. Musculoskeletal: Neck is supple and nontender. No pain on flexion of the neck. Left foot chronic 1st metatarsal wound dressing was taken down, the wound was inspected by myself, there is no significant surrounding erythema or edema. No purulent drainage. No significant warmth. It does not appear infected. The left foot is neurovascularly intact. Extremities are otherwise symmetrical. All joints range without pain or impingement. Psychiatric: No agitation. No depression. Database: EKG: EKG time is 7:39 p.m.; EKG shows a narrow complex sinus tachycardia with a ventricular rate of 161. QT interval corrected is 489. The FL, QRS, intervals are within normal limits. There are no ST-T wave changes indicative of ischemic or injury pattern. No evidence of right heart strain. Interpreted by me. Imaging: Chest x-ray AP portable; the cardiac mediastinal silhouette is unremarkable. Possible left lower lobe infiltrative process. No other acute cardiopulmonary disease process noted. Interpreted by me. Procedures: Emergency department course: Triage vital signs reviewed. Patient is febrile at 38.1. Tachycardic at 156. Otherwise vital signs are normal. IV was placed. He was placed on a monitor. EKG obtained and reviewed by myself. He will be started on IV normal saline with 2 L to be given over the next 1-2 hours. He will be given 5 mg of IV Valium for alcohol withdrawal periods be repeated as needed. He is not significantly tremulous at this time. The patient meets initial criteria for sepsis based on suspected infection, borderline fever, tachycardia and leukocytosis. Sepsis protocol initiated. 8:05 p.m., patient meets criteria for severe sepsis based on above and initial serum lactate of 2.2. Severe sepsis protocol initiated with LR bolus. Left chronic foot wound appropriately cleansed and redressed. 8:45 p.m., the patient was re-evaluated, blood pressure currently 144/111. He is mildly tremulous. air sampling and monitoring shows a sinus tachycardia with ventricular rate of 135. He is receiving his 30 mL/kilogram LR bolus at this time. He was placed on the CIWA protocol. I explained to him that he would be admitted to the hospitalist. All of his questions were answered. At this time I do not think his foot is a source of his infection. I feel that pneumonia is more likely. Urinalysis is still pending. This will be obtained shortly. We will start the patient on IV Levaquin 750 mg for broad-spectrum coverage against possible osteomyelitis versus pneumonia. The patient's case was discussed in detail with on-call hospitalist Dr. Yen. She is in agreement with plan for admission and initial antibiotic coverage. She will adjust antibiotics as needed based on further evaluation of the patient. Differential Diagnosis: The differential diagnosis on this patient includes but is not limited to alcohol withdrawal, pneumonia, bacteremia, osteomyelitis of left foot. This represents a partial list of diagnoses considered. These considerations are based on history, physical exam, past history, reassessment and diagnostic testing. Smoking Status: Current every day smoker Constitutional: Initial Vital Signs Temperature (C) 38.1 C 02/12/18 19:22 Heart Rate 156 H 02/12/18 19:22 Respiratory Rate 16 02/12/18 19:22 Blood Pressure 127/101 H 02/12/18 19:22 O2 Sat (%) 94 02/12/18 19:22 O2 Delivery Mode Room Air O2 (L/minute) 94 Allergies/Adverse Reactions: penicillin Allergy (Verified 02/12/18 19:25) "Passed out" Penicillins Allergy (Verified 02/12/18 19:25) Home Medications: Medication Instructions Recorded Atenolol [Tenormin 50 mg (*)] 50 mg PO DAILY #30 tab 01/22/18 Medical Decision Making - Data Points Laboratory Results: Laboratory Results 02/12/18 19:20 02/12/18 19:20 Microbiology Results: MICROBIOLOGY 02/12/18 20:15 Nasal, Sinus - Swab Respiratory Panel (PCR) - Final No Organism Detected By Pcr Medications Given: Acetaminophen (Tylenol) 650 mg PO Q4HRS PRN PRN Reason: Pain, Mild/Fever, Can Take PO Stop: 08/11/18 21:52 Last Admin: 02/13/18 15:27 Dose: 650 mg Hydrocodone Bitart/Acetaminophen ([place] 5/325) 1 - 2 tab PO Q4HRS PRN PRN Reason: Pain, Moderate Able to Take PO Stop: 02/22/18 21:52 Last Admin: 02/13/18 17:20 Dose: 2 tab Azithromycin (Zithromax) 500 mg PO DAILY JOHAN Stop: 02/19/18 09:01 Last Admin: 02/13/18 10:48 Dose: 500 mg Clotrimazole (Lotrimin 1%) 1 albino TP BID JOHAN Stop: 03/15/18 10:59 Last Admin: 02/13/18 11:40 Dose: 1 albino Famotidine (Pepcid) 20 mg PO BID JOHAN Stop: 08/12/18 08:59 Last Admin: 02/13/18 08:27 Dose: 20 mg Folic Acid (Folic Acid) 1 mg PO DAILY JOHAN Stop: 08/12/18 08:59 Last Admin: 02/13/18 08:26 Dose: 1 mg Sodium Chloride (Ns) 1,000 mls @ 75 mls/hr IV CONT JOHAN Stop: 08/11/18 21:59 Last Admin: 02/13/18 10:16 Dose: 1,000 mls Thiamine HCl 500 mg/ Sodium (Chloride) 105 mls @ 210 mls/hr IV DAILY JOHAN Stop: 08/12/18 00:00 Last Admin: 02/13/18 00:19 Dose: 105 mls Metronidazole/Sodium Chloride (Flagyl 500 Mg (Premix)) 100 mls @ 100 mls/hr IV Q8 JOHAN Stop: 02/15/18 14:59 Last Admin: 02/13/18 14:11 Dose: 100 mls Multivitamins (Tab-A-Chika) 1 each PO DAILY JOHAN Stop: 08/12/18 08:59 Last Admin: 02/13/18 08:26 Dose: 1 each Nicotine (Nicoderm Cq) 21 mg TD DAILY JOHAN Stop: 08/11/18 21:59 Last Admin: 02/13/18 08:29 Dose: 21 mg Ondansetron HCl (Zofran) 4 mg IVP Q4HRS PRN PRN Reason: Nausea/Vomiting, Can't Take PO Stop: 08/11/18 21:52 Last Admin: 02/13/18 02:28 Dose: 4 mg Discontinued Medications Chlordiazepoxide HCl (Librium) 50 mg PO EDNOW ONE Stop: 02/12/18 21:42 Last Admin: 02/12/18 21:56 Dose: Not Given Diazepam (Valium) 5 mg IVP EDNOW ONE Stop: 02/12/18 19:44 Last Admin: 02/12/18 19:47 Dose: 5 mg Sodium Chloride (Ns) 1,000 mls @ 0 mls/hr IV ONCE ONE; Wide Open PRN Reason: Protocol Stop: 02/12/18 19:41 Last Admin: 02/12/18 19:47 Dose: 1,000 mls Sodium Chloride (Ns) 1,000 mls @ 0 mls/hr IV ONCE ONE; Wide Open PRN Reason: Protocol Stop: 02/12/18 19:41 Last Admin: 02/12/18 22:36 Dose: Not Given Lactated Ringer's (Lr) 2,400 mls @ 4,800 mls/hr 30 ml/kg infuse over 30 min ( 2400 ml) IV EDNOW ONE PRN Reason: Protocol Stop: 02/12/18 20:32 Last Admin: 02/12/18 20:15 Dose: 2,400 mls Levofloxacin/Dextrose (Levaquin 750 Mg (Premix)) 150 mls @ 100 mls/hr IV EDNOW ONE PRN Reason: Protocol Stop: 02/12/18 22:18 Last Admin: 02/12/18 21:20 Dose: 150 mls Ceftriaxone Sodium/Dextrose (Rocephin 1 Gm (Premix)) 50 mls @ 100 mls/hr IV DAILY JOHAN PRN Reason: Protocol Stop: 03/14/18 22:29 Last Admin: 02/13/18 07:21 Dose: Not Given Ceftriaxone Sodium/Dextrose (Rocephin 1 Gm (Premix)) 50 mls @ 100 mls/hr IV Q24H JOHAN PRN Reason: Protocol Stop: 03/14/18 22:29 Last Admin: 02/12/18 23:10 Dose: 50 mls Influenza Virus Vaccine Quadrival (Flulaval Quad [id number] (6mo+)) 0.5 ml IM .ONCE ONE Stop: 02/13/18 09:11 Last Admin: 02/13/18 09:32 Dose: 0.5 ml Lorazepam (Ativan Injection) 0 mg IVP Q1H PRN; Protocol PRN Reason: Alcohol Withdrawal w/IV access Stop: 02/13/18 09:07 Last Admin: 02/13/18 08:25 Dose: 2 mg Departure - Departure Disposition: [facility] Clinical Impression: Tachycardia, Dehydration, Fever, Alcohol withdrawal, Possible pneumonia, Open wound of left foot, Sepsis
[2018-02-12] MEDS ORDERED: LACTATED RINGERS IV ONE (20:03)
[2018-02-12 20:20] LABS: INR 0.89 (0.83-1.16); PROTIME(PATIENT) 12.3 SEC (12.0-15.0)
[2018-02-12] MEDS ORDERED: LORazepam 2 MG/ML INJ ONE (21:03)
[2018-02-12] MEDS: LORazepam 2 MG/ML INJ IVP PRN ×2 (21:07→23:06)
[2018-02-12] MEDS ORDERED: LORazepam 1 MG TAB PO PRN (21:07)
[2018-02-12] MEDS ORDERED: chlordiazePOXIDE 25 MG CAP PO ONE (21:41)
[2018-02-12] MEDS ORDERED: MAG HYDROX/AL HYDROX/SIMETH 30 ML UDCUP PO PRN (21:53)
[2018-02-12] MEDS ORDERED: ALBUTEROL 3 ML DEYVIAL IH PRN (21:53)
[2018-02-12] MEDS ORDERED: ONDANSETRON 4 MG/2 ML VIAL IVP PRN (21:53)
[2018-02-12] MEDS ORDERED: PROMETHAZINE HCL 25 MG/ML INJ IVP PRN (21:53)
[2018-02-12] MEDS ORDERED: ONDANSETRON DISINTEGRATING 4 MG TAB PO PRN (21:53)
[2018-02-12] MEDS ORDERED: NICOTINE POLACRILEX 2 MG GUM B PRN (21:53)
[2018-02-12] MEDS ORDERED: FLUMAZENIL 0.5 MG/5 ML MDV IVP PRN (21:53)
--- NOTE | 2018-02-12 22:25 | PDGENHP ---
History and Physical - Chief Complaint fever - History of Present Illness 53 yo M with PMH of etoh abuse as well as left great toe osteomyelitis requiring multiple prolonged hospitalizations presenting from the [facility] with concerns of fever. Patient was initially seen in this ER where he was found to be intoxicated and discharged to the [facility]. While there he was noted to be tachycardic and febrile and was sent back to the ER for further evaluation. At the time of my evaluation patient states that his toe hurts and that he doesn't feel great. He notes that he has been coughing up some sputum. His history is limited by alcohol withdrawal and recent administration of ativan however. History Information - Allergies/Home Medication List Allergies/Adverse Reactions: penicillin Allergy (Verified 02/12/18 19:25) "Passed out" Penicillins Allergy (Verified 02/12/18 19:25) I have personally reviewed and updated: family history, medical history, social history, surgical history Past Medical History: Unable to complete has due to patient being intubated. Chart was reviewed. No family listed. - Past Medical History COPD, hypertension Additional medical history: HCV, alcohol dependence, bolus emphysema noted on CT - Surgical History Additional surgical history: None listed in previous records however patient does have a surgical scar on his left medial ankle. - Family History Positive for: non-pertinent Additional family history: No family hx of CA - Social History Smoking Status: Current every day smoker Alcohol Use: Heavy (1 pint per day) Drug Use: None Additional social history: Patient currently homeless. Review of Systems Review of Systems: ROS: 10pt was reviewed & negative except for what was stated in HPI & below Physical Exam Physical Exam: Temp Pulse Resp BP Pulse Ox 38.0 C 134 H 18 146/121 H 91 L 02/12/18 21:50 02/12/18 21:50 02/12/18 21:50 02/12/18 21:50 02/12/18 21:50 Constitutional: no apparent distress, unkempt Eyes: PERRL, anicteric sclera Ears, Nose, Mouth, Throat: moist mucous membranes, hearing normal, other ( edentulous) Cardiovascular: regular rate and rhythym, no murmur, rub, or gallop, No edema Respiratory: no respiratory distress, expiratory wheeze Gastrointestinal: normoactive bowel sounds, soft, non-tender abdomen Genitourinary: no bladder tenderness Skin: warm, other (wound on left great toe with some surrounding erythema) Musculoskeletal: full muscle strength Neurologic: No AAOx3 Psychiatric: encephalopathic, poor insight, poor judgement, poor memory Lab Data & Imaging Review 02/12/18 19:20 02/12/18 19:20 WBC 13.03 10^3/uL (3.80-9.50) H 02/12/18 19:20 RBC 4.72 10^6/uL (4.40-6.38) 02/12/18 19:20 Hgb 15.7 g/dL (13.7-17.5) 02/12/18 19:20 Hct 46.0 % (40.0-51.0) 02/12/18 19:20 MCV 97.5 fL (81.5-99.8) 02/12/18 19:20 MCH 33.3 pg (27.9-34.1) 02/12/18 19:20 MCHC 34.1 g/dL (32.4-36.7) 02/12/18 19:20 RDW 13.4 % (11.5-15.2) 02/12/18 19:20 Plt Count 182 10^3/uL (150-400) 02/12/18 19:20 MPV 10.2 fL (8.7-11.7) 02/12/18 19:20 Neut % (Auto) 82.2 % (39.3-74.2) H 02/12/18 19:20 Lymph % (Auto) 7.1 % (15.0-45.0) L 02/12/18 19:20 [place]acken % (Auto) 10.1 % (4.5-13.0) 02/12/18 19:20 Eos % (Auto) 0.1 % (0.6-7.6) L 02/12/18 19:20 Baso % (Auto) 0.2 % (0.3-1.7) L 02/12/18 19:20 Nucleat RBC Rel Count 0.0 % (0.0-0.2) 02/12/18 19:20 Absolute Neuts (auto) 10.73 10^3/uL (1.70-6.50) H 02/12/18 19:20 Absolute Lymphs (auto) 0.92 10^3/uL (1.00-3.00) L 02/12/18 19:20 Absolute Monos (auto) 1.31 10^3/uL (0.30-0.80) H 02/12/18 19:20 Absolute Eos (auto) 0.01 10^3/uL (0.03-0.40) L 02/12/18 19:20 Absolute Basos (auto) 0.02 10^3/uL (0.02-0.10) 02/12/18 19:20 Absolute Nucleated RBC 0.00 10^3/uL (0-0.01) 02/12/18 19:20 Immature Gran % 0.3 % (0.0-1.1) 02/12/18 19:20 Immature Gran # 0.04 10^3/uL (0.00-0.10) 02/12/18 19:20 PT 12.3 SEC (12.0-15.0) 02/12/18 19:20 INR 0.89 (0.83-1.16) 02/12/18 19:20 APTT 23.9 SEC (23.0-38.0) 02/12/18 19:20 VBG Lactic Acid 1.6 mmol/L (0.7-2.1) 02/12/18 21:44 Sodium 140 mEq/L (135-145) 02/12/18 19:20 Potassium 4.2 mEq/L (3.3-5.0) 02/12/18 19:20 Chloride 108 mEq/L (97-110) 02/12/18 19:20 Carbon Dioxide 21 mEq/l (22-31) L 02/12/18 19:20 Anion Gap 11 mEq/L (6-14) 02/12/18 19:20 BUN 8 mg/dL (7-23) 02/12/18 19:20 Creatinine 0.6 mg/dL (0.7-1.3) L 02/12/18 19:20 Estimated GFR > 60 02/12/18 19:20 Glucose 106 mg/dL (70-100) H 02/12/18 19:20 Calcium 9.1 mg/dL (8.5-10.4) 02/12/18 19:20 Total Bilirubin 0.7 mg/dL (0.1-1.4) 02/12/18 19:20 Urine Color YELLOW 02/12/18 20:50 Urine Appearance CLEAR 02/12/18 20:50 Urine pH 5.0 (5.0-7.5) 02/12/18 20:50 Ur Specific [place] 1.023 (1.002-1.030) 02/12/18 20:50 Urine Protein 1+ (NEGATIVE) H 02/12/18 20:50 Urine Ketones 1+ (NEGATIVE) H 02/12/18 20:50 Urine Blood NEGATIVE (NEGATIVE) 02/12/18 20:50 Urine Nitrate NEGATIVE (NEGATIVE) 02/12/18 20:50 Urine Bilirubin NEGATIVE (NEGATIVE) 02/12/18 20:50 Urine Urobilinogen 2.0 EU (0.2-1.0) H 02/12/18 20:50 Ur Leukocyte Esterase NEGATIVE (NEGATIVE) 02/12/18 20:50 Urine RBC NONE SEEN /hpf (0-3) 02/12/18 20:50 Urine WBC 1-3 /hpf (0-3) 02/12/18 20:50 Ur Epithelial Cells NONE SEEN /lpf (NONE-1+) 02/12/18 20:50 Hyaline Casts 1-5 /lpf (0-1) 02/12/18 20:50 Urine Mucus 4+ /lpf (NONE-1+) H 02/12/18 20:50 Urine Glucose NEGATIVE (NEGATIVE) 02/12/18 20:50 Nasal Influenza A PCR NEGATIVE FOR FLU A (NEGATIVE) 02/12/18 20:15 Nasal Influenza B PCR NEGATIVE FOR FLU B (NEGATIVE) 02/12/18 20:15 Ethyl Alcohol 29 mg/dL (0-10) H 02/12/18 19:20 Visualized and Interpreted Chest x-ray results: Yes Chest X-Ray results: infiltrate (LLL infiltrate versus atelectasis) Visualized and Interpreted imaging results: Yes Interpretation: left foot: chronic changes c/w chronic osteo Visualized and Interpreted EKG results: Yes EKG additional interpertation: sinus tachycardia Assessment & Plan Assessment: Alcohol withdrawal (Acute) Dehydration (Acute) Fever (Acute) Open wound of left foot (Acute) Tachycardia (Acute) 53 yo homeless man with hx of etoh abuse and withdrawal presenting [facility] with fever in the setting of chronic osteomyelitis and possible pna # chronic osteomyelitis of left great toe: with multiple recent hospitalizations and patient discharged recently on high dose keflex, wound with minimal surrounding erythema and relatively clean base, no changes on xray. For now will resume ctx which he was treated with previously, will ask both ID and wound care to evaluate. # sepsis: patient meeting sepsis criteria with fever, tachycardia, elevated wbc. Source of infection either above versus pna as next. Lactate initially 2.2 but now normalized. # ? pna: left lower lobe infiltrate versus atelectasis, patient with significant etoh abuse and withdrawal and high risk for aspiration, covered with ctx for now, will repeat cxr in am # etoh abuse and withdrawal: will continue ciwa protocol, mvi, thiamine, folate # homelessness # IP status, will require > 48 hours stay for eval./mgmt of above Patient new to my care. Old records reviewed and summarized as above. Care plan reviewed with ER doctor as above.
[2018-02-12] MEDS: ACETAMINOPHEN 325 MG TAB PO PRN (22:31)
[2018-02-12] MEDS: NS 1,000 ML IV SCH (22:32)
[2018-02-12] MEDS: NICOTINE 21 MG/24 HR PATCH TD SCH (22:47)
[2018-02-13] MEDS: THIAMINE HCL 500 MG in NS 100 ML IV SCH (00:19)
[2018-02-13] MEDS: LORazepam 2 MG/ML INJ IVP PRN ×4 (01:21→08:25)
[2018-02-13] MEDS ORDERED: MBX SOLN 30 ML BOTTLE PO PRN (04:28)
[2018-02-13 04:49] LABS: PLATELET COUNT 143 10^3/uL (150-400)
[2018-02-13] MEDS: MULTIVITAMINS 1 EACH TAB PO SCH (08:26)
[2018-02-13] MEDS: FOLIC ACID 1 MG TAB PO SCH (08:26)
[2018-02-13] MEDS: FAMOTIDINE 20 MG TAB PO SCH ×2 (08:27→21:55)
[2018-02-13] MEDS: NICOTINE 21 MG/24 HR PATCH TD SCH (08:29)
--- NOTE | 2018-02-13 08:37 | ASMTLACE ---
THUY Acuity / Level of Answers: Yes Care: Did the patient have an inpatient admission? Comorbidities - select Answers: Chronic pulmonary disease all that apply Diabetes (uncontrolled or controlled) Opioid dependence / Chronic pain Other Notes: Hep C; HTN # of Emergency department Answers: 5-8 visits in the last 6 months Social determinants Answers: History of substance abuse (ETOH, street drugs, prescription drugs, etc.) Homelessness (street, prison) Score: 21 Date Signed: 02/13/2018 08:37 AM Electronically Signed By:Rut Diaz
[2018-02-13] MEDS: ACETAMINOPHEN 325 MG TAB PO PRN ×2 (08:55→15:27)
[2018-02-13] MEDS ORDERED: PNEUMOCOCCAL 0.5ML VACCINE VIAL (PNEUMOVAX 23) IM ONE (09:13)
[2018-02-13] MEDS: NS 1,000 ML IV SCH (10:16)
--- NOTE | 2018-02-13 10:43 | PCMIDPN ---
Assessment/Plan: 1. Fever/leukocytosis in patient with history of tobacco use disorder and alcohol abuse: Thankfully, his left foot looks great! Agree that this is less likely the source of his current problem. Based on his symptoms of increased sputum production, and infiltrates on PA and lateral chest film, suspect aspiration pneumonia is more likely. Given multiple recent hospitalizations, he is at increased risk of more resistant pathogens. Will discontinue ceftriaxone, and start antibiotics to treat aspiration pneumonia in the form of cefepime 2 g IV q.12 hours, metronidazole 500 mg IV q.8 hours, and azithromycin 500 mg p.o. Daily. (For atypical coverage) Check urine Legionella antigen, and sputum Gram stain/culture. Will treat for 7 days. Can likely be switched to oral treatment moving forward. Blood cultures pending. Respiratory pathogen PCR negative. 2. Left great toe wound: This truly looks so much better compared with when I saw it last. Will consult wound care again. 3. Vaccines: Patient received a flu vaccine today. He is status post Pneumovax at his last visit. This does not need to be repeated. 4. Alcoholism: Counseled the patient again about the deleterious effects of alcohol. He will ultimately be discharged back to the [facility]. 5. Tinea pedis: Clotrimazole cream twice daily. Over 30 min spent with this patient today. 02/13/18 10:46 Subjective: Chart reviewed, patient examined. He is well known to our service for history of osteomyelitis of the left great toe. Incredibly, in spite of his underlying alcoholism and homelessness, the patient has been coming to the wound Care Clinic every Saturday. I did call the wound care clinic to verify this. Patient tells me that he has been drinking heavily, and sleeping in the street. He admits to recent increased yellow sputum production. He denies pain with deep breathing. No diarrhea, abdominal pain or dysuria. Patient tells me that his left great toe has been"looking good."Denies any shaking chills. No recent travel, or other unusual exposures. Objective: Ceftriaxone 1 g IV daily Status post levofloxacin 750 mg given in the ER last night T-max 37.6 degrees Vital Signs Temp Pulse Resp BP Pulse Ox 37.2 C 142 H 16 114/110 H 92 02/13/18 09:40 02/13/18 09:40 02/13/18 09:40 02/13/18 09:40 02/13/18 09:40 Laboratory Results 02/13/18 03:59 02/13/18 03:59 02/12/18 02/13/18 02/14/18 05:59 05:59 05:59 Intake Total 3340 Output Total 1200 Balance 2140 Respiratory pathogen PCR pending Blood cultures pending Chest x-ray PA and lateral with bilateral infiltrates in the lower lobes - Physical Exam General Appearance: other (Do shed hold, but alert and oriented x3) EENT: No scleral icterus, No thrush Respiratory: other (Egophony, crackles left lower lung field, with diminished breath sounds) Cardiac/Chest: tachycardia Extremities: other (Left great toe lateral area is notable for a half-dollar size superficial wound that is granulating nicely with no surrounding erythema or purulence. No significant tenderness.) Abdomen: non-tender, soft Skin: other (Tinea pedis bilaterally), No embolic lesions ICD10 Worksheet Patient Problems: Problems Problem Status Onset Alcohol withdrawal Acute Dehydration Acute Fever Acute Open wound of left foot Acute Tachycardia Acute Abdominal pain Acute Acute bronchitis Acute Alcoholic intoxication Acute Cellulitis of left foot Acute Mucus plugging of bronchi Acute Respiratory failure Acute Right rib fracture Acute
[2018-02-13] MEDS: AZITHROMYCIN 250 MG TAB PO SCH (10:48)
--- NOTE | 2018-02-13 11:36 | WOCRNPDOC ---
WOCRN Advanced Assessment Note - Skin Integrity Problem, Advanced Assess Left Medial Foot Dressing Type: Allevyn Life Dressing Description: Clean/Dry, Intact Closure Description: Not Approximated Exudate Amount: Minimal Exudate Color: Reddish/Yellow Exudate Characteristic(s): Serosanguinous Integumentary Issue Intervention: Dressing Changed, Dressing Initialed & Dated Gretta Wound Tissue: Blanching, Intact Wound Bed Color: [place] Wound Bed Constitution: Granulation Tissue (100%) Wound Edges: Epithelizing, Attached, Well Defined Site Measurement - Head-to-Toe Length X Width X Depth (cm): 2.3x2.7x0.3 Skin Integrity Problem Comment: Patient well known to the Wound Care group. Dressing removed to reveal a healthy looking wound with 100% granulation tissue. Wound cleaned with NS and gauze. Jesica placed to wound bed and covered with HFB Ready which I steri-stripped in place. Wound then covered with Allevyn Life. Patient tolerated the dressing change well. Wound care will round again early next week.
[2018-02-13] MEDS: CLOTRIMAZOLE 1% 15 GM CRTUBE TP SCH ×2 (11:40→21:55)
--- NOTE | 2018-02-13 14:17 | ASMTCAGE ---
CAGE Do you feel you ought to Answers: Yes cut down on your drinking or drug use? Do people annoy you by Answers: No criticizing your drinking or drug use? Do you feel guilty about Answers: Yes your drinking or drug use? Do you drink or use drugs Answers: Yes first thing in the morning (Eye Cma Or Lpn)? Additional Comments PT drinks 1 pint of whiskey per day. Declined resources from case management. Date Signed: 02/13/2018 02:17 PM Electronically Signed By:Meera Butler RN
--- NOTE | 2018-02-13 17:00 | CPEKG ---
Test Reason : chest pressure Blood Pressure : / mmHG Vent. Rate : 142 BPM Atrial Rate : 142 BPM P-R Int : 111 ms QRS Dur : 097 ms QT Int : 286 ms P-R-T Axes : 041 -60 048 degrees QTc Int : 440 ms Sinus tachycardia Markedly posterior QRS axis Confirmed by Jaguar Lockwood ([id number]) on 02/13/2018 4:59:50 PM Referred By: Confirmed By:Jaguar Lockwood
--- NOTE | 2018-02-13 17:16 | HOSPPROG ---
Hospitalist Progress Note Assessment/Plan: DIAGNOSES: * sirs with fever, suspect sepsis but also having alcohol withdrawal * cause of fevers uncertain with ongoing wound at toe with osteomyelitis, question of pneumonia, also had vomiting and diarrhea over past couple days * acute alcohol withdrawal on CIWA protocol requiring benzodiazepines here * homelessness * chronic pain in his foot and ankle, history of narcotic issues * Notably the patient is supposed to be on antibiotics Keflex 1000 mg three times daily for his osteomyelitis but he is not certain when he was supposed to be done with this, states he ran out 2 days ago and has not seen the infectious disease doctor since discharge from here January 29 * COPD * alcoholism * suspect thiamine deficiency PLANS: * Continue CIWA protocol and benzodiazepines * Thiamin replacement * Continue empiric antibiotics, follow foot wounds lungs a GI symptoms closely * Ongoing wound care, wound care nurse consult * The patient who does not use any narcotics at home is requesting narcotic for the chronic pain in his foot. I have informed him that given that this is a very chronic pain and that he is an alcoholic trying to quit alcohol currently going through withdrawal and I think this is entirely appropriate as he does not have increased pain over his usual pain. It is recommended that he seek out a primary care physician and if needed pain management physician and orthopedist to work on all approaches available to manage his foot pain using narcotics as a last resort if nothing else is helpful but with strict limits on what is prescribed and how it is managed and followed. * Will review with Infectious Disease when he is to be finished with his Keflex * DVT prophylaxis SUBJECTIVE: States he feels"okay" No fever symptoms today Ongoing chronic pain of his left foot and 1st toe where he has osteomyelitis currently on antibiotics His usual shortness of breath which is chronic at baseline He has gotten a fair bit of Ativan for high CIWA scores during the day today so far but none for the last few hours OBJECTIVE Vitals reviewed: Heart rate initially this morning was in the 140s now down to 90s on Ativan Exam: alert oriented currently relaxed, not confused and no tremor, no hallucinations skin warm dry color ok resps not labored lungs clear BSs heart regular abd soft nondistended nontender, bowel sounds present limbs warm, no edema; left 1st MTP she joint on medial aspect has open ulcer which is showing areas of decreased size of the open wound, reasonably healthy- appearing wound bed, but still with some foul odor without drainage no surrounding cellulitis no palpable abscess (this is the site of his osteomyelitis diagnosed last month for which she is on antibiotics) iv site ok Laboratory data: Improved white blood cell count and 8000 otherwise stable CBC Metabolic panel is normal Objective: Vital Signs Temp Pulse Resp BP Pulse Ox 37.3 C 129 H 16 142/97 H 96 02/13/18 12:00 02/13/18 12:00 02/13/18 12:00 02/13/18 14:10 02/13/18 12:00 Microbiology 02/13/18 10:45 - Final Sputum, Expectorated Laboratory Results 02/13/18 03:59 02/13/18 03:59 02/12/18 02/13/18 02/14/18 06:59 06:59 06:59 Intake Total 3340 100 Output Total 1200 600 Balance 2140 -500 PT 12.3 SEC (12.0-15.0) 02/12/18 19:20 INR 0.89 (0.83-1.16) 02/12/18 19:20 - Time Spent With Patient Time Spent with Patient: greater than 35 minutes Time Spent with Patient: Greater than 35 minutes spent on this patients care, greater than 50% of time spent counseling, educating, and coordinating care regarding the above mentioned plan. ICD10 Worksheet Patient Problems: Problems Problem Status Onset Alcohol withdrawal Acute Dehydration Acute Fever Acute Open wound of left foot Acute Tachycardia Acute Abdominal pain Acute Acute bronchitis Acute Alcoholic intoxication Acute Cellulitis of left foot Acute Mucus plugging of bronchi Acute Respiratory failure Acute Right rib fracture Acute
[2018-02-13] MEDS: HYDROCODONE/APAP 5/325 TAB PO PRN ×2 (17:20→22:55)
--- NOTE | 2018-02-13 19:53 | CPEKG ---
Test Reason : OPEN Blood Pressure : / mmHG Vent. Rate : 161 BPM Atrial Rate : 161 BPM P-R Int : 103 ms QRS Dur : 086 ms QT Int : 352 ms P-R-T Axes : 015 -72 059 degrees QTc Int : 576 ms Sinus tachycardia LAD, consider left anterior fascicular block Prolonged QT interval Confirmed by Jena Jackson ([id number]) on 02/13/2018 7:53:46 PM Referred By: Confirmed By:Jena Jackson
[2018-02-13] MEDS: CEFEPIME HCL 2 GM in NS 100 ML IV SCH (21:00)
[2018-02-14] MEDS ORDERED: METOPROLOL TARTRATE 5 MG/5 ML INJ IV ONE (00:15)
[2018-02-14] MEDS: ACETAMINOPHEN 325 MG TAB PO PRN (04:23)
[2018-02-14] MEDS: HYDROCODONE/APAP 5/325 TAB PO PRN (04:23)
[2018-02-14] MEDS: NICOTINE 21 MG/24 HR PATCH TD SCH (08:48)
[2018-02-14] MEDS: FAMOTIDINE 20 MG TAB PO SCH ×2 (08:54→22:10)
[2018-02-14] MEDS: FOLIC ACID 1 MG TAB PO SCH (08:54)
[2018-02-14] MEDS: AZITHROMYCIN 250 MG TAB PO SCH (08:54)
[2018-02-14] MEDS: MULTIVITAMINS 1 EACH TAB PO SCH (08:54)
[2018-02-14] MEDS: oxyCODONE IR 5 MG TAB PO PRN ×3 (08:57→22:54)
[2018-02-14] MEDS: CLOTRIMAZOLE 1% 15 GM CRTUBE TP SCH ×2 (08:59→22:15)
[2018-02-14] MEDS: CEFEPIME HCL 2 GM in NS 100 ML IV SCH ×2 (09:02→22:16)
--- NOTE | 2018-02-14 11:07 | PCMIDPN ---
Assessment/Plan: 1. Aspiration pneumonia versus chemical pneumonitis: His lungs sound clear to me today, and he seems much better. Will repeat chest x-ray PA/lateral in the morning and continue same antibiotics for now. Given patient's penicillin allergy, would not use Augmentin, and compliance with clindamycin likely dubious. Metronidazole/levofloxacin less favorable as well given disulfiram reaction with metronidazole. Will therefore likely use oral moxifloxacin to complete therapy. Suspect therapy will be more like 5 days, and not 7 given rapid improvement. Change metronidazole to p.o. 2. Left great toe wound: Continue wound care. Appreciate their assistance. 3. Vaccines: Patient received a flu vaccine. He is status post Pneumovax at his last visit. This does not need to be repeated. 02/14/18 11:09 Subjective: Still feels"bad,", but thinks this is from withdrawing from alcohol. Cough is better. Denies shortness of breath. No diarrhea. Objective: Cefepime 2 g IV q.12 hours day 2 Azithromycin 500 mg p. O. Daily day 2 Metronidazole 500 mg IV q.8 hours day 2 T-max 37.3 degrees 91% on room air Vital Signs Temp Pulse Resp BP Pulse Ox 36.9 C 102 H 16 166/110 H 91 L 02/14/18 05:18 02/14/18 07:24 02/14/18 07:24 02/14/18 07:24 02/14/18 07:24 Microbiology 02/13/18 10:45 - Final Sputum, Expectorated Laboratory Results 02/13/18 03:59 02/13/18 03:59 02/13/18 02/14/18 02/15/18 05:59 05:59 05:59 Intake Total 3340 3065 Output Total 1200 1400 400 Balance 2140 1665 -400 Sputum culture with oral mike RP P negative Blood culture, 1 set negative - Physical Exam General Appearance: alert, no apparent distress EENT: pharynx normal, No thrush Respiratory: lungs clear, coarse breath sounds Cardiac/Chest: tachycardia Abdomen: non-tender, soft Skin: other (Did not uncover foot wound today), No rash, No embolic lesions ICD10 Worksheet Patient Problems: Problems Problem Status Onset Alcohol withdrawal Acute Dehydration Acute Fever Acute Open wound of left foot Acute Sepsis Acute Tachycardia Acute Abdominal pain Acute Acute bronchitis Acute Alcoholic intoxication Acute Cellulitis of left foot Acute Mucus plugging of bronchi Acute Respiratory failure Acute Right rib fracture Acute
[2018-02-14] MEDS: ATENOLOL 50 MG TAB PO SCH (11:31)
[2018-02-14] MEDS: LORazepam 2 MG/ML INJ IVP PRN ×2 (11:32→17:05)
[2018-02-14] MEDS: THIAMINE HCL 500 MG in NS 100 ML IV SCH (11:32)
[2018-02-14] MEDS: metroNIDAZOLE 500 MG TAB PO SCH ×2 (14:01→22:10)
--- NOTE | 2018-02-14 16:32 | HOSPPROG ---
Hospitalist Progress Note Assessment/Plan: 53yo M with etoh abuse, left toe osteomyelitis here from [facility] with fever. 1. Fever: Suspect aspiration pneumonia vs pneumonitis. Doubt left foot/toe does not appear infected. Not septic. - ID following, cont cefepime/flagyl/azithro for now given recent healthcare exposures - Recheck CXR in AM - Plan to discharge to complete 5 days of moxifloxacin 2. EtOH withdrawal, abuse - CIWA, thiamine 3. Left great toe wound - Wound care 4. Homelessness - Case management involved 5. HTN: - Resume home atenolol VTE ppx: LMWH Dispo: Remain inpatient for IV antibiotics, mgmt of withdrawal. Subjective: Feeling like he has the flu. Achy, some shortness of breath. Denies chest pain. Per RN, has had moderate CIWA scores. Objective: Vital Signs Temp Pulse Resp BP Pulse Ox 36.9 C 86 16 138/97 H 89 L 02/14/18 14:47 02/14/18 14:47 02/14/18 14:47 02/14/18 14:47 02/14/18 14:47 Microbiology 02/13/18 10:45 - Final Sputum, Expectorated Laboratory Results 02/13/18 03:59 02/13/18 03:59 02/13/18 02/14/18 02/15/18 05:59 05:59 05:59 Intake Total 3340 3065 Output Total 1200 1400 1000 Balance 2140 1665 -1000 PT 12.3 SEC (12.0-15.0) 02/12/18 19:20 INR 0.89 (0.83-1.16) 02/12/18 19:20 - Physical Exam Constitutional: no apparent distress, appears nourished, not in pain Eyes: PERRL, anicteric sclera, EOMI Ears, Nose, Mouth, Throat: moist mucous membranes, hearing normal, ears appear normal, no oral mucosal ulcers Cardiovascular: regular rate and rhythym, no murmur, rub, or gallop, No edema Respiratory: no respiratory distress, no rales or rhonchi, clear to auscultation Gastrointestinal: normoactive bowel sounds, soft, non-tender abdomen, no palpable masses Genitourinary: no bladder fullness, no bladder tenderness, no renal bruits Skin: no rashes or abrasions, no fluctuance, no induration Musculoskeletal: full muscle strength, no muscle tenderness, normal joint ROM Neurologic: AAOx3, other (mild tongue fasciculations) Psychiatric: interacting appropriately, not anxious, not encephalopathic, thought process linear ICD10 Worksheet Patient Problems: Problems Problem Status Onset Alcohol withdrawal Acute Dehydration Acute Fever Acute Open wound of left foot Acute Sepsis Acute Tachycardia Acute Abdominal pain Acute Acute bronchitis Acute Alcoholic intoxication Acute Cellulitis of left foot Acute Mucus plugging of bronchi Acute Respiratory failure Acute Right rib fracture Acute
--- NOTE | 2018-02-14 17:01 | PDMN ---
Medical Necessity Medical necessity: Change to IP, as of 02/14/18, per MD; los >2 mn for ongoing management of aspiration pneumonia vs chemical pneumonitis, L great toe osteomyelitis & alcohol withdrawal; requiring further monitoring, follow-up chest X-ray, IV abx, CIWA protocol & wound care; hx homelessness
[2018-02-15] MEDS: metroNIDAZOLE 500 MG TAB PO SCH ×3 (05:18→21:18)
[2018-02-15] MEDS: oxyCODONE IR 5 MG TAB PO PRN ×3 (07:50→18:43)
[2018-02-15] MEDS: NICOTINE 21 MG/24 HR PATCH TD SCH (07:52)
[2018-02-15] MEDS: ENOXAPARIN 40 MG/0.4 ML SYR SC SCH (07:57)
[2018-02-15] MEDS: MULTIVITAMINS 1 EACH TAB PO SCH (07:58)
[2018-02-15] MEDS: FAMOTIDINE 20 MG TAB PO SCH ×2 (07:58→21:18)
[2018-02-15] MEDS: FOLIC ACID 1 MG TAB PO SCH (07:58)
[2018-02-15] MEDS: AZITHROMYCIN 250 MG TAB PO SCH (07:59)
[2018-02-15] MEDS: ATENOLOL 50 MG TAB PO SCH (07:59)
[2018-02-15] MEDS: CEFEPIME HCL 2 GM in NS 100 ML IV SCH ×2 (08:04→21:18)
[2018-02-15] MEDS: THIAMINE HCL 500 MG in NS 100 ML IV SCH (09:10)
--- NOTE | 2018-02-15 13:12 | HOSPPROG ---
Hospitalist Progress Note Assessment/Plan: 53yo M with etoh abuse, left toe osteomyelitis here from [facility] with fever. 1. Fever: Suspect aspiration pneumonia vs pneumonitis. Doubt left foot/toe does not appear infected. Not septic. - ID following, cont cefepime/flagyl/azithro for now given recent healthcare exposures - Recheck CXR in AM - Plan to discharge to complete 5 days of moxifloxacin, MAP to provide doses 2. EtOH withdrawal, abuse, CIWA's negligible - CIWA, thiamine 3. Left great toe wound - Wound care 4. Homelessness - Case management involved, will likely dc to retirement 5. HTN: - Resume home atenolol VTE ppx: LMWH Dispo: Remain inpatient for IV antibiotics, mgmt of withdrawal, likely dc in am Subjective: Pt feels better. Denies pain. Cough improved. No CP or SOB. No fevers. Ambulating in halls. Objective: Vital Signs Temp Pulse Resp BP Pulse Ox 37.2 C 83 19 153/97 H 92 02/15/18 11:16 02/15/18 11:16 02/15/18 11:16 02/15/18 11:16 02/15/18 11:16 02/14/1818 02/16/18 05:59 05:59 05:59 Intake Total 1036 500 Output Total 1450 800 Balance -414 -300 PT 12.3 SEC (12.0-15.0) 02/12/18 19:20 INR 0.89 (0.83-1.16) 02/12/18 19:20 - Physical Exam Constitutional: no apparent distress Eyes: PERRL Ears, Nose, Mouth, Throat: moist mucous membranes Cardiovascular: regular rate and rhythym Respiratory: no respiratory distress, clear to auscultation Gastrointestinal: normoactive bowel sounds, soft, non-tender abdomen Skin: warm Musculoskeletal: full muscle strength Neurologic: AAOx3 Psychiatric: interacting appropriately ICD10 Worksheet Patient Problems: Problems Problem Status Onset Alcohol withdrawal Acute Dehydration Acute Fever Acute Open wound of left foot Acute Sepsis Acute Tachycardia Acute Abdominal pain Acute Acute bronchitis Acute Alcoholic intoxication Acute Cellulitis of left foot Acute Mucus plugging of bronchi Acute Respiratory failure Acute Right rib fracture Acute
--- NOTE | 2018-02-15 13:21 | ASMTCMCOM ---
CM Note CM Note Notes: Per ID, patient to stay another day. I have given him a walking boot and counseled him on keeping his socks dry. 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. He is a high utilizer who has not chosen to engage in community resources. He acknowleged this. He refused our reserved fci bed today, but I will offer it again when he is discharged tomorrow. Date Signed: 02/15/2018 01:21 PM Electronically Signed By:Jade Eduardo RN
--- NOTE | 2018-02-15 13:31 | PCMIDPN ---
Assessment/Plan: 1. Aspiration pneumonia versus chemical pneumonitis: Much improved. Given negative RP P and negative Legionella urine antigen, discontinue azithromycin in continue cefepime and metronidazole. Will keep him another day, then discharge on 1 more day of oral moxifloxacin. (Please see my previous note for rationale behind the choice of this antibiotic) 2. Left great toe wound: Continue wound care. Appreciate their assistance. 3. Vaccines: Patient received a flu vaccine. He is status post Pneumovax at his last visit. This does not need to be repeated. Subjective: In good spirits. Says he feels better. Objective: Cefepime 2 g IV q.12 hours day 3 Azithromycin 500 mg p. O. Daily day 3 Metronidazole 500 mg p.o. Q.8 hours day 3 T-max 37.2 degrees 92% on room air Vital Signs Temp Pulse Resp BP Pulse Ox 37.2 C 83 19 153/97 H 92 02/15/18 11:16 02/15/18 11:16 02/15/18 11:16 02/15/18 11:16 02/15/18 11:16 02/14/1818 02/16/18 05:59 05:59 05:59 Intake Total 1036 500 Output Total 1450 800 Balance -414 -300 Urine Legionella antigen negative Repeat chest x-ray shows some significant improvement, but remaining infiltrate in the left base - Physical Exam General Appearance: alert, no apparent distress EENT: pharynx normal, No thrush Respiratory: lungs clear Cardiac/Chest: regular rate, rhythm Skin: No rash ICD10 Worksheet Patient Problems: Problems Problem Status Onset Alcohol withdrawal Acute Dehydration Acute Fever Acute Open wound of left foot Acute Sepsis Acute Tachycardia Acute Abdominal pain Acute Acute bronchitis Acute Alcoholic intoxication Acute Cellulitis of left foot Acute Mucus plugging of bronchi Acute Respiratory failure Acute Right rib fracture Acute
[2018-02-15] MEDS: CLOTRIMAZOLE 1% 15 GM CRTUBE TP SCH ×2 (15:16→21:33)
[2018-02-15] MEDS ORDERED: LACTULOSE 20 GM/30 ML UDCUP PO PRN (17:04)
[2018-02-15] MEDS ORDERED: BISACODYL 10 MG SUPP PR PRN (17:04)
[2018-02-15] MEDS ORDERED: MAGNESIUM HYDROXIDE 30 ML UDCUP PO PRN (17:04)
[2018-02-15] MEDS ORDERED: POLYETHYLENE GLYCOL 3350 17 GM PKT PO PRN (17:04)
[2018-02-15] MEDS: SENNOSIDES/DOCUSATE SODIUM TAB PO SCH (21:18)
[2018-02-16] MEDS ORDERED: MOXIFLOXACIN 400 MG TAB PO SCH
[2018-02-16] MEDS: ACETAMINOPHEN 325 MG TAB PO PRN (06:04)
[2018-02-16] MEDS: oxyCODONE IR 5 MG TAB PO PRN ×2 (06:06→11:12)
[2018-02-16] MEDS: metroNIDAZOLE 500 MG TAB PO SCH (06:06)
[2018-02-16 08:05] VITALS: BP 147/113
[2018-02-16] MEDS: NICOTINE 21 MG/24 HR PATCH TD SCH (08:22)
[2018-02-16] MEDS: ATENOLOL 50 MG TAB PO SCH (08:25)
[2018-02-16] MEDS: ENOXAPARIN 40 MG/0.4 ML SYR SC SCH (08:25)
[2018-02-16] MEDS: FOLIC ACID 1 MG TAB PO SCH (08:25)
[2018-02-16] MEDS: FAMOTIDINE 20 MG TAB PO SCH (08:26)
[2018-02-16] MEDS: MULTIVITAMINS 1 EACH TAB PO SCH (08:26)
[2018-02-16] MEDS: SENNOSIDES/DOCUSATE SODIUM TAB PO SCH (08:26)
[2018-02-16] MEDS: CEFEPIME HCL 2 GM in NS 100 ML IV SCH (08:35)
[2018-02-16] MEDS: CLOTRIMAZOLE 1% 15 GM CRTUBE TP SCH (08:51)
[2018-02-16] MEDS ORDERED: THIAMINE HCL 100 MG TAB PO SCH (09:00)
[2018-02-16] MEDS: THIAMINE HCL 500 MG in NS 100 ML IV SCH (09:55)
--- NOTE | 2018-02-16 11:04 | ASMTDCNOTE ---
Case Management Discharge Discharge Order Complete? Answers: Yes Patient to Obtain Answers: via MAP Medications Transportation Arranged Answers: Bus Tokens Discharge Comments Notes: Patient discharged to streets. He did not want reserved custodial bed. I MAP'ed his final dose of PO abx. Bus pass and severe weather custodial info given. Date Signed: 02/16/2018 11:03 AM Electronically Signed By:Jade Eduardo RN
[2018-02-16] MEDS ORDERED: MOXIFLOXACIN 400 MG TAB PO ONE (12:00)
--- NOTE | 2018-02-16 13:21 | GDS ---
DISCHARGE DIAGNOSES: 1. Aspiration pneumonia. 2. Alcohol withdrawal, resolved. 3. History of left toe osteomyelitis. 4. Hypertension. 5. Homelessness. CONSULTANTS: Dr. Bernice Sandoval, Infectious Disease. HISTORY: For details, please see history and physical, dated February 12, 2018. In brief, Mr. Foreman is a 53-year-old male, with a history of hypertension, alcohol abuse, and left great toe osteomyelitis, with multiple prolonged hospitalizations. He presented to the emergency department from the [facility] with a fever. He did meet sepsis criteria on a dmission, with fever, tachycardia, and leukocytosis. Consideration was given to recurrent osteomyeli tis versus possible pneumonia as sources of his sepsis. He was given IV ceftriaxone on admission, an d admitted to the hospital for further management. HOSPITAL COURSE: Patient was admitted to the cardiac telemetry unit. Infectious disease consult was obtained. His left foot actually looked quite good, and this was not thought to be his source of fe ben and infection. Based on his symptoms of cough, increased sputum production, along with infiltrat es on his chest x-ray, aspiration pneumonia was suspected. His antibiotics were changed to cefepime, plus Flagyl, along with azithromycin for atypical coverage. A Legionella antigen was negative. Inf luenza A and B were also negative. He had minimal withdrawal symptoms during the hospitalization. H e remained afebrile. His vital signs were stable. Given his rapid improvement, Infectious Disease recommended a short course of antibiotics for a total of 5 days. He was transitioned to oral moxifloxacin and given 1 dose prior to discharge. He will t hen discharge home, with an additional dose of moxifloxacin to be taken tomorrow. This was provided to him by our medication assistance program. DISPOSITION: Patient was discharged to the homeless long term in stable condition. DISCHARGE MEDICATIONS: Please see [employer] completed outpatient medication list. New medications on discharge include: Moxifloxacin 400 mg p.o. daily for 1 more dose tomorrow to complete a 5-day cour se of treatment, famotidine 20 mg p.o. b.i.d., folic acid 2 mg p.o. daily, multivitamin 1 p.o. daily, thiamine 100 mg p.o. daily, he will continue his atenolol 50 mg p.o. daily. /[id number]/MODL
== END 2018-02-16 11:59 | disposition home or self-care (01) | DRG 720 ==
LOC: INTOOBSV 20:50 → F2W 23:39 → OBSVTOIN 02-14 15:59
PROVIDERS: ADMIT Internal Medicine; ATTEND Internal Medicine
PROC: HZ2ZZZZ Detoxification Services for Substance Abuse Treatment (ICD-10-PCS; principal; 2018-02-12)
DX: A41.9 Sepsis, unspecified organism (principal); J69.0 Pneumonitis due to inhalation of food and vomit; E87.2 Acidosis; F10.220 Alcohol dependence with intoxication, uncomplicated; F10.230 Alcohol dependence with withdrawal, uncomplicated; L97.521 Non-pressure chronic ulcer of other part of left foot limited to breakdown of skin; M86.672 Other chronic osteomyelitis, left ankle and foot; I10 Essential (primary) hypertension; J43.9 Emphysema, unspecified; F17.210 Nicotine dependence, cigarettes, uncomplicated; B35.3 Tinea pedis; Z59.0 Homelessness; Z23 Encounter for immunization
CPT/HCPCS: 87449-90; 96374; 97162-GP; 97166-GO; 97535-GO; G0008; G0378; G0480; J0692; J0696; J1650; J1956; J2060; J2405; J3360; J3411

== ENCOUNTER 2018-04-09 19:44 | Emergency (ER) | payer MEDICAID, OTHER ==
--- NOTE | 2018-04-09 19:51 | EDPHY ---
H & P - Personal History Tetanus Vaccine Date: <10YRS - Medical/Surgical History Hx Asthma: No Hx Chronic Respiratory Disease: No Hx Diabetes: Yes Hx Cardiac Disease: No Hx Renal Disease: No Hx Cirrhosis: No Hx Alcoholism: Yes Hx HIV/AIDS: No Hx Splenectomy or Spleen Trauma: No Other PMH: ETOH, Hep C, lung and esophogeal cancer per pt report, barrets esophagus, smoker, COPD, HTN, left foot inf 12/2017 - Social History Smoking Status: Current every day smoker Time Seen by Provider: 04/09/18 19:48 HPI/ROS: CHIEF COMPLAINT: Suspected alcohol abuse HISTORY OF PRESENT ILLNESS: 53 year old homeless male arrives via ambulance for suspected alcohol abuse. Patient found sleeping outside height, smells of alcohol. Patient unable to ambulate without assistance. No reports of trauma or assault. No fall from height. No structures of height near patient. No complaints of pain or discomfort. No fever or chills. No suicidal homicidal ideation. REVIEW OF SYSTEMS: 10 systems reviewed and negative with the exception of the elements mentioned in the history of present illness PAST MEDICAL/SURGICAL HISTORY: no anticoagulant use, no relevant medical/ surgical history SOCIAL HISTORY: Positive for witnessed and self disclosed alcohol use PHYSICAL EXAM 1) GENERAL: poorly kept, foul smelling alert and oriented. Appears to be in no acute distress. Answering questions appropriately.Smells of alcohol. 2) HEAD: Normocephalic, atraumatic 3) HEENT: Pupils equal, round, reactive to light bilaterally. Negative Horners. Nasopharynx, oropharynx, clear. No deformity or angulation of nose. No septal hematoma. No rhinorrhea. No oral trauma. Ears bilaterally with normal tympanic membranes. No hemotympanum. No fluid or blood in the external auditory canal. No raccoon eyes. No Reyes sign. Teeth are normally aligned with no gross malocclusion, TMJ bilaterally nontender, facial bones nontender including the zygomatic arch, maxilla mandible. 4) NECK: No cervical collar is on. Posterior cervical spine is nontender, no stepoff, no effusion. Full range of motion which does not elicit any midline cervical spine pain, no posterior midline tenderness, no step-off. 5) LUNGS: Clear to auscultation bilaterally, no wheezes, no rhonchi, no retractions. No obvious signs of trauma. No chest wall pain. No flaring, no grunting. Moving symmetrically. No crepitus. 6) HEART: Regular rate and rhythm, 7) ABDOMEN: No guarding, no rebound, no focal tenderness, no peritoneal signs, no signs of trauma, no ecchymosis 8) MUSCULOSKELETAL: Left lower extremity Greg boot in place, patient refuses to take it off and allow me to examine his foot. Moving all extremities, no focal areas of tenderness, no obvious trauma. 9) BACK: No midline vertebral tenderness, no fluctuance, no step-off, no obvious trauma, no visual or palpable abnormality. 10) SKIN: No laceration. No abrasion DIFFERENTIAL DIAGNOSIS: In no particular orderincluding but not limited to hypoglycemia, infectious process, electrolyte abnormality, head injury and intoxicants. (Aixa Uriostegui) Constitutional: Initial Vital Signs Temperature (C) 36.5 C 04/09/18 19:52 Heart Rate 97 04/09/18 19:52 Respiratory Rate 20 04/09/18 19:52 Blood Pressure 116/89 H 04/09/18 19:52 O2 Sat (%) 94 04/09/18 19:52 O2 Delivery Mode Room Air O2 (L/minute) 2 Allergies/Adverse Reactions: penicillin Allergy (Verified 04/09/18 19:49) "Passed out" Home Medications: Medication Instructions Recorded Atenolol [Tenormin 50 mg (*)] 50 mg PO DAILY #30 tab 01/22/18 Famotidine [Pepcid 20 MG (*)] 20 mg PO BID tab 02/15/18 Folic Acid [Folic Acid 1 MG (*)] 1 mg PO DAILY tab 02/15/18 Multivitamins [Multivitamin (*)] 1 each PO DAILY tab 02/15/18 Thiamine HCl [Vitamin B-1] 100 mg PO DAILY tab 02/15/18 Moxifloxacin [Avelox 400 mg (*)] 400 mg PO DAILY #2 tab 02/16/18 Medical Decision Making ED Course/Re-evaluation: 10:18 p.m.: Patient progressively more awake and sober. He still unable to ambulate without assistance at this time. He will be allowed to sober further in the ER. Midnight: Care turned over to , patient sleeping. (Aixa Uriostegui) PHYSICIAN DOCUMENTATION: The patient was evaluated and managed by the Physician Glove Finisher. My co- signature indicates that I have reviewed this chart and I agree with the findings and plan of care as documented. I am the secondary supervising physician. The patient was eventually able to walk with a steady gait and was [facility] with [facility] for Librium. (Erica Banda) - Data Points Medications Given: Discontinued Medications Chlordiazepoxide (Librium 25 Mg Prepack#6) 1 btl TAKEHOME EDNOW ONE Stop: 04/10/18 00:51 Last Admin: 04/10/18 00:53 Dose: 1 btl Departure - Departure Disposition: Home, Routine, Self-Care Clinical Impression: Alcohol abuse Condition: Good Instructions: Chlordiazepoxide (By mouth), Abuse of Alcohol (ED) Additional Instructions: Please consider [facility] alcohol sobriety Referrals: [facility],. [Clinic] - 2-3 days, call for appt.
[2018-04-09] MEDS ORDERED: AMMONIA AROMATIC 1 EACH AMP IH ONE (22:15)
[2018-04-10] MEDS ORDERED: CHLORDIAZEPOXIDE 25MG PREPK#6 BTL TAKEHOME ONE ×2 (00:49→00:50)
[2018-04-10 00:54] VITALS: BP 105/63
== END 2018-04-10 00:54 | disposition home or self-care (01) ==
LOC: EDUNIT#
DX: F10.10 Alcohol abuse, uncomplicated (principal); Z59.0 Homelessness

== ENCOUNTER 2018-04-18 18:26 | Inpatient (IN) | payer MEDICAID ==
--- NOTE | 2018-04-18 18:29 | EDPHY ---
H & P Smoking Status: Current every day smoker Time Seen by Provider: 04/18/18 18:29 HPI/ROS: CHIEF COMPLAINT: "I am sick inside" HISTORY OF PRESENT ILLNESS: Patient called EMS from the grocery store because he was "feeling sick inside."Patient does not have any other more specific complaints. He denies pain in his chest or his abdomen. Denies headache or trauma. Denies urinary symptoms or fever or chills. Denies vomiting or diarrhea. Says his feet are stable with no new Skin changes. REVIEW OF SYSTEMS: Eye: no change in vision ENT: no sore throat Cardiac: no chest pain or syncope Pulmonary: no cough or SOB Abdomen: no vomiting, diarrhea, abdominal pain Musculoskeletal: no back pain Skin: no rash Neuro: no headache Constitutional: no fever : no urinary symptoms A comprehensive 10 point review of systems is otherwise negative aside from elements mentioned in the history of present illness. PAST MEDICAL HISTORY: Discharge summary dated 02/16/2018 personally reviewed includes aspiration pneumonia, hypertension, osteomyelitis, alcoholism, COPD Social history: "A lot" of alcohol today, tobacco smoker, homeless General Appearance: Alert and conversant, cooperative. Eyes: No scleral icterus. ENT, Mouth: Normal mucous membranes. Respiratory: Wheezing bilaterally but speaks in full sentences, normal respiratory effort. Cardiovascular: Regular rate and rhythm. Gastrointestinal: Abdomen is soft and non tender. Neurological: Alert, face symmetric, normal motor and sensory in extremities. Skin: Patient has wet socks removed revealing wrinkled skin on the left foot with an open sore on the base of the 1st or great toe but no surrounding erythema or lymphangitis or pus or eschar or blistering. His right foot is wet skin which is wrinkled but no other abnormalities. Musculoskeletal: No peripheral edema. No calf tenderness. Psychiatric: Not agitated. Emergency Department course/MDM: CBC and chemistry, patient will be observed, he will be given DuoNeb for his lungs and a chest x-ray performed for hypoxemia. 2048: The patient is sleeping, normal white blood cell count, afebrile. Chest x-ray shows likely chronic scarring. Plan for serial exam and I think pneumonia or pulmonary embolism is less likely than hypoventilation from alcohol intoxication. 2204: Re-evaluated, heart rate now 110-120, oxygen saturation 88%. Albuterol neb and oral prednisone and IV fluids given. Signed out to Didier at 2245 with disposition pending response to treatment. ( Yosef Giang) Constitutional: Initial Vital Signs Temperature (C) 36.8 C 04/18/18 18:27 Heart Rate 103 H 04/18/18 18:27 Respiratory Rate 18 04/18/18 18:27 Blood Pressure 134/92 H 04/18/18 18:27 O2 Sat (%) 96 04/18/18 18:27 O2 Delivery Mode Nasal Cannula O2 (L/minute) 4 Allergies/Adverse Reactions: penicillin Allergy (Verified 04/09/18 19:49) "Passed out" Home Medications: Medication Instructions Recorded Atenolol [Tenormin 50 mg (*)] 50 mg PO DAILY #30 tab 01/22/18 Famotidine [Pepcid 20 MG (*)] 20 mg PO BID tab 02/15/18 Folic Acid [Folic Acid 1 MG (*)] 1 mg PO DAILY tab 02/15/18 Multivitamins [Multivitamin (*)] 1 each PO DAILY tab 02/15/18 Thiamine HCl [Vitamin B-1] 100 mg PO DAILY tab 02/15/18 Moxifloxacin [Avelox 400 mg (*)] 400 mg PO DAILY #2 tab 02/16/18 Albuterol Hfa Anes Only [Proair 2 puffs IH QID #1 mdi 04/18/18 Hfa Icu (*)] predniSONE 10 mg PO AD #15 tab 04/18/18 Medical Decision Making - Diagnostics Imaging: I viewed and interpreted images myself - Diagnostics Imaging Results: Imaging Impressions Chest X-Ray 04/18/18 18:41 Impression: Bilateral lower lobe opacities greatest in the lingula may represent chronic atelectasis/scarring as seen on multiple prior examinations, however superimposed pneumonia cannot be radiographically excluded. Other Provider: [address] Giang pending re-evaluation of O2 sats. 0020 patient remains hypoxemic and tachycardic. No new changes on his chest x- ray. Afebrile and white count. I started him on a CIWA protocol. I discussed with the hospitalist. Will admit to their service for further care. (Caesar Velásquez) - Data Points Laboratory Results: Laboratory Results 04/18/18 18:51 04/18/18 18:51 04/18/18 04/18/1804/18/19 18:51 18:51 18:51 WBC 8.71 10^3/uL 10^3/uL (3.80-9.50) RBC 5.03 10^6/uL 10^6/uL (4.40-6.38) Hgb 16.5 g/dL g/dL (13.7-17.5) Hct 47.9 % % (40.0-51.0) MCV 95.2 fL fL (81.5-99.8) MCH 32.8 pg pg (27.9-34.1) MCHC 34.4 g/dL g/dL (32.4-36.7) RDW 14.0 % % (11.5-15.2) Plt Count 151 10^3/uL 10^3/uL (150-400) MPV 9.5 fL fL (8.7-11.7) Neut % (Auto) 59.2 % % (39.3-74.2) Lymph % (Auto) 29.3 % % (15.0-45.0) [place] % (Auto) 9.1 % % (4.5-13.0) Eos % (Auto) 0.9 % % (0.6-7.6) Baso % (Auto) 0.9 % % (0.3-1.7) Nucleat RBC Rel Count 0.0 % % (0.0-0.2) Absolute Neuts (auto) 5.16 10^3/uL 10^3/uL (1.70-6.50) Absolute Lymphs (auto) 2.55 10^3/uL 10^3/uL (1.00-3.00) Absolute Monos (auto) 0.79 10^3/uL 10^3/uL (0.30-0.80) Absolute Eos (auto) 0.08 10^3/uL 10^3/uL (0.03-0.40) Absolute Basos (auto) 0.08 10^3/uL 10^3/uL (0.02-0.10) Absolute Nucleated RBC 0.00 10^3/uL 10^3/uL (0-0.01) Immature Gran % 0.6 % % (0.0-1.1) Immature Gran # 0.05 10^3/uL 10^3/uL (0.00-0.10) Sodium 142 mEq/L mEq/L (135-145) Potassium 3.8 mEq/L mEq/L (3.5-5.2) Chloride 105 mEq/L mEq/L (97-110) Carbon Dioxide 26 mEq/l mEq/l (22-31) Anion Gap 11 mEq/L mEq/L (6-14) BUN 11 mg/dL mg/dL (7-23) Creatinine 0.6 mg/dL L mg/dL (0.7-1.3) Estimated GFR > 60 Glucose 112 mg/dL H mg/dL (70-100) Calcium 8.7 mg/dL mg/dL (8.5-10.4) Ethyl Alcohol 412 mg/dL H* mg/dL (0-10) Medications Given: Discontinued Medications Albuterol (Proventil Neb) 3 ml IH EDNOW ONE Stop: 04/18/18 22:13 Last Admin: 04/18/18 22:21 Dose: 3 ml Albuterol/Ipratropium (Duoneb) 3 ml IH EDNOW ONE Stop: 04/18/18 18:42 Last Admin: 04/18/18 18:45 Dose: 3 ml Sodium Chloride (Ns) 1,000 mls @ 0 mls/hr IV ONCE ONE; Wide Open PRN Reason: Protocol Stop: 04/18/18 22:13 Last Admin: 04/18/18 22:18 Dose: 1,000 mls Sodium Chloride (Ns) 1,000 mls @ 0 mls/hr IV ONCE ONE; Wide Open PRN Reason: Protocol Stop: 04/18/18 23:42 Last Admin: 04/18/18 23:49 Dose: 1,000 mls Prednisone (Prednisone) 60 mg PO EDNOW ONE Stop: 04/18/18 22:13 Last Admin: 04/18/18 22:20 Dose: 60 mg Departure - Departure Disposition: [facility] Acute Clinical Impression: COPD exacerbation Alcoholic intoxication Qualifiers: Complication of substance-induced condition: uncomplicated Qualified Code(s): F10.920 - Alcohol use, unspecified with intoxication, uncomplicated Condition: Fair Referrals: [facility],. [Clinic] - As per Instructions Prescriptions: Albuterol Hfa Anes Only [Proair Hfa Icu (*)] 2 puffs IH QID #1 mdi predniSONE 10 mg PO AD #15 tab
[2018-04-18] MEDS ORDERED: IPRATROPIUM/ALBUTEROL 3 ML DEYVIAL IH ONE (18:41)
[2018-04-18 19:00] LABS: PLATELET COUNT 151 10^3/uL (150-400)
[2018-04-18] MEDS ORDERED: ALBUTEROL 3 ML DEYVIAL IH ONE (22:12)
[2018-04-18] MEDS ORDERED: predniSONE 20 MG TAB PO ONE (22:12)
[2018-04-18] MEDS ORDERED: NS 1,000 ML IV ONE ×2 (22:12→23:41)
[2018-04-19] MEDS ORDERED: ONDANSETRON 4 MG/2 ML VIAL IVP PRN (00:23)
[2018-04-19] MEDS ORDERED: ACETAMINOPHEN 325 MG TAB PO PRN (00:23)
[2018-04-19] MEDS ORDERED: ONDANSETRON DISINTEGRATING 4 MG TAB PO PRN (00:23)
[2018-04-19] MEDS ORDERED: AZITHROMYCIN 250 MG TAB PO ONE (00:25)
[2018-04-19] MEDS ORDERED: FLUMAZENIL 0.5 MG/5 ML MDV IVP PRN (00:26)
[2018-04-19] MEDS ORDERED: ALBUTEROL 3 ML DEYVIAL IH PRN (00:26)
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
[2018-04-19] MEDS: LORazepam 2 MG/ML INJ IVP PRN ×6 (04:56→22:48)
[2018-04-19 06:03] LABS: PLATELET COUNT 132 10^3/uL (150-400)
[2018-04-19] MEDS: IPRATROPIUM/ALBUTEROL 3 ML DEYVIAL IH SCH ×3 (06:38→17:57)
[2018-04-19] MEDS ORDERED: NS 1,000 ML IV ONE (07:27)
[2018-04-19] MEDS ORDERED: AZITHROMYCIN 250 MG TAB PO SCH (09:00)
[2018-04-19] MEDS ORDERED: IOPAMIDOL (ISOVUE 370) 100 ML BTL IV ONE (09:32)
[2018-04-19] MEDS: FOLIC ACID 1 MG TAB PO SCH (09:47)
[2018-04-19] MEDS: THIAMINE HCL 100 MG TAB PO SCH (09:47)
[2018-04-19] MEDS: ENOXAPARIN 40 MG/0.4 ML SYR SC SCH (09:47)
[2018-04-19] MEDS: predniSONE 20 MG TAB PO SCH (09:47)
[2018-04-19] MEDS: MULTIVITAMINS 1 EACH TAB PO SCH (09:47)
--- NOTE | 2018-04-19 13:02 | HOSPPROG ---
Hospitalist Progress Note Assessment/Plan: # pneumonia - will broaden abx to levaquin given his degree of sickness with significant tachycardia # tachycardia - likely d/t sepsis as well as etOH w/d; CTA neg for PE - follow with treatment # COPD with acute exacerbation - pred, nebs, abx # adenoviros - supportive care # acute hypoxic resp failure - d/t above # etOH withdrawal - recent admit with w/d but not severe - cont CIWA, thiamine Subjective: tells me he still feels poorly Objective: Vital Signs Temp Pulse Resp BP Pulse Ox 37.5 C 123 H 12 140/102 H 84 L 04/19/18 11:08 04/19/18 11:22 04/19/18 11:22 04/19/18 11:08 04/19/18 11:22 Microbiology 04/19/18 00:39 Respiratory Panel (PCR) - Final Nasal, Sinus - Swab Adenovirus Laboratory Results 04/19/18 05:00 04/19/18 05:00 04/18/18 04/19/18 04/20/18 05:59 05:59 05:59 Intake Total 2890 Output Total 850 Balance 2040 chart reviewed CTA reviewed CXR personally reviewed - Physical Exam Constitutional: unkempt Cardiovascular: no murmur, rub, or gallop, tachycardia, No irregularly irregular Respiratory: no respiratory distress, inspiratory crackles (L sided), No clear to auscultation, No reduced air movement Gastrointestinal: normoactive bowel sounds, soft, non-tender abdomen, no palpable masses ICD10 Worksheet Patient Problems: Problems Problem Status Onset Alcoholic intoxication Acute COPD exacerbation Acute Abdominal pain Acute Acute bronchitis Acute Alcohol withdrawal Acute Cellulitis of left foot Acute Dehydration Acute Fever Acute Mucus plugging of bronchi Acute Open wound of left foot Acute Respiratory failure Acute Right rib fracture Acute Sepsis Acute Tachycardia Acute
--- NOTE | 2018-04-19 15:33 | ASMTLACE ---
THUY Acuity / Level of Answers: Yes Care: Did the patient have an inpatient admission? Comorbidities - select Answers: Chronic pulmonary disease all that apply Other Notes: HTN # of Emergency department Answers: 5-8 visits in the last 6 months Social determinants Answers: History of substance abuse (ETOH, street drugs, prescription drugs, etc.) Homelessness (street, residential) Lack of community resources and/or lack of social support (no pcp, lives alone, transportation, rabia d) Score: 20 Date Signed: 04/19/2018 03:32 PM Electronically Signed By:Zoraida Lewis RN
--- NOTE | 2018-04-19 15:34 | ASMTCMCOM ---
CM Note CM Note Notes: Pt admitted with pneumonia, he is homeless and stays at the [facility]. Anticipate he will dc to retirement when medically stable. CM available for any changes. DC Plan: Independent Date Signed: 04/19/2018 03:34 PM Electronically Signed By:Zoraida Lewis RN
[2018-04-19] MEDS: LR 1,000 ML IV SCH (19:54)
[2018-04-19] MEDS: FAMOTIDINE 20 MG TAB PO SCH (19:54)
[2018-04-20] MEDS: IPRATROPIUM/ALBUTEROL 3 ML DEYVIAL IH SCH ×5 (01:12→22:16)
[2018-04-20] MEDS: LORazepam 2 MG/ML INJ IVP PRN ×5 (02:23→16:22)
--- NOTE | 2018-04-20 08:25 | HOSPPROG ---
Hospitalist Progress Note Assessment/Plan: # pneumonia - continue to treat for bacterial pna given the degree with illness - cont levaquin # tachycardia - likely d/t sepsis as well as etOH w/d, possible hypovolemia; CTA neg for PE - slowly improving - cont IVF # COPD with acute exacerbation - pred, nebs, abx # adenoviros - supportive care, droplet precautions # acute hypoxic resp failure - d/t above - still very diminished air movement on exam and quite hypoxic # etOH withdrawal - recent admit with w/d but not severe; continues to receive ativan IV - cont CIWA, thiamine - seems mote clear mentally today # homeless Subjective: feels slightly better but still very weak; not eating much Objective: Vital Signs Temp Pulse Resp BP Pulse Ox 37.2 C 112 H 18 134/97 H 92 04/19/18 23:20 04/20/18 06:39 04/20/18 06:39 04/20/18 06:39 04/20/18 06:39 Microbiology 04/19/18 00:39 Respiratory Panel (PCR) - Final Nasal, Sinus - Swab Adenovirus Laboratory Results 04/19/18 05:00 04/20/18 04:59 04/19/18 04/20/18 04/21/18 05:59 05:59 05:59 Intake Total 2890 450 Output Total 850 2100 550 Balance 0 -1649 -550 high risk given pngoing tachycardia, pneumonia with history of heavy etOH - Physical Exam Constitutional: unkempt, other (fatigued) Cardiovascular: no murmur, rub, or gallop, tachycardia Respiratory: no respiratory distress, expiratory wheeze (mild), other ( decreased air movement), No inspiratory crackles Gastrointestinal: normoactive bowel sounds, soft, non-tender abdomen, no palpable masses ICD10 Worksheet Patient Problems: Problems Problem Status Onset Alcoholic intoxication Acute Respiratory failure Acute Tachycardia Acute Acute bronchitis Acute Mucus plugging of bronchi Acute Abdominal pain Acute Right rib fracture Acute Cellulitis of left foot Acute Dehydration Acute Fever Acute Alcohol withdrawal Acute Open wound of left foot Acute Sepsis Acute COPD exacerbation Acute
[2018-04-20] MEDS: ENOXAPARIN 40 MG/0.4 ML SYR SC SCH (08:33)
[2018-04-20] MEDS: FAMOTIDINE 20 MG TAB PO SCH (08:36)
[2018-04-20] MEDS: THIAMINE HCL 100 MG TAB PO SCH (08:36)
[2018-04-20] MEDS: predniSONE 20 MG TAB PO SCH (08:37)
[2018-04-20] MEDS: MULTIVITAMINS 1 EACH TAB PO SCH (08:37)
[2018-04-20] MEDS: FOLIC ACID 1 MG TAB PO SCH (08:37)
[2018-04-20] MEDS ORDERED: FOLIC ACID 1 MG TAB PO SCH (09:00)
--- NOTE | 2018-04-20 17:28 | HOSPPROG ---
Hospitalist Progress Note Assessment/Plan: CTSP urgently due to escalating Etoh withdrawal. HR sinus tachy with HR > 150. Has used 14mg IV Ativan in the last 24 hours. Patient awake and alert. Can feel his heart beating very quickly. + tremor. Asking for oxycodone, saying his home dose is 10mg TID. VS noted, afebrile, HR > 150 - sinus tachy seen on tele, BP 135/110 A+Ox3 but slow to respond Lungs CTA Bilaterally CVS - tachy, regular abd - soft NT ext no C/C/E Neuro - moving all extremities, + tremor A/P: * Escalating Etoh withdrawal, s/p 14mg IV ativan in the last 24 hours -per [facility] etoh protocol, transfer to ICU for IV Precedex gtt -schedule ativan while on precedex His respiratory status seems stable. The remainder of his medical treatment can continue as outlined by Dr. Bertrand earlier today. Case d/w Chalino Bertrand. CC time - 35 minutes Objective: Vital Signs Temp Pulse Resp BP Pulse Ox 37.2 C 148 H 14 135/110 H 92 04/20/18 16:00 04/20/18 16:00 04/20/18 16:00 04/20/18 16:00 04/20/18 16:00 Laboratory Results 04/19/18 05:00 04/20/18 04:59 04/19/18 04/20/18 04/21/18 05:59 05:59 05:59 Intake Total 2890 450 Output Total 850 2100 550 Balance 2040 -1650 -550 ICD10 Worksheet Patient Problems: Problems Problem Status Onset Alcoholic intoxication Acute Respiratory failure Acute Tachycardia Acute Acute bronchitis Acute Mucus plugging of bronchi Acute Abdominal pain Acute Right rib fracture Acute Cellulitis of left foot Acute Dehydration Acute Fever Acute Alcohol withdrawal Acute Open wound of left foot Acute Sepsis Acute COPD exacerbation Acute
[2018-04-20] MEDS ORDERED: DEXMEDETOMIDINE HCL 400 MCG in NS 100 ML IV SCH (17:30)
[2018-04-20] MEDS: oxyCODONE IR 5 MG TAB PO PRN (17:37)
[2018-04-20] MEDS: LORazepam 2 MG/ML INJ IVP SCH (18:18)
[2018-04-20] MEDS: LR 1,000 ML IV SCH (18:21)
[2018-04-20] MEDS: FAMOTIDINE 20 MG/NACL 50 ML IV SCH (21:20)
[2018-04-21] MEDS: LORazepam 2 MG/ML INJ IVP SCH ×3 (00:27→11:14)
--- NOTE | 2018-04-21 05:12 | CPEKG ---
Test Reason : OPEN Blood Pressure : / mmHG Vent. Rate : 148 BPM Atrial Rate : 149 BPM P-R Int : 111 ms QRS Dur : 092 ms QT Int : 276 ms P-R-T Axes : 027 -86 017 degrees QTc Int : 434 ms Sinus tachycardia Confirmed by Rayray Patrick ([id number]) on 04/21/2018 5:12:16 AM Referred By: Confirmed By:Rayray Patrick
[2018-04-21] MEDS: IPRATROPIUM/ALBUTEROL 3 ML DEYVIAL IH SCH ×3 (05:13→15:47)
[2018-04-21 07:07] LABS: INR 0.94 (0.83-1.16); PROTIME(PATIENT) 12.8 SEC (12.0-15.0)
[2018-04-21 07:10] LABS: PLATELET COUNT 87 10^3/uL (150-400)
[2018-04-21] MEDS: LR 1,000 ML IV SCH (07:55)
--- NOTE | 2018-04-21 08:21 | PDMN ---
Medical Necessity Medical necessity: Pt meets IP criteria as of 04/20/18 per MD and MCG M-100 (COPD ); los > 2 mn for ongoing tx and management of acute COPD exacerbation with possible pneumonia as well as ETOH withdrawal with sustained tachycardia; requiring IV ABX, ICU level care, CIWA protocol, precedex gtt, seizure precautions and therapies.
[2018-04-21] MEDS: MULTIVITAMINS 1 EACH TAB PO SCH (08:37)
[2018-04-21] MEDS: predniSONE 20 MG TAB PO SCH (08:37)
[2018-04-21] MEDS: FOLIC ACID 1 MG TAB PO SCH (08:37)
[2018-04-21] MEDS: ENOXAPARIN 40 MG/0.4 ML SYR SC SCH (08:37)
[2018-04-21] MEDS: THIAMINE HCL 100 MG TAB PO SCH (08:37)
[2018-04-21] MEDS: FAMOTIDINE 20 MG/NACL 50 ML IV SCH (08:38)
[2018-04-21] MEDS: oxyCODONE IR 5 MG TAB PO PRN ×3 (10:06→19:54)
[2018-04-21] MEDS: NICOTINE 21 MG/24 HR PATCH TD SCH (11:12)
[2018-04-21] MEDS ORDERED: MAGNESIUM SULF 1 GM/DEXTROSE 100 ML IV ONE (11:30)
--- NOTE | 2018-04-21 12:12 | HOSPPROG ---
Hospitalist Progress Note Objective: Vital Signs Temp Pulse Resp BP Pulse Ox 36.9 C 114 H 24 H 122/103 H 92 04/21/18 08:00 04/21/18 11:00 04/21/18 11:00 04/21/18 11:00 04/21/18 11:00 Laboratory Results 04/21/18 06:48 04/21/18 06:48 04/20/18 04/21/18 04/22/18 05:59 05:59 05:59 Intake Total 2870 Output Total 1150 Balance 1720 PT 12.8 SEC (12.0-15.0) 04/21/18 06:48 INR 0.94 (0.83-1.16) 04/21/18 06:48 ICD10 Worksheet Patient Problems: Problems Problem Status Onset Alcoholic intoxication Acute COPD exacerbation Acute Abdominal pain Acute Acute bronchitis Acute Alcohol withdrawal Acute Cellulitis of left foot Acute Dehydration Acute Fever Acute Mucus plugging of bronchi Acute Open wound of left foot Acute Respiratory failure Acute Right rib fracture Acute Sepsis Acute Tachycardia Acute
--- NOTE | 2018-04-21 12:15 | HOSPPROG ---
Hospitalist Progress Note Assessment/Plan: # etOH withdrawal - recent admit with w/d - required >12 mg IV Ativan yesterday, tx to ICU for precedex gtt - Weaned off of Precidex this morning - Continue IV Ativan scheduled q6 hours, transition to back to CIWA PRN later today vs. tomorrow - cont thiamine # pneumonia - continue to treat for bacterial pna given the degree with illness - cont levaquin (Day 05/06) # tachycardia - likely d/t sepsis as well as etOH w/d, possible hypovolemia; CTA neg for PE - improving - cont IVF # COPD with acute exacerbation - pred (Day 06/03) nebs, abx # adenoviros - supportive care, droplet precautions # acute hypoxic resp failure - d/t above - still very diminished air movement on exam and quite hypoxic # homeless Subjective: Patient reports feeling better this AM Objective: Vital Signs Temp Pulse Resp BP Pulse Ox 36.9 C 114 H 24 H 122/103 H 92 04/21/18 08:00 04/21/18 11:00 04/21/18 11:00 04/21/18 11:00 04/21/18 11:00 Laboratory Results 04/21/18 06:48 04/21/18 06:48 04/20/18 04/21/18 04/22/18 05:59 05:59 05:59 Intake Total 2870 Output Total 1150 Balance 1720 PT 12.8 SEC (12.0-15.0) 04/21/18 06:48 INR 0.94 (0.83-1.16) 04/21/18 06:48 - Physical Exam Constitutional: chronically ill appearing, unkempt Eyes: PERRL Ears, Nose, Mouth, Throat: moist mucous membranes Cardiovascular: regular rate and rhythym Respiratory: no respiratory distress Gastrointestinal: soft, non-tender abdomen Skin: normal color Musculoskeletal: full muscle strength Neurologic: AAOx3 Psychiatric: interacting appropriately ICD10 Worksheet Patient Problems: Problems Problem Status Onset Alcoholic intoxication Acute COPD exacerbation Acute Abdominal pain Acute Acute bronchitis Acute Alcohol withdrawal Acute Cellulitis of left foot Acute Dehydration Acute Fever Acute Mucus plugging of bronchi Acute Open wound of left foot Acute Respiratory failure Acute Right rib fracture Acute Sepsis Acute Tachycardia Acute
--- NOTE | 2018-04-21 14:09 | ASMTCMCOM ---
CM Note CM Note Notes: Patient has adenovirus which will need to be cleared before he can return to the [facility]. D/C plan remains [facility] with assist for transport. (bus pass). CM will follow. Date Signed: 04/21/2018 02:09 PM Electronically Signed By:Kenna Andre LCSW
[2018-04-21] MEDS: LORazepam 2 MG/ML INJ IVP PRN (16:08)
[2018-04-21] MEDS ORDERED: LORazepam 1 MG TAB PO ONE (17:10)
[2018-04-21] MEDS ORDERED: NS 500 ML IV ONE (17:21)
--- NOTE | 2018-04-21 18:02 | GHP ---
DATE OF ADMISSION: 04/20/2018 REASON FOR CONSULTATION: Pulmonary/Critical Care consultation for evaluation and management of pneumonia, tachycardia, and alcohol withdrawal. HISTORY OF PRESENT ILLNESS: Mr. Foreman is a 53-year-old homeless man who has a history of COPD and alcohol abuse, who was admitted 2 days ago with several days of body aches and fevers. He then developed increased shortness of breath and was found to be mildly hypoxemic when he was seen in the emergency department on April 18. He was diagnosed with pneumonia and admitted to the floor, but developed increased signs of alcohol withdrawal, and so was transferred to the intensive care unit last night and placed on a Precedex drip. This helped improve his symptoms and today he has had a reduced need for Ativan. He received about 15 mg of Ativan yesterday/last night, and just 6 mg so far today. He reports that he feels a bit of alcohol withdrawal, but feels that is fairly stable. He feels fairly poorly all over, complaining of chest congestion and dyspnea. PAST MEDICAL HISTORY: 1. COPD. 2. Hypertension. 3. Hepatitis C. 4. Alcohol abuse. MEDICATIONS: At time of admission included: Famotidine. Currently he is on: 1. Levofloxacin. 2. Ativan. 3. Oxycodone. 4. Prednisone. 5. Thiamine. ALLERGIES: Penicillin. SOCIAL HISTORY: The patient is homeless. He is a current smoker and daily drinker. FAMILY HISTORY: Unremarkable. REVIEW OF SYSTEMS: A 10-point review of systems adds nothing to the History of Present Illness. PHYSICAL EXAM: GENERAL: Patient is awake, alert, in no acute distress. VITAL SIGNS: Blood pressure 116/86, heart rate 153, up from 120 earlier today. Oxygen saturations are 93% on room air. HEENT: Normocephalic and atraumatic. No icterus. NECK: No JVD. Trachea is midline. CHEST: Some rales on the left and a few wheezes. CARDIAC: Regular. Tachycardic without murmur. ABDOMEN: Soft, nontender. Bowel sounds are present. EXTREMITIES: No clubbing, cyanosis , or edema. NEURO: The patient is awake and alert and oriented x3. He is mildly tremulous. He has no gross motor or sensory deficits. LABORATORY: Hemoglobin 18.5, up from 16.5. White blood count 7.2. Chemistry group is unremarkable. AST is 95. Procalcitonin was 0.17 at admission. D- dimer 1.3. Alcohol level was 412 at admission on the . CT scan of the chest showed no pulmonary emboli, left lingula pneumonia. Images reviewed by me. Respiratory panel from April 19 is positive for adenovirus. ASSESSMENT: 1. Viral pneumonia. The patient is positive for adenovirus and has an infiltrate on chest x-ray. This combined with his history of smoking and chronic obstructive pulmonary disease is causing some [id number]-hy-zhuxskuv respiratory distress, although his oxygen saturations are normal. He is currently on Levaquin to cover for bacterial superinfection. 2. Tachycardia. The patient has sinus tachycardia which has increased during the day today. This could be due to infection, hypovolemia, or alcohol withdrawal. He has not really responded to a dose of Ativan, and he does not seem to be escalating in terms of his alcohol withdrawal symptoms. 3. Alcohol withdrawal. The patient came in intoxicated and had significant withdrawal yesterday, improved requiring a fairly large amount of Ativan, as well as Precedex drip overnight. He is currently doing well on a low/moderate dose of Ativan. 4. History of chronic obstructive pulmonary disease. This patient does not seem to be having a severe chronic obstructive pulmonary disease exacerbation, but his underlying chronic obstructive pulmonary disease could be contributing to his dyspnea. RECOMMENDATIONS: 1. I will give an additional dose of 2 mg of oral Ativan to see if that helps his heart rate. Additionally, I will give him a 500 cc fluid boluses. 2. Continue albuterol nebulizers. 3. Nicotine patch for possible nicotine withdrawal. 4. Continue prednisone and thiamin. /[id number]/MODL MTDD
[2018-04-21] MEDS: FAMOTIDINE 20 MG TAB PO SCH (19:54)
[2018-04-22] MEDS: IPRATROPIUM/ALBUTEROL 3 ML DEYVIAL IH SCH ×2 (00:44→06:01)
[2018-04-22] MEDS: LORazepam 2 MG/ML INJ IVP PRN ×4 (05:04→20:32)
[2018-04-22] MEDS: oxyCODONE IR 5 MG TAB PO PRN ×2 (05:04→17:18)
[2018-04-22] MEDS: predniSONE 20 MG TAB PO SCH (08:03)
[2018-04-22] MEDS: MULTIVITAMINS 1 EACH TAB PO SCH (08:04)
[2018-04-22] MEDS: FOLIC ACID 1 MG TAB PO SCH (08:04)
[2018-04-22] MEDS: THIAMINE HCL 100 MG TAB PO SCH (08:04)
[2018-04-22] MEDS: FAMOTIDINE 20 MG TAB PO SCH ×2 (08:04→20:32)
[2018-04-22] MEDS: ENOXAPARIN 40 MG/0.4 ML SYR SC SCH (08:04)
[2018-04-22] MEDS: NICOTINE 21 MG/24 HR PATCH TD SCH (08:04)
[2018-04-22] MEDS ORDERED: IPRATROPIUM/ALBUTEROL 3 ML DEYVIAL IH PRN (10:30)
--- NOTE | 2018-04-22 12:54 | HOSPPROG ---
Hospitalist Progress Note Assessment/Plan: # etOH withdrawal - recent admit with w/d - required >12 mg IV Ativan on 04/20, tx to ICU for precedex gtt - Weaned off of Precidex on 04/21 - Continue IV Ativan scheduled q6 hours, transition to back to CIWA PRN when indicated - cont thiamine # pneumonia - continue to treat for bacterial pna given the degree with illness - cont levaquin (Day 06/03) # tachycardia - likely d/t sepsis as well as etOH w/d, possible hypovolemia; CTA neg for PE - improving - cont IVF # COPD with acute exacerbation - pred (Day 07/04) nebs, abx # adenoviros - supportive care, droplet precautions # acute hypoxic resp failure - d/t above - still very diminished air movement on exam # homeless Subjective: Patient reports no complaints this AM Objective: Vital Signs Temp Pulse Resp BP Pulse Ox 36.7 C 124 H 16 134/104 H 94 04/22/18 11:56 04/22/18 11:56 04/22/18 11:56 04/22/18 11:56 04/22/18 11:56 Laboratory Results 04/21/18 06:48 04/21/18 06:48 04/21/18 04/22/18 04/23/18 05:59 05:59 05:59 Intake Total 2870 1695 Output Total 1150 1050 Balance 1720 645 PT 12.8 SEC (12.0-15.0) 04/21/18 06:48 INR 0.94 (0.83-1.16) 04/21/18 06:48 - Physical Exam Constitutional: chronically ill appearing, unkempt Eyes: PERRL Ears, Nose, Mouth, Throat: moist mucous membranes Cardiovascular: tachycardia Respiratory: no respiratory distress, clear to auscultation Gastrointestinal: soft, non-tender abdomen Neurologic: AAOx3 Psychiatric: interacting appropriately ICD10 Worksheet Patient Problems: Problems Problem Status Onset Alcoholic intoxication Acute COPD exacerbation Acute Abdominal pain Acute Acute bronchitis Acute Alcohol withdrawal Acute Cellulitis of left foot Acute Dehydration Acute Fever Acute Mucus plugging of bronchi Acute Open wound of left foot Acute Respiratory failure Acute Right rib fracture Acute Sepsis Acute Tachycardia Acute
[2018-04-23] MEDS: oxyCODONE IR 5 MG TAB PO PRN ×4 (01:45→22:26)
--- NOTE | 2018-04-23 09:07 | HOSPPROG ---
Hospitalist Progress Note Assessment/Plan: #Acute Etoh w/d: no longer scoring on CIWA #Adenovirus with CAP: Day 07/04 Levaquin #HTN: start low-dose Norvasc #Unstable gait: suspect neuropathy due to Etoh. PT evaluating #Homelessness: CM assisting with custodial #DVT ppx: Lovenox #Disp: inpatient admission for PT; at risk for falls and subsequent harm Subjective: dizzy and unstable with standing and walking Objective: Vital Signs Temp Pulse Resp BP Pulse Ox 36.9 C 109 H 18 143/112 H 91 L 04/23/18 08:00 04/23/18 08:00 04/23/18 08:00 04/23/18 08:00 04/23/18 08:00 Laboratory Results 04/23/18 05:38 04/23/18 05:38 04/22/18 04/23/18 04/24/18 05:59 05:59 05:59 Intake Total 1695 400 Output Total 1050 Balance 645 400 PT 12.8 SEC (12.0-15.0) 04/21/18 06:48 INR 0.94 (0.83-1.16) 04/21/18 06:48 - Time Spent With Patient Time Spent with Patient: greater than 35 minutes Time Spent with Patient: Greater than 35 minutes spent on this patients care, greater than 50% of time spent counseling, educating, and coordinating care regarding the above mentioned plan. - Physical Exam Constitutional: no apparent distress Eyes: PERRL Ears, Nose, Mouth, Throat: moist mucous membranes Cardiovascular: regular rate and rhythym Respiratory: no respiratory distress, reduced air movement, No expiratory wheeze Gastrointestinal: normoactive bowel sounds Genitourinary: no bladder fullness Skin: warm Musculoskeletal: full muscle strength ICD10 Worksheet Patient Problems: Problems Problem Status Onset Alcoholic intoxication Acute COPD exacerbation Acute Abdominal pain Acute Acute bronchitis Acute Alcohol withdrawal Acute Cellulitis of left foot Acute Dehydration Acute Fever Acute Mucus plugging of bronchi Acute Open wound of left foot Acute Respiratory failure Acute Right rib fracture Acute Sepsis Acute Tachycardia Acute
[2018-04-23] MEDS ORDERED: LORazepam 1 MG TAB PO PRN (09:10)
[2018-04-23] MEDS: predniSONE 20 MG TAB PO SCH (09:52)
[2018-04-23] MEDS: FAMOTIDINE 20 MG TAB PO SCH ×2 (09:53→22:03)
[2018-04-23] MEDS: MULTIVITAMINS 1 EACH TAB PO SCH (09:53)
[2018-04-23] MEDS: THIAMINE HCL 100 MG TAB PO SCH (09:53)
[2018-04-23] MEDS: FOLIC ACID 1 MG TAB PO SCH (09:53)
[2018-04-23] MEDS: NICOTINE 21 MG/24 HR PATCH TD SCH (09:55)
[2018-04-23] MEDS: ENOXAPARIN 40 MG/0.4 ML SYR SC SCH (09:56)
[2018-04-23] MEDS: amLODIPine BESYLATE 5 MG TAB PO SCH (09:59)
[2018-04-23] MEDS ORDERED: hydrALAZINE 10 MG TAB PO PRN (18:09)
[2018-04-24] MEDS: oxyCODONE IR 5 MG TAB PO PRN ×2 (05:20→11:36)
[2018-04-24 08:25] VITALS: BP 152/108
[2018-04-24] MEDS: NICOTINE 21 MG/24 HR PATCH TD SCH (08:26)
[2018-04-24] MEDS: MULTIVITAMINS 1 EACH TAB PO SCH (08:26)
[2018-04-24] MEDS: FAMOTIDINE 20 MG TAB PO SCH (08:26)
[2018-04-24] MEDS: amLODIPine BESYLATE 5 MG TAB PO SCH (08:26)
[2018-04-24] MEDS: ENOXAPARIN 40 MG/0.4 ML SYR SC SCH (08:26)
[2018-04-24] MEDS: THIAMINE HCL 100 MG TAB PO SCH (08:26)
[2018-04-24] MEDS: FOLIC ACID 1 MG TAB PO SCH (08:26)
--- NOTE | 2018-04-24 13:32 | ASMTCMCOM ---
CM Note CM Note Notes: Met with pt, he has been cleared by PT for home. [facility] and just needs a bus pass. DC Plan: Residential Date Signed: 04/24/2018 01:32 PM Electronically Signed By:Zoraida Lewis RN
--- NOTE | 2018-04-24 15:37 | GDS ---
DISCHARGE DIAGNOSES: 1. Acute alcohol withdrawal. 2. Alcohol dependence. 3. Adenovirus with community-acquired pneumonia. 4. Hypertension. 5. Unstable gait. 6. Homelessness. HISTORY OF PRESENT ILLNESS: A 53-year-old male with alcohol dependence, untreated hypertension, presented with shortness of breath. He had a cough, shortness of breath, fevers for 4 days. In the ER, he was mildly hypoxic. CT- A negative for PE. Positive for adenovirus and community-acquired pneumonia. He completed 5 days of antibiotics. HOSPITAL COURSE: 1. Acute hypoxic hypoxemic respiratory failure: This was due to adenovirus and pneumonia. Is now stable on room air. 2. History of left foot osteomyelitis: no acute infection 3. Hypertension: started low-dose Norvasc. Follow up [facility]. 4. Alcohol withdrawal: Initially required ICU care and Precedex. Is now showing no symptoms. 5. Weakness: Was evaluated by PT. Mccullough for discharge. DISPOSITION: Patient is [facility] for [facility] with Case Management assistance. NEW MEDICATIONS: Norvasc 5 mg. FOLLOWUP: [facility]. PHYSICAL EXAMINATION: VITAL SIGNS: Today, temperature 37.0, blood pressure 152 /94, heart rate 100, respirations 18, 98% on room air. GENERAL: Sitting in bed in no acute distress. HEENT: PERRLA. Moist mucous membranes. CV: Regular rate and rhythm. LUNGS: Diminished, but no crackles or wheezing. ABDOMEN: Soft, nontender, nondistended. Positive bowel sounds. : No Chiu. MUSCULOSKELETAL: 5/5 strength. NEURO: 2 through 12 intact. No tremor or tongue fasciculation. TIME SPENT ON DISCHARGE: Greater than 30 minutes arranging discharge with Case Management and discussing medications with patient. /[id number]/MODL MTDD
== END 2018-04-24 12:59 | disposition home or self-care (01) | DRG 139 ==
LOC: EDUNIT# → INTOOBSV 04-19 00:20 → F3N 04-19 01:20 → OBSVTOIN 04-20 08:26 → F2N 04-20 18:05 → F3E 04-22 16:23
PROVIDERS: ADMIT Student in an Organized Health Care Education/Training Program; ATTEND Student in an Organized Health Care Education/Training Program
DX: J12.0 Adenoviral pneumonia (principal); J96.01 Acute respiratory failure with hypoxia; J44.9 Chronic obstructive pulmonary disease, unspecified; E86.9 Volume depletion, unspecified; F10.220 Alcohol dependence with intoxication, uncomplicated; Y90.8 Blood alcohol level of 240 mg/100 ml or more; F10.239 Alcohol dependence with withdrawal, unspecified; I10 Essential (primary) hypertension; R26.81 Unsteadiness on feet; K22.70 Barrett's esophagus without dysplasia; Z59.0 Homelessness; Z72.0 Tobacco use
CPT/HCPCS: 97116-GP; 97162-GP; 97166-GO; 97535-GO; G0378; G0480; J1650; J1956; J2060; J3475; J7512; J7613; Q9967

== ENCOUNTER 2018-05-05 01:50 | Inpatient (IN) | payer MEDICAID ==
--- NOTE | 2018-05-05 01:56 | EDPHY ---
H & P Time Seen by Provider: 05/05/18 01:55 HPI/ROS: HPI CHIEF COMPLAINT: Cough, "I feel sick" "I think I have PNA again" HISTORY OF PRESENT ILLNESS: 53-year-old male homeless, daily tobacco use daily alcohol as been drinking alcohol today, presents to the emergency room with cough. He states he feels sick. He thinks he may have pneumonia again. He arrives to the emergency room highly intoxicated with alcohol. Denies chest pain. Denies shortness of breath. Past Medical History: Significant medical history of alcohol abuse, daily alcohol use, kidney acquired pneumonia, hypertension, adenovirus Past Surgical History: No recent surgery Social History: Homeless, daily alcohol use, tobacco use. Family History: Noncontributory ROS REVIEW OF SYSTEMS: 10 Systems were reviewed and negative with the exception of the elements mentioned in the history of present illness. Exam Constitutional nontoxic but unkept triage nursing summary reviewed, vital signs reviewed, awake/alert. Vital signs reviewed. Eyes normal conjunctivae and sclera, EOMI, PERRLA. HENT normal inspection, atraumatic, moist mucus membranes, no epistaxis, neck supple/ no meningismus, no raccoon eyes. Respiratory faint wheezing on exam, clear to auscultation bilaterally, normal breath sounds, no respiratory distress, no wheezing. Cardiovascular rate normal, regular rhythm, no murmur, no edema, distal pulses normal. Gastrointestinal soft, non-tender, no rebound, no guarding, normal bowel sounds, no distension, no pulsatile mass. Genitourinary no CVA tenderness. Musculoskeletal no midline vertebral tenderness, full range of motion, no calf swelling, no tenderness of extremities, no meningismus, good pulses, neurovascularly intact. Skin pink, warm, & dry, no rash, skin atraumatic. Neurologic awake, alert and oriented x 3, AAOx3, moves all 4 extremities equally, motor intact, sensory intact, CN II-XII intact, normal cerebellar, normal vision, normal speech. Psychiatric normal mood/affect. Heme/Lymph/Immune no lymphadenopathy. Differential Diagnosis: Includes but is not limited to in a particular order viral syndrome, URI, pneumonia, bacterial pneumonia, reactive airway disease, bronchitis, COPD, alcohol intoxication, aspiration pneumonia Medical Decision Making: Plan for this patient IV establishment IV fluid bolus , DuoNeb breathing treatment, chest x-ray two view, basic blood work and re- evaluate. Re-evaluation: Serum alcohol level 332. 0328AM 0538AM: Patient here in the emergency room tachycardic. Hurt is been in the 120s persistently. EKG interpretation by me on record in [employer] system. Impression time of EKG 4:47 a.m., sinus tach 122, no signs of acute ischemia. Patient has persistent tachycardia. 120 to 130s despite 2 L of fluid. The patient is afebrile CT angiogram of the chest shows distal esophageal thickening circumferential. This was previously seen on previous CT scans. Given the patient's acute alcohol intoxication 330s, additionally ongoing tachycardia patient be admitted for observation for tachycardia. He is not going through any withdrawal at this time. Patient is not hypoxic. Consult the hospitalist service Dr. Walters agrees to admit. Source: Patient, EMS - Personal History Tetanus Vaccine Date: <10YRS - Medical/Surgical History Hx Asthma: No Hx Chronic Respiratory Disease: No Hx Diabetes: Yes Hx Cardiac Disease: No Hx Renal Disease: No Hx Cirrhosis: No Hx Alcoholism: Yes Hx HIV/AIDS: No Hx Splenectomy or Spleen Trauma: No Other PMH: ETOH, Hep C, lung and esophogeal cancer per pt report, barrets esophagus, smoker, COPD, HTN, left foot inf 12/2017 - Social History Smoking Status: Current every day smoker Constitutional: Initial Vital Signs Temperature (C) 36.5 C 05/05/18 01:55 Heart Rate 120 H 05/05/18 01:55 Respiratory Rate 18 05/05/18 01:55 Blood Pressure 136/115 H 05/05/18 01:55 O2 Sat (%) 92 05/05/18 01:55 O2 Delivery Mode Nasal Cannula O2 (L/minute) 2 Allergies/Adverse Reactions: penicillin Allergy (Verified 05/05/18 01:54) "Passed out" Home Medications: Medication Instructions Recorded Famotidine [Pepcid 20 MG (*)] 20 mg PO BID tab 02/15/18 Folic Acid [Folic Acid 1 MG (*)] 1 mg PO DAILY tab 02/15/18 amLODIPine BESYLATE [Norvasc 5 mg 5 mg PO DAILY #30 tab 04/24/18 (*)] Medical Decision Making - Diagnostics Imaging Results: Imaging Impressions Chest X-Ray 05/05/18 02:00 Impression: 1. Hypoventilation and minimal left basilar atelectasis. 2. Cleared lingular pneumonia since 3 weeks prior. Chest/Thorax CTA 05/05/18 04:13 Impression: 1. Circumferential wall thickening of the distal esophagus suggesting esophageal carcinoma or severe esophagitis. Recommend GI consult and upper endoscopy. 2. Moderate hiatal hernia. 3. No definite pulmonary thromboemboli. 4. Emphysema. 5. Mildly suspicious mediastinal adenopathy. 6. Improving left upper lobe pneumonia versus bronchiolitis. 7. Please see above findings. Preliminary report given by [facility] to Emergency Department physician, Kenneth Hedrick MD, at 0529 hours, 05/05/2018. Final report concurs with initial preliminary interpretation. - Data Points Laboratory Results: Laboratory Results 05/05/18 02:22 05/05/18 02:22 Medications Given: Albuterol/Ipratropium (Duoneb) 3 ml IH Q6HRS PRN PRN Reason: Short of Breath/Dyspnea Stop: 11/01/18 07:04 Last Admin: 05/05/18 11:03 Dose: 3 ml Budesonide (Budesonide 0.5mg/2ml Neb) 0.5 mg IH BID JOHAN Stop: 11/01/18 08:59 Last Admin: 05/05/18 20:57 Dose: 0.5 mg Sodium Chloride (Ns) 1,000 mls @ 125 mls/hr IV CONT JOHAN Stop: 11/01/18 06:44 Last Admin: 05/05/18 19:11 Dose: 1,000 mls Dexmedetomidine HCl 400 mcg/ (Sodium Chloride) 104 mls @ 0 mls/hr IV CONT JOHAN; Titrate PRN Reason: Protocol Stop: 11/01/18 17:29 Last Admin: 05/05/18 18:47 Dose: 104 mls Lorazepam (Ativan Injection) 0 mg IVP Q1H PRN; Protocol PRN Reason: Alcohol Withdrawal w/IV access Stop: 11/01/18 08:55 Last Admin: 05/05/18 17:18 Dose: 2 mg Prednisone (Prednisone) 60 mg PO DAILY JOHAN Stop: 11/01/18 08:59 Last Admin: 05/05/18 10:24 Dose: 60 mg Thiamine HCl (Vitamin B-1) 100 mg PO DAILY JOHAN Stop: 11/01/18 08:59 Last Admin: 05/05/18 10:23 Dose: 100 mg Discontinued Medications Albuterol/Ipratropium (Duoneb) 3 ml IH EDNOW ONE Stop: 05/05/18 02:01 Last Admin: 05/05/18 02:04 Dose: 3 ml Chlordiazepoxide HCl (Librium) 25 mg PO TID JOHAN Stop: 11/01/18 08:59 Last Admin: 05/05/18 15:37 Dose: 25 mg Sodium Chloride (Ns) 1,000 mls @ 0 mls/hr IV EDNOW ONE; Wide Open PRN Reason: Protocol Stop: 05/05/18 02:00 Last Admin: 05/05/18 02:04 Dose: 1,000 mls Sodium Chloride (Ns) 1,000 mls @ 0 mls/hr IV ONCE ONE PRN Reason: Wide Open Stop: 05/05/18 03:38 Last Admin: 05/05/18 03:44 Dose: 1,000 mls Departure - Departure Disposition: [facility] Acute Clinical Impression: Tachycardia Alcohol intoxication Qualifiers: Complication of substance-induced condition: uncomplicated Qualified Code(s): F10.920 - Alcohol use, unspecified with intoxication, uncomplicated Condition: Fair
[2018-05-05] MEDS ORDERED: NS 1,000 ML IV ONE ×2 (01:59→03:37)
[2018-05-05] MEDS ORDERED: IPRATROPIUM/ALBUTEROL 3 ML DEYVIAL IH ONE (02:00)
[2018-05-05 02:30] LABS: PLATELET COUNT 157 10^3/uL (150-400)
[2018-05-05] MEDS ORDERED: IOHEXOL 350mgI/ML (OMNIPAQUE) 150 ML BTL IV ONE (04:17)
[2018-05-05] MEDS ORDERED: ONDANSETRON 4 MG/2 ML VIAL IVP PRN (06:34)
[2018-05-05] MEDS ORDERED: LORazepam 0.5 MG TAB PO PRN (06:34)
[2018-05-05] MEDS ORDERED: ONDANSETRON DISINTEGRATING 4 MG TAB PO PRN (06:34)
[2018-05-05] MEDS ORDERED: IPRATROPIUM/ALBUTEROL 3 ML DEYVIAL IH PRN (07:05)
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
[2018-05-05] MEDS ORDERED: ALBUTEROL 3 ML DEYVIAL IH PRN (08:23)
[2018-05-05] MEDS ORDERED: FLUMAZENIL 0.5 MG/5 ML MDV IVP PRN (08:56)
[2018-05-05] MEDS: THIAMINE HCL 100 MG TAB PO SCH (10:23)
[2018-05-05] MEDS: chlordiazePOXIDE 25 MG CAP PO SCH ×2 (10:24→15:37)
[2018-05-05] MEDS: predniSONE 20 MG TAB PO SCH (10:24)
[2018-05-05] MEDS: LORazepam 2 MG/ML INJ IVP PRN ×3 (10:28→17:18)
--- NOTE | 2018-05-05 10:58 | ASMTCASEMG ---
Living Arrangements What is your living Answers: Alone arrangement? Who do you live with? Type Of Residence What kind of residence do Answers: Homeless you live in? Discharge Plan Comments Coordination Status Comments Notes: Patient is a 53yo single, homeless male who has a hx of ETOH dependence, COPD, Benedict's esophagus who presents with complaints of cough, shortness of breath, and thought to be tachycardic.No therapies ordered. Patient is currently OBS. Patient is not interested in stopping drinking at this time. Patient does not like the shelters and frequently stays outdoors and has concerns about frostbite. D/C plan TBD. CM will follow. Date Signed: 05/05/2018 10:57 AM Electronically Signed By:Kenna Andre LCSW
[2018-05-05] MEDS: BUDESONIDE 0.5 MG/2 ML AMPUL.NEB IH SCH ×2 (11:04→20:57)
--- NOTE | 2018-05-05 15:47 | WOCRNPDOC ---
WOCRN Advanced Assessment Note - Skin Integrity Problem, Advanced Assess Right Lateral Ankle Dressing Type: Open to Air Exudate Amount: None Ulises Wound Tissue: Erythema (to 5 cm ulises wound) Wound Bed Constitution: Unstable Eschar (100%) Site Measurement - Head-to-Toe Length X Width X Depth (cm): 1.2x1.2xeschar Pressure Injury Stage: Unstageable Pressure Injury Present on Admit: Yes Skin Integrity Problem Comment: This bony prominence lies against the bed when patient lies on his back and on his right side. He also crosses the right leg over the left and the bone lies against his shoes. Mildly fluctuant tissue under necrosis. It is tender. Will ask MD to visualize. Will moisten the eschar to see if there is any drainage from wound. No frostbite noted on feet. Wound care will follow.
--- NOTE | 2018-05-05 17:30 | HOSPPROG ---
Hospitalist Progress Note Assessment/Plan: 53 year old male with pmh of alcohol dependence, just here for PNA and etoh withdrawal 2 weeks ago, admitted wtih complaints of cough, shortness of breath, foot pain, and found to be tachycardic. Etoh withdrawal- patients last drink was last night at about 8 pm, drank a pint of vokda which he does daily. He has received librium 25 X2, and 8mg ativan today and still with heart rate which has been climbing, now up to 148. He is visibly tremulous, and appears to be worsening. -stop librium -will transfer to SDU and start precedex gtt which should help wtih both tachycardia and acute etoh withdrawal. Tachycardia (Acute) -This was present during last admission as well. CTA negative for PE, and CXR with improved/resolved lingular PNA. he is still mildly hypoxic on room air, but responds with low dose oxygen. I suspect he is actively withdrawing as he is severely tremulous on examination. COPD exacerbation - steroids, nebs, supplemental oxygen. Respiratory CPR order. Bronchiolitis - patient recently discharged last month with adenovirus and pneumonia. Hold off on antibiotics. Patient is afebrile no leukocytosis. Left foot wounds- wound care consulted who thinks patient has likely fungal infection but no active acute bacterial infection or frostbite. Fluids- saline, banana bag PPX-SCDs. lovenox Cor status-full Dispo - will likely require inpatient stay. Subjective: patient tremulous, mildly short of breath. foot hurts. Objective: Vital Signs Temp Pulse Resp BP Pulse Ox 37.6 C 132 H 18 137/88 H 94 05/05/18 15:29 05/05/18 15:29 05/05/18 15:29 05/05/18 15:29 05/05/18 15:29 Microbiology 05/05/18 09:50 Respiratory Panel (PCR) - Final Nasal, Sinus - [place] Viral Transport No Organism Detected By Pcr 05/04/18 05/05/18 05/06/18 05:59 05:59 05:59 Intake Total 2250 Output Total 1400 Balance 850 - Physical Exam Constitutional: other (appears anxious, tremulos and uncomfortable. ) Eyes: PERRL, anicteric sclera, EOMI Ears, Nose, Mouth, Throat: moist mucous membranes, hearing normal, ears appear normal, no oral mucosal ulcers Cardiovascular: tachycardia Respiratory: no rales or rhonchi, reduced air movement Gastrointestinal: normoactive bowel sounds, soft, non-tender abdomen, no palpable masses Genitourinary: no bladder fullness, no bladder tenderness, no renal bruits Skin: no rashes or abrasions, no fluctuance, no induration Musculoskeletal: full muscle strength, no muscle tenderness, normal joint ROM Neurologic: AAOx3, sensation intact bilaterally Psychiatric: anxious, other (oriented, but appears very anxious. ) Lymph, Heme, Immunologic: no cervical LAD, no supraclavicular LAD ICD10 Worksheet Patient Problems: Problems Problem Status Onset Alcoholic intoxication Acute Tachycardia Acute Abdominal pain Acute Acute bronchitis Acute Alcohol withdrawal Acute COPD exacerbation Acute Cellulitis of left foot Acute Dehydration Acute Fever Acute Mucus plugging of bronchi Acute Open wound of left foot Acute Respiratory failure Acute Right rib fracture Acute Sepsis Acute
[2018-05-05] MEDS: DEXMEDETOMIDINE HCL 400 MCG in NS 100 ML IV SCH (18:47)
[2018-05-05] MEDS: NS 1,000 ML IV SCH ×2 (19:11→23:42)
[2018-05-06] MEDS ORDERED: hydrALAZINE 20 MG/ML VIAL IVP PRN (00:32)
[2018-05-06] MEDS: DEXMEDETOMIDINE HCL 400 MCG in NS 100 ML IV SCH ×2 (00:36→08:04)
[2018-05-06] MEDS: LORazepam 2 MG/ML INJ IVP PRN ×3 (05:11→18:34)
[2018-05-06] MEDS: BUDESONIDE 0.5 MG/2 ML AMPUL.NEB IH SCH ×2 (09:03→20:40)
[2018-05-06 09:20] LABS: PLATELET COUNT 88 10^3/uL (150-400)
[2018-05-06] MEDS: predniSONE 20 MG TAB PO SCH (11:53)
[2018-05-06] MEDS: THIAMINE HCL 100 MG TAB PO SCH (11:53)
[2018-05-06] MEDS: LORazepam 2 MG/ML INJ IVP SCH ×2 (11:54→17:30)
[2018-05-06] MEDS ORDERED: LORazepam 1 MG TAB PO SCH (12:00)
--- NOTE | 2018-05-06 13:39 | GCON ---
[f rep st] CONSULTATION QA SOFTWARE TESTER CONSULTATION REASON FOR ADMISSION: Alcoholism, alcohol withdrawals and tachycardia. I was asked to see the patie nt in consultation by Dr. Sylvie Walters. Mr. Foreman is a 53-year-old white male with a past medical history of hypertension as well as chronic obstructive pulmonary disease. He also has a longstanding history of alcoholism. He was brought to the emergency room with complaints of cough. He has been seen recently in April of this year for an adenovirus pneumonia. There is no chest pain, pleuritic -type chest pain or angina equivalent. He denies any fever or night sweats. He has no appetite. REVIEW OF SYSTEMS: A 10-point review of systems was performed, negative, except for what is listed i n the HPI. PAST MEDICAL HISTORY: Significant for hypertension, chronic obstructive pulmonary disease, alcoholis m, bullous emphysema noted on CT and a recent adenovirus pneumonia. ALLERGIES: Penicillin. FAMILY HISTORY: Noncontributory. PAST SURGICAL HISTORY: He had ankle surgery, a toe incision and drainage and the EGD that showed Bar rett's esophagus. SOCIAL HISTORY: He is a 40+ pack-year smoker, continues to smoke. He drinks alcohol heavily. He is homeless. PHYSICAL EXAM: VITAL SIGNS: Blood pressure is 140/98, pulse 50, respirations 16, temperature 36.3. Oxygen saturation 93% on 2 liters. GENERAL: He is a well-developed 53-year-old male who is resting comfortably in no acute distress. HEENT: Eyes are PERRLA, EOMI. Throat shows no erythema. No ton sillar hypertrophy. NECK: Supple. There is no cervical adenopathy. CARDIAC: Heart is regular rat e and rhythm without murmurs or gallops. LUNGS: Diminished breath sounds but no wheeze. There is m ild prolongation of expiratory phase. ABDOMEN: Soft, nontender. Bowel sounds are present in all 4 quadrants. EXTREMITIES: No clubbing, cyanosis or edema. LABORATORIES: White count of 6.1, hemoglobin 14, hematocrit 44, MCV is 101, platelet count is 88. S odium 138, potassium 3.8, chloride 110, CO2 24, BUN 11, creatinine 0.6, glucose is 108. AST is eleva arminda at 219, ALT is elevated at 179. Urine toxicology screen is negative. Alcohol level was 332. CT angiogram of the chest reveals circumferential wall thickening in the distal esophagus, suggesting esophageal carcinoma or severe esophagitis; hiatal hernia; emphysema changes; improved left upper lo be pneumonia. RECOMMENDATIONS: 1. At this point, alcohol withdrawal per protocol. 2. Frequent nebulization treatments with both albuterol and Atrovent. 3. Wean FiO2 as tolerated. 4. Continue intravenous steroids as you are doing. 5. Close cardiovascular monitoring. 6. DVT and PE prophylaxis. 7. Stress ulcer prophylaxis. /[id number]/MODL
--- NOTE | 2018-05-06 14:11 | HOSPPROG ---
Hospitalist Progress Note Assessment/Plan: 53 year old male with pmh of alcohol dependence, just here for PNA and etoh withdrawal 2 weeks ago, admitted [facility] complaints of cough, shortness of breath, foot pain, and found to be tachycardic. Etoh withdrawal- transfer to SDU last night for tachycardia and acute alcohol withdrawal. Started on Precedex drip. Currently weaning down. -wean Precedex is able -Ativan -CIWA monitoring Tachycardia (Acute) -seems to have resolved with Precedex. This was present during last admission as well. CTA negative for PE, and CXR with improved/ resolved lingular PNA. he is still mildly hypoxic on room air, but responds with low dose oxygen. I suspect he is actively withdrawing as he is severely tremulous on examination. COPD exacerbation - steroids, nebs, supplemental oxygen. Respiratory therapy. Bronchiolitis - patient recently discharged last month with adenovirus and pneumonia. Hold off on antibiotics. Patient is afebrile no leukocytosis. Left foot wounds- wound care consulted who thinks patient has likely fungal infection but no active acute bacterial infection or frostbite. Fluids- saline, banana bag PPX-SCDs. lovenox Cor status-full Dispo - will likely require inpatient stay. Subjective: no complaints. breathing better. tired Objective: Vital Signs Temp Pulse Resp BP Pulse Ox 36.3 C 53 L 16 140/98 H 93 05/06/18 11:36 05/06/18 11:36 05/06/18 11:36 05/06/18 11:36 05/06/18 11:36 Microbiology 05/05/18 09:50 Respiratory Panel (PCR) - Final Nasal, Sinus - [place] Viral Transport No Organism Detected By Pcr Laboratory Results 05/06/18 09:08 05/06/18 10:05 05/05/18 05/06/18 05/07/18 05:59 05:59 05:59 Intake Total 6158 180 Output Total 1400 Balance 4758 180 - Physical Exam Constitutional: no apparent distress, appears nourished, not in pain Eyes: PERRL, anicteric sclera, EOMI Ears, Nose, Mouth, Throat: moist mucous membranes, hearing normal, ears appear normal, no oral mucosal ulcers Cardiovascular: regular rate and rhythym, no murmur, rub, or gallop Respiratory: no respiratory distress, no rales or rhonchi, clear to auscultation Gastrointestinal: normoactive bowel sounds, soft, non-tender abdomen, no palpable masses Genitourinary: no bladder fullness, no bladder tenderness, no renal bruits Skin: no rashes or abrasions, no fluctuance, no induration Musculoskeletal: full muscle strength, no muscle tenderness, normal joint ROM Neurologic: AAOx3, sensation intact bilaterally Psychiatric: interacting appropriately, not anxious, not encephalopathic, thought process linear Lymph, Heme, Immunologic: no cervical LAD, no supraclavicular LAD ICD10 Worksheet Patient Problems: Problems Problem Status Onset Alcoholic intoxication Acute Tachycardia Acute Abdominal pain Acute Acute bronchitis Acute Alcohol withdrawal Acute COPD exacerbation Acute Cellulitis of left foot Acute Dehydration Acute Fever Acute Mucus plugging of bronchi Acute Open wound of left foot Acute Respiratory failure Acute Right rib fracture Acute Sepsis Acute
--- NOTE | 2018-05-06 15:42 | PDMN ---
Medical Necessity Medical [place] [facility] [id number], 2 days: 53 yo admit to OBS for acute tachycardia, COPD exacerbation and bronchiolitis now in acute etoh w/ d w/ rising HR and severe tremors. Transferred to SDU for precedex drip and CIWA protocol. Change to IP status 05/06/18@1405 per MD order.
[2018-05-07] MEDS: DEXMEDETOMIDINE HCL 400 MCG in NS 100 ML IV SCH ×2 (00:25→12:45)
[2018-05-07] MEDS: LORazepam 2 MG/ML INJ IVP SCH ×4 (00:37→17:56)
[2018-05-07 06:31] LABS: PLATELET COUNT 116 10^3/uL (150-400)
[2018-05-07] MEDS: BUDESONIDE 0.5 MG/2 ML AMPUL.NEB IH SCH (08:12)
[2018-05-07] MEDS: predniSONE 20 MG TAB PO SCH (09:58)
[2018-05-07] MEDS: THIAMINE HCL 100 MG TAB PO SCH (09:58)
[2018-05-07] MEDS ORDERED: IPRATROPIUM/ALBUTEROL 3 ML DEYVIAL IH SCH (12:00)
--- NOTE | 2018-05-07 12:13 | PDINTPN ---
Supervisor Treating And Pumping Progress Note Assessment/Plan: Assessment/plan: * Alcoholism * Alcohol withdrawals-stable on CIWA protocol. CIWA score is low. 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 Subjective: Resting comfortably. No current complaints. Objective: Vital Signs Temp Pulse Resp BP Pulse Ox 36.7 C 76 20 159/109 H 95 05/07/18 07:52 05/07/18 10:30 05/07/18 08:13 05/07/18 10:30 05/07/18 10:30 Laboratory Results 05/07/18 06:16 05/07/18 06:16 05/06/18 05/07/18 05/08/18 05:59 05:59 05:59 Intake Total 547 Output Total 1525 Balance -978 - Time Spent With Patient Time Spent With Patient: 35 min of time spent with patient, over 1/2 involved with coordination of care or counseling. Case discussed with nursing Physical Exam - Physical Exam General Appearance: alert, no apparent distress EENT: PERRL/EOMI Neck: non-tender, full range of motion Respiratory: chest non-tender, lungs clear, prolonged expiration, No wheezing Cardiac/Chest: normal peripheral pulses, regular rate, rhythm Peripheral Pulses: 2+: carotid (R), carotid (L), femoral (R), femoral (L), dorsalis-pedis (R), dorsalis-pedis (L) Abdomen: normal bowel sounds, non-tender, soft Male Genitalia: deferred Rectal: deferred Skin: normal color, warm/dry Extremities: normal range of motion, non-tender, normal inspection, normal capillary refill Neuro/Psych: alert ICD10 Worksheet Patient Problems: Problems Problem Status Onset Alcoholic intoxication Acute Tachycardia Acute Abdominal pain Acute Acute bronchitis Acute Alcohol withdrawal Acute COPD exacerbation Acute Cellulitis of left foot Acute Dehydration Acute Fever Acute Mucus plugging of bronchi Acute Open wound of left foot Acute Respiratory failure Acute Right rib fracture Acute Sepsis Acute
--- NOTE | 2018-05-07 14:35 | WOCRNPDOC ---
WOCRN Advanced Assessment Note - Skin Integrity Problem, Advanced Assess Left Medial First Metatarsal Head Diabetic Ulcer Dressing Type: Tegaderm Film Dressing Description: Clean/Dry, Intact Exudate Amount: None Integumentary Issue Intervention: Dressing Changed, Silver Gel Applied, Mechanical Debridement Gretta Wound Tissue: Macerated (moderate), Calloused Wound Bed Constitution: Granulation Tissue (100%) Wound Edges: Not Attached, Thick Site Measurement - Head-to-Toe Length X Width X Depth (cm): 0.5x1x0.3 Skin Integrity Problem Comment: Open area that is healing, but the skin surrounding it is thick and calloused. Much of it was mechanically removed as it was macerated and soft. Collagen added to wound care protocol to continue to encourage healing. Wound care will follow. [place] visualized wound. Right Lateral Ankle Dressing Type: Tegaderm Absorbant Dressing Description: Clean/Dry, Intact Exudate Amount: None Gretta Wound Tissue: Erythema, Painful/Tender Gretta Wound Swelling: Severe Pressure Injury Stage: Unstageable Pressure Injury Present on Admit: Yes Skin Integrity Problem Comment: Area with necrosis under a layer of skin. Visually it looks like a DTI, however it is thick and calloused to palpation. It is moderately tender and feels somewhat soft around the darker area of tissue. Asked hospitalist to visualize. Covered area with Allevyn life for protection. Wound care will follow.
[2018-05-07] MEDS: ACETAMINOPHEN 325 MG TAB PO PRN (15:27)
--- NOTE | 2018-05-07 15:27 | HOSPPROG ---
Hospitalist Progress Note Assessment/Plan: 53 year old male with pmh of alcohol dependence, just here for PNA and etoh withdrawal 2 weeks ago, admitted [facility] complaints of cough, shortness of breath, foot pain, and found to be tachycardic and in acute withdrawal and COPD exacerbation Etoh withdrawal- transfer to for tachycardia and acute alcohol withdrawal. Started on Precedex drip. Currently weaning down. still requiring 0.4 today but low CIWA scores. -wean Precedex is able -Ativan -CIWA monitoring -thiamine, folic acid, mvi Tachycardia (Acute) -seems to have resolved with Precedex. This was present during last admission as well. CTA negative for PE, and CXR with improved/ resolved lingular PNA. he is still mildly hypoxic on room air, but responds with low dose oxygen. likely related to withdrawal. COPD exacerbation - getting prednisone 60, budesonide, and nebs. today off oxygen -titrate down to 40mg prednisone, complete 5 day burst (total) Bronchiolitis - patient recently discharged last month with adenovirus and pneumonia. Hold off on antibiotics. Patient is afebrile no leukocytosis. Left foot wounds- wound care consulted who thinks patient has likely fungal infection but no active acute bacterial infection or frostbite. has an area of black tissue under right malleolus that is tender. will X ray Fluids- saline, banana bag PPX-SCDs. lovenox Cor status-full Dispo - inpatient SDU until off precedex. Subjective: tired. breathing better. pain better as well. Objective: Vital Signs Temp Pulse Resp BP Pulse Ox 36.4 C 102 H 23 H 129/96 H 94 05/07/18 12:00 05/07/18 14:33 05/07/18 12:00 05/07/18 14:33 05/07/18 12:00 Laboratory Results 05/07/18 06:16 05/07/18 06:16 05/06/18 05/07/18 05/08/18 05:59 05:59 05:59 Intake Total 547 Output Total 1525 Balance -978 - Physical Exam Constitutional: no apparent distress, appears nourished, not in pain, unkempt Eyes: PERRL, anicteric sclera, EOMI Ears, Nose, Mouth, Throat: moist mucous membranes, hearing normal, ears appear normal, no oral mucosal ulcers Cardiovascular: regular rate and rhythym, no murmur, rub, or gallop Respiratory: no respiratory distress, no rales or rhonchi, clear to auscultation Gastrointestinal: normoactive bowel sounds, soft, non-tender abdomen, no palpable masses Genitourinary: no bladder fullness, no bladder tenderness, no renal bruits Skin: no rashes or abrasions, no fluctuance, no induration Musculoskeletal: full muscle strength, no muscle tenderness, normal joint ROM Neurologic: AAOx3, sensation intact bilaterally Psychiatric: interacting appropriately, not anxious, not encephalopathic, thought process linear Lymph, Heme, Immunologic: no cervical LAD, no supraclavicular LAD ICD10 Worksheet Patient Problems: Problems Problem Status Onset Alcoholic intoxication Acute Tachycardia Acute Abdominal pain Acute Acute bronchitis Acute Alcohol withdrawal Acute COPD exacerbation Acute Cellulitis of left foot Acute Dehydration Acute Fever Acute Mucus plugging of bronchi Acute Open wound of left foot Acute Respiratory failure Acute Right rib fracture Acute Sepsis Acute
--- NOTE | 2018-05-07 16:45 | CPEKG ---
Test Reason : OPEN Blood Pressure : / mmHG Vent. Rate : 136 BPM Atrial Rate : 136 BPM P-R Int : 132 ms QRS Dur : 099 ms QT Int : 299 ms P-R-T Axes : 045 260 041 degrees QTc Int : 450 ms Sinus tachycardia Markedly posterior QRS axis Consider right ventricular hypertrophy Confirmed by Bry Hernandez ([id number]) on 05/07/2018 4:44:40 PM Referred By: Sylvie Walters Confirmed By:Bry Hernandez
[2018-05-07] MEDS ORDERED: IBUPROFEN 200 MG TAB PO ONE (17:27)
[2018-05-07] MEDS: FAMOTIDINE 20 MG TAB PO SCH (20:00)
[2018-05-08] MEDS: LORazepam 2 MG/ML INJ IVP SCH ×5 (00:13→23:54)
[2018-05-08] MEDS: IBUPROFEN 200 MG TAB PO PRN (03:07)
[2018-05-08] MEDS: predniSONE 20 MG TAB PO SCH (09:07)
[2018-05-08] MEDS: FOLIC ACID 1 MG TAB PO SCH (09:08)
[2018-05-08] MEDS: amLODIPine BESYLATE 5 MG TAB PO SCH (09:09)
[2018-05-08] MEDS: FAMOTIDINE 20 MG TAB PO SCH ×2 (09:09→21:00)
[2018-05-08] MEDS: DEXMEDETOMIDINE HCL 400 MCG in NS 100 ML IV SCH ×2 (09:09→23:58)
[2018-05-08] MEDS: THIAMINE HCL 100 MG TAB PO SCH (09:09)
[2018-05-08] MEDS: ACETAMINOPHEN 325 MG TAB PO PRN (09:13)
--- NOTE | 2018-05-08 09:33 | PDINTPN ---
Flight Operations Coordinator Progress Note Assessment/Plan: Assessment/plan: * Alcoholism * Alcohol withdrawals-stable on CIWA protocol. CIWA score is low. 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 Subjective: Sitting up in bed. Good appetite. Complains of ankle pain. Objective: Vital Signs Temp Pulse Resp BP Pulse Ox 36.7 C 82 19 116/85 H 95 05/08/18 07:41 05/08/18 07:41 05/08/18 07:41 05/08/18 09:09 05/08/18 07:41 Laboratory Results 05/08/18 07:00 05/08/18 05:12 05/07/18 05/08/18 05/09/18 05:59 05:59 05:59 Intake Total 547 1204.3 Output Total 1525 1150 Balance -978 54.3 - Time Spent With Patient Time Spent With Patient: 35 min of time spent with patient, over 1/2 involved with coordination of care or counseling. Case discussed with nursing Physical Exam - Physical Exam General Appearance: alert, mild distress EENT: PERRL/EOMI Neck: non-tender, supple Respiratory: chest non-tender, lungs clear, normal breath sounds Cardiac/Chest: normal peripheral pulses, regular rate, rhythm Peripheral Pulses: 2+: carotid (R), carotid (L), femoral (R), femoral (L), dorsalis-pedis (R), dorsalis-pedis (L) Abdomen: normal bowel sounds, non-tender, soft Male Genitalia: deferred Rectal: deferred Skin: normal color, warm/dry Extremities: normal inspection, No non-tender (Left ankle) Neuro/Psych: no motor/sensory deficits, alert, normal mood/affect, oriented x 3 ICD10 Worksheet Patient Problems: Problems Problem Status Onset Alcoholic intoxication Acute Tachycardia Acute Abdominal pain Acute Acute bronchitis Acute Alcohol withdrawal Acute COPD exacerbation Acute Cellulitis of left foot Acute Dehydration Acute Fever Acute Mucus plugging of bronchi Acute Open wound of left foot Acute Respiratory failure Acute Right rib fracture Acute Sepsis Acute
[2018-05-08] MEDS: LORazepam 2 MG/ML INJ IVP PRN (12:23)
[2018-05-08] MEDS: traMADol 50 MG TAB PO PRN (13:27)
--- NOTE | 2018-05-08 14:23 | HOSPPROG ---
Hospitalist Progress Note Assessment/Plan: 53 year old male with pmh of alcohol dependence, just here for PNA and etoh withdrawal 2 weeks ago, admitted [facility] complaints of cough, shortness of breath, foot pain, and found to be tachycardic and in acute withdrawal and COPD exacerbation Etoh withdrawal-Initially on floor but required transfer to SDU for precedex. Now on very low dose precedex at 0.2. CIWA scores low. -stop precedex -Ativan -CIWA monitoring -thiamine, folic acid, mvi Tachycardia (Acute) -seems to have resolved with Precedex and resolution of withdrawal. This was present during last admission as well. CTA negative for PE , and CXR with improved/resolved lingular PNA. COPD exacerbation - Initially on pred 60, titrated down to 40, and will complete five day burst of prednisone on Tuesday 05/09. He is no longer hypoxic on room air and is without wheezes. -titrate down to 40mg prednisone, complete 5 day burst (total, stop date 05/09) Left foot wounds- wound care consulted, No infection or tobin bite. Fluids- saline Lytes- WNL Nutrtioin- Regular PPX-SCDs. lovenox Cor status-full Dispo - inpatient for copd exacerbation, etoh withdrawal. Subjective: no shortness of breath. No pain. tired of being in hospital Objective: Vital Signs Temp Pulse Resp BP Pulse Ox 37.1 C 131 H 19 121/90 H 94 05/08/18 11:34 05/08/18 12:22 05/08/18 11:34 05/08/18 11:34 05/08/18 11:34 Laboratory Results 05/08/18 07:00 05/08/18 05:12 05/07/18 05/08/18 05/09/18 05:59 05:59 05:59 Intake Total 547 1204.3 Output Total 1525 1150 Balance -978 54.3 - Physical Exam Constitutional: no apparent distress, appears nourished, not in pain Eyes: PERRL, anicteric sclera, EOMI Ears, Nose, Mouth, Throat: moist mucous membranes, hearing normal, ears appear normal, no oral mucosal ulcers Cardiovascular: regular rate and rhythym, no murmur, rub, or gallop Respiratory: no respiratory distress, no rales or rhonchi, clear to auscultation Gastrointestinal: normoactive bowel sounds, soft, non-tender abdomen, no palpable masses Genitourinary: no bladder fullness, no bladder tenderness, no renal bruits Skin: no rashes or abrasions, no fluctuance, no induration Musculoskeletal: full muscle strength, no muscle tenderness, normal joint ROM Neurologic: AAOx3, sensation intact bilaterally Psychiatric: poor insight, poor judgement Lymph, Heme, Immunologic: no cervical LAD, no supraclavicular LAD ICD10 Worksheet Patient Problems: Problems Problem Status Onset Alcoholic intoxication Acute Tachycardia Acute Abdominal pain Acute Acute bronchitis Acute Alcohol withdrawal Acute COPD exacerbation Acute Cellulitis of left foot Acute Dehydration Acute Fever Acute Mucus plugging of bronchi Acute Open wound of left foot Acute Respiratory failure Acute Right rib fracture Acute Sepsis Acute
--- NOTE | 2018-05-08 14:37 | ASMTCMCOM ---
CM Note CM Note Notes: Pts case discussed w/ Dr. Garza. PT is recommending SNF. CM met w/ pt for dispo planning. Pt is agreeable to going to SNF and staying 30 days. CM started ultc-100 and submitted it to [facility]. A copy of the ultc-100 is in pts chart. CM sent multiple referrals. CM to follow. Plan: SNF Date Signed: 05/08/2018 02:36 PM Electronically Signed By:CALE Corrigan
[2018-05-09 05:41] LABS: PLATELET COUNT 104 10^3/uL (150-400)
[2018-05-09] MEDS: LORazepam 2 MG/ML INJ IVP SCH ×3 (06:17→17:57)
[2018-05-09] MEDS: FOLIC ACID 1 MG TAB PO SCH (08:53)
[2018-05-09] MEDS: FAMOTIDINE 20 MG TAB PO SCH ×2 (08:53→23:36)
[2018-05-09] MEDS: THIAMINE HCL 100 MG TAB PO SCH (08:53)
[2018-05-09] MEDS: amLODIPine BESYLATE 5 MG TAB PO SCH (08:54)
--- NOTE | 2018-05-09 09:42 | HOSPPROG ---
Hospitalist Progress Note Assessment/Plan: 53 year old male with pmh of alcohol dependence, just here for PNA and etoh withdrawal 2 weeks ago, admitted wt complaints of cough, shortness of breath, foot pain, and found to be tachycardic and in acute withdrawal and COPD exacerbation DIAGNOSES: *Etoh withdrawal-Initially on floor but required transfer to SDU for precedex. -still attempting to wean off Precedex this morning, ongoing CIWA monitoring -Ativan scheduled -thiamine, folic acid, mvi *Sinus Tachycardia (Acute) -likely due to alcohol withdrawal, however this was present during last admission as well. -CTA negative for PE *Community-acquired pneumonia, left lingula *COPD exacerbation - Initially on pred 60, titrated down to 40, and will complete five day burst of prednisone on Tuesday 05/09. -He is no longer hypoxic on room air and is without wheezes. -titrate down to 40mg prednisone, complete 5 day burst (total, stop date 05/09) *chronic leg pain, states he buys OxyContin on the street -has made daily requests for prescription of narcotic here, have informed him that this is not clinically indicated and that by narcotics as the street is dangerous and he should stop *Left foot wounds- wound care consulted, No infection or tobin bite. *hypokalemia needing replacement *thrombocytopenia from alcohol *mild alcoholic hepatitis improving here Seen by me today on hospitalist rounds as well as multidisciplinary rounds SUBJECTIVE: Not short of breath, very difficult balance and strength and had difficulty walking yesterday afternoon has not tried yet today Complains of ongoing chronic leg pain and yet again makes a request for us to prescribe narcotic OBJECTIVE Vitals reviewed: Still tachycardia with pulse 105 and some HTN otherwise normal vital signs without fever Cell Feed Department Supervisor, my review: Sinus tach Not hypoxic on room air at this time Exam: alert oriented somewhat anxious mild tremor skin warm dry color ok resps not labored on room air lungs clear BSs no wheeze rales or rhonchi heart regular abd soft nondistended nontender, bowel sounds present limbs warm, no edema, wounds unchanged iv site ok Lab data: Potassium low at 3.2 Renal function stable Liver enzymes improving Stable mild thrombocytopenia otherwise unremarkable CBC Objective: Vital Signs Temp Pulse Resp BP Pulse Ox 36.6 C 77 16 118/93 H 94 05/09/18 07:15 05/09/18 07:15 05/09/18 07:15 05/09/18 08:54 05/09/18 07:15 Laboratory Results 05/09/18 05:14 05/09/18 05:14 05/08/18 05/09/18 05/10/18 06:59 06:59 06:59 Intake Total 1204.3 404 Output Total 1150 1400 500 Balance 54.3 -996 -500 - Time Spent With Patient Time Spent with Patient: greater than 35 minutes Time Spent with Patient: Greater than 35 minutes spent on this patients care, greater than 50% of time spent counseling, educating, and coordinating care regarding the above mentioned plan. ICD10 Worksheet Patient Problems: Problems Problem Status Onset Alcoholic intoxication Acute Tachycardia Acute Abdominal pain Acute Acute bronchitis Acute Alcohol withdrawal Acute COPD exacerbation Acute Cellulitis of left foot Acute Dehydration Acute Fever Acute Mucus plugging of bronchi Acute Open wound of left foot Acute Respiratory failure Acute Right rib fracture Acute Sepsis Acute
--- NOTE | 2018-05-09 09:53 | PDINTPN ---
Quality Assurance Group Leader Progress Note Assessment/Plan: Assessment/plan: * Alcoholism * Alcohol withdrawals-stable on CIWA protocol. CIWA score is low. 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 Subjective: Working with PT. Breathlessness controlled. Denies any pain. Objective: Vital Signs Temp Pulse Resp BP Pulse Ox 36.6 C 77 16 118/93 H 94 05/09/18 07:15 05/09/18 07:15 05/09/18 07:15 05/09/18 08:54 05/09/18 07:15 Laboratory Results 05/09/18 05:14 05/09/18 05:14 05/08/18 05/09/18 05/10/18 05:59 05:59 05:59 Intake Total 1204.3 404 Output Total 1150 1400 500 Balance 54.3 -996 -500 Laboratory Results 05/09/18 05:14 05/09/18 05:14 05/09/18 05:14 AST 61 IU/L H IU/L (17 - 59) ALT 109 IU/L H IU/L (21 - 72) Alkaline Phosphatase 67 IU/L IU/L (38 - 126) Total Protein 6.4 g/dL g/dL (6.3 - 8.2) Albumin 3.3 g/dL L g/dL (3.5 - 5.0) - Time Spent With Patient Time Spent With Patient: 35 min of time spent with patient, over 1/2 involved with coordination of care or counseling. Case discussed with physical therapy and nursing Physical Exam - Physical Exam General Appearance: alert, no apparent distress EENT: PERRL/EOMI Neck: non-tender, supple Respiratory: prolonged expiration, No respiratory distress, No wheezing Cardiac/Chest: normal peripheral pulses, regular rate, rhythm Abdomen: normal bowel sounds, non-tender, soft Male Genitalia: deferred Rectal: deferred Skin: normal color, warm/dry Extremities: normal range of motion, non-tender, normal inspection, normal capillary refill Neuro/Psych: alert ICD10 Worksheet Patient Problems: Problems Problem Status Onset Alcoholic intoxication Acute Tachycardia Acute Abdominal pain Acute Acute bronchitis Acute Alcohol withdrawal Acute COPD exacerbation Acute Cellulitis of left foot Acute Dehydration Acute Fever Acute Mucus plugging of bronchi Acute Open wound of left foot Acute Respiratory failure Acute Right rib fracture Acute Sepsis Acute
--- NOTE | 2018-05-09 11:21 | ASMTCMCOM ---
CM Note CM Note Notes: Multiple facilities have said no to SNF admission. [facility] and [facility] are interested but need more information. Awaiting [facility] response. CM will follow. Date Signed: 05/09/2018 11:21 AM Electronically Signed By:Kenna Andre LCSW
[2018-05-09] MEDS: traMADol 50 MG TAB PO PRN (11:22)
[2018-05-09] MEDS: DEXMEDETOMIDINE HCL 400 MCG in NS 100 ML IV SCH (16:14)
[2018-05-10] MEDS: LORazepam 2 MG/ML INJ IVP SCH ×3 (01:00→11:50)
[2018-05-10] MEDS: DEXMEDETOMIDINE HCL 400 MCG in NS 100 ML IV SCH (05:43)
[2018-05-10] MEDS: THIAMINE HCL 100 MG TAB PO SCH (08:23)
[2018-05-10] MEDS: FAMOTIDINE 20 MG TAB PO SCH ×2 (08:23→20:04)
[2018-05-10] MEDS: amLODIPine BESYLATE 5 MG TAB PO SCH (08:23)
[2018-05-10] MEDS: FOLIC ACID 1 MG TAB PO SCH (08:23)
--- NOTE | 2018-05-10 09:46 | PDINTPN ---
Magnetic Tape Composer Operator Progress Note Assessment/Plan: Assessment/plan: * Alcoholism * Alcohol withdrawals-stable on CIWA protocol. CIWA score is low. 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 Subjective: Sitting up in bed. Resting comfortably. Complains of some dizziness. Objective: Vital Signs Temp Pulse Resp BP Pulse Ox 36.4 C 77 15 132/97 H 93 05/10/18 07:55 05/10/18 07:55 05/10/18 07:55 05/10/18 08:23 05/10/18 07:55 Laboratory Results 05/09/18 05:14 05/09/18 05:14 05/09/18 05/10/18 05/11/18 05:59 05:59 05:59 Intake Total 404 2646.6 Output Total 1400 1500 Balance -996 1146.6 - Time Spent With Patient Time Spent With Patient: 35 min of time spent with patient, over 1/2 involved with coordination of care or counseling. Case discussed with nursing Physical Exam - Physical Exam General Appearance: alert, no apparent distress EENT: PERRL/EOMI Neck: non-tender, supple Respiratory: chest non-tender, lungs clear, normal breath sounds, prolonged expiration Cardiac/Chest: normal peripheral pulses, regular rate, rhythm, systolic murmur Peripheral Pulses: 2+: carotid (R), carotid (L), femoral (R), femoral (L), dorsalis-pedis (R), dorsalis-pedis (L) Abdomen: normal bowel sounds, non-tender, soft Male Genitalia: deferred Rectal: deferred Skin: normal color, warm/dry Extremities: normal range of motion, non-tender, normal inspection, normal capillary refill Neuro/Psych: alert ICD10 Worksheet Patient Problems: Problems Problem Status Onset Alcoholic intoxication Acute Tachycardia Acute Abdominal pain Acute Acute bronchitis Acute Alcohol withdrawal Acute COPD exacerbation Acute Cellulitis of left foot Acute Dehydration Acute Fever Acute Mucus plugging of bronchi Acute Open wound of left foot Acute Respiratory failure Acute Right rib fracture Acute Sepsis Acute
--- NOTE | 2018-05-10 13:42 | HOSPPROG ---
Hospitalist Progress Note Assessment/Plan: 53-year-old homeless alcoholic man is admitted with cough and shortness of breath. Found to have lingular pneumonia complicated by acute alcoholic withdrawal. # alcoholism with acute alcohol withdrawal. Stable on CIWA protocol. Precedex has been weaned off and currently on Ativan and Librium. * CIWA score is low, however he is tachycardic I will monitor him in the Step- Down Unit since he lost his IV access until we are sure he is stable for transfer off IV medications. * Transfer to [facility] when stable on p.o. Medications # right upper lobe resolving pneumonia noted on CT angiogram, patient not hypoxic and not currently coughing will hold on antibiotics # thickening of distal esophagus. Patient at risk for severe esophagitis given his alcoholism. Will have him follow up as an outpatient with GI once he is over this acute withdrawal. He needs follow-up with a primary care provider i.e. [facility]. * Start oral PPI until follow-up # hypertension, patient noncompliant with medications as outpatient will treat here in the hospital # COPD Subjective: Patient new to me and chart reviewed, discussed in multidisciplinary rounds feels okay no specific complaints. Calm and appropriate oriented x2 Objective: Vital Signs Temp Pulse Resp BP Pulse Ox 36.4 C 112 H 20 103/79 96 05/10/18 07:55 05/10/18 11:58 05/10/18 11:58 05/10/18 11:58 05/10/18 11:58 Laboratory Results 05/09/18 05:14 05/09/18 05:14 05/09/18 05/10/18 05/11/18 05:59 05:59 05:59 Intake Total 404 2646.6 Output Total 1400 1500 450 Balance -996 1146.6 -450 - Physical Exam Constitutional: no apparent distress, not in pain Eyes: PERRL Ears, Nose, Mouth, Throat: moist mucous membranes Cardiovascular: regular rate and rhythym, tachycardia Respiratory: no respiratory distress, clear to auscultation, reduced air movement Gastrointestinal: soft, non-tender abdomen Genitourinary: no bladder fullness Skin: warm Neurologic: No AAOx3 Psychiatric: interacting appropriately ICD10 Worksheet Patient Problems: Problems Problem Status Onset Alcoholic intoxication Acute Tachycardia Acute Abdominal pain Acute Acute bronchitis Acute Alcohol withdrawal Acute COPD exacerbation Acute Cellulitis of left foot Acute Dehydration Acute Fever Acute Mucus plugging of bronchi Acute Open wound of left foot Acute Respiratory failure Acute Right rib fracture Acute Sepsis Acute
[2018-05-10] MEDS: LORazepam 1 MG TAB PO PRN (20:04)
[2018-05-10] MEDS: traMADol 50 MG TAB PO PRN (21:53)
[2018-05-11] MEDS: amLODIPine BESYLATE 5 MG TAB PO SCH (08:23)
[2018-05-11] MEDS: traMADol 50 MG TAB PO PRN ×2 (08:23→14:54)
[2018-05-11] MEDS: THIAMINE HCL 100 MG TAB PO SCH (08:23)
[2018-05-11] MEDS: FAMOTIDINE 20 MG TAB PO SCH (08:23)
[2018-05-11] MEDS: FOLIC ACID 1 MG TAB PO SCH (08:24)
[2018-05-11] MEDS ORDERED: LORazepam 1 MG TAB PO SCH (09:00)
[2018-05-11] MEDS ORDERED: LORazepam 2 MG/ML INJ IVP SCH (09:00)
--- NOTE | 2018-05-11 09:37 | PDINTPN ---
Chief Business Development Officer Progress Note Assessment/Plan: Assessment/plan: * Alcoholism * Alcohol withdrawals-stable on CIWA protocol. CIWA score is low. -off Precedex. 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 Resting comfortably. Awake and alert. Complains of some dizziness with ambulation Objective: Vital Signs Temp Pulse Resp BP Pulse Ox 36.7 C 110 H 18 133/95 H 94 05/11/18 08:00 05/11/18 08:00 05/11/18 08:00 05/11/18 08:23 05/11/18 08:00 Laboratory Results 05/09/18 05:14 05/09/18 05:14 05/10/18 05/11/18 05/12/18 05:59 05:59 05:59 Intake Total 2646.6 2976 Output Total 1500 1000 400 Balance 1146.6 1976 -400 - Time Spent With Patient Time Spent With Patient: 35 min of time spent with patient, over 1/2 involved coordination of care counseling. Case discussed with nursing Physical Exam - Physical Exam General Appearance: alert, no apparent distress EENT: PERRL/EOMI Neck: non-tender, supple Respiratory: prolonged expiration, No respiratory distress, No wheezing Cardiac/Chest: normal peripheral pulses, regular rate, rhythm, systolic murmur Abdomen: normal bowel sounds, non-tender, soft Male Genitalia: deferred Rectal: deferred Skin: normal color, warm/dry Extremities: normal range of motion, non-tender, normal inspection, normal capillary refill Neuro/Psych: alert ICD10 Worksheet Patient Problems: Problems Problem Status Onset Alcoholic intoxication Acute Tachycardia Acute Abdominal pain Acute Acute bronchitis Acute Alcohol withdrawal Acute COPD exacerbation Acute Cellulitis of left foot Acute Dehydration Acute Fever Acute Mucus plugging of bronchi Acute Open wound of left foot Acute Respiratory failure Acute Right rib fracture Acute Sepsis Acute
[2018-05-11 10:08] LABS: PLATELET COUNT 140 10^3/uL (150-400)
--- NOTE | 2018-05-11 10:48 | HOSPPROG ---
Hospitalist Progress Note Assessment/Plan: 53-year-old homeless alcoholic man is admitted with cough and shortness of breath. Found to have lingular pneumonia complicated by acute alcoholic withdrawal. # alcoholism with acute alcohol withdrawal. Stable on CIWA protocol. Precedex has been weaned off and currently on Ativan . * CIWA score is low, however he is tachycardic I will monitor him in the Step- Down Unit since he lost his IV access until we are sure he is stable for transfer off IV medications. * Transfer to [facility] when stable on p.o. Medications # right upper lobe resolving pneumonia noted on CT angiogram, patient not hypoxic and not currently coughing will hold on antibiotics * recheck CXR since patient is continuing to co of cough and congestion/? bronchitis or aspiration. # thickening of distal esophagus. Patient at risk for severe esophagitis given his alcoholism. Will have him follow up as an outpatient with GI once he is over this acute withdrawal. He needs follow-up with a primary care provider i.e. [facility]. * Start oral PPI until follow-up # hypertension, patient noncompliant with medications as outpatient will treat here in the hospital # COPD Homelessness, case management working with patient for possible placement. Subjective: complains of dizziness while ambulating. complains of cough and congestion worried about his lungs. Patient discussed in multidisciplinary rounds Objective: Vital Signs Temp Pulse Resp BP Pulse Ox 36.7 C 110 H 18 133/95 H 94 05/11/18 08:00 05/11/18 08:00 05/11/18 08:00 05/11/18 08:23 05/11/18 08:00 Laboratory Results 05/11/18 09:44 05/11/18 09:44 05/10/18 05/11/18 05/12/18 05:59 05:59 05:59 Intake Total 2646.6 2976 Output Total 1500 1000 400 Balance 1146.6 1975 - Physical Exam Constitutional: no apparent distress, obese Eyes: PERRL Ears, Nose, Mouth, Throat: moist mucous membranes Cardiovascular: regular rate and rhythym, tachycardia Respiratory: no respiratory distress, bronchial breath sounds Gastrointestinal: normoactive bowel sounds, no palpable masses Genitourinary: no bladder fullness Skin: normal color Musculoskeletal: generalized weakness Neurologic: AAOx3 Psychiatric: interacting appropriately ICD10 Worksheet Patient Problems: Problems Problem Status Onset Alcoholic intoxication Acute Respiratory failure Acute Tachycardia Acute Acute bronchitis Acute Mucus plugging of bronchi Acute Abdominal pain Acute Right rib fracture Acute Cellulitis of left foot Acute Dehydration Acute Fever Acute Alcohol withdrawal Acute Open wound of left foot Acute Sepsis Acute COPD exacerbation Acute
[2018-05-11] MEDS: ENOXAPARIN 40 MG/0.4 ML SYR SC SCH (10:58)
[2018-05-11] MEDS: PANTOPRAZOLE SODIUM 40 MG TAB PO SCH (10:58)
[2018-05-11] MEDS: IBUPROFEN 200 MG TAB PO PRN ×2 (13:00→21:34)
[2018-05-11] MEDS: LORazepam 1 MG TAB PO PRN ×2 (13:00→21:34)
--- NOTE | 2018-05-12 09:03 | HOSPPROG ---
Hospitalist Progress Note Assessment/Plan: 53-year-old homeless alcoholic man is admitted with cough and shortness of breath. Found to have lingular pneumonia complicated by acute alcoholic withdrawal. First encounter, chart reviewed w Dr Guerin who cared for Lobo yesterday. # alcoholism with acute alcohol withdrawal. -had been on a Precedex drip in the ICU -he is slightly tremulous during my interview and still withdrawing # right upper lobe resolving pneumonia noted on CT angiogram -not hypoxic, reviewed his chest xray which showed bronchitis # thickening of distal esophagus (I reviewed this finding w Lobo) - at risk for severe esophagitis given his alcoholism. Will have him follow up as an outpatient with GI once he is over this acute withdrawal. He needs follow -up with a primary care provider i.e. [facility]. -oral PPI # hypertension -patient noncompliant with medications as outpatient -getting treatment here # COPD #Homelessness -will ask [facility] Subjective: Lobo said he is feeling fine. Objective: Vital Signs Temp Pulse Resp BP Pulse Ox 37.1 C 93 16 121/104 H 94 05/12/18 08:00 05/12/18 08:00 05/12/18 08:00 05/12/18 08:00 05/12/18 08:00 Laboratory Results 05/11/18 09:44 05/11/18 09:44 05/11/18 05/12/18 05/13/18 05:59 05:59 05:59 Intake Total 2976 400 Output Total 1000 400 Balance 1976 0 - Physical Exam Constitutional: chronically ill appearing, unkempt Eyes: PERRL Ears, Nose, Mouth, Throat: poor dentition Cardiovascular: regular rate and rhythym Respiratory: no respiratory distress, reduced air movement Skin: warm Musculoskeletal: generalized weakness, other (slightly tremulous) Neurologic: AAOx3 Psychiatric: interacting appropriately ICD10 Worksheet Patient Problems: Problems Problem Status Onset Alcoholic intoxication Acute Tachycardia Acute Abdominal pain Acute Acute bronchitis Acute Alcohol withdrawal Acute COPD exacerbation Acute Cellulitis of left foot Acute Dehydration Acute Fever Acute Mucus plugging of bronchi Acute Open wound of left foot Acute Respiratory failure Acute Right rib fracture Acute Sepsis Acute
[2018-05-12] MEDS: amLODIPine BESYLATE 5 MG TAB PO SCH (09:37)
[2018-05-12] MEDS: PANTOPRAZOLE SODIUM 40 MG TAB PO SCH (09:37)
[2018-05-12] MEDS: ENOXAPARIN 40 MG/0.4 ML SYR SC SCH (09:38)
[2018-05-12] MEDS: THIAMINE HCL 100 MG TAB PO SCH (09:38)
[2018-05-12] MEDS: FOLIC ACID 1 MG TAB PO SCH (09:38)
[2018-05-12] MEDS: LORazepam 1 MG TAB PO PRN (09:45)
[2018-05-12] MEDS: traMADol 50 MG TAB PO PRN ×2 (09:46→17:00)
--- NOTE | 2018-05-12 11:25 | WOCRNPDOC ---
WOCRN Advanced Assessment Note - Skin Integrity Problem, Advanced Assess Right Lateral Ankle Dressing Type: Allevyn Life Exudate Amount: Scant Exudate Color: Brown Integumentary Issue Intervention: Dressing Removed Gretta Wound Tissue: Erythema, Painful/Tender (mild) Site Measurement - Head-to-Toe Length X Width X Depth (cm): 1.3x1x0 Pressure Injury Stage: Unstageable Pressure Injury Present on Admit: Yes Skin Integrity Problem Comment: Wound appears to be improving slightly. Top layer of necrosis is slowly sloughing off. Patient reports that area heals and then reopens when he lies/sits on stones. Continue plan of care. Wound care will follow. Left Medial First Metatarsal Head Diabetic Ulcer Dressing Type: Allevyn Life Dressing Description: Clean/Dry, Intact Exudate Amount: Scant Exudate Characteristic(s): Sanguinous Integumentary Issue Intervention: Dressing Changed, Dressing Initialed & Dated Gretta Wound Tissue: Calloused Wound Bed Constitution: Granulation Tissue (70%), Red/[employer] - Non Granular Tissue (30%), Bone (Tiny amount palpable in wound bed, but not visible) Wound Edges: Not Attached Site Measurement - Head-to-Toe Length X Width X Depth (cm): 0.5x0.9x0.2 Skin Integrity Problem Comment: Cleaned with ns and gauze calloused skin from 4 oclcock to 7 oclock was removed as it was lifting off the wound bed. No necrosis in wound. Filled bed with Stimulen Collagen powder and added a drop of NS to moisten. Covered with Allevyn life dressing. No sign of infection. This wound was from a surgical wound back in December that may have either healed and reopened or is still trying to heal. Wound care will follow. Reported findings to Kelly Sherman NP.
--- NOTE | 2018-05-12 14:03 | ASMTCMCOM ---
CM Note CM Note Notes: Pts case discussed w/ Kelly Sherman NP. Pt is in etoh w/d today. CM spoke to Yamil at [facility]. Yamil will discuss w/ his team to see if they can accept. DENNIS left a msg for [facility] to see if they can accept. DENNIS spoke to Tamanna w/ [facility]. Tamanna has approved pt for SNF. CM to follow. Plan: TBD Date Signed: 05/12/2018 02:03 PM Electronically Signed By:CALE Corrigan
[2018-05-13] MEDS: traMADol 50 MG TAB PO PRN ×2 (05:14→12:11)
[2018-05-13] MEDS: amLODIPine BESYLATE 5 MG TAB PO SCH (08:06)
[2018-05-13] MEDS: FOLIC ACID 1 MG TAB PO SCH (08:06)
[2018-05-13] MEDS: ENOXAPARIN 40 MG/0.4 ML SYR SC SCH (08:07)
[2018-05-13] MEDS: PANTOPRAZOLE SODIUM 40 MG TAB PO SCH (08:07)
[2018-05-13] MEDS: THIAMINE HCL 100 MG TAB PO SCH (08:07)
[2018-05-13] MEDS: IBUPROFEN 200 MG TAB PO PRN (08:10)
--- NOTE | 2018-05-13 08:59 | HOSPPROG ---
Hospitalist Progress Note Assessment/Plan: 53-year-old homeless alcoholic man is admitted with cough and shortness of breath. Found to have lingular pneumonia complicated by acute alcoholic withdrawal. # alcoholism with acute alcohol withdrawal. -had been on a Precedex drip in the ICU -no further s/sx of withdrawal # right upper lobe resolving pneumonia noted on CT angiogram -not hypoxic, reviewed his chest xray which showed bronchitis # thickening of distal esophagus (I reviewed this finding w Lobo) - at risk for severe esophagitis given his alcoholism. Will have him follow up as an outpatient with GI once he is over this acute withdrawal. He needs follow -up with a primary care provider i.e. [facility]. -oral PPI # hypertension -patient noncompliant with medications as outpatient -getting treatment here # COPD #Homelessness -to go to [place] today Subjective: Lobo is feeling well. Objective: Vital Signs Temp Pulse Resp BP Pulse Ox 36.8 C 86 16 133/100 H 95 05/13/18 07:59 05/13/18 07:59 05/13/18 07:59 05/13/18 07:59 05/13/18 07:59 Laboratory Results 05/11/18 09:44 05/11/18 09:44 05/12/18 05/13/18 05/14/18 05:59 05:59 05:59 Intake Total 400 2240 Output Total 400 Balance 0 2240 - Physical Exam Constitutional: no apparent distress, appears nourished Eyes: PERRL Ears, Nose, Mouth, Throat: hearing normal Cardiovascular: No tachycardia Respiratory: no respiratory distress Skin: warm Musculoskeletal: full muscle strength Neurologic: AAOx3 Psychiatric: interacting appropriately ICD10 Worksheet Patient Problems: Problems Problem Status Onset Alcoholic intoxication Acute Tachycardia Acute Abdominal pain Acute Acute bronchitis Acute Alcohol withdrawal Acute COPD exacerbation Acute Cellulitis of left foot Acute Dehydration Acute Fever Acute Mucus plugging of bronchi Acute Open wound of left foot Acute Respiratory failure Acute Right rib fracture Acute Sepsis Acute
--- NOTE | 2018-05-13 10:38 | PDIAF ---
- Diagnosis Diagnosis: alcohol withdrawal (resolved), htn Code Status: Full Code - Medication Management Discharge Medications: electronically signed and located in the Home Medication List. - Orders Services needed: Physical Therapy, Occupational Therapy Isolation Type: None Diet Recommendation: no restrictions on diet Diet Texture: Regular Texture Diet Additional Instructions: Please have follow up wound care for your wounds [facility] at [facility]: Wound care orders: Change dressings to left medial metatarsal head every 3 days and prn. 1. Clean with ns and gauze 2. Skin prep ulises wound 3. Sprinkle "Stimulen" collagen into wound bed and moisten with 1-2 drops of normal saline. If you cant find the "stimulen" please alert wound care and you may use [place] Ag+ or other collagen instead. 4. Cover with Allevyn life dressing. Change dressing to right ankle every other day and prn. 1. Clean with ns and gauze or in shower 2. Skin prep ulises wound 3. Apply a pea sized amount of silvasorb to black eschar 4. Cover with small foam border dressing. you have a thickened esophagus, stay on Protonix, f/u with a commercial finance analyst - Follow Up Care Current Providers and Referrals: NONE *PRIMARY CARE P,. [Primary Care Provider] - As per Instructions
[2018-05-13 11:38] VITALS: BP 112/82
--- NOTE | 2018-05-13 11:46 | ASMTDCNOTE ---
Case Management Discharge Discharge Order Complete? Answers: Yes Patient to Obtain Answers: Other Notes: [facility] Medications Transportation Arranged Answers: Other Notes: [place] w/c transport Transport will Pick (Date 05/13/2018 01:30 PM & Time) EMTALA Complete Answers: No Case Management Transport Answers: No Form Complete Faxed Final Orders Answers: Yes Agency/Facility Transfer Answers: Yes Report Printed & Faxed to Receiving Agency Family Notified Answers: No Discharge Comments Notes: Pts case discussed w/ Kelly Sherman NP. Pt is being d/c'd today to [facility]. DC orders sent. ADRIANO Perez will call to give report. Tamanna from [facility] has sent completed ultc-100 to [facility]. CM available for changes. Plan: [facility] Date Signed: 05/13/2018 11:46 AM Electronically Signed By:CALE Corrigan
--- NOTE | 2018-05-13 11:47 | ASDISCHSUM ---
Discharge Information Plan Status:SNF Medically Cleared to Leave:05/12/2018 Discharge Date:05/12/2018 CM D/C Disposition: ADT D/C Disposition:Nursing Home Facility Projected Discharge Date:05/13/2018 11:00 AM Transportation at D/C: Discharge Delay Reason: Follow-Up Date:05/13/2018 11:00 AM Discharge Slot: Final Diagnosis: Placement Information Referral Type:*Prison/SNF Referral ID:[id number] Provider Name:[facility] Address 1:[address] [place] [address] Address 2: City:[place] Selection Factors: State:[place] Patient Contact Information Contact Name:SAMANTHA Relationship:Friend Address: Work Phone: [facility] Phone: State/Zip Code:[place] [address] Email: Financial Information Financial Class:Medicaid Primary Plan Desc:MED[place] Primary Plan Number:[id number] Secondary Plan Desc: Secondary Plan Number: Assessment Information LACE LACE Length of stay for Answers: 7-13 days current admission Comorbidities - select Answers: Chronic pulmonary disease all that apply Other Notes: HTN # of Emergency department Answers: 9-12 visits in the last 6 months Social determinants Answers: History of substance abuse (ETOH, street drugs, prescription drugs, etc.) Homelessness (street, fci) Score: 19 Date Signed: 05/13/2018 11:44 AM Electronically Signed By:CALE Corrigan [facility] Initial CM Assessment Living Arrangements What is your living Answers: Alone arrangement? Who do you live with? Type Of Residence What kind of residence do Answers: Homeless you live in? Discharge Plan Comments Coordination Status Comments Notes: Patient is a 53yo single, homeless male who has a hx of ETOH dependence, COPD, Benedict's esophagus who presents with complaints of cough, shortness of breath, and thought to be tachycardic.No therapies ordered. Patient is currently OBS. Patient is not interested in stopping drinking at this time. Patient does not like the shelters and frequently stays outdoors and has concerns about frostbite. D/C plan TBD. CM will follow. Date Signed: 05/05/2018 10:57 AM Electronically Signed By:Kenna Andre LCSW [facility] CM Progress Note CM Note CM Note Notes: Pts case discussed w/ Dr. Garza. PT is recommending SNF. CM met w/ pt for dispo planning. Pt is agreeable to going to SNF and staying 30 days. CM started ultc-100 and submitted it to [facility]. A copy of the ultc-100 is in pts chart. CM sent multiple referrals. CM to follow. Plan: SNF Date Signed: 05/08/2018 02:36 PM Electronically Signed By:CALE Corrigan [facility] CM Progress Note CM Note CM Note Notes: Multiple facilities have said no to SNF admission. [facility] and [facility] are interested but need more information. Awaiting TC response. CM will follow. Date Signed: 05/09/2018 11:21 AM Electronically Signed By:Kenna Andre LCSW [facility] Progress Note CM Note CM Note Notes: Pts case discussed w/ Kelly Sherman NP. Pt is in etoh w/d today. DENNIS spoke to Yamil at [facility]. Yamil will discuss w/ his team to see if they can accept. DENNIS left a msg for [facility] to see if they can accept. DENNIS spoke to Tamanna somers/ [facility]. Tamanna has approved pt for SNF. CM to follow. Plan: TBD Date Signed: 05/12/2018 02:03 PM Electronically Signed By:CALE Corrigan Case Management Discharge Plan Note Case Management Discharge Discharge Order Complete? Answers: Yes Patient to Obtain Answers: Other Notes: [facility] Medications Transportation Arranged Answers: Other Notes: [place] w/c transport Transport will Pick (Date 05/13/2018 01:30 PM & Time) ANDERS Complete Answers: No Case Management Transport Answers: No Form Complete Faxed Final Orders Answers: Yes Agency/Facility Transfer Answers: Yes Report Printed & Faxed to Receiving Agency Family Notified Answers: No Discharge Comments Notes: Pts case discussed w/ Kelly Sherman NP. Pt is being d/c'd today to [facility]. DC orders sent. ADRIANO Perez will call to give report. Tamanna from [facility] has sent completed ultc-100 to [facility]. CM available for changes. Plan: [facility] Date Signed: 05/13/2018 11:46 AM Electronically Signed By:CALE Corrigan Intervention Information
--- NOTE | 2018-05-13 14:36 | GDS ---
[f rep st] DISCHARGE SUMMARY DISCHARGE DIAGNOSES: 1. Alcoholism with acute alcohol withdrawal. 2. Right upper lobe resolving pneumonia noted on a CT angiogram. 3. Thickening of the distal esophagus. 4. Hypertension. 5. Chronic obstructive pulmonary disease. 6. Homelessness. Mr. Foreman is a 53-year-old homeless man who was admitted with cough and shortness of breath. He wa s found to have a lingular pneumonia complicated by acute alcohol withdrawal. He was placed in the [facility] on a Precedex drip. He was treated with antibiotics. He improved significantly. He will be disc harged to [facility] for further care. HOSPITAL COURSE PER PROBLEM: 1. Alcoholism with acute alcohol withdrawal. No signs or symptoms. Will continue him on thiamine a t discharge. 2. Right upper lobe resolving pneumonia noted on CT angiogram. He is currently not hypoxic. His mo st current x-ray shows some bronchitis. 3. Thickening of distal esophagus. He is at risk for severe esophagitis given his alcoholism. He n eeds to follow up with Outpatient GI. I reviewed this finding with him. Will continue him on a PPI. 4. Hypertension. Resume Norvasc. 5. COPD, at his baseline. 6. Homelessness. He will go to [place] today. DISCHARGE CONDITION: Stable. Blood pressure is 138/94, heart rate of 93, respiratory rate of 16. O 2 saturations on room air 91%. Temperature is 36.8 Celsius. MEDICATIONS AT DISCHARGE: Please see the EMR. DISCHARGE INSTRUCTIONS: 1. Follow up with his PCP in regard to getting set up with a starch factory laborer. 2. He will get wound care done at the snf facility. 3. If he develops fever, chills, chest pain, shortness of breath, return to the ER. Greater than 30 minutes discharge and coordinating care. Copy requested to: PCP /[id number]/MODL
--- NOTE | 2018-05-16 14:32 | PQFORM ---
PHYSICIAN QUERY FORM Needs Your Response This query form is being sent to you to assure this patient record is coded properly. Please respond to the question below: DIRECTOR OF MARKETING AND PROMOTIONS QUESTION: Dear Dr. Stanford, The diagnosis of Acute Respiratory Failure is documented in the progress notes 05/07/18, 05/08/18 and 05/09/18.~ Would this be appropriate as an additional diagnosis on the discharge summary? Yes x No Other Clinically Undetermined Thank you, Cori Johnston, PATIENT CONSUMER MARKETER HIM/Coding Department INSTRUCTIONS FOR RESPONSE: Answer question by clicking on the "Edit Document" button. Move cursor to area below the stars. When complete, hit "Save." Click on the "Sign" button, then click "Sign" again. Type in your PIN and hit "Enter." MTDD
--- NOTE | 2018-05-17 07:34 | CPEKG ---
Test Reason : OPEN Blood Pressure : / mmHG Vent. Rate : 122 BPM Atrial Rate : 122 BPM P-R Int : 150 ms QRS Dur : 102 ms QT Int : 334 ms P-R-T Axes : 060 -67 044 degrees QTc Int : 476 ms Sinus tachycardia Left axis deviation Borderline prolonged QT interval Confirmed by Kenneth Hedrick ([id number]) on 05/17/2018 7:33:30 AM Referred By: Kenneth Hedrick Confirmed By:Kenneth Hedrick
== END 2018-05-13 14:25 | DRG 775 ==
LOC: EDUNIT# → F3E 07:20 → F2N 18:21 → OBSVTOIN 05-06 14:05 → F3E 05-11 16:03
PROVIDERS: ADMIT Family Medicine; ATTEND Internal Medicine
DX: F10.220 Alcohol dependence with intoxication, uncomplicated (principal); F10.230 Alcohol dependence with withdrawal, uncomplicated; J18.1 Lobar pneumonia, unspecified organism; J96.00 Acute respiratory failure, unspecified whether with hypoxia or hypercapnia; J44.1 Chronic obstructive pulmonary disease with (acute) exacerbation; E86.0 Dehydration; K70.10 Alcoholic hepatitis without ascites; D69.6 Thrombocytopenia, unspecified; T33.822A Superficial frostbite of left foot, initial encounter; X31.XXXA Exposure to excessive natural cold, initial encounter; R00.0 Tachycardia, unspecified; M25.571 Pain in right ankle and joints of right foot; K22.70 Barrett's esophagus without dysplasia; E87.6 Hypokalemia; F17.210 Nicotine dependence, cigarettes, uncomplicated; K44.9 Diaphragmatic hernia without obstruction or gangrene; I10 Essential (primary) hypertension; Y90.8 Blood alcohol level of 240 mg/100 ml or more; Z59.0 Homelessness
CPT/HCPCS: 80305; 96365; 96366; 97116-GP; 97161-GP; 97530-GP; G0378; G0480; J0360; J1650; J2060; J7512; J7626; Q9967

== ENCOUNTER 2018-05-19 18:25 | Emergency (ER) | payer MEDICAID ==
[2018-05-19 18:27] VITALS: BP 172/135
[2018-05-19] MEDS ORDERED: CHLORDIAZEPOXIDE 25MG PREPK#6 BTL TAKEHOME ONE (18:28)
--- NOTE | 2018-05-19 18:28 | EDPHY ---
H & P Time Seen by Provider: 05/19/18 18:35 HPI/ROS: HPI: This is a 53-year-old male who presents with Chief Complaint: Alcohol intoxication Location: body Quality: Alcohol intoxication Duration: Unknown Signs and Symptoms: no auditory hallucinations, no visual hallucinations, no suicidal ideation with a plan, no homicidal ideation, no paranoia Timing: Acute on chronic Severity: Moderate to severe Context: Patient has a history alcoholism, alcohol withdrawal seizures, presents with police [facility]. Patient was at a local [employer] when the patient called police and asked them to take him to the [facility]. Patient reports that he has alcohol withdrawal seizures. He admits to drinking alcohol today. He was recently admitted to the hospital for pneumonia and spent several days in ICU for alcohol withdrawal. He denies any seizure activity, hallucinations, disturbances and perceptions. He denies homicidal ideation, suicidal ideation. Modifying Factors: None Comment: ROS: A comprehensive 10 system review of systems is otherwise negative aside from elements mentioned in the history of present illness. MEDICAL/SURGICAL/SOCIAL HISTORY: Medical history: ETOH, Hep C, lung and esophageal cancer per pt report, Benedict esophagus, smoker, COPD, HTN, left foot inf 12/2017 Surgical history: Denies Social history: Homeless. Current every day smoker. Family history noncontributory. CONSTITUTIONAL: Intoxicated, polite and cooperative, untidy, elderly white male , police at bedside, awake and alert, no obvious distress HEENT: Atraumatic and normocephalic, PERRL, EOMI. Nares patent; no rhinorrhea; no nasal mucosal edema. Tympanic membranes clear. Oropharynx clear, no exudate and moist pink mucosa. Airway patent. No lymphadenopathy. No meningismus. Cardiovascular: Normal S1/S2, regular rate, regular rhythm, without murmur rub or gallop. PULMONARY/CHEST: Symmetrical and nontender. Clear to auscultation bilaterally. Good air movement. No accessory muscle usage. ABDOMEN: Soft, nondistended, nontender, no rebound, no guarding, no peritoneal signs, no masses or organomegaly. No CVAT. EXTREMITIES: 2/2 pulses, strength 5/5, no deformities, no clubbing, no cyanosis or edema. NEUROLOGICAL: no focal neuro deficits. GCS 15. Slurred words. SKIN: Warm and dry, leathery, no erythema. no rash. Good capillary refill. PSYCH: Good eye contact, no flight of ideas, organized thought process, wear insight and judgment, no auditory hallucinations, no visual hallucinations, no suicidal ideation with a plan, no homicidal ideation, no paranoia Source: Patient, Family Exam Limitations: Intoxication - Personal History Tetanus Vaccine Date: <10YRS - Medical/Surgical History Hx Asthma: No Hx Chronic Respiratory Disease: No Hx Diabetes: Yes Hx Cardiac Disease: No Hx Renal Disease: No Hx Cirrhosis: No Hx Alcoholism: Yes Hx HIV/AIDS: No Hx Splenectomy or Spleen Trauma: No Other PMH: ETOH, Hep C, lung and esophogeal cancer per pt report, barrets esophagus, smoker, COPD, HTN, left foot inf 12/2017 - Social History Smoking Status: Current every day smoker Constitutional: Initial Vital Signs Temperature (C) 36.3 C 05/19/18 18:26 Heart Rate 139 H 05/19/18 18:26 Respiratory Rate 16 05/19/18 18:26 Blood Pressure 172/135 H 05/19/18 18:26 O2 Sat (%) 93 05/19/18 18:26 O2 Delivery Mode Room Air Allergies/Adverse Reactions: penicillin Allergy (Verified 05/19/18 18:26) "Passed out" Home Medications: Medication Instructions Recorded Folic Acid [Folic Acid 1 MG (*)] 1 mg PO DAILY tab 02/15/18 amLODIPine BESYLATE [Norvasc 5 mg 5 mg PO DAILY #30 tab 04/24/18 (*)] Ibuprofen [Motrin (*)] 400 mg PO BID PRN tab 05/13/18 Pantoprazole Sodium [Protonix 40mg 40 mg PO DAILY #0 tab 05/13/18 (*)] Thiamine HCl [Vitamin B-1] 100 mg PO DAILY tab 05/13/18 traMADol [Ultram 50 mg (*)] 50 mg PO Q6HRS PRN tab 05/13/18 Medical Decision Making ED Course/Re-evaluation: Vital signs reviewed and show hypertension and tachycardia. Patient does not meet M1 hold or MIH criteria. Patient is ambulatory without assistance and is appropriate to be discharged to the [facility]. Librium prepack given. This patient was seen under the supervision of my secondary supervising physician. I evaluated care for this patient independently. Discussed this patient with Dr. Melchor who did not see the patient. Differential Diagnosis: Differential diagnosis includes but is not limited to major depression, anxiety disorder, schizophrenia, bipolar disorder, intoxicant use, suicidal ideation, psychosis, morgan. - Data Points Medications Given: Discontinued Medications Chlordiazepoxide (Librium 25 Mg Prepack#6) 1 btl TAKEHOME EDNOW ONE Stop: 05/19/18 18:29 Last Admin: 05/19/18 18:35 Dose: 1 btl Departure - Departure Disposition: Home, Routine, Self-Care Clinical Impression: Alcohol abuse with alcohol-induced disorder Condition: Good Instructions: Abuse of Alcohol (ED), At-Risk Alcohol Use (ED) Additional Instructions: Please refrain from using alcohol excessively. Referrals: [facility] [Outside] - As per Instructions
== END 2018-05-19 18:37 | disposition home or self-care (01) ==
DX: F10.19 Alcohol abuse with unspecified alcohol-induced disorder (principal); Z59.0 Homelessness

== ENCOUNTER 2018-05-20 02:27 | Inpatient (IN) | payer MEDICAID ==
[2018-05-20] MEDS ORDERED: LORazepam 2 MG/ML INJ IVP ONE ×2 (02:30→02:56)
[2018-05-20] MEDS ORDERED: NS 1,000 ML IV ONE (02:30)
[2018-05-20] MEDS ORDERED: IBUPROFEN 600 MG TAB PO ONE (02:32)
[2018-05-20] MEDS ORDERED: IPRATROPIUM/ALBUTEROL 3 ML DEYVIAL IH ONE (02:35)
--- NOTE | 2018-05-20 02:35 | EDPHY ---
H & P Time Seen by Provider: 05/20/18 02:32 HPI/ROS: HPI CHIEF COMPLAINT: Shortness of breath, low oxygen saturation, fast heart rate. HISTORY OF PRESENT ILLNESS: This patient is a 53-year-old male well known to myself as well as the emergency room, presents to the emergency room by EMS for shortness of breath, cough, fast heart rate. The patient was the [facility] where on routine vital signs checked in noticed his heart rate is in the 150s to 160s, and O2 sat of 70%. The patient arrives to the emergency room is in fact have a heart rate in the 130s to 140s, O2 sat 78% on room air. He is a slight low temperature 38.2 degrees. He does endorse cough with productive sputum. States his last drink was alcohol last night. He denies any chest pain he does complain of shortness of breath. Past Medical History: Significant medical history for a community-acquired pneumonia, alcoholism daily alcohol use, hypertension and COPD Past Surgical History: No recent surgery Social History: Alcoholism with daily alcohol use. Last use last night. Family History: Noncontributory ROS REVIEW OF SYSTEMS: 10 Systems were reviewed and negative with the exception of the elements mentioned in the history of present illness. Exam Constitutional triage nursing summary reviewed, vital signs reviewed, awake/ alert. Vital signs noted tachycardic 130s to 140s upon arrival, O2 sat 78%. 38.2 temp. Eyes normal conjunctivae and sclera, EOMI, PERRLA. HENT normal inspection, atraumatic, moist mucus membranes, no epistaxis, neck supple/ no meningismus, no raccoon eyes. Respiratory faint wheezing bilaterally. Cardiovascular tachycardia regular rhythm, no murmur, no edema, distal pulses normal. Gastrointestinal soft, non-tender, no rebound, no guarding, normal bowel sounds, no distension, no pulsatile mass. Genitourinary no CVA tenderness. Musculoskeletal no midline vertebral tenderness, full range of motion, no calf swelling, no tenderness of extremities, no meningismus, good pulses, neurovascularly intact. Skin pink, warm, & dry, no rash, skin atraumatic. Neurologic awake, alert and oriented x 3, AAOx3, moves all 4 extremities equally, motor intact, sensory intact, CN II-XII intact, normal cerebellar, normal vision, normal speech. Psychiatric normal mood/affect. Heme/Lymph/Immune no lymphadenopathy. Differential Diagnosis: Includes but is not limited to in a particular order viral syndrome, URI, viral pneumonia, bacterial pneumonia, alcohol draw, dehydration, electrolyte thyroid, cardiac arrhythmia, SVT Medical Decision Making: Plan for this patient IV establishment IV fluids, 2 L normal saline, blood cultures, lactic acid chest x-ray, IV Ativan, alcohol level , drug screen, rule out pneumonia. Re-evaluation: EKG interpretation by me on record in [employer] system. Impression time of EKG 2:33 a.m. Sinus tach 161. ED X-RAY: Dense left-sided pneumonia. Patient here in the emergency room noted be tachycardic sinus tach, alcohol withdrawal, severe and hypoxia, pneumonia. Patient need to be admitted ICU for close monitoring given hypoxia, tachycardia and alcohol draw. So far are the patient is gotten 2 mg IV Ativan. May need after repeat dose of Ativan, Precedex. 0314: Plan for admission to the intensive care unit. This is due to alcohol withdrawal, tachycardia, hypoxia and pneumonia. I have asked the hospitalist service Dr. Walters to admit the patient. Critical Care: Total Critical Care Time Spent Managing this Patient: 65 Minutes. This time was spent Exclusively with this patient. This Care was exclusive of procedures. The Organ System/life at risk was hypoxia, tachycardia, pneumonia, alcohol withdrawal, dehydration This Patient was in Critical Condition because tachycardia, alcohol draw, pneumonia, hypoxia Source: Patient, EMS - Personal History Tetanus Vaccine Date: <10YRS - Medical/Surgical History Hx Asthma: No Hx Chronic Respiratory Disease: No Hx Diabetes: Yes Hx Cardiac Disease: No Hx Renal Disease: No Hx Cirrhosis: No Hx Alcoholism: Yes Hx HIV/AIDS: No Hx Splenectomy or Spleen Trauma: No Other PMH: ETOH, Hep C, lung and esophogeal cancer per pt report, barrets esophagus, smoker, COPD, HTN, left foot inf 12/2017 - Social History Smoking Status: Current every day smoker Constitutional: Initial Vital Signs Temperature (C) 38.1 C 05/20/18 02:30 Heart Rate 153 H 05/20/18 02:30 Respiratory Rate 30 H 05/20/18 02:30 Blood Pressure 118/93 H 05/20/18 02:30 O2 Sat (%) 84 L 05/20/18 02:30 O2 Delivery Mode Nasal Cannula O2 (L/minute) 5 Allergies/Adverse Reactions: penicillin Allergy (Verified 05/20/18 03:22) "Passed out" Home Medications: Medication Instructions Recorded Folic Acid [Folic Acid 1 MG (*)] 1 mg PO DAILY tab 02/15/18 amLODIPine BESYLATE [Norvasc 5 mg 5 mg PO DAILY #30 tab 04/24/18 (*)] Ibuprofen [Motrin (*)] 400 mg PO BID PRN tab 05/13/18 Pantoprazole Sodium [Protonix 40mg 40 mg PO DAILY #0 tab 05/13/18 (*)] Thiamine HCl [Vitamin B-1] 100 mg PO DAILY tab 05/13/18 traMADol [Ultram 50 mg (*)] 50 mg PO Q6HRS PRN tab 05/13/18 Medical Decision Making - Data Points Laboratory Results: Laboratory Results 05/20/18 02:38 05/20/18 02:38 Medications Given: Acetaminophen (Tylenol) 650 mg PO Q4HRS PRN PRN Reason: Pain, Mild/Fever, Can Take PO Stop: 11/16/18 03:14 Last Admin: 05/22/18 21:52 Dose: 650 mg Amlodipine Besylate (Norvasc) 5 mg PO DAILY JOHAN Stop: 11/18/18 08:59 Last Admin: 05/23/18 08:49 Dose: 5 mg Azithromycin (Zithromax) 500 mg PO DAILY JOHAN PRN Reason: Protocol Stop: 06/22/18 08:59 Last Admin: 05/23/18 08:49 Dose: 500 mg Enoxaparin Sodium (Lovenox) 40 mg SC DAILY JOHAN Stop: 11/16/18 08:59 Last Admin: 05/23/18 08:48 Dose: 40 mg Folic Acid (Folic Acid) 1 mg PO DAILY JOHAN Stop: 11/18/18 08:59 Last Admin: 05/23/18 08:49 Dose: 1 mg Ceftriaxone Sodium/Dextrose (Rocephin 1 Gm (Premix)) 50 mls @ 100 mls/hr IV Q24H JOHAN PRN Reason: Protocol Stop: 06/20/18 02:59 Last Admin: 05/23/18 02:49 Dose: 50 mls Lorazepam (Ativan Injection) 0 mg IVP Q1H PRN; Protocol PRN Reason: Alcohol Withdrawal w/IV access Stop: 11/16/18 03:19 Last Admin: 05/22/18 21:52 Dose: 2 mg Lorazepam (Ativan) 0 mg PO Q4HRS PRN; Protocol PRN Reason: Alcohol W/D w/ No IV Access Stop: 11/16/18 04:59 Last Admin: 05/23/18 09:30 Dose: 1 mg Pantoprazole Sodium (Protonix) 40 mg PO DAILY JOHAN Stop: 11/18/18 08:59 Last Admin: 05/23/18 08:48 Dose: 40 mg Thiamine HCl (Vitamin B-1) 100 mg PO DAILY JOHAN Stop: 11/18/18 08:59 Last Admin: 05/23/18 08:48 Dose: 100 mg Tramadol HCl (Ultram) 50 mg PO Q6HRS PRN PRN Reason: Pain, Moderate Able to Take PO Stop: 11/17/18 13:57 Last Admin: 05/22/18 05:53 Dose: 50 mg Discontinued Medications Acetaminophen (Tylenol) 1,000 mg PO EDNOW ONE Stop: 05/20/18 03:37 Last Admin: 05/20/18 03:37 Dose: 1,000 mg Albuterol/Ipratropium (Duoneb) 3 ml IH EDNOW ONE Stop: 05/20/18 02:36 Last Admin: 05/20/18 02:45 Dose: 3 ml Sodium Chloride (Ns) 1,000 mls @ 0 mls/hr IV EDNOW ONE; Wide Open PRN Reason: Protocol Stop: 05/20/18 02:31 Last Admin: 05/20/18 02:44 Dose: 1,000 mls Azithromycin 500 mg/ Sodium (Chloride) 255 mls @ 255 mls/hr IV EDNOW ONE PRN Reason: Protocol Stop: 05/20/18 03:55 Last Admin: 05/20/18 03:16 Dose: 255 mls Ceftriaxone Sodium 2 gm/ (Sodium Chloride) 50 mls @ 100 mls/hr IV EDNOW ONE PRN Reason: Protocol Stop: 05/20/18 03:25 Last Admin: 05/20/18 03:02 Dose: 50 mls Azithromycin 500 mg/ Sodium (Chloride) 255 mls @ 255 mls/hr IV Q24H JOHAN PRN Reason: Protocol Stop: 06/20/18 01:59 Last Admin: 05/22/18 03:27 Dose: 255 mls Sodium Chloride (Ns) 1,000 mls @ 125 mls/hr IV CONT JOHAN Stop: 05/20/18 11:14 Last Admin: 05/20/18 12:10 Dose: 1,000 mls Thiamine HCl 500 mg/ Sodium (Chloride) 105 mls @ 210 mls/hr IV DAILY JOHAN Stop: 05/22/18 09:29 Last Admin: 05/22/18 08:14 Dose: 105 mls Ibuprofen (Motrin) 600 mg PO EDNOW ONE Stop: 05/20/18 02:33 Last Admin: 05/20/18 02:45 Dose: 600 mg Lorazepam (Ativan Injection) 1 mg IVP EDNOW ONE Stop: 05/20/18 02:31 Last Admin: 05/20/18 02:45 Dose: 1 mg Lorazepam (Ativan Injection) 1 mg IVP EDNOW ONE Stop: 05/20/18 02:57 Last Admin: 05/20/18 02:57 Dose: 1 mg Lorazepam (Ativan Injection) 0 mg IVP Q1H PRN; Protocol PRN Reason: Alcohol Withdrawal w/IV access Stop: 05/20/18 15:06 Last Admin: 05/20/18 04:53 Dose: 2 mg Pantoprazole Sodium (Protonix) 40 mg PO BID [facility] Stop: 11/16/18 08:59 Last Admin: 05/21/18 09:52 Dose: 40 mg Point of Care Test Results: Chemistry 05/20/18 02:44 POC Troponin I 0.01 ng/mL ng/mL (0.00-0.08) Departure - Departure Disposition: [facility] Clinical Impression: Tachycardia, Hypoxia Alcohol withdrawal Qualifiers: Complication of substance-induced condition: uncomplicated Qualified Code(s): F10.230 - Alcohol dependence with withdrawal, uncomplicated Fever Qualifiers: Fever type: unspecified Qualified Code(s): R50.9 - Fever, unspecified Pneumonia Qualifiers: Pneumonia type: due to unspecified organism Laterality: left Lung location: lower lobe of lung Qualified Code(s): J18.1 - Lobar pneumonia, unspecified organism Condition: Critical
[2018-05-20 02:50] LABS: PLATELET COUNT 219 10^3/uL (150-400)
[2018-05-20] MEDS ORDERED: AZITHROMYCIN IV 500 MG in NS 250 ML IV ONE (02:56)
[2018-05-20] MEDS ORDERED: LORazepam 2 MG/ML INJ ONE (02:56)
[2018-05-20] MEDS ORDERED: cefTRIAXone 1 GM/DEXTROSE 1 GM/50 ML BAG IV ONE (03:00)
[2018-05-20] MEDS ORDERED: LORazepam 2 MG/ML INJ IVP PRN (03:06)
[2018-05-20] MEDS ORDERED: LORazepam 1 MG TAB PO PRN ×2 (03:06→05:00)
[2018-05-20 03:09] LABS: INR 0.78 (0.83-1.16); PROTIME(PATIENT) 11.1 SEC (12.0-15.0)
[2018-05-20] MEDS ORDERED: ONDANSETRON DISINTEGRATING 4 MG TAB PO PRN (03:15)
[2018-05-20] MEDS ORDERED: ONDANSETRON 4 MG/2 ML VIAL IVP PRN (03:15)
[2018-05-20] MEDS ORDERED: FLUMAZENIL 0.5 MG/5 ML MDV IVP PRN (03:20)
[2018-05-20] MEDS ORDERED: IPRATROPIUM/ALBUTEROL 3 ML DEYVIAL IH PRN (03:33)
[2018-05-20] MEDS ORDERED: ACETAMINOPHEN 500 MG TAB ONE (03:35)
[2018-05-20] MEDS ORDERED: ACETAMINOPHEN 500 MG TAB PO ONE (03:36)
[2018-05-20] MEDS: NS 1,000 ML IV SCH ×2 (05:08→12:10)
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
[2018-05-20] MEDS ORDERED: LORazepam 1 MG TAB PO SCH (06:00)
--- NOTE | 2018-05-20 08:16 | CPEKG ---
Test Reason : OPEN Blood Pressure : / mmHG Vent. Rate : 161 BPM Atrial Rate : 160 BPM P-R Int : 106 ms QRS Dur : 094 ms QT Int : 351 ms P-R-T Axes : 003 -80 061 degrees QTc Int : 575 ms Sinus tachycardia LAD, consider left anterior fascicular block Prolonged QT interval Confirmed by Kenneth Hedrick ([id number]) on 05/20/2018 8:16:04 AM Referred By: Kenneth Hedrick Confirmed By:Kenneth Hedrick
--- NOTE | 2018-05-20 09:19 | WOCRNPDOC ---
WOCRN Advanced Assessment Note - Skin Integrity Problem, Advanced Assess Left Medial First Metatarsal Head Dressing Type: Allevyn Life Exudate Amount: Scant Exudate Characteristic(s): Serosanguinous Integumentary Issue Intervention: Dressing Removed Gretta Wound Tissue: Erythema, Macerated (minimally) Wound Bed Constitution: Red/Reedy - Non Granular Tissue (50%), Adhered Slough (50 %) Wound Edges: Attached, Not Attached Site Measurement - Head-to-Toe Length X Width X Depth (cm): 1x1.8x0.2 Skin Integrity Problem Comment: Patient well known to our service. The dressing in place on this area was applied by wound RN on 05/12 and had not been changed. Wound is larger than when patient was discharged. Patient tremulous and unable to answer questions at this time. Cleaned with ns and gauze. Covered with moist gauze. Wound care will follow. Right Lateral Ankle Dressing Type: Allevyn Life Dressing Description: Clean/Dry, Intact Exudate Amount: None Skin Integrity Problem Comment: Scab/eschar covering is coming off of area. It has not changed much since previous admission. Wound care will sign off.
[2018-05-20] MEDS: ENOXAPARIN 40 MG/0.4 ML SYR SC SCH (09:36)
[2018-05-20] MEDS: THIAMINE HCL 500 MG in NS 100 ML IV SCH (09:36)
[2018-05-20] MEDS: PANTOPRAZOLE SODIUM 40 MG TAB PO SCH ×2 (09:37→21:20)
--- NOTE | 2018-05-20 09:49 | ASMTCMCOM ---
CM Note CM Note Notes: CM met with pt. He reports he left [place] because of "finances" . Pt reports he has been camping prior to coming into the hospital. Pt reports he has been "cutting back" his drinking since the hospital keeps telling him to but wouldn't provide amounts. CM reviewed pt's chart and submit referral to [facility]. CM to follow. Plan: TBD Date Signed: 05/20/2018 09:48 AM Electronically Signed By:CALE Wynn
[2018-05-20] MEDS: LORazepam 2 MG/ML INJ IVP PRN ×6 (09:51→23:46)
--- NOTE | 2018-05-20 11:19 | PDMN ---
Medical Necessity Medical necessity: Pt meets IP criteria per MD & MCG M-160; est los >2 m for eval/tx of severe sepsis w/tachycardia, fever, tachypnea, hypoxia (84% on RA requiring 5 lpm O2), worsening LLL pneumonia, L foot & R ankle pressure wounds & acute alcohol withdrawal; requiring further SDU monitoring, IV abx, IVFs, CIWA protocol & Wound Care consult; hx recent hospitalization, homelessness, COPD, alcoholism; per H&P & order 05/20/18
--- NOTE | 2018-05-20 14:44 | ASMTLACE ---
THUY Acuity / Level of Answers: Yes Care: Did the patient have an inpatient admission? Comorbidities - select Answers: Chronic pulmonary disease all that apply History of falls Other Notes: HTN # of Emergency department Answers: 9-12 visits in the last 6 months Social determinants Answers: History of substance abuse (ETOH, street drugs, prescription drugs, etc.) Score: 17 Date Signed: 05/20/2018 02:43 PM Electronically Signed By:Rut Diaz
--- NOTE | 2018-05-20 14:44 | GCON ---
[f rep st] CONSULTATION CRITICAL CARE CONSULTATION. DATE OF CONSULTATION: 05/20/2018 HISTORY OF PRESENT ILLNESS: This patient is a 53-year-old male with chronic alcoholism and homelessn ess, as well as alcohol withdrawal seizures in multiple bouts of withdrawal. He has had between 15 a nd 20 hospital admissions or emergency department visits in 2018 alone and is currently on his third hospital admission for alcohol withdrawal despite treatment [facility] and other [facility]. He was hospitalized at [facility] from 04/19 through 04/24/2018 with alcohol withdrawal, which he seemed to recover from. He was readmitted, however, on 05/05 with additional wi thdrawal and eventually discharged on 05/13/2018. On 05/19/2018, he was seen in the emergency depart ment after requesting to be taken to the [facility]. He was taken at that time, but returned the next day w ith a heart rate in the 150s, which was last night, as well as oxygen desaturations. Films revealed a pneumonia and he has been treated with the CIWA protocol overnight. He was fairly somnolent with m e this morning and did not provide many details. The details I have reported here are all from his m edical record. REVIEW OF SYSTEMS: Therefore unable to be obtained. PAST MEDICAL HISTORY: Includes alcoholism, alcohol withdrawal, COPD, hypertension, hepatitis C, pneu monia in April 2018, Benedict's esophagus, osteomyelitis of his toe. PAST SURGICAL HISTORY: Includes left ankle surgery, left great toe I and D. FAMILY HISTORY: Noncontributory. SOCIAL HISTORY: He is a current smoker, as well as heavy alcohol user who is homeless. CURRENT MEDICATIONS: Include Tylenol, DuoNeb, azithromycin, ceftriaxone, Lovenox, CIWA protocol with Ativan, Zofran Protonix, thiamin. PHYSICAL EXAM: VITAL SIGNS: He was febrile to as high as 39.2. Blood pressure was 103/70, heart ra te 138, oxygen saturation 97% on 5 L with a respiratory rate of 18. GENERAL: As I said, he was somn olent and mostly nonverbal and uncooperative, but appeared to be relatively stable, in no apparent di stress. HEENT: Pupils equally round and reactive to light. Nonicteric and noninjected. Mucous mem branes are moist. NECK: Supple without adenopathy or jugular vein distention. LUNGS: Breath sound s were clear to auscultation bilaterally without wheeze, rubs, rales. HEART: Regular rate and rhyth m without murmurs, rubs, gallops. ABDOMEN: Soft, nontender, nondistended without hepatosplenomegaly . EXTREMITIES: Show no clubbing, cyanosis, or edema. There are multiple wounds on his feet, all of which appear to be clearing. NEUROLOGIC: Grossly nonfocal. OBJECTIVE DATA: Includes a white count of 12, hematocrit 48, platelets of 219. INR 0.78. Basic met abolic panel was unremarkable. LFTs were normal. Troponin negative. BNP 79. Alcohol level was 125 on admission. His chest x-ray revealed a left lower lobe pneumonia with elevation of left hemidiaphragm. ASSESSMENT/PLAN: 1. Pneumonia and hypoxemia. He is relatively stable from this perspective. I agree with the antibi otics that are chosen. Cultures are negative today. We should continue to follow those and treat hi m symptomatically. 2. Chronic obstructive pulmonary disease. I do not see that he has a chronic obstructive pulmonary disease exacerbation enough at the moment to warrant systemic steroids and would avoid those for now. 3. Alcohol withdrawal. He is getting the CIWA protocol, but required very little medication. He ma y not require much moving forward. I would favor scheduled Librium over benzodiazepine at this point . 4. Related to this, which is his disposition. He has chronic homelessness and alcoholism and excess john abuse of health care delivery services. I will meet with the case management team to see if ther e is any other alternatives that we can come up with that would result in greater stability. /[id number]/MODL
--- NOTE | 2018-05-20 18:38 | HOSPPROG ---
Hospitalist Progress Note Assessment/Plan: * Etoh withdrawal -continue Ativan per CIWA * Severe sepsis -very febrile and tachycardic this afternoon - withdrawal vs. sepsis * Acute respiratory failure -now on 5L * Pneumonia -Rocephin, azithro -consider change to aspiration coverage if remains critically ill * COPD/tobacco dependence * Foot/ankle wounds -wound care CC time - 35 minutes Subjective: c/o chills, heart rate > 150, persistent high fever Objective: Vital Signs Temp Pulse Resp BP Pulse Ox 38.6 C H 131 H 30 H 124/89 H 98 05/20/18 12:00 05/20/18 16:00 05/20/18 16:00 05/20/18 16:00 05/20/18 16:00 05/19/18 05/20/18 05/21/18 05:59 05:59 05:59 Intake Total 1550 2178 Output Total 500 Balance 1550 1678 PT 11.1 SEC (12.0-15.0) L 05/20/18 02:38 INR 0.78 (0.83-1.16) L 05/20/18 02:38 - Physical Exam Constitutional: appears nourished, not in pain, uncomfortable Cardiovascular: tachycardia, No edema Respiratory: respiratory distress, rhonchi Gastrointestinal: normoactive bowel sounds, soft, non-tender abdomen, no palpable masses Skin: no rashes or abrasions, no fluctuance, no induration Neurologic: AAOx3 Psychiatric: interacting appropriately ICD10 Worksheet Patient Problems: Problems Problem Status Onset Alcohol withdrawal Acute Fever Acute Hypoxia Acute Pneumonia Acute Tachycardia Acute Abdominal pain Acute Acute bronchitis Acute Alcoholic intoxication Acute COPD exacerbation Acute Cellulitis of left foot Acute Dehydration Acute Mucus plugging of bronchi Acute Open wound of left foot Acute Respiratory failure Acute Right rib fracture Acute Sepsis Acute
[2018-05-21] MEDS: AZITHROMYCIN IV 500 MG in NS 250 ML IV SCH (02:45)
[2018-05-21] MEDS: LORazepam 2 MG/ML INJ IVP PRN ×5 (04:07→22:13)
[2018-05-21 06:08] LABS: PLATELET COUNT 129 10^3/uL (150-400)
[2018-05-21] MEDS: PANTOPRAZOLE SODIUM 40 MG TAB PO SCH (09:52)
[2018-05-21] MEDS: ENOXAPARIN 40 MG/0.4 ML SYR SC SCH (09:53)
[2018-05-21] MEDS: THIAMINE HCL 500 MG in NS 100 ML IV SCH (10:30)
[2018-05-21] MEDS: ACETAMINOPHEN 325 MG TAB PO PRN ×2 (12:20→22:12)
--- NOTE | 2018-05-21 13:31 | PDINTPN ---
[employer] Progress Note Assessment/Plan: 53 M with chronic homelessness and etoh, admitted >15 times in 2018 and 3 episodes of etoh wd in 2019 alone. Now re-admitted after leaving rehab AMA, though he does state it was for financial reasons. He was found to have a new PNA and hypoxia as well as etoh intoxication. He was treated with about 14 mg ativan since admission, but no precedex drip. * PNA- clear infiltrate in LLL/lingula. Stable on CTX/zithromax. * Hypoxia- 2/2 above. Titrating down and no2 97% on 2 lpm * ETOH wd- chronic, likely unsolvable issue with excessive abuse of hospital and public resources. No recourse according to case management. Note the majority of his hospitalizations occur during winter months- none between and 11/[address] [facility] at least. * Stable for floor Subjective: feels better. Denies hallucinosis Objective: Vital Signs Temp Pulse Resp BP Pulse Ox 37.1 C 110 H 20 146/107 H 93 05/21/18 12:00 05/21/18 12:00 05/21/18 12:00 05/21/18 12:00 05/21/18 12:00 Microbiology 05/20/18 16:00 - Final Sputum, Expectorated Laboratory Results 05/21/18 05:41 05/21/18 05:41 05/20/18 05/21/18 05/22/18 05:59 05:59 05:59 Intake Total 1550 3632 Output Total 1600 650 Balance 1550 2032 -650 PT 11.1 SEC (12.0-15.0) L 05/20/18 02:38 INR 0.78 (0.83-1.16) L 05/20/18 02:38 Physical Exam - Physical Exam General Appearance: alert, no apparent distress EENT: PERRL/EOMI Neck: supple Respiratory: lungs clear, normal breath sounds, decreased breath sounds, No respiratory distress, No accessory muscle use Cardiac/Chest: regular rate, rhythm, No edema Abdomen: non-tender, soft, No distended Skin: normal color, warm/dry, No cyanosis Lymphatic: no adenopathy Extremities: No pedal edema Neuro/Psych: alert, normal mood/affect, oriented x 3, cognition abnormalities ICD10 Worksheet Patient Problems: Problems Problem Status Onset Alcohol withdrawal Acute Fever Acute Hypoxia Acute Pneumonia Acute Tachycardia Acute Abdominal pain Acute Acute bronchitis Acute Alcoholic intoxication Acute COPD exacerbation Acute Cellulitis of left foot Acute Dehydration Acute Mucus plugging of bronchi Acute Open wound of left foot Acute Respiratory failure Acute Right rib fracture Acute Sepsis Acute
--- NOTE | 2018-05-21 18:36 | HOSPPROG ---
Hospitalist Progress Note Assessment/Plan: * Etoh withdrawal -continue Ativan per CIWA * Severe sepsis -improving * Acute respiratory failure -improving * Pneumonia -manuel Burns * COPD/tobacco dependence * Foot/ankle wounds -wound care Subjective: CIWA reducing, doing better Objective: Vital Signs Temp Pulse Resp BP Pulse Ox 37 C 108 H 16 146/107 H 92 05/21/18 16:00 05/21/18 16:00 05/21/18 16:00 05/21/18 12:00 05/21/18 16:00 Microbiology 05/20/18 16:00 - Final Sputum, Expectorated Laboratory Results 05/21/18 05:41 05/21/18 05:41 05/20/18 05/21/18 05/22/18 05:59 05:59 05:59 Intake Total 1550 3632 200 Output Total 1600 650 Balance 1550 2032 -450 PT 11.1 SEC (12.0-15.0) L 05/20/18 02:38 INR 0.78 (0.83-1.16) L 05/20/18 02:38 ICD10 Worksheet Patient Problems: Problems Problem Status Onset Alcoholic intoxication Acute Respiratory failure Acute Tachycardia Acute Acute bronchitis Acute Mucus plugging of bronchi Acute Abdominal pain Acute Right rib fracture Acute Cellulitis of left foot Acute Dehydration Acute Fever Acute Alcohol withdrawal Acute Open wound of left foot Acute Sepsis Acute COPD exacerbation Acute Hypoxia Acute Pneumonia Acute
[2018-05-22] MEDS: LORazepam 2 MG/ML INJ IVP PRN ×4 (02:19→21:52)
[2018-05-22] MEDS: ACETAMINOPHEN 325 MG TAB PO PRN ×2 (03:25→21:52)
[2018-05-22] MEDS: AZITHROMYCIN IV 500 MG in NS 250 ML IV SCH (03:27)
[2018-05-22] MEDS: traMADol 50 MG TAB PO PRN (05:53)
[2018-05-22] MEDS: FOLIC ACID 1 MG TAB PO SCH (08:13)
[2018-05-22] MEDS: THIAMINE HCL 100 MG TAB PO SCH (08:13)
[2018-05-22] MEDS: amLODIPine BESYLATE 5 MG TAB PO SCH (08:13)
[2018-05-22] MEDS: PANTOPRAZOLE SODIUM 40 MG TAB PO SCH (08:13)
[2018-05-22] MEDS: THIAMINE HCL 500 MG in NS 100 ML IV SCH (08:14)
[2018-05-22] MEDS: ENOXAPARIN 40 MG/0.4 ML SYR SC SCH (08:14)
--- NOTE | 2018-05-22 12:21 | ASMTCMCOM ---
CM Note CM Note Notes: Patient continues to be in ETOH withdrawal. Patient left his last placement AMA and will be difficult to find a SNF to take him. PT recommends home with no needs. D/C plan likely jail bed. CM will follow. Date Signed: 05/22/2018 12:21 PM Electronically Signed By:Kenna Andre LCSW
--- NOTE | 2018-05-22 16:01 | HOSPPROG ---
Hospitalist Progress Note Assessment/Plan: * Etoh withdrawal -continue Ativan per CIWA * Severe sepsis -improving * Acute respiratory failure -improving * Pneumonia -manuel Burns * COPD/tobacco dependence * Foot/ankle wounds -wound care Subjective: Still feels SOB, tremulous Objective: Vital Signs Temp Pulse Resp BP Pulse Ox 36.9 C 108 H 18 135/107 H 93 05/22/18 15:47 05/22/18 15:47 05/22/18 15:47 05/22/18 15:47 05/22/18 15:47 Microbiology 05/20/18 16:00 - Final Sputum, Expectorated Laboratory Results 05/21/18 05:41 05/21/18 05:41 05/21/18 05/22/18 05/23/18 05:59 05:59 05:59 Intake Total 3632 1250 Output Total 1600 650 250 Balance 2032 600 -250 PT 11.1 SEC (12.0-15.0) L 05/20/18 02:38 INR 0.78 (0.83-1.16) L 05/20/18 02:38 - Physical Exam Constitutional: no apparent distress, appears nourished, not in pain Cardiovascular: regular rate and rhythym, no murmur, rub, or gallop Respiratory: no respiratory distress, no rales or rhonchi, clear to auscultation Gastrointestinal: normoactive bowel sounds, soft, non-tender abdomen, no palpable masses Skin: no rashes or abrasions, no fluctuance, no induration Neurologic: AAOx3, sensation intact bilaterally Psychiatric: interacting appropriately, not anxious, not encephalopathic, thought process linear ICD10 Worksheet Patient Problems: Problems Problem Status Onset Alcoholic intoxication Acute Respiratory failure Acute Tachycardia Acute Acute bronchitis Acute Mucus plugging of bronchi Acute Abdominal pain Acute Right rib fracture Acute Cellulitis of left foot Acute Dehydration Acute Fever Acute Alcohol withdrawal Acute Open wound of left foot Acute Sepsis Acute COPD exacerbation Acute Hypoxia Acute Pneumonia Acute
[2018-05-23] MEDS: PANTOPRAZOLE SODIUM 40 MG TAB PO SCH (08:48)
[2018-05-23] MEDS: ENOXAPARIN 40 MG/0.4 ML SYR SC SCH (08:48)
[2018-05-23] MEDS: THIAMINE HCL 100 MG TAB PO SCH (08:48)
[2018-05-23] MEDS: FOLIC ACID 1 MG TAB PO SCH (08:49)
[2018-05-23] MEDS: AZITHROMYCIN 250 MG TAB PO SCH (08:49)
[2018-05-23] MEDS: amLODIPine BESYLATE 5 MG TAB PO SCH (08:49)
[2018-05-23] MEDS: LORazepam 2 MG/ML INJ IVP PRN ×3 (08:58→20:27)
[2018-05-23] MEDS ORDERED: THIAMINE HCL 100 MG TAB PO SCH (09:00)
--- NOTE | 2018-05-23 13:58 | WOCRNPDOC ---
WOCRN Advanced Assessment Note - Skin Integrity Problem, Advanced Assess Left Medial First Metatarsal Head Dressing Type: Allevyn Life Dressing Description: Clean/Dry, Intact Closure Description: Not Approximated Exudate Amount: None Integumentary Issue Intervention: Dressing Changed, Dressing Initialed & Dated, Silver Gel Applied Gretta Wound Tissue: Blanching, Erythema, Thin, Scarred Wound Bed Color: Talent Wound Bed Constitution: Red/Talent - Non Granular Tissue Wound Edges: Attached, Thick Site Odor: Slight Site Measurement - Head-to-Toe Length X Width X Depth (cm): 0.7x0.8x0.2 Skin Integrity Problem Comment: Patient removed dressing when he saw me enter his room. Wound much smaller than my last encounter with it in Mar 2018. Wound bed cleaned with a Qtip and NS to remove loose slough. Silver gel applied and wound recovered with an Allevyn. Paient questions answered. Reminded him that he 'll need to change the dressing periodically upon discharge as this did not seem to happen last time. Patient in agreement. Wound care will round again late next week.
[2018-05-23] MEDS ORDERED: IOPAMIDOL (ISOVUE 370) 100 ML BTL IV ONE (14:27)
--- NOTE | 2018-05-23 16:06 | HOSPPROG ---
Hospitalist Progress Note Assessment/Plan: * Etoh withdrawal -continue Ativan per CIWA * Severe sepsis -improving * Acute respiratory failure -improving * Pneumonia -manuel Burns * COPD/tobacco dependence * Foot/ankle wounds -improving per wound RN * Esophageal thickening concerning for possible esophageal Ca by CT -patient has ongoing esophageal symptoms despite PPI -consult GI to consider inpatient EGD Subjective: c/o chest burning and SOB Objective: Vital Signs Temp Pulse Resp BP Pulse Ox 36.9 C 129 H 16 122/105 H 94 05/23/18 13:19 05/23/18 13:18 05/23/18 13:18 05/23/18 13:18 05/23/18 13:18 Microbiology 05/20/18 16:00 - Final Sputum, Expectorated Sputum Culture - Final Laboratory Results 05/21/18 05:41 05/21/18 05:41 05/22/18 05/23/18 05/24/18 05:59 05:59 05:59 Intake Total 1250 1126 Output Total 650 250 Balance 600 876 PT 11.1 SEC (12.0-15.0) L 05/20/18 02:38 INR 0.78 (0.83-1.16) L 05/20/18 02:38 d/w dr. torre regarding GI consultation CT chest - no PE, + PNA, esophageal thick - Physical Exam Constitutional: no apparent distress, appears nourished, not in pain Cardiovascular: regular rate and rhythym, no murmur, rub, or gallop Respiratory: no respiratory distress, no rales or rhonchi, clear to auscultation Gastrointestinal: normoactive bowel sounds, soft, non-tender abdomen, no palpable masses Skin: no rashes or abrasions, no fluctuance, no induration Neurologic: AAOx3, sensation intact bilaterally Psychiatric: interacting appropriately, not anxious, not encephalopathic, thought process linear ICD10 Worksheet Patient Problems: Problems Problem Status Onset Alcoholic intoxication Acute Respiratory failure Acute Tachycardia Acute Acute bronchitis Acute Mucus plugging of bronchi Acute Abdominal pain Acute Right rib fracture Acute Cellulitis of left foot Acute Dehydration Acute Fever Acute Alcohol withdrawal Acute Open wound of left foot Acute Sepsis Acute COPD exacerbation Acute Hypoxia Acute Pneumonia Acute
[2018-05-23] MEDS: ACETAMINOPHEN 325 MG TAB PO PRN (20:27)
[2018-05-24 05:13] LABS: PLATELET COUNT 164 10^3/uL (150-400)
[2018-05-24] MEDS: ENOXAPARIN 40 MG/0.4 ML SYR SC SCH (08:35)
[2018-05-24] MEDS: THIAMINE HCL 100 MG TAB PO SCH (08:39)
[2018-05-24] MEDS: AZITHROMYCIN 250 MG TAB PO SCH (08:39)
[2018-05-24] MEDS: PANTOPRAZOLE SODIUM 40 MG TAB PO SCH ×2 (08:39→21:49)
[2018-05-24] MEDS: amLODIPine BESYLATE 5 MG TAB PO SCH (08:40)
[2018-05-24] MEDS: FOLIC ACID 1 MG TAB PO SCH (08:40)
--- NOTE | 2018-05-24 11:19 | PDANEPAE ---
ANE History of Present Illness esophageal symptoms and CT concerning for esophageal CA, here for EGD and bx ANE Past Medical History - Cardiovascular History Hx Hypertension: Yes - Pulmonary History Hx COPD: Yes Hx Oxygen in Use at Home: No Hx Sleep Apnea: No - Endocrine History Hx Diabetes: Yes Endocrine History Comment: diet comtrolled - Neurological & Psychiatric Hx Hx Neurological and Psychiatric Disorders: Yes Neurological / Psychiatric History Comment: EtOH abuse, on CIWA on the floor, recent score of 1 - Chronic Pain History Chronic Pain: Yes ANE Review of Systems Review of Systems: ANE Patient History - Allergies Allergies/Adverse Reactions: penicillin Allergy (Verified 05/20/18 03:22) "Passed out" - Smoking Hx Smoking Status: Current every day smoker - Alcohol Use Alcohol Use: Heavy ANE Labs/Vital Signs - Labs Result Diagrams: 05/24/18 04:40 05/24/18 04:40 - Vital Signs Blood Pressure: 139/103 Heart Rate: 115 Respiratory Rate: 16 O2 Sat (%): 93 Height: 172.72 cm Weight: 74.4 kg ANE Physical Exam - Airway Neck exam: FROM Mallampati Score: Class 2 Mouth exam: normal dental/mouth exam, poor dentition - Pulmonary Pulmonary: no respiratory distress - Cardiovascular Cardiovascular: regular rate and rhythym, no murmur, rub, or gallop - ASA Status ASA Status: III, E ANE Anesthesia Plan Anesthesia Plan: GA with mask Total IV Anesthesia: Yes
[2018-05-24] MEDS ORDERED: LR 1,000 ML IV ONE (11:22)
[2018-05-24] MEDS ORDERED: LIDOCAINE 2% 100 MG/5 ML SYR ONE (11:30)
[2018-05-24] MEDS ORDERED: fentaNYL 100 MCG/2 ML INJ ONE (11:31)
[2018-05-24] MEDS ORDERED: PROPOFOL 200 MG/20 ML VIAL ONE (11:31)
[2018-05-24] MEDS ORDERED: LORazepam 1 MG TAB PO PRN (11:35)
--- NOTE | 2018-05-24 12:09 | GIREPORT ---
[facility] - Endoscopy Department Patient Name: Lobo Foreman Procedure Date: 05/24/2018 11:27 AM Patient Type: Inpatient Attending MD/ ER Physician: Gold Nicholson MD Procedure: Upper GI endoscopy Indications: Note dictated, consult appreciated. Abnormal CT of the GI tract, with d istal esophageal thickening. Providers: Gold Nicholson MD, FACG Referring MD: [facility] Hospitalist service Medicines: See the Anesthesia note for documentation of the administered medicatio ns Complications: No immediate complications. Description of Procedure: After obtaining informed consent, the endoscope was passed under direct vision. Throughout the procedure, the patient's blood pressure, pulse, and oxygen saturations were monitored continuously. The Endoscope was intro duced through the mouth, and advanced to the second part of duodenum. Findings: Remington-colored mucosa was present in the lower esophagus, with a superificial ulceration present at 28 cm. The maximum longitudinal exte nt of these esophageal mucosal changes was 10 cm in length (GE junction at 38 cm). Biopsies were taken with a cold forceps for histology from the ulcer an d probable Benedict's. The stomach was normal. The examined duodenum was normal. Estimated Blood Loss: Estimated blood loss: none. Post Op Diagnosis: - Suspect Benedict's only, as above, with a superficial benign-appearing ulcer. Recommendation: - Pathology results pending. - feed - increase PPI to bid, while here in the hospital. As an outpt., recommend: - no alcohol - generic PPI daily jail - f/u [facility] I will sign off. I will f/u on bx results, but would not recommend a re peat EGD in 5 years for Benedict's, unless he stops drinking. Else, please ca ll if we can be of further help [phone] Thank you for allowing me to help in the management of this patient. Attending Participation: I personally performed the entire procedure. Lyn Malcolm MD Gold Nicholson MD 05/24/2018 12:09:11 PM This report has been signed electronicallyPeter MD Lyn Number of Addenda: 0 Note Initiated On: 05/24/2018 11:27 AM [email or web address]
--- NOTE | 2018-05-24 12:16 | GCON ---
[f rep st] CONSULTATION GI INPATIENT CONSULTATION DATE OF CONSULTATION: 05/24/2018 I was kindly requested to see Lobo by Dr. Nelly Stanford in consultation for chief complaint of an abnormal x-ray of the GI tract. He is a 53-year-old white male, who was admitted to the hospital with alcohol withdrawal and pneumonia. There is some mention of sepsis and respiratory failure. He complains of chest burning. CT angio of the chest with IV contrast showed some circumferential wall thickening in the distal esophagus, as well as some lymphadenopathy that was suspected to be reactive only. PAST MEDICAL HISTORY: Alcohol dependency. Orthopedic surgeries. MEDICATIONS: Inpatient medications include Norvasc, Zithromax, ceftriaxone, Lovenox, Protonix 40 mg daily, folic acid, and thiamine. ALLERGIES: Penicillin. SOCIAL HISTORY: He is an alcoholic. FAMILY HISTORY: Negative for similar chest burning. REVIEW OF SYSTEMS: Positive pertinent review of systems as per my HPI. Otherwise, a complete review of systems is negative. PHYSICAL EXAM: CONSTITUTIONAL: Chronically ill-appearing, nontoxic gentleman. VITAL SIGNS: Stable. SKIN: Warm, dry. EYES: Pupils equal, round, reactive to light and accommodation. EARS, NOSE, MOUTH, THROAT, OROPHARYNX: Without masses, moist mucosa. CARDIOVASCULAR: Normal S2, normal PMI. RESPIRATORY: Lungs clear to auscultation and percussion anteriorly. GASTROINTESTINAL: Abdomen nontender, without masses. NEUROLOGIC: Grossly nonfocal, cranial nerves grossly intact. PSYCHIATRIC: Orientation, insight appropriate. MUSCULOSKELETAL: Strength grossly normal throughout, normal sensation. LABORATORIES: Include a normal CBC. Normal basic metabolic panel. Recent liver function tests normal. Otherwise, as above. ASSESSMENT: Chest burning, with a CT scan showing circumferential wall thickening of the distal esophagus. Suspect due to reflux only. Candidal esophagitis is possible. Esophageal cancer is possible, but much less likely. PLAN: 1. Urgent upper endoscopy. Certainly, with his alcoholism, recent alcohol withdrawal syndrome, respiratory failure, pneumonia, and recent sepsis, he is at increased risk for this procedure. Indeed, we will use propofol for this procedure. 2. Further management depending on the above. Thank you for allowing me to help in the management of this patient. /[id number]/MODL MTDD
--- NOTE | 2018-05-24 15:15 | HOSPPROG ---
Hospitalist Progress Note Assessment/Plan: 53 yo M with hx of etoh abuse and w/d presenting with etoh w/d and sepsis in setting of pna * Etoh withdrawal -CIWA scores have been very low, recently 1, will dc CIWA -patient states he is still anxious, prn ativan for anxiety only * Severe sepsis -resolved, 2/2 pna as below * Acute respiratory failure -improved, maintaining sats on RA currently * Pneumonia -manuel Burns currently day 4 -will transition to oral levofloxacin in am with a plan to complete 7 day course so long as clinical improvement continues * COPD/tobacco dependence -no acute exacerbation of copd -nicotine patch * Foot/ankle wounds -improving per wound RN * Esophageal thickening/GERD -s/p EGD with biopsies obtained and pending -concerning for Barretts and recommending repeat EGD in 5 years -BID PPI * IP status Patient new to my care. Old records reviewed and summarized as above. Care plan reviewed with CM. Subjective: no significant overnight events, patient s/p egd and feeling fine Objective: Vital Signs Temp Pulse Resp BP Pulse Ox 36.6 C 115 H 13 107/81 H 91 L 05/24/18 12:02 05/24/18 11:19 05/24/18 12:02 05/24/18 12:02 05/24/18 12:02 Microbiology 05/20/18 16:00 - Final Sputum, Expectorated Sputum Culture - Final Laboratory Results 05/24/18 04:40 05/24/18 04:40 05/23/18 05/24/18 05/25/18 05:59 05:59 05:59 Intake Total 1126 1000 Output Total 250 Balance 876 1000 PT 11.1 SEC (12.0-15.0) L 05/20/18 02:38 INR 0.78 (0.83-1.16) L 05/20/18 02:38 awake alert anicteric op clear rrr no mrg cta b soft nt nd no cce warm dry well perfused oriented appropriate - Time Spent With Patient Time Spent with Patient: greater than 35 minutes Time Spent with Patient: Greater than 35 minutes spent on this patients care, greater than 50% of time spent counseling, educating, and coordinating care regarding the above mentioned plan. ICD10 Worksheet Patient Problems: Problems Problem Status Onset Alcoholic intoxication Acute Respiratory failure Acute Tachycardia Acute Acute bronchitis Acute Mucus plugging of bronchi Acute Abdominal pain Acute Right rib fracture Acute Cellulitis of left foot Acute Dehydration Acute Fever Acute Alcohol withdrawal Acute Open wound of left foot Acute Sepsis Acute COPD exacerbation Acute Hypoxia Acute Pneumonia Acute
[2018-05-24] MEDS: NICOTINE 21 MG/24 HR PATCH TD SCH (15:18)
--- NOTE | 2018-05-24 16:16 | ASMTCMCOM ---
CM Note CM Note Notes: Plan remains the same, d/t pt's etoh and leaving [facility] on previous occasions at [facility], plan will be for pt to dc to [facility] when medically stable. CM available for any changes. DC Plan: Independent/ Skilled Nursing Date Signed: 05/24/2018 04:16 PM Electronically Signed By:Zoraida Lewis RN
[2018-05-24] MEDS: traMADol 50 MG TAB PO PRN (22:29)
[2018-05-25] MEDS: traMADol 50 MG TAB PO PRN ×2 (07:30→12:46)
[2018-05-25] MEDS: THIAMINE HCL 100 MG TAB PO SCH (09:28)
[2018-05-25] MEDS: amLODIPine BESYLATE 5 MG TAB PO SCH (09:28)
[2018-05-25] MEDS: ENOXAPARIN 40 MG/0.4 ML SYR SC SCH (09:28)
[2018-05-25] MEDS: FOLIC ACID 1 MG TAB PO SCH (09:28)
[2018-05-25] MEDS: PANTOPRAZOLE SODIUM 40 MG TAB PO SCH (09:28)
[2018-05-25] MEDS: NICOTINE 21 MG/24 HR PATCH TD SCH (09:29)
[2018-05-25 09:34] VITALS: BP 143/98
--- NOTE | 2018-05-25 11:55 | PDDCSUM ---
Discharge Summary Discharge Summary: Dates of service 05/20-05/25/18 Consultations: GI, pulmonary/critical care Procedures performed: chest CTA, EGD Hospital course by problem: 53 yo M with hx of etoh abuse and w/d presenting with etoh w/d and sepsis in setting of pna * Etoh withdrawal -has resolved, patient states he plans to remain sober, he has been given resources in the past he states and knows where to find support * Severe sepsis -resolved, 2/2 pna as below * Acute respiratory failure -resolved and doing well on RA now, 2/2 pna as below * Pneumonia -clinically significantly improved, completed 4 days ctx/azithro and transitioned to levofloxacin to complete 7 day course * COPD/tobacco dependence -no acute exacerbation of copd -nicotine patch * Foot/ankle wounds -improving per wound RN * Esophageal thickening/GERD -s/p EGD with biopsies obtained and pending -concerning for Barretts and recommending repeat EGD in 5 years -discharged home on BID PPI DC to homeless nursing home Items for follow up: EGD biopsies > 35 min spent in dc more than half in coordination of care
--- NOTE | 2018-05-26 16:33 | POSTANESTH ---
Post Anesthetic Evaluation Cardiovascular Status: Normal, Stable Respiratory Status: Normal, Stable Level of Consciousness/Mental Status: Can Participate in Eval, Mildly Sleepy, Arousable Pain Control: Adequate, Prn Tx Ordered Nausea/Vomiting Control: Adequate, Prn Tx Ordered
== END 2018-05-25 12:54 | disposition home or self-care (01) | DRG 720 ==
LOC: EDUNIT# → F2N 04:30 → F1N 05-22 21:43
PROVIDERS: ADMIT Family Medicine; ATTEND Family Medicine
PROC: 0DB38ZX Excision of Lower Esophagus, Via Natural or Artificial Opening Endoscopic, Diagnostic (ICD-10-PCS; principal; 2018-05-24 11:30)
DX: A41.9 Sepsis, unspecified organism (principal); R65.20 Severe sepsis without septic shock; J18.9 Pneumonia, unspecified organism; J96.00 Acute respiratory failure, unspecified whether with hypoxia or hypercapnia; F10.230 Alcohol dependence with withdrawal, uncomplicated; J44.9 Chronic obstructive pulmonary disease, unspecified; K22.70 Barrett's esophagus without dysplasia; L89.529 Pressure ulcer of left ankle, unspecified stage; L89.899 Pressure ulcer of other site, unspecified stage; I10 Essential (primary) hypertension; B19.20 Unspecified viral hepatitis C without hepatic coma; F17.210 Nicotine dependence, cigarettes, uncomplicated; Z59.0 Homelessness; Z85.01 Personal history of malignant neoplasm of esophagus; Z85.118 Personal history of other malignant neoplasm of bronchus and lung
CPT/HCPCS: 80305; 84484-ER; 96365; 97116-GP; 97161-GP; 97165-GO; G0480; J0456; J0696; J1650; J2001; J2060; J2704; J3010; J3411; Q9967

== ENCOUNTER 2018-05-28 14:15 | Emergency (ER) | payer MEDICAID, OTHER ==
--- NOTE | 2018-05-28 16:53 | EDPHY ---
H & P Time Seen by Provider: 05/28/18 14:19 HPI/ROS: HPI Alcohol intoxication. 53-year-old male by EMS. Found passed out, intoxicated on alcohol in front of the [employer]. Admits to drinking hard liquor all day. No history of trauma or assault. No other complaints. ROS: Constitutional: No fever, no chills. As above. Eyes: No discharge. No changes in vision. ENT: No sore throat. No nasal congestion or rhinorrhea. Respiratory: No cough. No shortness of breath. Cardiac: No chest pain, no palpitations. Gastrointestinal: No abdominal pain, no vomiting, no diarrhea. Genitourinary: No hematuria. No dysuria or increased frequency with urination. Musculoskeletal: No back pain. No neck pain. No myalgias or arthralgias. Skin: No rashes. Neurological: No headache. No focal weakness or altered sensation. Past medical history: Alcohol abuse, hepatitis-C, Benedict's esophagus, esophageal cancer, COPD, left foot infection. Social history: Homeless. Heavy smoker. Alcohol abuse. Physical Exam: General Appearance: Sleepy, arousable to voice, strong odor of alcohol on his breath. Dirty and disheveled. This patient is responding to questions appropriately and in full sentences. This patient appears well-hydrated and well-nourished. Eyes: Pupils equal and round no pallor or injection. No lid edema, erythema or injection. Respiratory: There are no retractions, lungs are clear to auscultation with good air movement bilaterally. Cardiovascular: Regular rate and rhythm. No murmur. Gastrointestinal: Abdomen is soft and nontender, no masses, bowel sounds normal. No focal tenderness at McBurney's point. No Montalvo sign. Neurological: Motor sensory function is grossly intact. Cranial nerves are normal. Skin: Warm and dry, no rashes. Musculoskeletal: Neck is supple and nontender. Left lower extremity is in an orthopedic boot. All joints range without pain or impingement. Psychiatric: No agitation. No depression. Database: EKG: Imaging: Procedures: Emergency department course: Vital signs reviewed the triage triage vital signs reviewed. He is mildly tachycardic. He was 90% while sleeping on room air. He was placed on 2 L of nasal can be cannula oxygen. Pulse oximetry came up into the mid 90s. Vital signs are otherwise normal. Plan will be to allow him to sober until appropriate for transfer to the [facility]. 6:30 p.m., the patient is able to ambulate without issue under his own power at this time. [facility] is [facility] for transfer to [facility] but refuses to go to the [facility]. The patient will be discharged from the emergency department. Follow-up and return to emergency department precautions reviewed with him. All of his questions were answered. He was discharged from the emergency department in good condition. Differential Diagnosis: The differential diagnosis on this patient includes but is not limited to alcohol abuse, alcohol intoxication. Traumatic brain injury, other acute traumatic injury unlikely. This represents a partial list of diagnoses considered. These considerations are based on history, physical exam, past history, reassessment and diagnostic testing. Smoking Status: Current every day smoker Constitutional: Initial Vital Signs Temperature (C) 36.8 C 05/28/18 14:22 Heart Rate 110 H 05/28/18 14:22 Respiratory Rate 16 05/28/18 14:22 Blood Pressure 128/80 H 05/28/18 14:22 O2 Sat (%) 90 L 05/28/18 14:22 O2 Delivery Mode Nasal Cannula O2 (L/minute) 2 Allergies/Adverse Reactions: penicillin Allergy (Verified 05/20/18 03:22) "Passed out" Home Medications: Medication Instructions Recorded Folic Acid [Folic Acid 1 MG (*)] 1 mg PO DAILY tab 02/15/18 amLODIPine BESYLATE [Norvasc 5 mg 5 mg PO DAILY #30 tab 04/24/18 (*)] Ibuprofen [Motrin (*)] 400 mg PO BID PRN tab 05/13/18 Thiamine HCl [Vitamin B-1] 100 mg PO DAILY tab 05/13/18 traMADol [Ultram 50 mg (*)] 50 mg PO Q6HRS PRN tab 05/13/18 Nicotine [Nicoderm Cq 21 mg (*)] 21 mg TD DAILY #14 patch 05/25/18 Pantoprazole Sodium [Protonix 40mg 40 mg PO BID #60 tab 05/25/18 (*)] levOFLOXACIN [levAQUIN (*)] 750 mg PO DAILY AT 10AM #2 tab 05/25/18 Departure - Departure Disposition: Home, Routine, Self-Care Clinical Impression: Alcohol intoxication Condition: Good Instructions: Alcohol Intoxication (ED) Additional Instructions: Read and follow provided instructions. Follow-up with your primary care physician in 1-2 days for re-evaluation to discuss detox options. Return to the emergency department for worsening symptoms or other serious concerns. Referrals: [facility] 24 Hours [Outside] - As per Instructions
[2018-05-28 18:23] VITALS: BP 96/76
== END 2018-05-28 18:22 | disposition home or self-care (01) ==
LOC: EDBD → EDUNIT#
DX: F10.129 Alcohol abuse with intoxication, unspecified (principal); B19.20 Unspecified viral hepatitis C without hepatic coma; F17.200 Nicotine dependence, unspecified, uncomplicated; Z59.0 Homelessness

== ENCOUNTER 2018-09-29 17:29 | Emergency (ER) | payer MEDICAID | END 2018-09-29 22:13 | disposition home or self-care (01) ==